=== PATIENT | female | born 1985 | race African-American/Black ===

== ENCOUNTER 2017-11-11 09:32 | Observation (INO) | payer BC ==
[~2017-11-11] VITALS: Ht 152.4 cm; Wt 151.5 kg
[~2017-11-11 09:32] MED LIST: ALBUTEROL SULF8.5 GM INH; BENADRYL25 M1 PO; CLOMID PO; DICYCLOMINE HCL20 MG PO; ESTRACE42.5 GM TOP; FOLIC ACID0.4 MG PO; MECLIZINE HCL12.5 MG PO; METFORMIN HCL500 MG PO; NO MEDS; ZOFRAN ODT4 MG PO
[2017-11-11] MEDS ORDERED: ONDANSETRON HCL INJ 2 MG/ML VIAL IV STA (09:45)
[2017-11-11] MEDS ORDERED: SODIUM CHLORIDE 0.9% 1000ML 1,000 ML IV STA (09:45)
[2017-11-11] MEDS ORDERED: FAMOTIDINE 20 MG/2 ML VIAL IV STA (09:45)
[2017-11-11] MEDS ORDERED: MORPHINE SULFATE 4 MG/ML SYR IV STA (09:45)
[2017-11-11] MEDS ORDERED: MORPHINE SULFATE 2 MG/ML SYR ONE (10:05)
[2017-11-11 10:09] LABS: BASOPHILS % 0.2 % (0.0-1.0); EOSINOPHILS # (AUTO) 0.1 (0.0-0.4); EOSINOPHILS % 2.4 % (0.0-6.0); HEMATOCRIT 35.6 % (34.2-44.1); HEMOGLOBIN 11.1 g/dL (12.0-16.0); LYMPHOCYTES # (AUTO) 1.5 (1.0-3.2); LYMPHOCYTES % 25.6 % (18.0-39.1); MEAN CORPUSCULAR HGB CONC 31.2 g/dL (31-35); MEAN CORPUSCULAR VOLUME 70.5 fL (81-99); MONOCYTES # (AUTO) 0.5 (0.2-0.8); MONOCYTES % 7.9 % (4.4-11.3); NEUTROPHILS # (AUTO) 3.7 (2.1-6.9); NEUTROPHILS % 63.4 % (38.7-80.0); PLATELET COUNT 248 x10e3/uL (140-360); RED BLOOD COUNT 5.05 x10e6/uL (3.6-5.1); RED CELL DISTRIBUTION WIDTH 18.5 % (11.7-14.4)
[2017-11-11 10:24] LABS: BILIRUBIN,URINE NEGATIVE (NEGATIVE); CLARITY,URINE HAZY (CLEAR); COLOR,URINE YELLOW (YELLOW); KETONES,URINE NEGATIVE (NEGATIVE); LEUKOCYTE ESTERASE ,URINE NEGATIVE (NEGATIVE); NITRITE,URINE NEGATIVE (NEGATIVE); PROTEIN,URINE DIPSTICK NEGATIVE (NEGATIVE); URINE UROBILINOGEN 0.2 mg/dL (0.2 - 1)
[2017-11-11 10:33] LABS: ALANINE AMINOTRANSFERASE 8 IU/L (0-55); ALBUMIN 3.2 g/dL (3.5-5.0); ALBUMIN/GLOBULIN RATIO 0.7 (0.8-2.0); ALKALINE PHOSPHATASE 78 IU/L (40-150); AMYLASE 64 U/L (25-125); ANION GAP 11.7 mmol/L (8-16); BLOOD UREA NITROGEN 10 mg/dL (7-26); BUN/CREATININE RATIO 13 (6-25); CALCIUM 9.2 mg/dL (8.4-10.2); CARBON DIOXIDE 27 mmol/L (22-29); CHLORIDE 102 mmol/L (98-107); CREATINE KINASE 49 IU/L (29-168); CREATININE, SERUM 0.76 mg/dL (0.57-1.11); EST GLOMERULAR FILTRATION RATE > 60 ML/MIN (60-); GLUCOSE 92 mg/dL (74-118); LIPASE 10 U/L (8-78); POTASSIUM 3.7 mmol/L (3.5-5.1); SODIUM 137 mmol/L (136-145)
[2017-11-11 10:36] LABS: BACTERIA,URINE FEW /HPF; EPITHELIAL CELLS,URINE MANY /LPF; RBC,URINE 0-5 /HPF (0-5); WBC,URINE (MAN) 0-5 /HPF (0-5)
[2017-11-11 10:37] LABS: PREGNANCY TEST, URINE NEGATIVE (NEGATIVE)
[2017-11-11] MEDS ORDERED: LIDOCAINE VISC 2% SOLN 15 ML UDC PO ONE (11:45)
[2017-11-11] MEDS ORDERED: MAGNESIUM/ALUMINUM/SIMETHICONE 30 ML UDC PO ONE (11:45)
[2017-11-11] MEDS ORDERED: BELLADONNA ALK/PHENOBARBITAL 5 ML UDC PO ONE (11:45)
[2017-11-11] MEDS ORDERED: PANTOPRAZOLE INJ 80 MG in SODIUM CHLORIDE 0.9% 100 ML IV SCH ×2 (12:45→13:30)
[2017-11-11] MEDS: PANTOPRAZOL 40MG/SOD CHL 0.9% 50 ML IV SCH ×2 (13:16→18:34)
[2017-11-11] MEDS: SODIUM CHLORIDE 0.9% 1000ML 1,000 ML IV SCH (13:16)
[2017-11-11 13:39] VITALS: BP_SYST 125; BP_SYST 162; BP_DIAS 55; BP_DIAS 62
[2017-11-11 13:51] VITALS: BP 125/62
[2017-11-11] MEDS: MORPHINE SULFATE 2 MG/ML SYR IV PRN (16:10)
[2017-11-11 16:27] VITALS: BP 123/60
[2017-11-11 20:00] VITALS: BP 97/54
[2017-11-12] VITALS (8 sets, daily range): BP systolic 99–132; BP diastolic 53–77
[2017-11-12] MEDS: PANTOPRAZOL 40MG/SOD CHL 0.9% 50 ML IV SCH ×5 (00:47→19:59)
[2017-11-12] MEDS: SODIUM CHLORIDE 0.9% 1000ML 1,000 ML IV SCH ×4 (00:47→20:34)
[2017-11-12] MEDS: MORPHINE SULFATE 2 MG/ML SYR IV PRN (03:46)
[2017-11-12] MEDS: ONDANSETRON HCL INJ 2 MG/ML VIAL IV PRN ×2 (03:46→12:38)
[2017-11-12 07:14] LABS: BASOPHILS % 0.3 % (0.0-1.0); EOSINOPHILS # (AUTO) 0.1 (0.0-0.4); EOSINOPHILS % 2.3 % (0.0-6.0); HEMATOCRIT 33.3 % (34.2-44.1); HEMOGLOBIN 10.5 g/dL (12.0-16.0); LYMPHOCYTES # (AUTO) 2.2 (1.0-3.2); LYMPHOCYTES % 35.1 % (18.0-39.1); MEAN CORPUSCULAR HEMOGLOBIN 22.1 pg (28-32); MEAN CORPUSCULAR HGB CONC 31.5 g/dL (31-35); MONOCYTES # (AUTO) 0.4 (0.2-0.8); MONOCYTES % 6.7 % (4.4-11.3); NEUTROPHILS # (AUTO) 3.4 (2.1-6.9); NEUTROPHILS % 55.1 % (38.7-80.0); PLATELET COUNT 218 x10e3/uL (140-360); RED BLOOD COUNT 4.76 x10e6/uL (3.6-5.1); RED CELL DISTRIBUTION WIDTH 18.2 % (11.7-14.4)
[2017-11-12 08:14] LABS: % IRON SATURATION 8 % (15-50); IRON 22 ug/dL (50-170); TOTAL IRON BINDING CAPACITY 287 ug/dL (261-478); TRANSFERRIN 205 mg/dL (180-382)
--- NOTE | 2017-11-12 12:29 | Diagnostic Imaging Report ---
PROCEDURE:US GALLBLADDER COMPARISON:CT of the abdomen and pelvis from 04/28/2016 INDICATIONS:Abdomen Pain TECHNIQUE: Brizuela-scale and color doppler transverse and longitudinal images of the right upper quadrant of the abdomen were obtained. FINDINGS: Limited examination due to excessive bowel gas. Liver: 17.0 cm in right mid-clavicular line, mildly enlarged. Normal echogenicity. No masses. Main portal vein: 0.8 cm Gallbladder: No stones or sludge. No pericholecystic fluid or wall thickening. Common Bile Duct: 0.2 cm Sonographic Avendano's sign: Negative Right kidney: 10.0 cm. Normal echogenicity. No solid masses or hydronephrosis. Pancreas: Pancreas is poorly visualized due to overlying bowel gas. Inferior vena cava: Visualized portions appear patent. Aorta: Most of the mid and distal aorta is obscured due to overlying bowel gas. Ascites: None in the right upper quadrant of the abdomen. CONCLUSION: 1. Limited examination. 2. Very mild hepatomegaly. Otherwise normal right upper quadrant ultrasound. Dictated by: Daniele Church M.D. on 11/12/2017 at 12:28 Electronically approved by: Daniele Church M.D. on 11/12/2017 at 12:28
[2017-11-12] MEDS ORDERED: MAGNESIUM HYDROXIDE 30 ML UDC PO ONE (14:00)
[2017-11-12] MEDS ORDERED: SINCALIDE 3 MCG/VIAL INJ ONE (14:13)
[2017-11-12] MEDS ORDERED: MIDAZOLAM HCL 2 MG/2 ML VIAL ONE (14:33)
[2017-11-12] MEDS ORDERED: FENTANYL CITRATE/PF 100MCG/2 ML INJ ONE (14:33)
[2017-11-12] MEDS ORDERED: MAGNESIUM HYDROXIDE 30 ML UDC PO NR (17:30)
[2017-11-12] MEDS ORDERED: PROPOFOL IV EMULSION 10 MG/ML 50 ML VIAL ONE (18:46)
--- NOTE | 2017-11-12 18:56 | Diagnostic Imaging Report ---
Hepatobiliary Scan with Gallbladder Ejection Fraction Clinical information: 32 F with intractable abdominal pain x 3 weeks. Technique: Following intravenous administration of 7.0 millicuries of Tc-99m mebrofenin, dynamic images of the abdomen in the anterior projection were obtained through 42 minutes. Sincalide (CCK analog) 3.0 micrograms was administered intravenously over 30 minutes with additional imaging for determination of gallbladder ejection fraction. Discussion: Perfusion of the liver is normal. Extraction of tracer by the liver parenchyma is normal. Tracer appears promptly within the biliary tract. The gallbladder begins to fill at 8 minutes post injection of tracer and fills adequately. Tracer is seen in the small bowel during the sincalide infusion. There is no contractile response by the gallbladder to the pharmacologic dose of sincalide. No emptying of the gallbladder occurs during the 30 minute infusion. Impression: 1. Filling of the gallbladder excludes acute cystic duct obstruction/acute cholecystitis. 2. The gallbladder ejection fraction is undefined as there is no emptying of the gallbladder during the infusion of sincalide. This absence of a contractile response to sincalide supports the clinical diagnosis of chronic cholecystitis/gallbladder dyskinesia. Signed by: Dr. Jes Kang M.D. on 11/12/2017 6:53 PM
[2017-11-13] VITALS (8 sets, daily range): BP systolic 105–136; BP diastolic 53–80
[2017-11-13] MEDS: PANTOPRAZOL 40MG/SOD CHL 0.9% 50 ML IV SCH ×5 (01:17→20:30)
[2017-11-13] MEDS: SODIUM CHLORIDE 0.9% 1000ML 1,000 ML IV SCH ×3 (04:34→14:14)
[2017-11-13] MEDS ORDERED: BUPIVACAINE 0.25% 30ML SDV INJ ONE (12:33)
[2017-11-13] MEDS ORDERED: HYDROCODONE/APAP 7.5MG-325MG 1 EA TAB PO PRN (14:15)
[2017-11-13] MEDS ORDERED: FENTANYL CITRATE/PF 100MCG/2 ML INJ ONE ×2 (14:30→19:14)
--- NOTE | 2017-11-13 15:50 | Operative Report ---
DATE OF PROCEDURE: November 13, 2017 PREOPERATIVE DIAGNOSIS: Biliary dyskinesia. POSTOPERATIVE DIAGNOSIS: Biliary dyskinesia. OPERATION PERFORMED: Laparoscopic cholecystectomy. CARDIAC MONITOR: Dr. Vinnie Mcdonald. ANESTHESIA: General endotracheal. COMPLICATIONS: None. ESTIMATED BLOOD LOSS: Minimal. DESCRIPTION OF PROCEDURE: With the patient lying in bed in the supine position under good general endotracheal anesthesia, the abdomen was prepped with Betadine solution and draped in the usual manner. A Veress needle was introduced into the umbilicus and pneumoperitoneum was established without any difficulty. An 11 mm trocar was placed in the umbilicus and a 10 mm video laparoscope was placed into the intraabdominal cavity. Under direct vision, three 5 mm trocars were placed in the right subcostal region and extra 5 mm trocar was placed in the left upper abdomen to allow for retraction of the redundant bowel. Laparoscopy at this point revealed the patient had some significant fatty infiltration of the liver. The gallbladder had some changes that were consistent with cholesterolosis. The rest of the abdominal exploration appeared to be within normal limits. The peritoneum overlying the neck of the gallbladder was then opened and the cystic duct was identified. The cystic duct was followed to its junction with the common duct. Cystic duct was then circumferentially dissected away from the common duct, doubly clipped and divided. The cystic artery was similarly doubly clipped and divided. Gallbladder was then slowly and carefully taken off of the liver bed using the cautery scissors and perfect hemostasis was ascertained. Gallbladder was grasped through the umbilical port and removed without any difficulty. Video laparoscopy was then again carried out. Perfect hemostasis was ascertained. All of the excess fluid was aspirated. A Surgicel was left in the surgical bed and pneumoperitoneum was evacuated and all the trocars were removed under direct vision. Midline fascia at the umbilicus was then closed with a [id number] of 0 Vicryl. All layers were infiltrated on the way out with solution of 1/4 percent Marcaine. Subcutaneous tissue was approximated with 3-0 Vicryl and the skin was closed with subcuticular 5-0 Vicryl. Benzoin, Steri-Strips and Band-Aids were applied. The sponge, lap and needle count was correct. The patient tolerated the procedure well and returned to the recovery room in stable condition. Job#: [id number]
[2017-11-13] MEDS: MORPHINE SULFATE 2 MG/ML SYR IV PRN (16:15)
[2017-11-13] MEDS ORDERED: MIDAZOLAM HCL 2 MG/2 ML VIAL ONE (19:14)
[2017-11-13] MEDS ORDERED: DEXAMETHASONE SOD PHOS INJ 4 MG/ML VIAL ONE (19:39)
[2017-11-13] MEDS ORDERED: ONDANSETRON HCL INJ 2 MG/ML VIAL ONE (19:39)
[2017-11-13] MEDS ORDERED: LIDOCAINE HCL 2% JELLY 5 ML TUBE ONE (19:39)
[2017-11-13] MEDS ORDERED: NEOSTIGMINE 5 MG/5ML SYR ONE (19:39)
[2017-11-13] MEDS ORDERED: GLYCOPYRROLATE INJ 1MG/ 5 ML SYR ONE (19:39)
[2017-11-13] MEDS ORDERED: ROCURONIUM BROMIDE 10 MG/ML 5ML VIAL ONE (19:39)
[2017-11-13] MEDS ORDERED: DESFLURANE 240 ML BTL INH ONE (19:39)
[2017-11-13] MEDS ORDERED: SUCCINYLCHOLINE 200 MG/10 ML SYR ONE (19:39)
[2017-11-13] MEDS ORDERED: PROPOFOL IV EMULSION 10 MG/ML 20 ML VIAL ONE (19:39)
[2017-11-13] MEDS ORDERED: LIDOCAINE HCL 2% LOCAL INJ 5 ML SDV VIAL INJ ONE (19:39)
[2017-11-14] VITALS: BP 109/57
[2017-11-14] MEDS: MORPHINE SULFATE 2 MG/ML SYR IV PRN ×4 (00:12→14:52)
[2017-11-14] MEDS: SODIUM CHLORIDE 0.9% 1000ML 1,000 ML IV SCH ×2 (03:39→10:14)
[2017-11-14 04:00] VITALS: BP 115/59
[2017-11-14] MEDS: PANTOPRAZOL 40MG/SOD CHL 0.9% 50 ML IV SCH ×3 (04:31→16:30)
[2017-11-14 07:04] LABS: BASOPHILS % 0.2 % (0.0-1.0); EOSINOPHILS % 0.4 % (0.0-6.0); HEMATOCRIT 30.4 % (34.2-44.1); HEMOGLOBIN 9.5 g/dL (12.0-16.0); LYMPHOCYTES # (AUTO) 1.8 (1.0-3.2); LYMPHOCYTES % 22.4 % (18.0-39.1); MEAN CORPUSCULAR HEMOGLOBIN 22.1 pg (28-32); MEAN CORPUSCULAR HGB CONC 31.3 g/dL (31-35); MEAN CORPUSCULAR VOLUME 70.9 fL (81-99); MONOCYTES # (AUTO) 0.5 (0.2-0.8); MONOCYTES % 6.7 % (4.4-11.3); NEUTROPHILS # (AUTO) 5.7 (2.1-6.9); NEUTROPHILS % 69.9 % (38.7-80.0); PLATELET COUNT 160 x10e3/uL (140-360); RED BLOOD COUNT 4.29 x10e6/uL (3.6-5.1); RED CELL DISTRIBUTION WIDTH 18.5 % (11.7-14.4)
[2017-11-14 07:18] LABS: ANION GAP 12.9 mmol/L (8-16); BLOOD UREA NITROGEN 8 mg/dL (7-26); BUN/CREATININE RATIO 12 (6-25); CALCIUM 8.4 mg/dL (8.4-10.2); CARBON DIOXIDE 25 mmol/L (22-29); CHLORIDE 104 mmol/L (98-107); CREATININE, SERUM 0.68 mg/dL (0.57-1.11); EST GLOMERULAR FILTRATION RATE > 60 ML/MIN (60-); GLUCOSE 93 mg/dL (74-118); POTASSIUM 3.9 mmol/L (3.5-5.1); SODIUM 138 mmol/L (136-145)
[2017-11-14 07:44] LABS: LARGE PLATELETS FEW; PLATELET CLUMPS FEW; RBC MORPHOLOGY COMMENT NORMAL
[2017-11-14 07:45] LABS: PLATELET ESTIMATE ADEQUATE
[2017-11-14 08:00] VITALS: BP 117/70
[2017-11-14 08:30] VITALS: BP 117/70
[2017-11-14 16:00] VITALS: BP 120/70
== END 2017-11-14 18:12 | disposition home or self-care (01) ==
LOC: ER 09:32 → ERHOLD 12:56 → MED/SURG 13:02
DX: K82.4 Cholesterolosis of gallbladder (principal); K82.8 Other specified diseases of gallbladder; R10.13 Epigastric pain; E66.01 Morbid (severe) obesity due to excess calories; Z68.44 Body mass index [BMI] 60.0-69.9, adult; K21.0 Gastro-esophageal reflux disease with esophagitis; D50.9 Iron deficiency anemia, unspecified; E11.9 Type 2 diabetes mellitus without complications; J45.909 Unspecified asthma, uncomplicated; K29.50 Unspecified chronic gastritis without bleeding; B96.81 Helicobacter pylori [H. pylori] as the cause of diseases classified elsewhere
CPT/HCPCS: 36415 ×4; 43239; 47562; 71046; 76705; 78227; 80048; 80053; 81001; 81025; 82150; 82550; 82553; 82948 ×4; 83540; 83690; 84466; 84484; 85025 ×3; 85045; 85610; 88304; 88305; 88312; 93005 ×2; 96360; 99284; A9537; C1766; G0378 ×4; J1100; J2001 ×2; J2250 ×2; J2270 ×4; J2405 ×3; J2805; J7030 ×4; J7050

== ENCOUNTER 2017-11-21 20:45 | Emergency (ER) | payer BC ==
[~2017-11-21] VITALS: Ht 180.3 cm; Wt 151.5 kg
--- OUTSIDE RECORDS SUMMARY | 2017-11-21 20:48 | XMS REPORT | Continuity of Care Document ---
Author Author [facility] Organization [facility] Address [address] [place] [address] Phone Unavailable Care Team Providers Care Industrial Hygiene Technician Name Role Phone ANETTE EARLY MD PCP Insurance Providers Guarantor Ira Figueroa Address [address] [place] [address] Email [email or web address] Payer [facility] Ppo Policy Number [id number] Subscriber's Name Lucina Figueroa Jr Relationship 01 Group Number [id number] Group Name [facility] [employer] Effective Date 17 Advance Directives Directive Response Recorded Date/Time Does the patient have an advance directive? No 11/11/17 1:42pm If yes, is advance directive on file with [facility]? No 11/11/17 1:42pm If not on file with [facility] will patient provide a copy? No 11/11/17 1:42pm Do you have a Directive to Physician? No 11/11/17 11:14am Do you have a Medical Power of Rn Private Duty? No 11/11/17 11:14am Do you have an out of hospital Do Not Resuscitate Order? No 11/11/17 11:14am Do you have any special needs we should be aware of? No 11/11/17 11:14am Do you have a support person here with you today? Yes 11/11/17 11:14am Did patient receive Notice of Privacy Practices? Yes 11/11/17 11:14am Did patient receive patient rights and responsibilities? Yes 11/11/17 11:14am Problems Medical Problem Onset Date Status Irregular menstrual bleeding Unknown Acute Medications Current Home Medications Medication Dose Units Route Directions Days Qty Instructions Start Date Albuterol Sulfate (Albuterol Sulfate Hfa) 8.5 Gm Hfa.aer.ad 2 Inh Inhalation As Needed Dicyclomine Hcl 20 Mg Tablet Mg Oral Four Times Daily Diphenhydramine Hcl (Benadryl) 25 Mg Capsule 50 Mg Oral Bedtime Meclizine Hcl 12.5 Mg Tablet Mg Oral As Needed Metformin Hcl 500 Mg Tablet 500 Mg Oral Twice A Day 60 Tab Ondansetron (Zofran Odt) 4 Mg Tab.rapdis Mg Oral As Needed Past Home Medications Medication Directions Ordered Status Clomid , 50 Mg Oral Daily Discontinued Estradiol (Estrace) 42.5 Gm Cr, 42.5 Each Topically Twice A Day Discontinued Folic Acid 0.4 Mg Tablet, 0.4 Mg Oral Daily Discontinued No Meds , Discontinued Social History Social History Problem Response Recorded Date/Time Onset Date Status Hx Psychiatric Problems No 11/11/2017 1:42pm Not Applicable Not Applicable Hx Eating Disorder No 11/11/2017 1:42pm Not Applicable Not Applicable Hx Substance Use Disorder No 11/11/2017 1:42pm Not Applicable Not Applicable Hx Depression No 11/11/2017 1:42pm Not Applicable Not Applicable Hx Alcohol Use Y - Wine occ one bottle weekly 11/11/2017 1:42pm Not Applicable Not Applicable Hx Substance Use Treatment No 11/11/2017 1:42pm Not Applicable Not Applicable Hx Physical Abuse No 11/11/2017 1:42pm Not Applicable Not Applicable Smoking Status Start Date Stop Date Never Smoker Hospital Discharge Instructions No hospital discharge instruction information available. Plan of Care Discharge Date 11/14/17 6:12pm Disposition HOME, SELF-CARE Instructions/Education Provided Laparoscopy Forms Provided Post Op Lap Claudine Instructions Prescriptions See Medication Section Additional Instructions/Education GI soft No driving unitl seen by the No heavy lifting greater than a gallon of milk May ride in a car May shower Functional Status Query Response Date Recorded Assistive Devices None November 11, 2017 1:51pm Ambulation Ability Independent November 11, 2017 1:51pm Toileting Ability Independent November 14, 2017 8:00am Allergies, Adverse Reactions, Alerts Allergen Type Severity Reaction Status Last Updated Penicillin Allergy Severe HIVES, SOB Active 11/08/14 Iodine Allergy Unknown HIVES/SOB Active 11/09/17 Immunizations No immunization information available. Vital Signs Acute Vital Signs Vital Response Date/Time Temperature (Fahrenheit) 98.4 degrees F (97.6 - 99.5) 11/14/2017 4:00pm Pulse Pulse Rate (adult) 81 bpm (60 - 90) 11/14/2017 4:00pm Respiratory Rate 22 bpm (12 - 24) 11/14/2017 4:00pm Blood Pressure 120/70 mm Hg 11/14/2017 4:00pm Height 5 ft 0 in 11/11/2017 9:36am Weight 334.06 lb 11/12/2017 7:48am Body Mass Index 65.2 kg/m^2 11/12/2017 7:48am Results Laboratory Results Test Name Result Units Flags Reference Collection Date/Time Result Date/ Time Comments Urine Amorphous Sediment FEW FEW 02/27/2017 2:07pm 02/27/2017 4:01pm White Blood Count 8.12 x10e3/uL 4.8-10.8 11/14/2017 6:40am 11/14/2017 7 :11am Red Blood Count 4.29 x10e6/uL 3.6-5.1 11/14/2017 6:40am 11/14/2017 7: 11am Hemoglobin 9.5 g/dL L 12.0-16.0 11/14/2017 6:40am 11/14/2017 7:11am Hematocrit 30.4 % L 34.2-44.1 11/14/2017 6:40am 11/14/2017 7:11am Mean Corpuscular Volume 70.9 fL L 81-99 11/14/2017 6:40am 11/14/2017 7: 11am Mean Corpuscular Hemoglobin 22.1 pg L 28-32 11/14/2017 6:402017 7:11am Mean Corpuscular Hemoglobin Concent 31.3 g/dL 31-35 11/14/2017 6:4011/14/2017 7:11am Red Cell Distribution Width 18.5 % H 11.7-14.4 11/14/2017 6:402017 7:11am Platelet Count 160 x10e3/uL 140-360 11/14/2017 6:4011/14/2017 7: 11am Neutrophils (%) (Auto) 69.9 % 38.7-80.0 11/14/2017 6:4011/14/2017 7: 11am Lymphocytes (%) (Auto) 22.4 % 18.0-39.1 11/14/2017 6:4011/14/2017 7: 11am Monocytes (%) (Auto) 6.7 % 4.4-11.3 11/14/2017 6:4011/14/2017 7: 11am Eosinophils (%) (Auto) 0.4 % 0.0-6.0 11/14/2017 6:4011/14/2017 7: 11am Basophils (%) (Auto) 0.2 % 0.0-1.0 11/14/2017 6:4011/14/2017 7:11am IM GRANULOCYTES % 0.4 % 0.0-1.0 11/14/2017 6:4011/14/2017 7:11am Neutrophils # (Auto) 5.7 2.1-6.9 11/14/2017 6:4011/14/2017 7:11am Lymphocytes # (Auto) 1.8 1.0-3.2 11/14/2017 6:4011/14/2017 7:11am Monocytes # (Auto) 0.5 0.2-0.8 11/14/2017 6:4011/14/2017 7:11am Eosinophils # (Auto) 0.0 0.0-0.4 11/14/2017 6:4011/14/2017 7:11am Basophils # (Auto) 0.0 0.0-0.1 11/14/2017 6:4011/14/2017 7:11am Absolute Immature Granulocyte (auto 0.03 x10e3/uL 0-0.1 11/14/2017 6: 40am 11/14/2017 7:11am Platelet Estimate ADEQUATE 11/14/2017 6:40am 11/14/2017 7:45am Clumped Platelets FEW NONE 11/14/2017 6:40am 11/14/2017 7:45am Large Platelets FEW 11/14/2017 6:40am 11/14/2017 7:45am Red Cell Morphology Comment NORMAL 11/14/2017 6:40am 11/14/2017 7: 45am Percent Reticulocyte Count 1.1 % 0.8-2.2 11/12/2017 6:57am 11/12/2017 7 :24am Urine Color YELLOW YELLOW 11/11/2017 9:40am 11/11/2017 10:24am Urine Clarity HAZY CLEAR 11/11/2017 9:40am 11/11/2017 10:24am Urine Specific Allen 1.015 1.010-1.025 11/11/2017 9:40am 2017 10:24am Urine pH 5 5 - 7 11/11/2017 9:40am 11/11/2017 10:24am Urine Leukocyte Esterase NEGATIVE NEGATIVE 11/11/2017 9:40am 2017 10:24am Urine Nitrite NEGATIVE NEGATIVE 11/11/2017 9:40am 11/11/2017 10:24am Urine Protein NEGATIVE NEGATIVE 11/11/2017 9:40am 11/11/2017 10:24am Urine Glucose (UA) NEGATIVE NEGATIVE 11/11/2017 9:40am 11/11/2017 10: 24am Urine Ketones NEGATIVE NEGATIVE 11/11/2017 9:40am 11/11/2017 10:24am Urine Urobilinogen 0.2 mg/dL 0.2 - 1 11/11/2017 9:40am 11/11/2017 10: 24am Urine Bilirubin NEGATIVE NEGATIVE 11/11/2017 9:40am 11/11/2017 10: 24am Urine Blood NEGATIVE NEGATIVE 11/11/2017 9:40am 11/11/2017 10:24am Urine WBC 0-5 /HPF 0-5 11/11/2017 9:40am 11/11/2017 10:36am Urine RBC 0-5 /HPF 0-5 11/11/2017 9:40am 11/11/2017 10:36am Urine Bacteria FEW /HPF NONE 11/11/2017 9:40am 11/11/2017 10:36am Urine Epithelial Cells MANY /LPF NONE 11/11/2017 9:40am 11/11/2017 10: 36am Urine Test NEGATIVE NEGATIVE 11/11/2017 9:40am 11/11/2017 10:37am Sodium Level 138 mmol/L 136-145 11/14/2017 6:40am 11/14/2017 7:23am Potassium Level 3.9 mmol/L 3.5-5.1 11/14/2017 6:40am 11/14/2017 7:23am Chloride Level 104 mmol/L 98-107 11/14/2017 6:40am 11/14/2017 7:23am Carbon Dioxide Level 25 mmol/L 22-11/14/2017 6:40am 11/14/2017 7: 23am Anion Gap 12.9 mmol/L 8-11/14/2017 6:40am 11/14/2017 7:23am Blood Urea Nitrogen 8 mg/dL 711/14/2017 6:40am 11/14/2017 7:23am Creatinine 0.68 mg/dL 0.57-1.11 11/14/2017 6:40am 11/14/2017 7:23am BUN/Creatinine Ratio 12 611/14/2017 6:40am 11/14/2017 7:23am Estimat Glomerular Filtration Rate > 60 ML/MIN 6011/14/2017 6:40am 7:23am Ranges were taken from the National Kidney Disease Education Program and the National Kid[employer] Foundation literature. Reference ranges: 60 or greater: Normal 16-59 (for 3 consecutive months): Chronic kidney disease 15 or less: Kidney failure Glucose Level 93 mg/dL 74-118 11/14/2017 6:40am 11/14/2017 7:23am Calcium Level 8.4 mg/dL 8.4-10.2 11/14/2017 6:40am 11/14/2017 7:23am Bedside Glucose 95 mg/dL 70-120 11/14/2017 4:30pm 11/14/2017 4:46pm Meter ID: [id number] Iron Level 22 ug/dL L 50-170 11/12/2017 7:00am 11/12/2017 8:17am Total Iron Binding Capacity 287 ug/dL 261-478 11/12/2017 7:00am 2017 8:17am Percent Iron Saturation 8 % L 15-50 11/12/2017 7:00am 11/12/2017 8:17am Transferrin 205 mg/dL 180-382 11/12/2017 7:00am 11/12/2017 8:17am Total Bilirubin 0.7 mg/dL 0.2-1.2 11/11/2017 9:55am 11/11/2017 10:33am Aspartate Amino Transf (AST/SGOT) 9 IU/L 5-34 11/11/2017 9:55am 2017 10:33am Alanine Aminotransferase (ALT/SGPT) 8 IU/L 0-55 11/11/2017 9:55am 11/11 10:33am Total Protein 7.9 g/dL 6.5-8.1 11/11/2017 9:55am 11/11/2017 10:33am Albumin 3.2 g/dL L 3.5-5.0 11/11/2017 9:55am 11/11/2017 10:33am Globulin 4.7 g/dL H 2.3-3.5 11/11/2017 9:55am 11/11/2017 10:33am Albumin/Globulin Ratio 0.7 L 0.8-2.0 11/11/2017 9:55am 11/11/2017 10: 33am Alkaline Phosphatase 78 IU/L 40-150 11/11/2017 9:55am 11/11/2017 10: 33am Creatine Kinase 49 IU/L 29-168 11/11/2017 9:55am 11/11/2017 10:33am Creatine Kinase MB 0.50 ng/mL 0-5.0 11/11/2017 9:55am 11/11/2017 10: 43am Troponin I 0.00 ng/mL 0.0-0.78 11/11/2017 9:55am 11/11/2017 10:43am Amylase Level 64 U/L 25-125 11/11/2017 9:55am 11/11/2017 10:33am Lipase 10 U/L 8-78 11/11/2017 9:55am 11/11/2017 10:33am Procedures Procedure Status Date Provider(s) EGD with biopsy Completed 11/12/17 NAETTE EARLY MD Laparoscopic cholecystectomy Completed 11/13/17 BRANDEN DELACRUZ MD US gallbladder Active 11/12/17 BIJU EARLY MD Encounters Encounter Location Arrival/Admit Date Discharge/Depart Date Attending Provider Discharged Inpatient (obs) [facility] 11/11/17 12:56pm 6:12pm BIJU EARLY MD Departed Emergency Room [facility] 02/27/17 1:45pm 2:57pm CARISSA RUBIO MD
--- OUTSIDE RECORDS SUMMARY | 2017-11-21 20:48 | XMS REPORT | Clinical Summary ---
Author Author ROHIT [facility] Organization [facility] Address Unknown Phone Unavailable Care Team Providers Care Senior Care Specialist Name Role Phone PCP Unavailable Allergies Active Allergy Reactions Severity Noted Date Comments Penicillins Hives High 06/28/2013 Dye Hives 12/12/2016 Current Medications Prescription Sig. Disp. Refills Start End Date Status Date albuterol (ACCUNEB) 1.25 Take 1 ampule by Active mg/3 mL nebulizer nebulization every 6 solution (six) hours as needed. oopbebmq-zmgw-qpn-folic Take by mouth. Active acid (SQGLEAZLBOLP-ZQIJ-HZQAZB LS-FOLIC ACID) 3,500-18-0.4 unit-mg-mg Chew norethindrone (AYGESTIN) Take 5 mg by mouth daily. Active 5 mg tablet folic acid (FOLVITE) 1 MG Take 1 mg by mouth daily. Active tablet metFORMIN (GLUCOPHAGE) Take 1,000 mg by mouth 2 Active 1000 MG tablet (two) times daily with breakfast and dinner. albuterol, refill, 90 Inhale by mouth via 12/15/19 Discontin mcg/actuation Aero inhaler every 4 (four) 17 ued hours. naproxen (NAPROSYN) 500 Take 1 tablet (500 mg 30 tablet 0 04/29/20 04/29/20 Discontin MG tablet total) by mouth every 12 17 17 ued (twelve) hours as needed (pain) for up to 15 days. naproxen (NAPROSYN) 500 Take 1 tablet (500 mg 30 tablet 0 04/29/20 05/14/20 MG tablet total) by mouth every 12 17 17 (twelve) hours as needed (pain) for up to 15 days. Active Problems Problem Noted Date Abnormal EKG 12/12/2016 Acute chest pain 12/12/2016 Encounters Date Type Specialty Care Team Description 04/29/2017 Emergency Emergency Medicine Russell Jama MD Left arm pain (Primary Dx) 12/14/2016 Orders Only General Internal Medicine 12/13/2016 Orders Only General Internal Medicine 12/12/2016 Emergency General Internal Medicine Mauricio Martin MD Acute chest pain;Abnormal - Neville Giraldo EKG 12/14/2016 MD Enrique 12/12/2016 Orders Only General Internal Medicine after 11/20/2016 Family History Medical History Relation Name Comments Unremarkable Brother Unremarkable Brother Unremarkable Brother Cancer Father Hypertension Maternal Grandmother Hypertension Mother Hypertension Sister Relation Name Status Comments Brother Alive Brother Alive Brother Alive Father Maternal Grandmother Mother Alive Sister Alive Social History Tobacco Use Types Packs/Day Years Used Date Never Smoker Smokeless Tobacco: Never Used Alcohol Use Drinks/Week oz/Week Comments Yes 1 Glasses of 0.6 social wine Sex Assigned at Date Recorded Not on file Last Filed Vital Signs Vital Sign Reading Time Taken Blood Pressure 100/55 04/29/2017 11:37 AM CDT Pulse 68 04/29/2017 11:37 AM CDT Temperature 36.8 C (98.2 F) 04/29/2017 11:37 AM CDT Respiratory Rate 18 04/29/2017 11:37 AM CDT Oxygen Saturation 99% 04/29/2017 11:37 AM CDT Inhaled Oxygen - - Concentration Weight 143.8 kg (317 lb) 04/29/2017 10:10 AM CDT Height 149.9 cm (4' 11") 04/29/2017 10:10 AM CDT Body Mass Index 64.03 04/29/2017 10:10 AM CDT Plan of Treatment Not on file Results * XR humerus 2 views left (04/29/2017 10:59 AM) Specimen Performing Laboratory GE RIS Narrative FINAL REPORT Left humerus, two images HISTORY: Arm pain COMPARISON: None IMPRESSION: The humerus is intact. Soft tissues are unremarkable. Signed: Josse Garsia MD Report Verified Date/Time:04/29/2017 11:17:48 Reading Location: [address] Transitional Reading Room Procedure Note Interface, External Ris In - 04/29/2017 11:19 AM CDT FINAL REPORT Left humerus, two images HISTORY: Arm pain COMPARISON: None IMPRESSION: The humerus is intact. Soft tissues are unremarkable. Signed: Josse Garsia MD Report Verified Date/Time: 04/29/2017 11:17:48 Reading Location: [address] Reading Room * EKG-SCANNED (12/18/2016 12:33 PM) * RHYTHM STRIP - SCAN (12/18/2016 12:33 PM) * ED ECG Interpretation (12/15/2016 11:09 AM) Narrative Mauricio Martin MD 12/15/2016 11:09 AM History Chief Complaint Patient presents with Cough Chest Pain Hematemesis yesterday reports chronic use of motroin for rib pain Patient is a 31 y.o. female presenting with chest pain. Chest Pain The symptoms began 2 weeks ago. Duration of episode(s) is 2 weeks. Chest pain occurs constantly. The chest pain is unchanged. The pain is associated with nothing. At its most intense, the chest pain is at 7/10. The severity of the pain is moderate. The quality of the pain is described as dull. The chest pain location is chest. The pain does not radiate. Chest pain is worsened by nothing. Pertinent negatives for primary symptoms include no fever, no fatigue, no syncope, no shortness of breath, no cough, no wheezing, no palpitations, no abdominal pain, no nausea, no vomiting, no dizziness and no altered mental status. Pertinent negatives for associated symptoms include no claudication, no diaphoresis, no lower extremity edema, no near-syncope, no numbness, no orthopnea, no paroxysmal nocturnal dyspnea and no weakness. She tried nothing for the symptoms. There are no known risk factors. Pertinent negatives for family medical history include: family history of aortic dissection, no CAD in family, no connective tissue disease in family, no diabetes in family, no heart disease in family, no hyperlipidemia in family, no hypertension in family, no Marfan's syndrome in family, no early MO in family, no PE in family, no PVD in family, no sickle cell disease in family, no stroke in family, no sudden in family and no TIA in family. Procedure history is negative for cardiac catheterization, echocardiogram, persantine thallium, stress echo, stress thallium and exercise treadmill test. Allergies Allergen Reactions Penicillins Hives Dye Hives Past Medical History Diagnosis Date Asthma Prediabetes GERD (gastroesophageal reflux disease) Cardiomegaly 5 yrs ago Abnormal EKG 5 yrs ago Iron deficiency Past Surgical History Procedure Laterality Date Dilation and curettage of uterus Laparoscopic endometriosis fulguration Family History Problem Relation Age of Onset Hypertension Mother Cancer Father Hypertension Maternal Grandmother Hypertension Sister Unremarkable Brother Unremarkable Brother Unremarkable Brother History Substance Use Topics Smoking status: Never Smoker Smokeless tobacco: Never Used Alcohol Use: 0.6 oz/week 1 Glasses of wine per week Comment: social Review of Systems Constitutional: Negative for fever, diaphoresis and fatigue. Eyes: Negative. Respiratory: Negative for cough, shortness of breath and wheezing. Cardiovascular: Positive for chest pain. Negative for palpitations, orthopnea, claudication, syncope and near-syncope. Gastrointestinal: Negative for nausea, vomiting and abdominal pain. Endocrine: Negative. Genitourinary: Negative. Musculoskeletal: Negative. Skin: Negative. Allergic/Immunologic: Negative. Neurological: Negative for dizziness, weakness and numbness. Hematological: Negative. Psychiatric/Behavioral: Negative. All other systems reviewed and are negative. Physical Exam BP 96/48 | Pulse 73 | Temp(Src) 98 F (36.7 C) (Oral) | Resp 18 | Ht 1.524 m (5') | Wt 140.615 kg (310 lb) | BMI 60.54 kg/m2 | SpO2 100% | LMP 12/13/2016 Physical Exam Nursing note and vitals reviewed. Constitutional: She is oriented to person, place, and time. She appears well-developed and well-nourished. No distress. HENT: Head: Normocephalic and atraumatic. Nose: Nose normal. Mouth/Throat: Oropharynx is clear and moist. No oropharyngeal exudate. Eyes: Conjunctivae are normal. Pupils are equal, round, and reactive to light. Right eye exhibits no discharge. Left eye exhibits no discharge. Neck: Normal range of motion. Neck supple. No JVD present. No tracheal deviation present. No thyromegaly present. Cardiovascular: Normal rate, regular rhythm, normal heart sounds and intact distal pulses.Exam reveals no gallop and no friction rub. No murmur heard. Pulmonary/Chest: No stridor. Abdominal: Soft. Bowel sounds are normal. She exhibits no distension and no mass. There is no tenderness. There is no rebound and no guarding. Musculoskeletal: Normal range of motion. She exhibits no edema and no tenderness. Lymphadenopathy: She has no cervical adenopathy. Neurological: She is alert and oriented to person, place, and time. She displays normal reflexes. No cranial nerve deficit. She exhibits normal muscle tone. Coordination normal. Skin: Skin is warm and dry. No rash noted. She is not diaphoretic. No erythema. No pallor. Psychiatric: She has a normal mood and affect. Neurologic Exam Mental Status Oriented to person, place, and time. Level of consciousness: alert Cranial Nerves CN III, IV, Pupils are equal, round, and reactive to light. Ortho Exam ED Course ECG/EKG Interpretation Date/Time: 12/12/2016 3:39 PM Performed by: MAURICIO MARTIN Authorized by: MAURICIO MARTIN The ECG is interpreted as sinus rhythm. Rate is normal rate. Conduction: conduction normal. ST segments normal. T-waves upright in lead(s) III. [place] is normal. Other findings: no other findings. Other findings include: PRWP. Clinical Impression: abnormal ECG MDM Number of Diagnoses or Management Options Abnormal EKG: Acute chest pain: Amount and/or Complexity of Data Reviewed Clinical lab tests: reviewed and ordered Tests in the radiology section of CPT: ordered and reviewed Tests in the medicine section of CPT: ordered and reviewed Risk of Complications, Morbidity, and/or Mortality Presenting problems: high Diagnostic procedures: high Management options: high Clinical Impression 1. Acute chest pain 2. Abnormal EKG Discharge Medications Medication List CONTINUE taking these medications albuterol 1.25 mg/3 mL nebulizer solutionCommonly known as: ACCUNEB folic acid 1 MG tabletCommonly known as:FOLVITE metFORMIN 1000 MG tabletCommonly known as:GLUCOPHAGE ptbmbtiroavg-egnf-tpdfnakw-folic acid 3,500-18-0.4 unit-mg-mg ChewGeneric drug:mermokof-wein-vml-folic acid norethindrone 5 mg tabletCommonly known as:AYGESTIN STOP taking these medications albuterol (refill) 90 mcg/actuation Aero Plan admit Procedure Note Mauricio Martin MD - 12/12/2016 8:53 PM CDT Formatting of this note may be different from the original. History Chief Complaint Patient presents with Cough Chest Pain Hematemesis yesterday reports chronic use of motroin for rib pain Patient is a 31 y.o. female presenting with chest pain. Chest Pain The symptoms began 2 weeks ago. Duration of episode(s) is 2 weeks. Chest pain occurs constantly. The chest pain is unchanged. The pain is associated with nothing. At its most intense, the chest pain is at 7/10. The severity of the pain is moderate. The quality of the pain is described as dull. The chest pain location is chest. The pain does not radiate. Chest pain is worsened by nothing. Pertinent negatives for primary symptoms include no fever, no fatigue, no syncope, no shortness of breath, no cough, no wheezing, no palpitations, no abdominal pain, no nausea, no vomiting, no dizziness and no altered mental status. Pertinent negatives for associated symptoms include no claudication, no diaphoresis, no lower extremity edema, no near-syncope, no numbness, no orthopnea, no paroxysmal nocturnal dyspnea and no weakness. She tried nothing for the symptoms. There are no known risk factors. Pertinent negatives for family medical history include: family history of aortic dissection, no CAD in family, no connective tissue disease in family, no diabetes in family, no heart disease in family, no hyperlipidemia in family, no hypertension in family, no Marfan's syndrome in family, no early MO in family, no PE in family, no PVD in family, no sickle cell disease in family, no stroke in family, no sudden in family and no TIA in family. Procedure history is negative for cardiac catheterization, echocardiogram, persantine thallium, stress echo, stress thallium and exercise treadmill test. Allergies Allergen Reactions Penicillins Hives Dye Hives Past Medical History Diagnosis Date Asthma Prediabetes GERD (gastroesophageal reflux disease) Cardiomegaly 5 yrs ago Abnormal EKG 5 yrs ago Iron deficiency Past Surgical History Procedure Laterality Date Dilation and curettage of uterus Laparoscopic endometriosis fulguration Family History Problem Relation Age of Onset Hypertension Mother Cancer Father Hypertension Maternal Grandmother Hypertension Sister Unremarkable Brother Unremarkable Brother Unremarkable Brother History Substance Use Topics Smoking status: Never Smoker Smokeless tobacco: Never Used Alcohol Use: 0.6 oz/week 1 Glasses of wine per week Comment: social Review of Systems Constitutional: Negative for fever, diaphoresis and fatigue. Eyes: Negative. Respiratory: Negative for cough, shortness of breath and wheezing. Cardiovascular: Positive for chest pain. Negative for palpitations, orthopnea, claudication, syncope and near-syncope. Gastrointestinal: Negative for nausea, vomiting and abdominal pain. Endocrine: Negative. Genitourinary: Negative. Musculoskeletal: Negative. Skin: Negative. Allergic/Immunologic: Negative. Neurological: Negative for dizziness, weakness and numbness. Hematological: Negative. Psychiatric/Behavioral: Negative. All other systems reviewed and are negative. Physical Exam BP 96/48 | Pulse 73 | Temp(Src) 98 F (36.7 C) (Oral) | Resp 18 | Ht 1.524 m (5') | Wt 140.615 kg (310 lb) | BMI 60.54 kg/m2 | SpO2 100% | LMP 12/13/2016 Physical Exam Nursing note and vitals reviewed. Constitutional: She is oriented to person, place, and time. She appears well- developed and well-nourished. No distress. HENT: Head: Normocephalic and atraumatic. Nose: Nose normal. Mouth/Throat: Oropharynx is clear and moist. No oropharyngeal exudate. Eyes: Conjunctivae are normal. Pupils are equal, round, and reactive to light. Right eye exhibits no discharge. Left eye exhibits no discharge. Neck: Normal range of motion. Neck supple. No JVD present. No tracheal deviation present. No thyromegaly present. Cardiovascular: Normal rate, regular rhythm, normal heart sounds and intact distal pulses. Exam reveals no gallop and no friction rub. No murmur heard. Pulmonary/Chest: No stridor. Abdominal: Soft. Bowel sounds are normal. She exhibits no distension and no mass. There is no tenderness. There is no rebound and no guarding. Musculoskeletal: Normal range of motion. She exhibits no edema and no tenderness. Lymphadenopathy: She has no cervical adenopathy. Neurological: She is alert and oriented to person, place, and time. She displays normal reflexes. No cranial nerve deficit. She exhibits normal muscle tone. Coordination normal. Skin: Skin is warm and dry. No rash noted. She is not diaphoretic. No erythema. No pallor. Psychiatric: She has a normal mood and affect. Neurologic Exam Mental Status Oriented to person, place, and time. Level of consciousness: alert Cranial Nerves CN III, IV, Pupils are equal, round, and reactive to light. Ortho Exam ED Course ECG/EKG Interpretation Date/Time: 12/12/2016 3:39 PM Performed by: MAURICIO MARTIN Authorized by: MAURICIO MARTIN The ECG is interpreted as sinus rhythm. Rate is normal rate. Conduction: conduction normal. ST segments normal. T-waves upright in lead(s) III. [place] is normal. Other findings: no other findings. Other findings include: PRWP. Clinical Impression: abnormal ECG MDM Number of Diagnoses or Management Options Abnormal EKG: Acute chest pain: Amount and/or Complexity of Data Reviewed Clinical lab tests: reviewed and ordered Tests in the radiology section of CPT: ordered and reviewed Tests in the medicine section of CPT: ordered and reviewed Risk of Complications, Morbidity, and/or Mortality Presenting problems: high Diagnostic procedures: high Management options: high Clinical Impression 1. Acute chest pain 2. Abnormal EKG Discharge Medications Medication List CONTINUE taking these medications albuterol 1.25 mg/3 mL nebulizer solution Commonly known as: ACCUNEB folic acid 1 MG tablet Commonly known as: FOLVITE metFORMIN 1000 MG tablet Commonly known as: GLUCOPHAGE tieqlohoceny-yama-ccgmlbkz-folic acid 3,500-18-0.4 unit-mg-mg Chew Generic drug: kacjzyib-tqou-glv-folic acid norethindrone 5 mg tablet Commonly known as: AYGESTIN STOP taking these medications albuterol (refill) 90 mcg/actuation Aero Plan admit Mauricio Martin MD 12/15/16 1109 * ECHOCARDIOGRAM REPORT - SCAN (12/13/2016 2:50 PM) * Hemoglobin A1c (12/13/2016 1:02 PM) Component Value Ref Range Hemoglobin A1C 5.4 4.3 - 6.1 % Specimen Performing Laboratory Blood [facility] [address] [place] [address] Narrative Add to blood in lab * 2D Echo W/Doppler(CW/PW/Color) (12/13/2016 10:20 AM) Component Value Ref Range Ejection Fraction Est EF is 55-60% Specimen Performing Laboratory [facility] Narrative Transthoracic Echocardiography Report (TTE) Demographics Patient Name Wilfredo VITALE of Study 12/13/2016 [facility] [id number] Female Visit Number [id number] Black [id number] Room Number [id number] Number Date of Birth1985Referring Physician 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 Clinical History ASTHMA OBESITY PRE DIABETES Height: 60 inches Weight: 140.61 kg (310 lbs) BSA: 2.25 m^2 BMI: 60.54 kg/m^2 Rhythm: Normal Sinus Rhythm HR: 61 bpm BP: 124/71 mmHg Summary Normal left ventricular chamber size. Normal wall thickness. Normal overall left ventricular systolic function. No apparent segmental wall motion abnormalities. Estimated LVEF is 55-60%. No evidence of pericardial effusion. The tricuspid valve has normal leaflets and excursion. There is trace tricuspid regurgitation. Signature Findings Left VentricleNormal left ventricular chamber size. Normal wall thickness. Normal overall left ventricular systolic function. No apparent segmental wall motion abnormalities. Estimated LVEF is 55-60%. Left Atrium Normal size left atrium. Right Ventricle Normal right ventricle structure and function. Right AtriumNormal right atrium. Aortic ValveNormal aortic valve structure and function. Mitral ValveNormal mitral valve structure and function. Tricuspid Valve The tricuspid valve has normal leaflets and excursion. There is trace tricuspid regurgitation. Pulmonic ValveNormal pulmonic valve structure and function. Pericardial No evidence of pericardial effusion. Effusion Aorta/PA/PV/IVC The aortic root is normal in size. Chambers/Structures Left Atrium LA Dimension: 3.64 cm Left Ventricle LVIDd: 4.66 cmLVEDV 2D: 100.22 ml LVIDs: 3.05 cmLVESV 2D: 36.54 ml LV Septum Diastolic: 0.96 cm LV Septum Systolic: 1.12 cm LV Length: 7.84 cm LV PW Diastolic: 0.7 cm LV FS: 34.6 % LV PW Systolic: 1.12 cm LV ESV (Cubed): 28.37 cc LVOT Diameter: 1.63 cm LV ESV (Teich):36.44 ml LV SV (Teich):63.89 ml LV SI (Teich):28.4 ml/m^2 LVEF 2D Teich: 63.5 % Right Atrium RA Systolic Pressure: 10 mmHg Right Ventricle RV Diast Dim.: 2.64 cm RV Systolic Pressure: 29.59 mmHg RVOT VTI: 21.28 cm Aorta Ao Root S of Opal.: 2.52 cm Shunts QS:43.88 ml Doppler/Quantitative Measurements Mitral Valve MV Peak E-Wave: 1 m/sMV Peak A-Wave: 0.56 m /s P1/2t: 58.3 msec E/A Ratio: 1.8 Peak Velocity: 1.06 m/sPeak Gradient: 4.01 mmHg Mean Velocity: 0.44 m/sDeceleration Time: 207 msec Mean Gradient: 1.17 mmHg Area (continuity): 1.84 cm ^2 MV Area (PHT): 3.77 cm^2 MV VTI: 23.88 cm Tissue Doppler E' Septal Velocity: 0.13 m/s E' Lateral Velocity: 0.16 m/s Aortic Valve Peak Velocity: 1.3 m/s Mean Velocity: 0.84 m/s Peak Gradient: 6.79 mmHg Mean Gradient: 3.42 mmHg AV Area (continuity): 1.5 cm^2 AV VTI: 29.23 cm Cusp Separation: 1.67 cm AV DVI: 0.72 LVOT Peak Velocity: 0.99 m/s Peak Gradient: 3.96 mmHg Mean Velocity: 0.61 m/s Mean Gradient: 1.89 mmHg LVOT Diameter: 1.63 cmLVOT VTI: 21.03 cm LVOT Area: 2.09 cm^2LVOT SV:43.86 ml LVOT CO: 2.68 l/min LVOT CI: 1.19 l/min/m^2 Tricuspid Valve Estimated RVSP: 30.24 mmHg Estimated RAP: 10 mmHg TR Velocity: 2.21 m/s TR Gradient: 19.59 mmHg Pulmonic Valve Peak Velocity: 1.04 m/s Peak Gradient: 4.34 mmHg Mean Velocity: 0.7 m/sMean Gradient: 1.97 mmHg Estimated PASP: 29.59 mmHg Procedure Note Interface, External Ris In - 12/13/2016 2:30 PM CDT Transthoracic Echocardiography Report (TTE) Demographics Patient Name IRA VITALE Date of Study 12/13/2016 [facility] Gender Female Visit Number [id number] Race Black Room Number A515 Number Date of 1985 Referring Physician 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 Clinical History ASTHMA OBESITY PRE DIABETES Height: 60 inches Weight: 140.61 kg (310 lbs) BSA: 2.25 m^2 BMI: 60.54 kg/m^2 Rhythm: Normal Sinus Rhythm HR: 61 bpm BP: 124/71 mmHg Summary Normal left ventricular chamber size. Normal wall thickness. Normal overall left ventricular systolic function. No apparent segmental wall motion abnormalities. Estimated LVEF is 55-60%. No evidence of pericardial effusion. The tricuspid valve has normal leaflets and excursion. There is trace tricuspid regurgitation. Signature Findings Left Ventricle Normal left ventricular chamber size. Normal wall thickness. Normal overall left ventricular systolic function. No apparent segmental wall motion abnormalities. Estimated LVEF is 55-60%. Left Atrium Normal size left atrium. Right Ventricle Normal right ventricle structure and function. Right Atrium Normal right atrium. Aortic Valve Normal aortic valve structure and function. Mitral Valve Normal mitral valve structure and function. Tricuspid Valve The tricuspid valve has normal leaflets and excursion. There is trace tricuspid regurgitation. Pulmonic Valve Normal pulmonic valve structure and function. Pericardial No evidence of pericardial effusion. Effusion Aorta/PA/PV/IVC The aortic root is normal in size. Chambers/Structures Left Atrium LA Dimension: 3.64 cm Left Ventricle LVIDd: 4.66 cm LVEDV 2D:100.22 ml LVIDs: 3.05 cm LVESV 2D:36.54 ml LV Septum Diastolic: 0.96 cm LV Septum Systolic: 1.12 cm LV Length: 7.84 cm LV PW Diastolic: 0.7 cm LV FS: 34.6 % LV PW Systolic: 1.12 cm LV ESV (Cubed):28.37 cc LVOT Diameter: 1.63 cm LV ESV (Teich):36.44 ml LV SV (Teich):63.89 ml LV SI (Teich):28.4 ml/m^2 LVEF 2D Teich: 63.5 % Right Atrium RA Systolic Pressure: 10 mmHg Right Ventricle RV Diast Dim.: 2.64 cm RV Systolic Pressure: 29.59 mmHg RVOT VTI: 21.28 cm Aorta Ao Root S of Opal.: 2.52 cm Shunts QS:43.88 ml Doppler/Quantitative Measurements Mitral Valve MV Peak E-Wave: 1 m/s MV Peak A-Wave: 0.56 m/s P1/2t: 58.3 msec E/A Ratio: 1.8 Peak Velocity: 1.06 m/s Peak Gradient: 4.01 mmHg Mean Velocity: 0.44 m/s Deceleration Time: 207 msec Mean Gradient: 1.17 mmHg Area (continuity): 1.84 cm^2 MV Area (PHT): 3.77 cm^2 MV VTI: 23.88 cm Tissue Doppler E' Septal Velocity: 0.13 m/s E' Lateral Velocity: 0.16 m/s Aortic Valve Peak Velocity: 1.3 m/s Mean Velocity: 0.84 m/s Peak Gradient: 6.79 mmHg Mean Gradient: 3.42 mmHg AV Area (continuity): 1.5 cm^2 AV VTI: 29.23 cm Cusp Separation: 1.67 cm AV DVI: 0.72 LVOT Peak Velocity: 0.99 m/s Peak Gradient: 3.96 mmHg Mean Velocity: 0.61 m/s Mean Gradient: 1.89 mmHg LVOT Diameter: 1.63 cm LVOT VTI: 21.03 cm LVOT Area: 2.09 cm^2 LVOT SV:43.86 ml LVOT CO: 2.68 l/min LVOT CI: 1.19 l/min/m^2 Tricuspid Valve Estimated RVSP: 30.24 mmHg Estimated RAP: 10 mmHg TR Velocity: 2.21 m/s TR Gradient: 19.59 mmHg Pulmonic Valve Peak Velocity: 1.04 m/s Peak Gradient: 4.34 mmHg Mean Velocity: 0.7 m/s Mean Gradient: 1.97 mmHg Estimated PASP: 29.59 mmHg * Troponin I (12/13/2016 10:20 AM) Only the most recent of 2 results within the time period is included. Component Value Ref Range Troponin I <0.03 0.00 - 0.15 ng/mL Specimen Performing Laboratory Blood - Arm, [facility] [address] [place] [address] Narrative Troponin I (TnI) levels must be interpreted in the context of the presenting symptoms and the clinical findings. Elevated TnI levels indicate myocardial damage, but are not specific for ischemic heart disease. Elevated TnI levels are seen in patients with other cardiac conditions (including myocarditis and congestive heart failure), and slight TnI elevations occur in patients with other conditions, including sepsis, renal failure, acidosis, acute neurological disease, and persistent tachyarrhythmia. * Creatine Kinase (CK), Total and MB (12/13/2016 10:20 AM) Only the most recent of 3 results within the time period is included. Component Value Ref Range Total CK 43 25 - 235 U/L CK-MB 0.5 0.0 - 4.9 ng/mL MB Relative Index 1.2 % Specimen Performing Laboratory Blood - Arm, [facility] [address] [place] [address] Narrative CK-MB Reference Range: <5 Normal 5-10 Borderline >10Abnormal * Manual Differential (12/13/2016 5:31 AM) Only the most recent of 2 results within the time period is included. Component Value Ref Range Total Counted WBC Morphology Normal Platelet Morphology Normal Anisocytosis 1+ few Hypochromia 2+ moderate Microcytes 1+ few Specimen Performing Laboratory Blood [facility] [address] [place] [id number] * CBC with platelet count + automated diff (12/13/2016 5:31 AM) Only the most recent of 2 results within the time period is included. Component Value Ref Range WBC 6.6 4.0 - 10.0 K/ L RBC 4.86 4.00 - 5.00 M/ L Hemoglobin 10.9 (L) 12.0 - 15.0 GM/DL Hematocrit 34.7 (L) 36.0 - 45.0 % MCV 71.3 (L) 82.0 - 99.0 fL MCH 22.4 (L) 27.0 - 33.0 pg MCHC 31.4 (L) 32.0 - 36.0 GM/DL RDW 19.2 (H) 10.3 - 14.2 % Platelets 240 150 - 430 K/CU MM MPV 10.1 6.5 - 10.5 fL nRBC 0 0 - 0 /100 WBC % Neutros 67 % % Lymphs 24 % % Monos 8 % % Eos 1 % % Baso 0 % # Neutros 4.40 1.80 - 8.00 K/ L # Lymphs 1.60 1.48 - 4.50 K/ L # Monos 0.50 0.00 - 1.30 K/ L # Eos 0.00 0.00 - 0.50 K/ L # Baso 0.00 0.00 - 0.20 K/ L Specimen Performing Laboratory Blood [facility] [address] [place] [id number] * CBC with platelet count + automated diff (12/13/2016 5:31 AM) Only the most recent of 2 results within the time period is included. Specimen Performing Laboratory Blood Narrative The following orders were created for panel order CBC with platelet count + automated diff. Procedure Abnormality Status --------- - ------ CBC with platelet count ...[[id number]]AbnormalFinal result Manual Differential[[id number]] Final result Please view results for these tests on the individual orders. * Basic metabolic panel (12/13/2016 5:31 AM) Only the most recent of 2 results within the time period is included. Component Value Ref Range Sodium 139 135 - 148 meq/L Potassium 4.1 3.6 - 5.5 meq/L Chloride 105 98 - 106 meq/L CO2 26 20 - 29 meq/L BUN 14 10 - 26 mg/dL Creatinine 0.80 0.50 - 1.20 mg/dL Glucose 101 70 - 110 mg/dL Calcium 8.8 8.5 - 10.5 mg/dL EGFR 102Comment: ESTIMATED GFR IS NOT ACCURATE mL/min/1.73 sq m CREATININE CLEARANCE IN PREDICTING GLOMERULAR FILTRATION RATE. ESTIMATED GFR IS NOT APPLICABLE FOR DIALYSIS PATIENTS. Specimen Performing Laboratory Blood [facility] [address] [place] [address] * NM lung scan perfusion particulate vent (12/12/2016 11:00 PM) Specimen Performing Laboratory GE RIS Narrative FINAL REPORT PROCEDURE: V/Q LUNG SCAN CPT CODE: 93656 INDICATION: Cough, chest pain, hematemesis PROTOCOL: 10.6 mCi ofXe-133 gas was administered by inhalation. Single breath and rebreathing/washout images were obtained in the anterior and the posterior projections.4.3 mCi of Tc-99m MAA was then injected intravenously, and static perfusion images were obtained in multiple projections. FINDINGS: Ventilation: Initial tracer distribution is mildly decreased in the left lung. Washout proceeds normally. Perfusion:Tracer distribution is mildly decreased in the left lung. IMPRESSION: 1. Low probability of acute pulmonary embolization. Signed: Zaid Vega MD Report Verified Date/Time:12/12/2016 23:12:07 Procedure Note Interface, External Ris In - 12/12/2016 11:14 PM CDT FINAL REPORT PROCEDURE: V/Q LUNG SCAN CPT CODE: [id number] INDICATION: Cough, chest pain, hematemesis PROTOCOL: 10.6 mCi of Xe-133 gas was administered by inhalation. Single breath and rebreathing/washout images were obtained in the anterior and the posterior projections. 4.3 mCi of Tc-99m MAA was then injected intravenously, and static perfusion images were obtained in multiple projections. FINDINGS: Ventilation: Initial tracer distribution is mildly decreased in the left lung. Washout proceeds normally. Perfusion: Tracer distribution is mildly decreased in the left lung. IMPRESSION: 1. Low probability of acute pulmonary embolization. Signed: Zaid Vega MD Report Verified Date/Time: 12/12/2016 23:12:07 * D-dimer, quantitative (12/12/2016 7:05 PM) Component Value Ref Range D-Dimer, Quant 0.33 <0.50 MG/L FEU Specimen Performing Laboratory Blood [facility] [address] [place] [address] Narrative REGARDING D-DIMER RESULTS: The 98% NPV (Negative Predictive Value) for DVT/PE exclusion is 0.50 mg/L FEU as suggested by the prosthodontist and as approved by the FDA. * PT/PTT (12/12/2016 6:47 PM) Component Value Ref Range Protime 10.8 9.3 - 12.0 seconds INR 1.0 <=5.9 PTT 31.3 23.0 - 35.0 seconds Specimen Performing Laboratory Blood - Arm, [facility] [address] [place] [address] Narrative RECOMMENDED COUMADIN/WARFARIN INR THERAPY RANGES STANDARD DOSE: 2.0 - 3.0 Includes: PROPHYLAXIS for venous thrombosis, systemic embolization; TREATMENT for venous thrombosis and/or pulmonary embolus. HIGH RISK: Target INR is 2.5-3.5 for patients with mechanical heart valves. * hCG, serum, qualitative (12/12/2016 6:47 PM) Component Value Ref Range Preg Test, Serum Negative Specimen Performing Laboratory Blood - [place] [id number] * B-type Natriuretic Factor (BNP) (12/12/2016 6:47 PM) Component Value Ref Range BNP 3 0 - 100 pg/mL Specimen Performing Laboratory Blood - [facility] [address] [place], [place] [address] * Magnesium (12/12/2016 6:47 PM) Component Value Ref Range Magnesium 1.8 1.5 - 3.0 mg/dL Specimen Performing Laboratory Blood - [facility] [address] [place], [place] [address] * XR chest 2 views (12/12/2016 4:05 PM) Specimen Performing Laboratory GE RIS Narrative FINAL REPORT History: Cough, chest pain. FINDINGS: Compared with June 28, 2013, the heart and mediastinum are stable. Lungs are clear, free of edema, focal consolidation or visible effusions. No pneumothorax. Bones are unremarkable. IMPRESSION: 1. Negative chest. Signed: Tito Garner MD Report Verified Date/Time:12/12/2016 16:11:48 Reading Location: [facility] Radiology Reading Room Procedure Note Interface, External Ris In - 12/12/2016 4:13 PM CDT FINAL REPORT History: Cough, chest pain. FINDINGS: Compared with June 28, 2013, the heart and mediastinum are stable. Lungs are clear, free of edema, focal consolidation or visible effusions. No pneumothorax. Bones are unremarkable. IMPRESSION: 1. Negative chest. Signed: Tito Garner MD Report Verified Date/Time: 12/12/2016 16:11:48 Reading Location: [facility] Radiology Reading Room after 11/20/2016
--- OUTSIDE RECORDS SUMMARY | 2017-11-21 20:48 | XMS REPORT ---
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 Allergies, Adverse Reactions, Alerts This patient has no known allergies or adverse reactions. Medications This patient has no known medications. Results Test Description Test Time Test Comments Text Results Atomic Results Result Comments HEMOGLOBIN A1C 2016-12-13 13:46:00 HEMOGLOBIN A1C (BEAKER) (test awfd=180) 5.4 % 4.3-6.1 Add to blood in labTROPONIN [id number] 11:15:00* Test Item Value Reference Range Comments TROPONIN I (BEAKER) (test pluf=716) < ng/mL 0.00-0.15 Troponin I (TnI) levels must be interpreted [...] failure, acidosis, acute neurological disease, and persistent tachyarrhythmia.CREATINE KINASE (CK), TOTAL AND [id number] 11:14:00* Test Item Value Reference Range Comments CREATINE KINASE TOTAL (BEAKER) (test drmu=993) 43 U/L 25-235 CREATINE KINASE-MB (BEAKER) (test hnxg=852) 0.5 ng/mL 0.0-4.9 CREATINE KINASE-MB INDEX (BEAKER) (test sbnj=999) 1.2 % CK-MB Reference Range:<5 Normal5-10 Borderline>10 AbnormalCBC W/PLT COUNT & AUTO [id number] 06:47:00* Test Item Value Reference Range Comments WHITE BLOOD CELL COUNT (BEAKER) (test riro=959) 6.6 K/ L 4.0-10.0 RED BLOOD CELL COUNT (BEAKER) (test vwnj=951) 4.86 M/ L 4.00-5.00 HEMOGLOBIN (BEAKER) (test xbfb=406) 10.9 GM/DL 12.0-15.0 HEMATOCRIT (BEAKER) (test fcbg=747) 34.7 % 36.0-45.0 MEAN CORPUSCULAR VOLUME (BEAKER) (test zidv=096) 71.3 fL 82.0-99.0 MEAN CORPUSCULAR HEMOGLOBIN (BEAKER) (test swkq=716) 22.4 pg 27.0-33.0 MEAN CORPUSCULAR HEMOGLOBIN CONC (BEAKER) (test rvlu=735) 31.4 GM/DL 32.0- 36.0 RED CELL DISTRIBUTION WIDTH (BEAKER) (test zlzs=569) 19.2 % 10.3-14.2 PLATELET COUNT (BEAKER) (test mdle=226) 240 K/CU MM 150-430 MEAN PLATELET VOLUME (BEAKER) (test kswh=769) 10.1 fL 6.5-10.5 NUCLEATED RED BLOOD CELLS (BEAKER) (test mfnp=231) 0 /100 WBC 0-0 NEUTROPHILS RELATIVE PERCENT (BEAKER) (test cvxp=326) 67 % LYMPHOCYTES RELATIVE PERCENT (BEAKER) (test dhyr=435) 24 % MONOCYTES RELATIVE PERCENT (BEAKER) (test iqyi=881) 8 % EOSINOPHILS RELATIVE PERCENT (BEAKER) (test hmxu=521) 1 % BASOPHILS RELATIVE PERCENT (BEAKER) (test oukw=425) 0 % NEUTROPHILS ABSOLUTE COUNT (BEAKER) (test nvab=430) 4.40 K/ L 1.80-8.00 LYMPHOCYTES ABSOLUTE COUNT (BEAKER) (test pugx=380) 1.60 K/ L 1.48-4.50 MONOCYTES ABSOLUTE COUNT (BEAKER) (test brne=945) 0.50 K/ L 0.00-1.30 EOSINOPHILS ABSOLUTE COUNT (BEAKER) (test ezrv=723) 0.00 K/ L 0.00-0.50 BASOPHILS ABSOLUTE COUNT (BEAKER) (test jvet=532) 0.00 K/ L 0.00-0.20 (MANUAL DIFFERENTIAL)2016-12-13 06:47:00* Test Item Value Reference Range Comments TOTAL COUNTED (BEAKER) (test otlc=3389) WBC MORPHOLOGY (BEAKER) (test eljl=352) Normal PLT MORPHOLOGY (BEAKER) (test pufc=253) Normal ANISOCYTOSIS (BEAKER) (test naib=247) 1+ few HYPOCHROMIA (BEAKER) (test bnuh=044) 2+ moderate MICROCYTES (BEAKER) (test ngyb=523) 1+ few CREATINE KINASE (CK), TOTAL AND [id number] 06:27:00* Test Item Value Reference Range Comments CREATINE KINASE TOTAL (BEAKER) (test ueva=637) 54 U/L 25-235 CREATINE KINASE-MB (BEAKER) (test sudl=081) 0.7 ng/mL 0.0-4.9 CREATINE KINASE-MB INDEX (BEAKER) (test ygho=960) 1.3 % CK-MB Reference Range:<5 Normal5-10 Borderline>10 AbnormalBASIC METABOLIC [id number] 06:16:00* Test Item Value Reference Range Comments SODIUM (BEAKER) (test otrx=036) 139 meq/L 135-148 POTASSIUM (BEAKER) (test dkld=798) 4.1 meq/L 3.6-5.5 CHLORIDE (BEAKER) (test tzmq=007) 105 meq/L 98-106 CO2 (BEAKER) (test xmlw=758) 26 meq/L 20-29 BLOOD UREA NITROGEN (BEAKER) (test pcam=314) 14 mg/dL 10-26 CREATININE (BEAKER) (test gqsq=839) 0.80 mg/dL 0.50-1.20 GLUCOSE RANDOM (BEAKER) (test mnug=927) 101 mg/dL 70-110 CALCIUM (BEAKER) (test pryp=516) 8.8 mg/dL 8.5-10.5 EGFR (BEAKER) (test yxxb=5870) 102 mL/min/1.73 sq m ESTIMATED GFR IS NOT ACCURATE CREATININE CLEARANCE IN PREDICTING GLOMERULAR FILTRATION RATE. ESTIMATED GFR IS NOT APPLICABLE FOR DIALYSIS PATIENTS. [id number] 21:10:00* Test Item Value Reference Range Comments D-DIMER QUANTITATIVE (BEAKER) (test onmi=426) 0.33 MG/L FEU <0.50 REGARDING D-DIMER RESULTS: The 98% NPV (Negative Predictive Value) for DVT/PE exclusion is 0.50 mg/L FEU as suggested by the designer/writer and as approved by the FDA.B-TYPE NATRIURETIC FACTOR (BNP)2016-12-12 19:58:00* Test Item Value Reference Range Comments B-TYPE NATRIURETIC PEPTIDE (BEAKER) (test uuzf=680) 3 pg/mL 0-100 TROPONIN [id number] 19:57:00* Test Item Value Reference Range Comments TROPONIN I (BEAKER) (test zeeb=803) < ng/mL 0.00-0.15 Troponin I (TnI) levels must be interpreted [...] failure, acidosis, acute neurological disease, and persistent tachyarrhythmia.CREATINE KINASE (CK), TOTAL AND [id number] 19:56:00* Test Item Value Reference Range Comments CREATINE KINASE TOTAL (BEAKER) (test ktjw=417) 56 U/L 25-235 CREATINE KINASE-MB (BEAKER) (test duip=268) 0.6 ng/mL 0.0-4.9 CREATINE KINASE-MB INDEX (BEAKER) (test pmor=830) 1.1 % CK-MB Reference Range:<5 Normal5-10 Borderline>10 AbnormalHCG, SERUM, [id number] 19:50:00* Test Item Value Reference Range Comments TEST SERUM (BEAKER) (test xzhs=659) Negative BASIC METABOLIC [id number] 19:49:00* Test Item Value Reference Range Comments SODIUM (BEAKER) (test lnqw=835) 139 meq/L 135-148 POTASSIUM (BEAKER) (test halo=767) 3.8 meq/L 3.6-5.5 CHLORIDE (BEAKER) (test qmpf=338) 105 meq/L 98-106 CO2 (BEAKER) (test xrsc=685) 28 meq/L 20-29 BLOOD UREA NITROGEN (BEAKER) (test cpwv=632) 13 mg/dL 10-26 CREATININE (BEAKER) (test ansn=903) 0.80 mg/dL 0.50-1.20 GLUCOSE RANDOM (BEAKER) (test lmhh=137) 85 mg/dL 70-110 CALCIUM (BEAKER) (test omxd=943) 8.3 mg/dL 8.5-10.5 EGFR (BEAKER) (test zceh=3844) 102 mL/min/1.73 sq m ESTIMATED GFR IS NOT ACCURATE CREATININE CLEARANCE IN PREDICTING GLOMERULAR FILTRATION RATE. ESTIMATED GFR IS NOT APPLICABLE FOR DIALYSIS PATIENTS. PT/[id number] 19:44:00* Test Item Value Reference Range Comments PROTIME (BEAKER) (test reus=012) 10.8 seconds 9.3-12.0 INR (BEAKER) (test kmri=240) 1.0 <=5.9 PARTIAL THROMBOPLASTIN TIME (BEAKER) (test wqbb=206) 31.3 seconds 23.0-35.0 RECOMMENDED COUMADIN/WARFARIN INR THERAPY RANGESSTANDARD DOSE: 2.0 - 3.0 Includes: PROPHYLAXIS for venous thrombosis, systemic embolization; TREATMENT for venous thrombosis and/or pulmonary embolus.HIGH RISK: Target INR is 2.5-3.5 for patients with mechanical heart valves.[id number] 19:43:00* Test Item Value Reference Range Comments MAGNESIUM (BEAKER) (test ivxi=598) 1.8 mg/dL 1.5-3.0 CBC W/PLT COUNT & AUTO [id number] 17:56:00* Test Item Value Reference Range Comments WHITE BLOOD CELL COUNT (BEAKER) (test jyfq=019) 9.4 K/ L 4.0-10.0 RED BLOOD CELL COUNT (BEAKER) (test fyig=558) 5.30 M/ L 4.00-5.00 HEMOGLOBIN (BEAKER) (test tltm=016) 11.8 GM/DL 12.0-15.0 HEMATOCRIT (BEAKER) (test zhem=685) 37.8 % 36.0-45.0 MEAN CORPUSCULAR VOLUME (BEAKER) (test dbzq=105) 71.2 fL 82.0-99.0 MEAN CORPUSCULAR HEMOGLOBIN (BEAKER) (test sjez=374) 22.3 pg 27.0-33.0 MEAN CORPUSCULAR HEMOGLOBIN CONC (BEAKER) (test gpiz=809) 31.3 GM/DL 32.0- 36.0 RED CELL DISTRIBUTION WIDTH (BEAKER) (test ftas=761) 19.3 % 10.3-14.2 PLATELET COUNT (BEAKER) (test less=197) 262 K/CU MM 150-430 MEAN PLATELET VOLUME (BEAKER) (test tzft=504) 10.1 fL 6.5-10.5 NUCLEATED RED BLOOD CELLS (BEAKER) (test ouml=675) 0 /100 WBC 0-0 NEUTROPHILS RELATIVE PERCENT (BEAKER) (test yqgd=299) 72 % LYMPHOCYTES RELATIVE PERCENT (BEAKER) (test ggcc=035) 20 % MONOCYTES RELATIVE PERCENT (BEAKER) (test lzdg=070) 7 % EOSINOPHILS RELATIVE PERCENT (BEAKER) (test kovb=364) 1 % BASOPHILS RELATIVE PERCENT (BEAKER) (test hhzp=750) 1 % NEUTROPHILS ABSOLUTE COUNT (BEAKER) (test htmo=601) 6.80 K/ L 1.80-8.00 LYMPHOCYTES ABSOLUTE COUNT (BEAKER) (test wyrm=013) 1.80 K/ L 1.48-4.50 MONOCYTES ABSOLUTE COUNT (BEAKER) (test fsta=814) 0.60 K/ L 0.00-1.30 EOSINOPHILS ABSOLUTE COUNT (BEAKER) (test ezdo=194) 0.10 K/ L 0.00-0.50 BASOPHILS ABSOLUTE COUNT (BEAKER) (test ozgx=598) 0.10 K/ L 0.00-0.20 (MANUAL DIFFERENTIAL)2016-12-12 17:56:00* Test Item Value Reference Range Comments TOTAL COUNTED (BEAKER) (test apbz=0504) WBC MORPHOLOGY (BEAKER) (test lmqb=637) Normal PLT MORPHOLOGY (BEAKER) (test mrct=386) Normal ANISOCYTOSIS (BEAKER) (test hxyk=616) 1+ few HYPOCHROMIA (BEAKER) (test ksab=445) 2+ moderate MICROCYTES (BEAKER) (test hkvh=231) 1+ few US GALLBLADDER [place] [address] Patient Name: DU FIGUEROA MR # : [id number] : 1985 Age/Sex: 32/F Req #: [id number] Adm Physician: BIJU EARLY MD Ordered by: BIJU EARLY MD Report #: [id number] Location: MED/SURG Room/Bed: [facility] _ Procedure: [id number] US/US GALLBLADDER Exam Date: Exam Time: REPORT STATUS: Signed PROCEDURE: US GALLBLADDER COMPARISON: CT of the abdomen and pelvis from 04/28/2016 INDICATIONS: Abdomen Pain TECHNIQUE: Brizuela-scale and color doppler transverse and longitudinal images of the right upper quadrant of the abdomen were obtained. FINDINGS: Limited examination due to excessive bowel gas. Liver: 17.0 cm in right mid-clavicular line, mildly enlarged. Normal echogenicity. No masses. Main portal vein: 0.8 cm Gallbladder: No stones or sludge. No pericholecystic fluid or wall thickening. Common Bile Duct: 0.2 cm Sonographic Avendano's sign: Negative Right kidney: 10.0 cm. Normal echogenicity. No solid masses or hydronephrosis. Pancreas: Pancreas is poorly visualized due to overlying bowel gas. Inferior vena cava: Visualized portions appear patent. Aorta: Most of the mid and distal aorta is obscured due to overlying bowel gas. Ascites: None in the right upper quadrant of the abdomen. CONCLUSION: 1. Limited examination. 2. Very mild hepatomegaly. Otherwise normal right upper quadrant ultrasound. Dictated by: Daniele Church M.D. on 11/12/2017 at 12:28 Electronically approved by: Daniele Church M.D. on 11/12/2017 at 12:28 Dictated By: DANIELE CHURCH MD 1228 Transcribed By: CYRUS on 11/12/17 1228 COPY TO: BIJU EARLY MD HEPTOBILIARY W PHARM [facility] [address] [place], [place] [id number] Patient Name: DU FIGUEROA MR #: [id number] : 1985 Age/Sex: 32/F Req #: [id number] [facility] Physician: BIJU EARLY MD Ordered by: ANETTE EARLY MD Report #: [id number] Location: MED/SURG Room/Bed: [facility] Procedure: [id number] NM/HEPTOBILIARY W PHARM Exam Date: 11/12/17 Exam Time: 1500 REPORT STATUS: Signed Hepatobiliary Scan with Gallbladder Ejection Fraction Clinical information: 32 F with intractable abdominal pain x 3 weeks. Technique: Following intravenous administration of 7.0 millicuries of Tc-99m mebrofenin, dynamic images of the abdomen in the anterior projection were obtained through 42 minutes. Sincalide (CCK analog) 3.0 micrograms was administered intravenously over 30 minutes with additional imaging for determination of gallbladder ejection fraction. Discussion: Perfusion of the liver is normal. Extraction of tracer by the liver parenchyma is normal. Tracer appears promptly within the biliary tract. The gallbladder begins to fill at 8 minutes post injection of tracer and fills adequately. Tracer is seen in the small bowel during the sincalide infusion. There is no contractile response by the gallbladder to the pharmacologic dose of sincalide. No emptying of the gallbladder occurs during the 30 minute infusion. Impression: 1. Filling of the gallbladder excludes acute cystic duct obstruction/acute cholecystitis. 2. The gallbladder ejection fraction is undefined as there is no emptying of the gallbladder during the infusion of sincalide. This absence of a contractile response to sincalide supports the clinical diagnosis of chronic cholecystitis/ gallbladder dyskinesia. Signed by: Dr. Ahsan Kang M.D. on 11/12/2017 6:53 PM Dictated By: AHSAN KANG MD 52 Transcribed By: WOO on 11/12/171852 COPY TO: ANETTE EARLY MD
--- OUTSIDE RECORDS SUMMARY | 2017-11-21 20:48 | XMS REPORT | Clinical Summary ---
Author Author [facility] Address Unknown Phone Unavailable Care Team Providers Care Traffic Analysis Technician Name Role Phone System, Not In MD PCP Unavailable Allergies Active Allergy Reactions Severity Noted Date Comments Iodine Shortness Of Breath, High 08/21/2017 Patient states she had Other (See Comments) difficulty breathing and passed out. Current Medications Prescription Sig. Disp. Refills Start End Date Status Date ondansetron (ZOFRAN) 4 MG Take 1 tablet (4 mg 28 tablet 0 08/21/20 08/28/20 tablet total) by mouth every 6 17 17 (six) hours for 7 days. Active Problems Not on file Encounters Date Type Specialty Care Team Description 08/21/2017 Emergency Emergency Medicine Jarod Webb, Generalized abdominal MD pain (Primary Dx) after 11/20/2016 Social History Tobacco Use Types Packs/Day Years Used Date Never Smoker Smokeless Tobacco: Never Used Tobacco Cessation: Counseling Given: No Alcohol Use Drinks/Week oz/Week Comments No Sex Assigned at Date Recorded Not on file Last Filed Vital Signs Vital Sign Reading Time Taken Blood Pressure 132/64 08/21/2017 10:33 AM WIRE DRAWING MACHINE TENDER Pulse 82 08/21/2017 10:33 AM WIRE DRAWING MACHINE TENDER Temperature 36.7 C (98.1 F) 08/21/2017 10:33 AM WIRE DRAWING MACHINE TENDER Respiratory Rate 18 08/21/2017 10:33 AM WIRE DRAWING MACHINE TENDER Oxygen Saturation 99% 08/21/2017 10:33 AM WIRE DRAWING MACHINE TENDER Inhaled Oxygen - - Concentration Weight 147 kg (325 lb) 08/21/2017 7:50 AM WIRE DRAWING MACHINE TENDER Height 149.9 cm (4' 11") 08/21/2017 7:50 AM WIRE DRAWING MACHINE TENDER Body Mass Index 65.64 08/21/2017 7:50 AM WIRE DRAWING MACHINE TENDER Plan of Treatment Health Maintenance Due Date Last Done Comments PAP SMEAR 2007 INFLUENZA VACCINE 04/24/2017 Results * CT Abdomen Pelvis Wo Contrast (08/21/2017 9:35 AM) Specimen Performing Laboratory [facility] [address] [place] [address] Narrative EXAMINATION:CT ABDOMEN PELVIS WO CONTRAST CLINICAL HISTORY:32 years Female r o appendicitis TECHNIQUE:Multiple axial images of the abdomen and pelvis were obtained without intravenous administration of iodinated contrast. Sagittal and coronal computerized reformatted images were also obtained. The lack of intravenous contrast reduces the sensitivity of detecting solid organ disease. CT imaging was performed with iterative reconstruction techniques and/or automated exposure control to reduce radiation dose. COMPARISON:10/27/2010 Findings: The liver is borderline in size it is homogeneous in texture no focal abnormality is identified. The spleen is enlarged mildly it is homogeneous in texture. The gallbladder appears unremarkable. The adrenal glands and pancreas appear unremarkable. The kidneys are not obstructed no calculi are identified on either side. The uterus appears unremarkable. There appear to be small follicles associated with the left ovary and a small follicles associated with the right ovary is well. The appendix is partially obscured although no specific changes of appendicitis are identified. There are no inflammatory changes identified involving bowel IMPRESSION: 1. The appendix is not well-visualized although no specific changes of appendicitis are identified. 2. No inflammatory changes are identified involving bowel. 3. Moderate gas and stool present throughout the colon. 4. Borderline hepatomegaly with a mildly enlarged spleen [id number] Procedure Note Interface, Radiology Results Incoming - 08/21/2017 10:13 AM WIRE DRAWING MACHINE TENDER EXAMINATION: CT ABDOMEN PELVIS WO CONTRAST CLINICAL HISTORY:32 years Female r o appendicitis TECHNIQUE: Multiple axial images of the abdomen and pelvis were obtained without intravenous administration of iodinated contrast. Sagittal and coronal computerized reformatted images were also obtained. The lack of intravenous contrast reduces the sensitivity of detecting solid organ disease. CT imaging was performed with iterative reconstruction techniques and/or automated exposure control to reduce radiation dose. COMPARISON: 10/27/2010 Findings: The liver is borderline in size it is homogeneous in texture no focal abnormality is identified. The spleen is enlarged mildly it is homogeneous in texture. The gallbladder appears unremarkable. The adrenal glands and pancreas appear unremarkable. The kidneys are not obstructed no calculi are identified on either side. The uterus appears unremarkable. There appear to be small follicles associated with the left ovary and a small follicles associated with the right ovary is well. The appendix is partially obscured although no specific changes of appendicitis are identified. There are no inflammatory changes identified involving bowel IMPRESSION: 1. The appendix is not well-visualized although no specific changes of appendicitis are identified. 2. No inflammatory changes are identified involving bowel. 3. Moderate gas and stool present throughout the colon. 4. Borderline hepatomegaly with a mildly enlarged spleen [id number] * Influenza antigen (08/21/2017 8:32 AM) Component Value Ref Range Influenza antigen Negative for Influenza A/B antigen. Comment: Specimen Information Specimen Source: Nasopharyngeal Specimen Site: Other Specimen Performing Laboratory Nasopharyngeal - Other [facility] DEPARTMENT OF PATHOLOGY AND GENOMIC MEDICINE [id number] [place] [address] [place] [address] * Urinalysis screen and microscopy, with reflex to culture (08/21/2017 8:17 AM) Component Value Ref Range Specimen site Clean catch Color, UA Yellow Appearance, UA Slightly-Cloudy Specific gravity, UA 1.017 1.001 - 1.035 pH, UA 5.0 5.0 - 8.5 Protein, UA Negative Negative Glucose, UA Negative Negative Ketones, UA Negative Negative Bilirubin, UA Negative Negative Blood, UA Negative Negative Nitrite, UA Negative Negative Urobilinogen, UA 2.0 (A) <2.0 Leukocyte esterase, UA Negative Negative Epithelial cells, UA Many /HPF Round epithelial cells, Few 0 - 1 /HPF UA WBC, UA 0-5 0 - 4 /HPF RBC, UA 0-5 0 - 2 /HPF Bacteria, UA Trace None seen Yeast, UA None seen Yeast with pseudohyphae, None seen UA Specimen Performing Laboratory Urine [facility] DEPARTMENT OF PATHOLOGY AND GENOMIC MEDICINE [id number] [place] [address] [place] [address] * Smear review (08/21/2017 8:17 AM) Component Value Ref Range Platelet slide review Kala adequate Specimen Performing Laboratory [facility] DEPARTMENT OF PATHOLOGY AND GENOMIC MEDICINE [id number] [place] [address] [place] [address] * Estimated GFR (08/21/2017 8:17 AM) Component Value Ref Range GFR Non Af Amer >90 mL/min/1.73 m2 GFR Af Amer >90 mL/min/1.73 m2 Comment: Chronic kidney disease: <60 mL/min/1.73m2 Kidney failure: <15 mL/min/1.73m2 The estimated GFR is calculated from the IDMS-traceable Modification of Diet in Renal Disease Equation. The accuracy of the calculation is poor when the creatinine is normal. Calculated values >90 mL/min/1.73m2 are not reported. This equation has not been validated in children (<18 years), women, the elderly (>70 years), or ethnic groups other than Caucasians and Americans. Specimen Performing Laboratory Plasma specimen [facility] PATH[facility] AND [employer] [facility] [address] [place] [address] * hCG qualitative, urine screen (08/21/2017 8:17 AM) Component Value Ref Range hCG qualitative, urine Negative Negative Comment: The manufacturers stated sensitivity of HcG test for serum is >/=10 mIU/ml and urine is >/=20mIU/ml. Specimen Performing Laboratory Urine [facility] [address] [place] [address] * CBC with platelet and differential (08/21/2017 8:17 AM) Component Value Ref Range WBC 7.76 4.50 - 11.00 k/uL RBC 4.75 4.20 - 5.50 m/uL HGB 10.5 (L) 12.0 - 16.0 g/dL HCT 32.9 (L) 37.0 - 47.0 % MCV 69.3 (L) 82.0 - 100.0 fL MCH 22.1 (L) 27.0 - 34.0 pg MCHC 31.9 31.0 - 37.0 g/dL RDW - SD 45.2 37.0 - 55.0 fL MPV 11.7 8.8 - 13.2 fL Platelet count 216 150 - 400 k/uL Nucleated RBC 0.00 /100 WBC Neutrophils 64.2 39.0 - 69.0 % Lymphocytes 24.7 (L) 25.0 - 45.0 % Monocytes 7.0 0.0 - 10.0 % Eosinophils 3.2 0.0 - 5.0 % Basophils 0.3 0.0 - 1.0 % Immature granulocytes 0.6Comment: "Immature granulocytes" 0.0 - 1.0 % (promyelocytes, myelocytes, metamyelocytes) Specimen Performing Laboratory Blood [facility] AND [employer] [facility] [address] [place] [address] * Lipase level (08/21/2017 8:17 AM) Component Value Ref Range Lipase 18 13 - 60 U/L Specimen Performing Laboratory Plasma specimen [facility] DEPARTMENT PATHOLOGY AND [facility] [id number] [place] [address] [place] [address] * Lactic acid level (08/21/2017 8:17 AM) Component Value Ref Range Lactic acid 1.1 0.5 - 2.2 mmol/L Specimen Performing Laboratory Plasma specimen [facility] DEPARTMENT OF PATHOLOGY AND [facility] [address] [place] [address] * Hepatic function panel (08/21/2017 8:17 AM) Component Value Ref Range Albumin 3.4 (L) 3.5 - 5.0 g/dL Total bilirubin 0.5 0.0 - 1.2 mg/dL Bilirubin direct <0.1 0.0 - 0.3 mg/dL Alkaline phosphatase 87 35 - 104 U/L Protein 7.9 6.3 - 8.3 g/dL Comment: [place] 4.6-7.0 g/dL 1 week 4.4-7.6 g/dL 7 months-1year 5.1-7.3 g/dL 1-2 years 5.6-7.5 g/dL >3 years 6.0-8.0 g/dL 18-150 6.3-8.3 g/dL ALT 9 5 - 50 U/L AST 13 10 - 35 U/L Specimen Performing Laboratory Plasma specimen [facility] DEPARTMENT PATHOLOGY AND [address] [place] [address] * Basic metabolic panel (08/21/2017 8:17 AM) Component Value Ref Range Sodium 136 135 - 148 mEq/L Potassium 4.2 3.5 - 5.0 mEq/L Chloride 99 98 - 112 mEq/L CO2 24 24 - 31 mEq/L Anion gap 13 7 - 15 mEq/L Comment: Starting from December , anion gap calculation no longer incorporates potassium. Please note the change. BUN 13 6 - 20 mg/dL Creatinine 0.7 0.5 - 0.9 mg/dL Glucose 103 (H) 65 - 99 mg/dL Calcium 8.9 8.3 - 10.2 mg/dL Specimen Performing Laboratory Plasma specimen [facility] DEPARTMENT OF PATHOLOGY AND [facility] [address] [place] [address] after 11/20/2016 Insurance Payer Benefit Subscriber ID Type Phone Address Plan / Group BCBS BCBS xxxxxxxxxxxx PPO CHOICE PPO/FEDERA L EMPL PPO
--- NOTE | 2017-11-21 21:27 | Diagnostic Imaging Report ---
EXAM: CHEST SINGLE (NOT PORTABLE), AP 1 view INDICATION: Ongoing chest pain COMPARISON: AP view of the chest November 27, 2016 FINDINGS: LINES/TUBES: None LUNGS: No consolidations or edema. PLEURA: No effusions or pneumothorax. HEART AND MEDIASTINUM: Normal size and contour. BONES AND SOFT TISSUES: No acute findings. IMPRESSION: No acute thoracic abnormality. Signed by: Dr. Sharee Busby M.D. on 11/21/2017 9:23 PM
[2017-11-21 22:09] LABS: BASOPHILS % 0.3 % (0.0-1.0); EOSINOPHILS # (AUTO) 0.2 (0.0-0.4); EOSINOPHILS % 1.6 % (0.0-6.0); HEMATOCRIT 33.1 % (34.2-44.1); HEMOGLOBIN 10.5 g/dL (12.0-16.0); LYMPHOCYTES # (AUTO) 2.7 (1.0-3.2); LYMPHOCYTES % 28.3 % (18.0-39.1); MEAN CORPUSCULAR HEMOGLOBIN 22.1 pg (28-32); MEAN CORPUSCULAR HGB CONC 31.7 g/dL (31-35); MEAN CORPUSCULAR VOLUME 69.5 fL (81-99); MONOCYTES # (AUTO) 0.7 (0.2-0.8); MONOCYTES % 6.9 % (4.4-11.3); NEUTROPHILS # (AUTO) 5.9 (2.1-6.9); NEUTROPHILS % 62.5 % (38.7-80.0); PLATELET COUNT 296 x10e3/uL (140-360); RED BLOOD COUNT 4.76 x10e6/uL (3.6-5.1); RED CELL DISTRIBUTION WIDTH 17.9 % (11.7-14.4)
[2017-11-21 22:14] LABS: AMPHETAMINES SCREEN,URINE NEGATIVE (NEGATIVE); BENZODIAZEPINES SCREEN,URINE NEGATIVE (NEGATIVE); PHENCYCLIDINE SCREEN,URINE NEGATIVE (NEGATIVE)
[2017-11-21 22:15] LABS: BILIRUBIN,URINE NEGATIVE (NEGATIVE); CLARITY,URINE CLOUDY (CLEAR); COLOR,URINE YELLOW (YELLOW); KETONES,URINE NEGATIVE (NEGATIVE); LEUKOCYTE ESTERASE ,URINE NEGATIVE (NEGATIVE); NITRITE,URINE NEGATIVE (NEGATIVE); PROTEIN,URINE DIPSTICK NEGATIVE (NEGATIVE); URINE UROBILINOGEN 4 mg/dL (0.2 - 1)
[2017-11-21 22:22] LABS: EPITHELIAL CELLS,URINE MANY /LPF; RBC,URINE 0-5 /HPF (0-5)
[2017-11-21 22:23] LABS: ALANINE AMINOTRANSFERASE 8 IU/L (0-55); ALBUMIN 3.3 g/dL (3.5-5.0); ALBUMIN/GLOBULIN RATIO 0.7 (0.8-2.0); ALKALINE PHOSPHATASE 85 IU/L (40-150); AMYLASE 76 U/L (25-125); ANION GAP 14.1 mmol/L (8-16); BLOOD UREA NITROGEN 14 mg/dL (7-26); BUN/CREATININE RATIO 18 (6-25); CALCIUM 9.2 mg/dL (8.4-10.2); CARBON DIOXIDE 28 mmol/L (22-29); CHLORIDE 102 mmol/L (98-107); CREATINE KINASE 43 IU/L (29-168); CREATININE, SERUM 0.79 mg/dL (0.57-1.11); EST GLOMERULAR FILTRATION RATE > 60 ML/MIN (60-); GLUCOSE 92 mg/dL (74-118); LIPASE 15 U/L (8-78); POTASSIUM 4.1 mmol/L (3.5-5.1); SODIUM 140 mmol/L (136-145); WBC,URINE (MAN) 0-5 /HPF (0-5)
--- NOTE | 2017-11-22 01:14 | Diagnostic Imaging Report ---
EXAM: VENTILATION PERFUSION LUNG SCAN INDICATION: Cholecystectomy one week ago with intermittent chest pain COMPARISON: AP view of the chest November 21, 2017 DISCUSSION: Xenon-133 gas 19 mCi was administered via inhalation. Dynamic images of the lungs in the posterior projection were obtained through single breath and washout phases. Distribution of tracer activity is within normal limits throughout the lungs. Normal washout without evidence of air trapping. Perfusion images of the lungs in multiple projections were obtained following intravenous administration of 6.4 mCi of Tc-99m MAA. Distribution of tracer is within normal limits throughout the lungs. There are no segmental perfusion defects of any size. The contours of the lungs are well demarcated. IMPRESSION: Scan findings represent a very low probability for acute pulmonary embolic disease based on the PIOPED II criteria. Signed by: Dr. Sharee Busby M.D. on 11/22/2017 1:10 AM
== END 2017-11-22 01:45 | disposition home or self-care (01) ==
LOC: ER 20:45
DX: R07.89 Other chest pain (principal); E11.9 Type 2 diabetes mellitus without complications; J45.909 Unspecified asthma, uncomplicated; D57.3 Sickle-cell trait
CPT/HCPCS: 36415; 71045; 78582; 80053; 80307; 81001; 82150; 82550; 82553; 83690; 84484; 84702; 85025; 85379; 93005; 99284; A9540; A9558

== ENCOUNTER 2019-04-11 11:48 | Emergency (ER) | payer OTHER ==
[~2019-04-11] VITALS: Ht 180.3 cm; Wt 151.5 kg
--- OUTSIDE RECORDS SUMMARY | 2019-04-11 11:51 | XMS REPORT | Clinical Summary ---
Author Author [facility] Organization [facility] Address Unknown Phone Unavailable Care Team Providers Care Prop Cutter Name Role Phone System, Provider Not In MD PCP Unavailable Allergies Comments Active Allergy Reactions Severity Noted Date Patient states she had difficulty breathing and passed out. Iodine Shortness Of High 08/21/2017 Breath, Other (See Comments) Medications Not on file Active Problems Not on file Social History Date Tobacco Use Types Packs/Day Years Used Never Smoker Smokeless Tobacco: Never Used Tobacco Cessation: Counseling Given: No Alcohol Use Drinks/Week oz/Week Comments No Sex Assigned at Date Recorded Not on file Industry Job Start Date Occupation Not on file Not on file Not on file Travel End Travel History Travel Start No recent travel history available. Last Filed Vital Signs Not on file Plan of Treatment Health Maintenance Due Date Last Done Comments INFLUENZA VACCINE 04/24/2019 Results Not on fileafter 04/10/2018 Insurance Type Payer Benefit Subscriber ID Effective Phone Address Plan / Dates Group PPO BCBS BCBS xxxxxxxxxxxx 2014- CHOICE Present PPO/MAGDA GEE PPO Advance Directives Patient has advance care planning documents on file. For more information, christiano vasquez contact: Wilver Leiva [address] [place] [address]
--- OUTSIDE RECORDS SUMMARY | 2019-04-11 11:52 | XMS REPORT | Clinical Summary ---
Author Author [facility] Address Unknown Phone Unavailable Care Team Providers Care Wood Treating Inspector Name Role Phone Unknownmeds, Provider PCP Unavailable Allergies Comments Active Allergy Reactions Severity Noted Date Contrast dye 2015 Short of breath, blacked out,extreme heat. Iodine And Iodide Shortness Of High 02/21/2017 Containing Products Breath Penicillins Hives High 06/28/2013 Medications End Date Status Medication Sig Dispensed Refills Start Date Active sbkuigkb-vdro-aoy-folic Take by 0 acid mouth. ([id number]-[id number]-HSFVNH LS-FOLIC ACID) 3,500-18-0.4 unit-mg-mg Chew Active metFORMIN (GLUCOPHAGE) Take 1,000 mg 0 1000 MG tablet by mouth 2 (two) times daily with breakfast and dinner. Active esomeprazole (NEXIUM) 40 Take 40 mg by 0 MG capsule mouth daily. 06/24/2019 Active albuterol HFA (VENTOLIN Inhale 1-2 1 Inhaler 0 HFA) 90 mcg/actuation puffs by 8 inhaler mouth via inhaler every 6 (six) hours as needed for Wheezing. Active dicyclomine (BENTYL) 10 Take 10 mg by 0 MG capsule mouth 4 (four) times daily before meals and nightly. 06/24/2018 Discontinued albuterol (ACCUNEB) 1.25 Take 1 ampule 0 mg/3 mL nebulizer by solution nebulization every 6 (six) hours as needed. 11/26/2018 Discontinued norethindrone (AYGESTIN) Take 5 mg by 0 5 mg tablet mouth daily. 11/26/2018 Discontinued folic acid (FOLVITE) 1 MG Take 1 mg by 0 tablet mouth daily. 11/26/2018 Discontinued metFORMIN (GLUCOPHAGE) 1,000 mg. 0 500 MG tablet 8 06/24/2018 Discontinued albuterol sulfate 90 As Needed 0 mcg/actuation AePB 07/01/2018 benzonatate (TESSALON) Take 1 21 capsule 0 100 MG capsule capsule (100 8 mg total) by mouth every 8 (eight) hours for 7 days. 11/26/2018 Discontinued guaiFENesin (MUCINEX) 600 Take 1 tablet 20 tablet 0 mg 12 hr tablet (600 mg 8 total) by mouth 2 (two) times daily. 12/06/[address] 5 drops 15 mL 0 (DEBROX) 6.5 % otic into both 9 solution ears 2 (two) times daily for 10 days. 12/06/2018 meclizine (ANTIVERT) 25 Take 1 tablet 30 tablet 0 mg tablet (25 mg total) 9 by mouth 3 (three) times daily as needed for Dizziness or Nausea for up to 10 days. 12/01/2018 azithromycin (ZITHROMAX) Take 1 tablet 6 tablet 0 250 MG tablet (250 mg 9 total) by mouth daily for 5 days Take first 2 tablets together, then 1 every day until finished.. Active Problems Problem Noted Date Abnormal EKG 12/12/2016 Acute chest pain 12/12/2016 Encounters Care Team Description Date Type Specialty Abilio Marquez MD Acute otalgia, left (Primary Dx); Impacted cerumen of left ear; Palpitations; Dizziness 11/26/2018 Emergency Emergency Medicine 11/26/2018 Orders Only General Internal Medicine 11/26/2018 Travel Christi Chan MD Moderate persistent asthma with acute exacerbation (Primary Dx); Cough in adult; Wheezing; Diarrhea, unspecified type; Acute pharyngitis, unspecified etiology 06/24/2018 Emergency Emergency Medicine after 04/10/2018 Family History Medical History Relation Name Comments Unremarkable Brother Unremarkable Brother Unremarkable Brother Cancer Father Hypertension Maternal Grandmother Hypertension Mother Hypertension Sister Relation Name Status Comments Brother Alive Brother Alive Brother Alive Father Maternal Grandmother Mother Alive Sister Alive Social History Date Tobacco Use Types Packs/Day Years Used Never Smoker Smokeless Tobacco: Never Used Alcohol Use Drinks/Week oz/Week Comments Yes 1 Glasses of 0.6 social wine Sex Assigned at Date Recorded Not on file Industry Job Start Date Occupation Not on file Not on file Not on file Travel End Travel History Travel Start No recent travel history available. Last Filed Vital Signs Time Taken Vital Sign Reading 11/26/2018 10:47 PM [employer] Blood Pressure 117/68 11/26/2018 10:47 PM [employer] Pulse 74 11/26/2018 10:53 PM [employer] Temperature 36.9 C (98.5 F) 11/26/2018 10:47 PM [employer] Respiratory Rate 22 11/26/2018 10:47 PM [employer] Oxygen Saturation 99% - Inhaled Oxygen - Concentration 11/26/2018 7:29 PM [employer] Weight 171 kg (377 lb) 11/26/2018 7:29 PM [employer] Height 152.4 cm (5') 11/26/2018 7:29 PM [employer] Body Mass Index 73.63 Plan of Treatment Not on file Procedures Comments Procedure Name Priority Date/Time Associated Diagnosis REPORT OF PROCEDURE - 11/28/2018 ENDOSCOPY SCAN 2:56 PM [employer] CBC W/PLT COUNT & AUTO STAT 11/26/2018 DIFFERENTIAL 8:31 PM [employer] D-DIMER STAT 11/26/2018 8:31 PM [employer] TROPONIN I STAT 11/26/2018 8:31 PM [employer] BASIC METABOLIC PANEL (7) STAT 11/26/2018 8:31 PM [employer] CBC W/PLT COUNT & AUTO STAT 11/26/2018 DIFFERENTIAL 8:31 PM [employer] URINALYSIS W/ REFLEX STAT 11/26/2018 URINE CULTURE 8:13 PM [employer] SCREEN, URINE STAT 11/26/2018 8:13 PM [employer] ED ECG INTERPRETATION Routine 11/26/2018 7:29 PM [employer] ECG 12-LEAD Routine 11/26/2018 7:22 PM [employer] ECG 12-LEAD Routine 11/26/2018 7:22 PM [employer] Procedure Note - Interface, External Ris In - 11/26/2018 8:57 PM [employer] Ventricula r Rate 70 BPM Atrial Rate 70 BPM P-R Interval 168 ms QRS Duration 88 ms Q-T Interval 388 ms QTC Calculatio n(Bazett) 419 ms P Lanse 34 degrees R Lanse 58 degrees T Lanse 12 degrees Normal sinus rhythm with sinus arrhythmia Normal ECG When compared with ECG of 3 11:29, No significan t change was found RAPID STREP A SCREEN STAT 06/24/2018 8:36 PM CDT XR CHEST 2 VIEWS STAT 06/24/2018 8:33 PM CDT after 04/10/2018 Results * EKG-SCANNED (11/28/2018 2:56 PM [employer]) Narrative Performed At * CBC with platelet count + automated diff (11/26/2018 8:31 PM [employer]) WBC 7.1 3.5 - 10.5 K/L [facility] RBC 4.78 3.93 - 5.22 M/L [facility] Hemoglobin 10.8 (L) 11.2 - 15.7 GM/DL [facility] Hematocrit 35.6 34.1 - 44.9 % [facility] MCV 74.5 (L) 79.4 - 94.8 fL [facility] MCH 22.6 (L) 25.6 - 32.2 pg [facility] MCHC 30.3 (L) 32.2 - 35.5 GM/DL [facility] RDW 17.3 (H) 11.7 - 14.4 % [facility] Platelets 240 150 - 450 K/CU MM [facility] MPV 11.2 9.4 - 12.3 fL [facility] nRBC 0 0 - 0 /100 WBC [facility] % Neutros 54 % [facility] % Lymphs 38 % [facility] % Monos 6 % [facility] % Eos 2 % [facility] % Baso 0 % [facility] # Neutros 3.81 1.56 - 6.13 K/L [facility] # Lymphs 2.69 1.18 - 3.74 K/L [facility] # Monos 0.42 (H) 0.24 - 0.36 K/L [facility] # Eos 0.16 0.04 - 0.36 K/L [facility] # Baso 0.02 0.01 - 0.08 K/L [facility] Immature 0 0 - 1 % [facility] Granulocytes-[facility] Specimen Blood Performing Organization Address City/[facility]/[place] [address] [phone] [place] [address] * Troponin I (11/26/2018 8:31 PM [employer]) Troponin I <0.01 0.00 - 0.03 ng/mL [facility] Specimen Blood Narrative Performed At Troponin I (TnI) levels must be interpreted in the context of the presenting [facility] symptoms and the clinical findings. Elevated TnI levels indicate myocardial [facility] damage, but are not specific for ischemic heart disease. Elevated TnI levels are seen in patients with other cardiac conditions (including myocarditis and congestive heart failure), and slight TnI elevations occur in patients with other conditions, including sepsis, renal failure, acidosis, acute neurological disease, and persistent tachyarrhythmia. Performing Organization Address City/State/Zipcode Phone Number [address] [address] [facility] * D-dimer (11/26/2018 8:31 PM [employer]) D-Dimer, Quant 0.48 <0.50 MG/L FEU [facility] Specimen Blood Narrative Performed At Intended Use: The D-Dimer Assay can be used to aid in the diagnosis of Deep Vein [facility] Thrombosis (DVT) and Pulmonary Embolism Disease (PED). [facility] In patients with low pre-test probability, various studies concerning STA Liatest D-dimer test have reported that with a cutoff value of 0.50 MG/L FEU, the Negative Predictive Value (NPV) regarding the exclusion of thrombosis is within 95-100% range. Performing Organization Address City/[facility]/Zipcode Phone Number [facility] [address] [place] [address] [facility] * Basic Metabolic Panel (11/26/2018 8:31 PM [employer]) Sodium 139 136 - 145 meq/L [facility] Potassium 3.8 3.5 - 5.1 meq/L [facility] Chloride 103 98 - 107 meq/L [facility] CO2 28 22 - 29 meq/L [facility] BUN 12 7 - 21 mg/dL [facility] Creatinine 0.76 0.57 - 1.25 mg/dL [facility] Glucose 103 70 - 105 mg/dL [facility] Calcium 9.1 8.4 - 10.2 mg/dL [facility] EGFR 107Comment: ESTIMATED GFR IS mL/min/1.73 sq m [facility] NOT ACCURATE CREATININE [facility] CLEARANCE IN PREDICTING GLOMERULAR FILTRATION RATE. ESTIMATED GFR IS NOT APPLICABLE FOR DIALYSIS PATIENTS. Specimen Blood Performing Organization Address City/[facility]/Rustcode Phone Number [facility] [address] [place] [address] [facility] * Urinalysis w/Microscopic + Reflex to Culture (11/26/2018 8:13 PM [employer]) Color, UA Yellow [facility] Clarity, UA Clear [facility] Specific [place], UA 1.018 1.001 - 1.035 [facility] pH, UA 5.5 5.0 - 8.0 [facility] Protein, UA Negative Negative [facility] Glucose, UA Negative Negative [facility] Ketones, UA Negative Negative [facility] Bilirubin, UA Negative Negative [facility] Blood, UA Negative Negative [facility] Nitrite, UA Negative Negative [facility] Leukocytes, UA Negative Negative [facility] Urobilinogen, UA 2.0 (H) 0.2 - 1.0 mg/dL [facility] RBC, UA 0 /HPF [facility] WBC, UA 2 /HPF [facility] Bacteria, UA Rare [facility] Mucus Rare [facility] Squam Epithel, UA 5 /HPF [facility] Specimen Source [facility] Specimen Urine Performing Organization Address City/[facility]/Rustcode Phone Number [address] * Screen, urine (11/26/2018 8:13 PM [employer]) Preg Test, Ur Negative [facility] Specimen Urine Performing Organization Address City/[facility]/Rustcode Phone Number [address] * ECG/EKG Interpretation (11/26/2018 7:29 PM [employer]) Narrative Performed At Abilio Marquez MD 11/26/2018 10:48 PM ECG/EKG Interpretation Date/Time: 11/26/2018 7:29 PM Performed by: Abilio Marquez MD Authorized by: Abilio Marquez MD The ECG was interpreted by ED physician. The ECG is interpreted as sinus rhythm. Rate is normal rate. Heart rate is [address] segments normal. T-wave inversion in lead(s) III. Lanse is normal. Clinical Impression: non-specific ECGECG reviewed and does not meet STEMI criteria. Patient tolerance: Patient tolerated the procedure well with no immediate complications * ECG 12 lead (11/26/2018 7:22 PM [employer]) Specimen Narrative Performed At Ventricular Rate 70 BPM GE MUSE Atrial Rate 70 BPM P-R Interval 168 ms QRS Duration 88 ms Q-T Interval 388 ms QTC Calculation(Bazett) 419 ms P Lanse 34 degrees R Lanse 58 degrees T Lanse 12 degrees Normal sinus rhythm with sinus arrhythmia Normal ECG When compared with ECG of 28-JUN-2013 11:29, No significant change was found Confirmed by Devendra SIMS, ELIZABETH ([id number]) on 11/27/2018 9:54:01 AM Procedure Note Interface, External Ris In - 11/27/2018 9:54 AM [employer] Ventricular Rate 70 BPM Atrial Rate 70 BPM P-R Interval 168 ms QRS Duration 88 ms Q-T Interval 388 ms QTC Calculation(Bazett) 419 ms P Lanse 34 degrees R Lanse 58 degrees T Lanse 12 degrees Normal sinus rhythm with sinus arrhythmia Normal ECG When compared with ECG of 28-JUN-2013 11:29, No significant change was found Confirmed by Devendra SIMS, ELIZABETH ([id number]) on 11/27/2018 9:54:01 AM Performing Organization Address City/State/Zipcode Phone Number [employer] * Rapid Strep A screen (06/24/2018 8:36 PM CDT) Strep A Ag Negative Negative [facility] Specimen Throat Performing Organization Address City/[facility]/Zipcode Phone Number [facility] [address] [place] [address] [facility] [place] * XR chest 2 views (06/24/2018 8:33 PM CDT) Specimen Narrative Performed At FINAL REPORT [place] Illumination Chest 2 views 06/24/2018 8:38 PM CLINICAL HISTORY: COUGH shortness of breath COMPARISON: 12/12/2016 FINDINGS: The lungs are clear. Cardiomediastinal contours are within normal limits. The central pulmonary vasculature is not engorged. The visualized skeleton is intact. IMPRESSION: No acute radiographic abnormalities. Signed: Carlin Beckwith MD Report Verified Date/Time:06/24/2018 20:38:58 Reading Location: [facility] Radiology Reading Room Procedure Note Interface, External Ris In - 06/24/2018 8:41 PM CDT FINAL REPORT Chest 2 views 06/24/2018 8:38 PM CLINICAL HISTORY: COUGH shortness of breath COMPARISON: 12/12/2016 FINDINGS: The lungs are clear. Cardiomediastinal contours are within normal limits. The central pulmonary vasculature is not engorged. The visualized skeleton is intact. IMPRESSION: No acute radiographic abnormalities. Signed: Carlin Beckwith MD Report Verified Date/Time: 06/24/2018 20:38:58 Reading Location: [facility] Radiology Reading Room Performing Organization Address City/State/Zipcode Phone Number [facility] after 04/10/2018 Insurance Payer Benefit Subscriber ID Type Phone Address Plan / Group MEDICAID MEDICAID xxxxxxxxx Medicaid [place] Advance Directives For more information, please contact: [address] [address] Date Inactivated Comments Code Status Date Activated 12/14/2016 6:51 PM Full Code 12/13/2016 1:53 AM This code status was determined by: Patient
--- OUTSIDE RECORDS SUMMARY | 2019-04-11 11:52 | XMS REPORT | Continuity of Care Document ---
Author Author cartmi Address Unknown Phone Unavailable Care Team Providers Care Crib Clerk Name Role Phone [facility] [employer] Unavailable Unavailable Problems Problem Status Onset Date Classification Date Reported Comments Source Irregular menstrual bleeding Active Problem 11/22/2017 [facility] Medications Medication Details Route Status Patient Instructions Ordering Provider Order Date Source Estradiol (Estrace) 42.5 Gm Cr, 42.5 Each Topically Twice A Day Active 11/26/2016 [facility] Clomid , 50 Mg Oral Daily Active 04/28/2016 [facility] Folic Acid 0.4 Mg Tablet, 0.4 Mg Oral Daily Active 04/28/2016 [facility] No Meds , Active 04/28/2016 [facility] Albuterol Sulfate (Albuterol Sulfate Hfa) 8.5 Gm Hfa.aer.ad As Needed Active [facility] Dicyclomine Hcl 20 Mg Tablet Four Times Daily Active [facility] Diphenhydramine Hcl (Benadryl) 25 Mg Capsule Bedtime Active [facility] Meclizine Hcl 12.5 Mg Tablet As Needed Active [facility] Metformin Hcl 500 Mg Tablet Twice A Day Active [facility] Ondansetron (Zofran Odt) 4 Mg Tab.rapdis As Needed Active [facility] Allergies, Adverse Reactions, Alerts Substance Category Reaction Severity Reaction type Status Date Reported Comments Source Penicillin HIVES, SOB Severe Allergy to Substance Active 11/08/2014 [facility] Iodine HIVES/SOB Unknown Allergy to Substance Active 11/09/2017 [facility] Immunizations No Data Provided for This Section Results Order Name Results Value Reference Range Date Interpretation Comments Source Automated blood basophil count (count/volume) Automated blood basophil count (count/volume) 0.0 0.0 - 0.1 11/21/2017 [facility] Automated blood basophil count as percentage of total leukocytes Automated blood basophil count as percentage of total leukocytes 0.3 0.0 - 1.0 11/21/2017 [facility] Automated blood eosinophil count Automated blood eosinophil count 0.2 0.0 - 0.4 11/21/2017 [facility] Automated blood eosinophil count as percentage of total leukocytes Automated blood eosinophil count as percentage of total leukocytes 1.6 0.0 - 6.0 11/21/2017 [facility] Automated blood hematocrit (volume fraction) Automated blood hematocrit (volume fraction) 33.1 34.2 - 44.1 11/21/2017 [facility] Automated blood lymphocyte count as percentage ot total leukocytes Automated blood lymphocyte count as percentage ot total leukocytes 28.3 18.0 - 39.1 11/21/2017 [facility] Automated blood monocyte count as percentage of total leukocytes Automated blood monocyte count as percentage of total leukocytes 6.9 4.4 - 11.3 11/21/2017 [facility] Automated blood neutrophil count Automated blood neutrophil count 5.9 2.1 - 6.9 11/21/2017 [facility] Automated blood platelet count (count/volume) Automated blood platelet count (count/volume) 296 140 - 360 11/21/2017 [facility] Automated blood segmented neutrophil count as percentage of total leukocytes Automated blood segmented neutrophil count as percentage of total leukocytes 62.5 38.7 - 80.0 11/21/2017 [facility] Automated erythrocyte mean corpuscular hemoglobin (mass per erythrocyte) Automated erythrocyte mean corpuscular hemoglobin (mass per erythrocyte) 22.1 28 - 32 11/21/2017 [facility] Automated erythrocyte mean corpuscular hemoglobin concentration measurement (mass/volume) Automated erythrocyte mean corpuscular hemoglobin concentration measurement (mass/volume) 31.7 31 - 35 11/21/2017 [facility] Automated erythrocyte mean corpuscular volume Automated erythrocyte mean corpuscular volume 69.5 81 - 99 11/21/2017 [facility] Automated urine sediment leukocyte count by microscopy (number/high power field) Automated urine sediment leukocyte count by microscopy (number/high power field) <5 0 - 5 11/21/2017 [facility] Bacteria detection in urine sediment by light microscopy Bacteria detection in urine sediment by light microscopy NONE NONE 11/21/2017 [facility] Barbiturates screen, urine Barbiturates screen, urine NEGATIVE NEGATIVE 11/21/2017 [facility] Blood erythrocytes automated count (number/volume) Blood erythrocytes automated count (number/volume) 4.76 3.6 - 5.1 11/21/2017 [facility] Blood hemoglobin measurement (moles/volume) Blood hemoglobin measurement (moles/volume) 10.5 12.0 - 16.0 11/21/2017 [facility] Blood leukocytes automated count (number/volume) Blood leukocytes automated count (number/volume) 9.50 4.8 - 10.8 11/21/2017 [facility] Blood lymphocytes count (number/volume) Blood lymphocytes count (number/volume) 2.7 1.0 - 3.2 11/21/2017 [facility] Blood monocytes automated count (number/volume) Blood monocytes automated count (number/volume) 0.7 0.2 - 0.8 11/21/2017 [facility] Epithelial cells detection in urine sediment by light microscopy Epithelial cells detection in urine sediment by light microscopy MANY NONE 11/21/2017 [facility] Erythrocytes detection in urine sediment by light microscopy Erythrocytes detection in urine sediment by light microscopy <5 0 - 5 11/21/2017 [facility] Estimated glomerular filtration rate (GFR) determination Estimated glomerular filtration rate (GFR) determination >60 60 11/21/2017 [facility] Fibrin D-dimer DDU measurement in platelet poor plasma (mass/volume) Fibrin D-dimer DDU measurement in platelet poor plasma (mass/volume) 1.51 0.00 - 0.45 11/21/2017 [facility] Glucose measurement Glucose measurement 92 74 - 118 11/21/2017 [facility] Plasma globulin measurement (mass/volume) Plasma globulin measurement (mass/volume) 4.7 2.3 - 3.5 11/21/2017 [facility] Serum or plasma alanine aminotransferase measurement (enzymatic activity/volume) Serum or plasma alanine aminotransferase measurement (enzymatic activity/volume) 8 0 - 55 11/21/2017 [facility] Serum or plasma albumin measurement (mass/volume) Serum or plasma albumin measurement (mass/volume) 3.3 3.5 - 5.0 11/21/2017 [facility] Serum or plasma albumin/globulin mass ratio Serum or plasma albumin/globulin mass ratio 0.7 0.8 - 2.0 11/21/2017 [facility] Serum or plasma alkaline phosphatase measurement (enzymatic activity/volume) Serum or plasma alkaline phosphatase measurement (enzymatic activity/volume) 85 40 - 150 11/21/2017 [facility] Serum or plasma amylase measurement (enzymatic activity/volume) Serum or plasma amylase measurement (enzymatic activity/volume) 76 25 - 125 11/21/2017 [facility] Serum or plasma anion gap Serum or plasma anion gap 14.1 8 - 16 11/21/2017 [facility] Serum or plasma calcium measurement (mass/volume) Serum or plasma calcium measurement (mass/volume) 9.2 8.4 - 10.2 11/21/2017 [facility] Serum or plasma carbon dioxide, total measurement (moles/volume) Serum or plasma carbon dioxide, total measurement (moles/volume) 28 22 - 29 11/21/2017 [facility] Serum or plasma chloride measurement (moles/volume) Serum or plasma chloride measurement (moles/volume) 102 98 - 107 11/21/2017 [facility] Serum or plasma choriogonadotropin ( test) detection Serum or plasma choriogonadotropin ( test) detection NEGATIVE NEGATIVE 11/21/2017 [facility] Serum or plasma creatine kinase MB measurement (mass/volume) Serum or plasma creatine kinase MB measurement (mass/volume) 0.40 0 - 5.0 11/21/2017 [facility] Serum or plasma creatine kinase measurement (enzymatic activity/volume) Serum or plasma creatine kinase measurement (enzymatic activity/volume) 43 29 - 168 11/21/2017 [facility] Serum or plasma creatinine measurement (mass/volume) Serum or plasma creatinine measurement (mass/volume) 0.79 0.57 - 1.11 11/21/2017 [facility] Serum or plasma lipase measurement (enzymatic activity/volume) Serum or plasma lipase measurement (enzymatic activity/volume) 15 8 - 78 11/21/2017 [facility] Serum or plasma potassium measurement (moles/volume) Serum or plasma potassium measurement (moles/volume) 4.1 3.5 - 5.1 11/21/2017 [facility] Serum or plasma protein measurement (mass/volume) Serum or plasma protein measurement (mass/volume) 8.0 6.5 - 8.1 11/21/2017 [facility] Serum or plasma sodium measurement (moles/volume) Serum or plasma sodium measurement (moles/volume) 140 136 - 145 11/21/2017 [facility] Serum or plasma total bilirubin measurement (mass/volume) Serum or plasma total bilirubin measurement (mass/volume) 0.4 0.2 - 1.2 11/21/2017 [facility] Serum or plasma urea nitrogen measurement (mass/volume) Serum or plasma urea nitrogen measurement (mass/volume) 14 7 - 26 11/21/2017 [facility] Serum or plasma urea nitrogen/creatinine mass ratio Serum or plasma urea nitrogen/creatinine mass ratio 18 6 - 25 11/21/2017 [facility] Specific gravity of Urine by Test strip Specific gravity of Urine by Test strip 1.020 1.010 - 1.025 11/21/2017 [facility] Troponin I measurement by highly sensitive enzyme immunoassay Troponin I measurement by highly sensitive enzyme immunoassay <0.001 0 - 0.300 11/21/2017 [facility] Urine amphetamines detection by screen method > 1000 ng/mL Urine amphetamines detection by screen method > 1000 ng/mL NEGATIVE NEGATIVE 11/21/2017 [facility] Urine benzodiazepines detection by screening method Urine benzodiazepines detection by screening method NEGATIVE NEGATIVE 11/21/2017 [facility] Urine cannabinoids detection by screening method Urine cannabinoids detection by screening method NEGATIVE NEGATIVE 11/21/2017 [facility] Urine clarity Urine clarity CLOUDY CLEAR 11/21/2017 [facility] Urine cocaine measurement (mass/volume) Urine cocaine measurement (mass/volume) NEGATIVE NEGATIVE 11/21/2017 [facility] Urine color determination Urine color determination YELLOW YELLOW 11/21/2017 [facility] Urine erythrocytes detection Urine erythrocytes detection NEGATIVE NEGATIVE 11/21/2017 [facility] Urine glucose detection Urine glucose detection NEGATIVE NEGATIVE 11/21/2017 [facility] Urine ketones detection by automated test strip Urine ketones detection by automated test strip NEGATIVE NEGATIVE 11/21/2017 [facility] Urine leukocyte esterase detection by dipstick Urine leukocyte esterase detection by dipstick NEGATIVE NEGATIVE 11/21/2017 [facility] Urine methadone screen Urine methadone screen NEGATIVE NEGATIVE 11/21/2017 [facility] Urine nitrite detection Urine nitrite detection NEGATIVE NEGATIVE 11/21/2017 [facility] Urine opiates screening test Urine opiates screening test NEGATIVE NEGATIVE 11/21/2017 [facility] Urine pH measurement by automated test strip Urine pH measurement by automated test strip 6 5 - 7 11/21/2017 [facility] Urine phencyclidine detection by screening method Urine phencyclidine detection by screening method NEGATIVE NEGATIVE 11/21/2017 [facility] Urine protein measurement by test strip (mass/volume) Urine protein measurement by test strip (mass/volume) NEGATIVE NEGATIVE 11/21/2017 [facility] Urine total bilirubin measurement (mass/volume) Urine total bilirubin measurement (mass/volume) NEGATIVE NEGATIVE 11/21/2017 [facility] Urine urobilinogen measurement by test strip (mass/volume) Urine urobilinogen measurement by test strip (mass/volume) 4 0.2 - 1 11/21/2017 [facility] Red Cell Distribution Width 17.9 11.7 - 14.4 11/21/2017 [facility] IM GRANULOCYTES % 0.4 0.0 - 1.0 11/21/2017 [facility] Absolute Immature Granulocyte (auto 0.04 0 - 0.1 11/21/2017 [facility] Urine Methamphetamines Screen NEGATIVE NEGATIVE 11/21/2017 [facility] Aspartate Amino Transf (AST/SGOT) 8 5 - 34 11/21/2017 [facility] Capillary blood glucose measurement by glucometer (mass/volume) Capillary blood glucose measurement by glucometer (mass/volume) 95 70 - 120 11/14/2017 [facility] Blood platelet clump detection by light microscopy Blood platelet clump detection by light microscopy FEW NONE 11/14/2017 [facility] Blood platelets count by estimate (number/volume) Blood platelets count by estimate (number/volume) ADEQUATE 11/14/2017 [facility] Giant platelet detection Giant platelet detection FEW 11/14/2017 [facility] RBC morphology RBC morphology NORMAL 11/14/2017 [facility] Serum or plasma iron binding capacity measurement (mass/volume) Serum or plasma iron binding capacity measurement (mass/volume) 287 261 - 478 11/12/2017 [facility] Serum or plasma iron measurement (mass/volume) Serum or plasma iron measurement (mass/volume) 22 50 - 170 11/12/2017 [facility] Serum or plasma iron saturation measurement (mass fraction) Serum or plasma iron saturation measurement (mass fraction) 8 15 - 50 11/12/2017 [facility] Serum or plasma transferrin measurement (mass/volume) Serum or plasma transferrin measurement (mass/volume) 205 180 - 382 11/12/2017 [facility] Automated reticulocyte count as percentage of total erythrocytes Automated reticulocyte count as percentage of total erythrocytes 1.1 0.8 - 2.2 11/12/2017 [facility] Urine human chorionic gonadotropin (hCG) detection Urine human chorionic gonadotropin (hCG) detection NEGATIVE NEGATIVE 11/11/2017 [facility] Amorphous sediment detection in urine sediment by light microscopy Amorphous sediment detection in urine sediment by light microscopy FEW FEW 02/27/2017 [facility] Pathology Reports No Data Provided for This Section Diagnostic Reports No Data Provided for This Section Consultation Notes No Data Provided for This Section Discharge Summaries No Data Provided for This Section History and Physicals No Data Provided for This Section Vital Signs No Data Provided for This Section Encounters Location Location Details Encounter Type Encounter Number Reason For Visit Attending Provider ADM Date DC Date Status Source Departed Emergency Room [id number] CARISSA RUBIO MD 02/27/2017 02/27/2017 [facility] Discharged Inpatient (obs) [id number] BIJU EARLY MD 11/11/2017 11/14/2017 [facility] Registered Emergency Room [id number] WOLF STERN MD 11/21/2017 [facility] Procedures Procedure Code Date Perfomer Comments Source X-ray of chest, single view [id number] 11/21/2017 JARRED [facility] Laparoscopic cholecystectomy [id number] 11/13/2017 JAYME [facility] EGD with biopsy [id number] 11/12/2017 [facility] US gallbladder [id number] 11/12/2017 [facility] Assessment and Plan No Data Provided for This Section Plan of Care Plan of Care Date Source Discharge Date 11/22/17 1:45am Disposition HOME, SELF-CARE Condition at Discharge Stable Instructions/Education Provided Chest Pain - Chest Wall Forms Provided Work/School Excuse Prescriptions See Medication Section Additional Instructions/Education TAKE MEDICATIONS PRESCRIBED FOLLOW-UP WITH PRIMARY CARE PROVIDER 11/22/2017 [facility] Social History Social History Date Source Social History Problem Response Recorded Date/Time Onset [...] No 11/11/2017 1:42pm Not Applicable Not Applicable 11/22/2017 [facility] Family History No Data Provided for This Section Advance Directives Order Name Results Value Date Source Advance Directives Advance Directives Directive Response Recorded Date/Time Does the patient have an advance directive? No 11/11/17 1:42pm If yes, is advance directive on file with [facility]? No 11/11/17 1:42pm If not on file with [facility] will patient provide a copy? No 11/11/17 1:42pm Do you have a Directive to Physician? No 11/21/17 11:01pm Do you have a Medical Power of Family Independence Case Manager? No 11/21/17 11:01pm Do you have an out of hospital Do Not Resuscitate Order? No 11/21/17 11:01pm Do you have any special needs we should be aware of? No 11/21/17 11:01pm Do you have a support person here with you today? Yes 11/21/17 11:01pm Did patient receive Notice of Privacy Practices? Yes 11/21/17 11:01pm Did patient receive patient rights and responsibilities? Yes 11/21/17 11:01pm 11/22/2017 [facility] Functional Status No Data Provided for This Section
--- OUTSIDE RECORDS SUMMARY | 2019-04-11 11:53 | XMS REPORT ---
[facility] Address Unknown Phone Unavailable Care Team Providers Care Efficiency Miner Name Role Phone SARAH JORGE Unavailable Unavailable MIGEL CARDONA Unavailable Unavailable Cliff STERN Unavailable Unavailable BIJU EARLY Unavailable Unavailable KAREEM MARTIN Unavailable Unavailable Payers Payer Name Policy Type Policy Number Effective Date Expiration Date Problems This patient has no known problems. Allergies, Adverse Reactions, Alerts Allergy Name Allergy Type Status Severity Reaction(s) Onset Date Inactive Date Treating Clinician Comments Iodinated Contrast- Oral and IV Dye DA Active U 2019-02-10 00:00:00 Penicillins DA Active U 2019-02-10 00:00:00 shellfish derived DA Active U 2019-02-10 00:00:00 Iodinated Contrast- Oral and IV Dye DA Active U 2018-12-10 00:00:00 Penicillins DA Active U 2018-12-10 00:00:00 shellfish derived DA Active U 2018-12-10 00:00:00 Iodinated Contrast- Oral and IV Dye DA Active U 2018-05-14 00:00:00 Penicillins DA Active U 2018-05-14 00:00:00 shellfish derived DA Active U 2018-05-14 00:00:00 Medications This patient has no known medications. Encounters Start Date/Time End Date/Time Encounter Type Admission Type Attending Clinicians Care Facility Care Department Encounter ID 2019-03-05 06:04:00 2019-03-05 06:04:00 Outpatient E [facility] [id number] 2019-01-02 09:42:00 2019-01-02 09:42:00 Emergency E [facility] SE [id number] Results Test Description Test Time Test Comments Text Results Atomic Results Result Comments BASIC METABOLIC PANEL 2019-02-10 09:51:00 SODIUM (test code=NA) 139 mmol/L 136-145 POTASSIUM (test code=K) 4.0 mmol/L 3.5-5.1 CHLORIDE (test code=CL) 104.0 mmol/L 98-107 CARBON DIOXIDE (test code=CO2) 28.0 mmol/L 21-32 ANION GAP (test code=GAP) 11.0 10-20 GLUCOSE (test code=GLU) 93 mg/dL 74-106 BLOOD UREA NITROGEN (test code=BUN) 13 mg/dL 7-18 GLOMERULAR FILTRATION RATE (test code=GFR) > 60 mL/min >=60 Estimated GFR by using Modified MDRD formula.Chronic kidney disease is defined as either kidney damageor GFR <60 mL/min/1.73 m2 for >3 months. CREATININE (test code=CREAT) 0.70 mg/dL 0.55-1.02 Note change in reference range due to change in reagent. BUN/CREATININE RATIO (test code=BUN/CREA) 18.6 10-20 CALCIUM (test code=CA) 8.7 mg/dL 8.5-10.1 HCG SERUM [id number] 09:51:00* Test Item Value Reference Range Comments HCG SERUM BETA (test code=HCG) < 1.0 mIU/mL 0-3 INTERPRETATION:B-HCG LEVELS <5 SHOULD BE CONSIDERED "NEGATIVE." *WHEN BODERLINE RESULTS ARE ENCOUNTERED,PATIENT SAMPLESSHOULD BE REDRAWN 48 HOURS. 0-1 WEEKS AFTER CONCEPTION 5-50 MIU/ML1-2 WEEKS AFTER CONCEPTION 50-500 MIU/ML2-3 WEEKS AFTER CONCEPTION 100 -5,000 MIU/ML3-4 WEEKS AFTER CONCEPTION 500-10,000 MIU/ML4-5 WEEKS AFTER CONCEPTION 1000 -50,000 MIU/ML5-6 WEEKS AFTER CONCEPTION 10,000-100,000 MIU/ML6-8 WEEKS AFTER CONCEPTION 15,000- 200,000 MIU/ML2-3 MONTHS AFTER CONCEPTION 10,000-100,000 MIU/ML - PREG UT [id number] 09:44:00 Name: DU SIDHU [facility] : 1985 Age/S: 33 / F [address] Unit #: [id number] Loc: [place] [address] Phys: Emili Deleon [employer] Acct: [id number] Dis Date: Status: REG ER PHONE #: [phone] Exam Date: 02/10/2019909 FAX #: [phone] Reason: PELVIC PAIN EXAMS: CPT CODE: [id number] US PREG UT TRANSVAGINAL 04279 TECHNIQUE - US PREG 1ST TRIMTR, - DUP AB/PEL/SC COMP, - US PREG UT TRANSVAGINAL . COMPARISON: None provided. HISTORY: 33 years Female VAGINAL BLEEDING/PELVIC PAIN FINDINGS: Ultrasound of the pelvis trans abdomen and transvaginal: Uterus: Uterine size: 8.3 x 3.9 x 5.2cm. Myometrium: No abnormalities. Endometrium: 1.5 cm in width. Normal uniform echogenicity. No fluid in endometrial cavity. Cervix: No abnormalities. Adnexa/Ovaries : Right ovary: 2.7 x 2.3 x 2.2 cm. No right adnexal/ovarian cystic or solid masses. Normal flow to the right ovary. Left ovary: 2.4 x 1.8 x 2.2 cm. No left adnexal/ovarian cystic or solid masses. Normal flow to t he left ovary. Free fluid: None. Other: None . IMPRESSION: No pelvic abnormalities noted. There is no IUP. at 0944 Reported and signed by: Joselo Osei M.D. PAGE 1 Signed Report (CONTINUED) Name: DU SIDHUVIPUL [facility] : 1985 Age/S: 33 / F [address] Unit #: [id number] Loc: JHON Lucas [address] Phys: Emili Deleon [employer] Acct: [id number] Dis Date: Status: REG ER PHONE #: [phone] Exam Date: 02/10/2019909 FAX #: [phone] Reason: PELVIC PAIN EXAMS: CPT CODE: [id number] US PREG UT TRANSVAGINAL 03892 < Continued> CC: Emili Deleon NP Technologist: LB KING RT(R),RDMS Trnscb Date/Time: 02/10/2019 (943) Stacy Nunez Print D/T: S: 02/10/2019 (0947) Probe: [id number] PAGE 2 Signed Report - DUP AB/PEL/SC [id number] 09:44:00 Name: DU SIDHU [facility] : 1985 Age/S: 33 / F [address] [facility] Unit #: [id number] Loc: ShayyJHON [address] Phys: Emili Deleon [employer] Acct: [id number] Dis Date: Status: REG ER PHONE #: [phone] Exam Date: 02/10/2019909 FAX #: [phone] Reason: PELVIC PAIN EXAMS: CPT CODE: [id number] DUP AB/PEL/SC COMP 97006 TECHNIQUE - US PREG 1ST TRIMTR, - DUP AB/PEL/SC COMP, - US PREG UT TRANSVAGINAL . COMPARISON: None provided. HISTORY: 33 years Female VAGINAL BLEEDING/PELVIC PAIN FINDINGS: Ultrasound of the pelvis trans abdomen and transvaginal: Uterus: Uterine size: 8.3 x 3.9 x 5.2cm. Myometrium: No abnormalities. Endometrium: 1.5 cm in width. Normal uniform echogenicity. No fluid in endometrial cavity. Cervix: No abnormalities. Adnexa/Ovaries: Right ovary: 2.7 x 2.3 x 2.2 cm. No right adnexal/ovarian cystic or solid masses. Normal flow to the right ovary. Left ovary: 2.4 x 1.8 x 2.2 cm. No left adnexal/ovarian cystic or solid masses. Normal flow to the left ovary. Free fluid: None. Other: None. IMPRESSION: No pelvic abnormalities noted. There is no IUP. at 0944 Reported and signed by: Joselo Osei M.D. PAGE 1 Signed Report (CONTINUED) Name: DU SIDHU [facility] : 1985 Age/S: 33 / F [address] [facility] Unit #: [id number] Loc: JHON [place] [address] Phys: Emili Deleon [employer] Acct: [id number] Dis Date: Status: REG ER PHONE #: [phone] Exam Date: 02/10/2019 0910 FAX #: [phone] Reason: PELVIC PAIN EXAMS: CPT CODE: [id number] DUP AB/PEL/SC COMP 41493 < Continued> CC: Emili Deleon NP Technologist: LB KING RT(R),RDMS Trnscb Date/Time: 02/10/2019 (0944) t.MASSIMORAMINAHO Orig Print D/T: S: 02/10/2019 (0947) Probe: PAGE 2 Signed Report - US PREG 1ST [id number] 09:44:00 Name: DU SIDHU [facility] : 1985 Age/S: 33 / F [address] Unit #: [id number] Loc: [place] [address] Phys: Emili Deleon [employer] Acct: [id number] Dis Date: Status: REG ER PHONE #: [phone] Exam Date: 02/10/2019 0910 FAX #: [phone] Reason: VAGINAL BLEEDING/PELVIC PAIN EXAMS: CPT CODE: [id number] US PREG 1ST TRIMTR 32457 TECHNIQUE - US PREG 1ST TRIMTR, - DUP AB/PEL/SC COMP, - US PREG UT TRANSVAGINAL . COMPARISON: None provided. HISTORY: 33 years Female VAGINAL BLEEDING/PELVIC PAIN FINDINGS: Ultrasound of the pelvis trans abdomen and transvaginal: Uterus: Uterine size: 8.3 x 3.9 x 5.2cm. Myometrium: No abnormalities. Endometrium: 1.5 cm in width. Normal uniform echogenicity. No fluid in endometrial cavity. Cervix: No abnormalities. Adnexa/Ovaries: Right ovary: 2.7 x 2.3 x 2.2 cm. No right adnexal/ovarian cystic or solid masses. Normal flow to the right ovary. Left ovary: 2.4 x 1.8 x 2.2 cm. No left adnexal/ovarian cystic or solid masses. Normal flow to the left ovary. Free fluid: None. Other: None. IMPRESSION: No pelvic abnormalities noted. There is no IUP. at 0944 Reported and signed by: Joselo Osei M.D. PAGE 1 Signed Report (CONTINUED) Name: DU SIDHU [facility] : 1985 Age/S: 33 / F [address] [facility] Unit #: [id number] Loc: JH[place] [address] Phys: Emili Deleon NP Acct: [id number] Dis Date: Status: REG ER PHONE #: [phone] Exam Date: 02/10/2019 09 FAX #: [phone] Reason: VAGINAL BLEEDING/PELVIC PAIN EXAMS: CPT CODE: [id number] US PREG 1ST TRIMTR 17370 < Continued> CC: Emili Deleon NP Technologist: LB KING RT(R),RDMS Trntnb Date/Time: 02/10/2019 (943) t.KADEEM Orig Print D/T: S: 02/10/2019 (0947) Probe: PAGE 2 Signed Report BASIC METABOLIC [id number] 09:42:00* Test Item Value Reference Range Comments SODIUM (test code=NA) 139 mmol/L 136-145 POTASSIUM (test code=K) 4.0 mmol/L 3.5-5.1 CHLORIDE (test code=CL) 104.0 mmol/L 98-107 CARBON DIOXIDE (test code=CO2) mmol/L 21-32 ANION GAP (test code=GAP) 10-20 GLUCOSE (test code=GLU) mg/dL 74-106 BLOOD UREA NITROGEN (test code=BUN) mg/dL 7-18 GLOMERULAR FILTRATION RATE (test code=GFR) mL/min >=60 CREATININE (test code=CREAT) mg/dL 0.55-1.02 BUN/CREATININE RATIO (test code=BUN/CREA) 10-20 CALCIUM (test code=CA) mg/dL 8.5-10.1 HCG SERUM [id number] 09:42:00* Test Item Value Reference Range Comments HCG SERUM BETA (test code=HCG) mIU/mL 0-3 URINALYSIS [id number] 09:34:00* Test Item Value Reference Range Comments UA COLOR (test code=COLU) Light-Yellow YELLOW UA APPEARANCE (test code=APPU) CLEAR CLEAR UA GLUCOSE DIPSTICK (test code=DGLUU) NEGATIVE mg/dL NEGATIVE UA BILIRUBIN DIPSTICK (test code=BILU) NEGATIVE mg/dL NEGATIVE UA KETONE DIPSTICK (test code=KETU) NEGATIVE mg/dL NEGATIVE UA SPECIFIC GRAVITY (test code=SGU) 1.017 1.001-1.035 UA BLOOD DIPSTICK (test code=MARCELA) 0.5 mg/dL (2+) mg/dL NEGATIVE UA PH DIPSTICK (test code=CARLOTTA) 5.0 5.0-8.0 UA PROTEIN DIPSTICK (test code=PROU) NEGATIVE mg/dL NEGATIVE UA UROBILINIOGEN DIPSTICK (test code=URO) Normal mg/dL NEGATIVE UA NITRITE DIPSTICK (test code=EMY) NEGATIVE NEGATIVE UA LEUKOCYTE ESTERASE W REFLEX (test code=LEUUR) NEGATIVE Nikhil/uL NEGATIVE UA WBC (test code=WBCU) 0-5 per HPF 0-5 UA RBC (test code=RBCU) 0-2 #/HPF 0-5 UA EPITHELIAL CELLS (test code=EPIU) MOD per HPF FEW UA BACTERIA (test code=BACU) FEW per HPF NONE UA MUCUS (test code=MUCU) FEW #/LPF FEW Urine Source? Clean CatchCBC W/O [id number] 09:31:00* Test Item Value Reference Range Comments WHITE BLOOD CELL (test code=WBC) 6.7 K/mm3 4.5-12.5 RED BLOOD CELL (test code=RBC) 5.14 mill/mm3 3.7-5.2 HEMOGLOBIN (test code=HGB) 11.8 gram/dL 11.5-15.5 HEMATOCRIT (test code=HCT) 38.2 % 36.0-46.0 MEAN CELL VOLUME (test code=MCV) 74.3 fL 80-98 MEAN CELL HGB (test code=MCH) 23.0 picogram 27.0-33.0 MEAN CELL HGB CONCETRATION (test code=MCHC) 30.9 gram/dL 33.0-36.0 RED CELL DISTRIBUTION WIDTH (test code=RDW) 17.7 % 11.6-16.2 PLATELET COUNT (test code=PLT) 239 K/mm3 150-450 MEAN PLATELET VOLUME (test code=MPV) 11.3 fL 6.7-11.0 URINALYSIS [id number] 09:21:00* Test Item Value Reference Range Comments UA COLOR (test code=COLU) Light-Yellow YELLOW UA APPEARANCE (test code=APPU) CLEAR CLEAR UA GLUCOSE DIPSTICK (test code=DGLUU) NEGATIVE mg/dL NEGATIVE UA BILIRUBIN DIPSTICK (test code=BILU) NEGATIVE mg/dL NEGATIVE UA KETONE DIPSTICK (test code=KETU) NEGATIVE mg/dL NEGATIVE UA SPECIFIC GRAVITY (test code=SGU) 1.017 1.001-1.035 UA BLOOD DIPSTICK (test code=MARCELA) 0.5 mg/dL (2+) mg/dL NEGATIVE UA PH DIPSTICK (test code=CARLOTTA) 5.0 5.0-8.0 UA PROTEIN DIPSTICK (test code=PROU) NEGATIVE mg/dL NEGATIVE UA UROBILINIOGEN DIPSTICK (test code=URO) Normal mg/dL NEGATIVE UA NITRITE DIPSTICK (test code=EMY) NEGATIVE NEGATIVE UA LEUKOCYTE ESTERASE W REFLEX (test code=LEUUR) NEGATIVE Nikhil/uL NEGATIVE UA WBC (test code=WBCU) 0-5 per HPF 0-5 UA RBC (test code=RBCU) 0-2 #/HPF 0-5 UA EPITHELIAL CELLS (test code=EPIU) MOD per HPF FEW UA BACTERIA (test code=BACU) per HPF NONE UA MUCUS (test code=MUCU) FEW #/LPF FEW Urine Source? Clean CatchURINALYSIS [id number] 09:20:00* Test Item Value Reference Range Comments UA COLOR (test code=COLU) Light-Yellow YELLOW UA APPEARANCE (test code=APPU) CLEAR CLEAR UA GLUCOSE DIPSTICK (test code=DGLUU) NEGATIVE mg/dL NEGATIVE UA BILIRUBIN DIPSTICK (test code=BILU) NEGATIVE mg/dL NEGATIVE UA KETONE DIPSTICK (test code=KETU) NEGATIVE mg/dL NEGATIVE UA SPECIFIC GRAVITY (test code=SGU) 1.017 1.001-1.035 UA BLOOD DIPSTICK (test code=MARCELA) 0.5 mg/dL (2+) mg/dL NEGATIVE UA PH DIPSTICK (test code=CARLOTTA) 5.0 5.0-8.0 UA PROTEIN DIPSTICK (test code=PROU) NEGATIVE mg/dL NEGATIVE UA UROBILINIOGEN DIPSTICK (test code=URO) Normal mg/dL NEGATIVE UA NITRITE DIPSTICK (test code=EMY) NEGATIVE NEGATIVE UA LEUKOCYTE ESTERASE W REFLEX (test code=LEUUR) NEGATIVE Nikhil/uL NEGATIVE UA WBC (test code=WBCU) per HPF 0-5 UA RBC (test code=RBCU) per HPF 0-5 UA EPITHELIAL CELLS (test code=EPIU) per HPF Few UA BACTERIA (test code=BACU) per HPF NONE Urine Source? Clean CatchBREAST ULTRASOUND CORE BIOPSY [id number] 16:56:41- BREAST ULTRASOUND CORE BIOPSY LEFTULTRASOUND GUIDED BIOPSY LEFT BREAST WITH MA RKING DEVICE INSERTED: 01/30/2019CLINICAL: Ultrasound biopsy, left breast. Compar angy is made to exams dated 01/16/2019 ultrasound and 05/04/2016 ultrasound - [facility]-. An ultrasound guided biopsy using real-time ultrasound was performed for the circumscribed oval mass located in the left breast central to the nipple in the retroareolar region. This was described on the previous ultrasound report. The skin was prepped in the usual manner. Local anesthetic was administered to the access site. The abnormality was approached from the la teral aspect. A biopsy needle was placed adjacent to the abnormality under ultr asound guidance. Once the needle was documented to be in the correct location, a specimen was obtained using a BARD biopsy device. A clip was inserted into th e biopsy cavity. The specimen was sent to the laboratory for pathological charan sis. IMPRESSION: ULTRASOUND GUIDED BIOPSYUltrasound guided biopsy of the mass i n the left breast central to the nipple in the retroareolar region was successfu l with no apparent post procedure complications. Waiting for pathology results. A final report will be issued when these become available. 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 ADDENDUM ON: 02/07/[address] Michelle Oliveros. PATHOLOGY DEMONSTRATES:" Benign breast tissue with stromal fibrosis and epithelial ductal hyperplasia wit hout atypia. No calcifications identified. No in situ or invasive malignancy i dentified." RECOMMENDATION:Results are concordant with imaging. A 6 month ultr asound post biopsy follow-up of the left breast is recommended. Also, a surgica l consultation for excision of the intraductal papilloma in the right breast is still recommended.Ken Oliveros D.O.ss,al/:02/07/2019 16:56:4 1 Drug Abuse Social Worker: Luanne Colvin , [facility]-letter sent: Benign BiopsyDIAG MAMM LEFT CAD [id number] 09:07:00 - DIAG MAMM LEFT CAD DIGITALUNILATERAL LEFT DIGITAL DIAGNOSTIC MAMMOGRAM WITH CAD POST-PROCEDURE IMAGING FOR MARKER PLACEMENT: 01/30/2019CLINICAL: Post clip placement. Current mammographic images were evaluated by either a LookbackP M-Vu or a Molecular Imprintscker CAD (computer aided detection system). Comparison is made to exams dated 01/16/2019 mammogram, 05/04/2016 mammogram, and 12/21/2014 mammogram - [facility]. There are scattered fibroglandular tissues in the left breast. Postbiopsy mammogram demonstrates biopsy marker clip within the biopsied left breast mass in the subareolar region.IMPRESSION: POST PROCEDURE I MAGING FOR MARKER PLACEMENTSuccessful biopsy marker placement within the biopsie d left breast mass.Ken Sow M.D. ss/:01/30/2019 09:07:00 Imagi ng Technologist: Jazmine Wells , [facility] BI-RADS: Po st-procedure mammogram for marker placementDIAG MAMM BILATERAL CAD DIGITAL 2019-01-16 17:03:24 - DIAG MAMM BILATERAL CAD DIGITALBILATERAL DIGITAL DIAGNOSTIC MAMMOGRAM WITH CAD: 01/16/2019CLINICAL: Bilateral nipple discharge. Current mammographic images were evaluated by either a [employer] M-Vu or a [employer] ImageJarvamcker CAD (computer aided detection system). Comparison is made to exams dated 05/04/2016 mammogram, 05/04/2016 mammogram, and [facility]/2015 [facility]. There are scattered fibroglandular tissues in both breasts. There is a biopsy clip in the right breast. No suspicious mass, architectural distortion, malignant type calcification, or lymph node abnormality detected. INCOMPLETE ASSESSMENT: ADDITIONAL IMAGING EVALUATION RECOMMENDEDUltrasound pending for additional evaluation. - BREAST ULTRASOUND BILATERALULTRASOUND OF BOTH BREASTS AND BOTH AXILLA: 01/16/2019Comparison is made to exams dated 05/04/2016 mammogram, 05/04/2016 mammogram, and 11/25/2015 mammogram - [facility]-. Real-time ultrasound of both breasts and both axilla was performed. There is a 7 mm intraductal mass in the right breast, central to the nipple, in the retroareolar region. Color flow imaging demonstrates that there is increased vascularity. There is a 1.9 cm intraductal mass in the left breast, central to the nipple, in the retroareolar region. Color flow imaging demonstrates that there is increased vascularity. No abnormalities were seen sonographically in either axilla. IMPRESSION: SUSPIC IOUS OF MALIGNANCY - FOLLOW-UP RECOMMENDEDThe 7 mm intraductal mass in the right breast, central to the nipple, in the retroareolar region, is at a low suspicion for malignancy. An ultrasound guided biopsy is recommended. The 1.9 cm intra ductal mass in the left breast, central to the nipple, in the retroareolar regio n, is at a low suspicion for malignancy. An ultrasound guided biopsy is recomme nded. Results were discussed with the patient.Stephy Rizvi M.D. dm/: 17:03:24 Entry: - 01/17/2019 15:46:02Imaging Technologist: Miriam Mcdonald , [facility]-FWletter sent: BIRADS 4/5 Biopsy Mireya mogram BI-RADS: 0 Indeterminate Ultrasound BI-RADS: 4a Suspicious abnormality - low suspicion for malignancyBREAST ULTRASOUND [id number] 17:03:24 - DIAG MAMM BILATERAL CAD DIGITALBILATERAL DIGITAL DIAGNOSTIC MAMMOGRAM WITH CAD: 01/16/2019CLINICAL: Bilateral nipple discharge. Current mammographic images were evaluated by either a [employer] M-Vu or a Molecular Imprintscker CAD (computer aided detection system). Comparison is made to exams dated 05/04/2016 mammogram, 05/04/2016 mammogram, and 11/25/2015 mammogram - [facility]-. There are scattered fibroglandular tissues in both breasts. There is a biopsy clip in the right breast. No suspicious mass, architectural distortion, malignant type calcification, or lymph node abnormality detected. INCOMPLETE ASSESSMENT: ADD ITIONAL IMAGING EVALUATION RECOMMENDEDUltrasound pending for additional evaluati on. - BREAST ULTRASOUND BILATERALULTRASOUND OF BOTH BREASTS AND BOTH AXILLA: Comparison is made to exams dated 05/04/2016 mammogram, 05/04/2016 mammogr am, and 11/25/2015 mammogram - [facility]-. Real-time ultrasound o f both breasts and both axilla was performed. There is a 7 mm intraductal mass in the right breast, central to the nipple, in the retroareolar region. Color f low imaging demonstrates that there is increased vascularity. There is a 1.9 cm intraductal mass in the left breast, central to the nipple, in the retroareolar region. Color flow imaging demonstrates that there is increased vascularity. No abnormalities were seen sonographically in either axilla. IMPRESSION: SUSPIC IOUS OF MALIGNANCY - FOLLOW-UP RECOMMENDEDThe 7 mm intraductal mass in the right breast, central to the nipple, in the retroareolar region, is at a low suspicion for malignancy. An ultrasound guided biopsy is recommended. The 1.9 cm intra ductal mass in the left breast, central to the nipple, in the retroareolar regio n, is at a low suspicion for malignancy. An ultrasound guided biopsy is recomme nded. Results were discussed with the patient.Stephy Rzivi M.D. dm/: 17:03:24 Entry: joni - 01/17/2019 15:46:02Imaging Technologist: Miriam Mcdonald , [facility]-letter sent: BIRADS 4/5 Biopsy Mireya mogram BI-RADS: 0 Indeterminate Ultrasound BI-RADS: 4a Suspicious abnormality - low suspicion for malignancyURINALYSIS [id number] 14:07:00* Test Item Value Reference Range Comments UA COLOR (test code=COLU) LIGHT YELLOW YELLOW UA APPEARANCE (test code=APPU) SLIGHTLY CLOUDY CLEAR UA GLUCOSE DIPSTICK (test code=DGLUU) NEGATIVE mg/dL NEGATIVE UA BILIRUBIN DIPSTICK (test code=BILU) NEGATIVE mg/dL NEGATIVE UA KETONE DIPSTICK (test code=KETU) Negative mg/dL NEGATIVE UA SPECIFIC GRAVITY (test code=SGU) 1.013 1.001-1.035 UA BLOOD DIPSTICK (test code=MARCELA) Negative NEGATIVE UA PH DIPSTICK (test code=CARLOTTA) 6.0 5.0-8.0 UA PROTEIN DIPSTICK (test code=PROU) Negative mg/dL NEGATIVE UA UROBILINIOGEN DIPSTICK (test code=URO) NEGATIVE mg/dL NEGATIVE UA NITRITE DIPSTICK (test code=EMY) NEGATIVE NEGATIVE UA LEUKOCYTE ESTERASE W REFLEX (test code=LEUUR) NEGATIVE NEGATIVE UA WBC (test code=WBCU) per HPF 0-5 Urine Source? Clean CatchURINALYSIS [id number] 14:07:00* Test Item Value Reference Range Comments UA COLOR (test code=COLU) LIGHT YELLOW YELLOW UA APPEARANCE (test code=APPU) SLIGHTLY CLOUDY CLEAR UA GLUCOSE DIPSTICK (test code=DGLUU) NEGATIVE mg/dL NEGATIVE UA BILIRUBIN DIPSTICK (test code=BILU) NEGATIVE mg/dL NEGATIVE UA KETONE DIPSTICK (test code=KETU) Negative mg/dL NEGATIVE UA SPECIFIC GRAVITY (test code=SGU) 1.013 1.001-1.035 UA BLOOD DIPSTICK (test code=MARCELA) Negative NEGATIVE UA PH DIPSTICK (test code=CARLOTTA) 6.0 5.0-8.0 UA PROTEIN DIPSTICK (test code=PROU) Negative mg/dL NEGATIVE UA UROBILINIOGEN DIPSTICK (test code=URO) NEGATIVE mg/dL NEGATIVE UA NITRITE DIPSTICK (test code=EMY) NEGATIVE NEGATIVE UA LEUKOCYTE ESTERASE W REFLEX (test code=LEUUR) NEGATIVE NEGATIVE UA WBC (test code=WBCU) 0-5 #/HPF 0-5 UA RBC (test code=RBCU) 0-2 #/HPF 0-5 UA EPITHELIAL CELLS (test code=EPIU) FEW per HPF FEW UA BACTERIA (test code=BACU) FEW #/HPF NONE UA MUCUS (test code=MUCU) FEW #/LPF FEW Urine Source? Clean CatchBASIC METABOLIC [id number] 13:50:00* Test Item Value Reference Range Comments SODIUM (test code=NA) 138 mmol/L 136-145 POTASSIUM (test code=K) 4.0 mmol/L 3.5-5.1 CHLORIDE (test code=CL) 105.0 mmol/L 98-107 CARBON DIOXIDE (test code=CO2) 29.0 mmol/L 21-32 ANION GAP (test code=GAP) 8.0 10-20 GLUCOSE (test code=GLU) 89 mg/dL 74-106 BLOOD UREA NITROGEN (test code=BUN) 12 mg/dL 7-18 GLOMERULAR FILTRATION RATE (test code=GFR) > 60 mL/min >=60 Estimated GFR by using Modified MDRD formula.Chronic kidney disease is defined as either kidney damageor GFR <60 mL/min/1.73 m2 for >3 months. CREATININE (test code=CREAT) 0.70 mg/dL 0.55-1.02 Note change in reference range due to change in reagent. BUN/CREATININE RATIO (test code=BUN/CREA) 16.5 10-20 CALCIUM (test code=CA) 9.4 mg/dL 8.5-10.1 HCG SERUM [id number] 13:50:00* Test Item Value Reference Range Comments HCG SERUM QUAL (test code=HCGQL) NEGATIVE NEGATIVE This HCGQL test is NOT applicable for MALE patients.Check with nurse about probable order error.If Tumor Marker Test needed, nurse should order test "HCGTU"(Test #[id number]) [id number] 13:50:00* Test Item Value Reference Range Comments TROPONIN-I (test code=TROPI) <0.015 ng/mL 0-0.045 BASIC METABOLIC [id number] 13:41:00* Test Item Value Reference Range Comments SODIUM (test code=NA) 138 mmol/L 136-145 POTASSIUM (test code=K) 4.0 mmol/L 3.5-5.1 CHLORIDE (test code=CL) 105.0 mmol/L 98-107 CARBON DIOXIDE (test code=CO2) mmol/L 21-32 ANION GAP (test code=GAP) 10-20 GLUCOSE (test code=GLU) mg/dL 74-106 BLOOD UREA NITROGEN (test code=BUN) mg/dL 7-18 GLOMERULAR FILTRATION RATE (test code=GFR) mL/min >=60 CREATININE (test code=CREAT) mg/dL 0.55-1.02 BUN/CREATININE RATIO (test code=BUN/CREA) 10-20 CALCIUM (test code=CA) 9.4 mg/dL 8.5-10.1 HCG SERUM [id number] 13:41:00* Test Item Value Reference Range Comments HCG SERUM QUAL (test code=HCGQL) NEGATIVE NEGATIVE This HCGQL test is NOT applicable for MALE patients.Check with nurse about probable order error.If Tumor Marker Test needed, nurse should order test "HCGTU"(Test #550.82906) [id number] 13:41:00* Test Item Value Reference Range Comments TROPONIN-I (test code=TROPI) ng/mL 0-0.045 BASIC METABOLIC [id number] 13:40:00* Test Item Value Reference Range Comments SODIUM (test code=NA) mmol/L 136-145 POTASSIUM (test code=K) mmol/L 3.5-5.1 CHLORIDE (test code=CL) mmol/L 98-107 CARBON DIOXIDE (test code=CO2) mmol/L 21-32 ANION GAP (test code=GAP) 10-20 GLUCOSE (test code=GLU) mg/dL 74-106 BLOOD UREA NITROGEN (test code=BUN) mg/dL 7-18 GLOMERULAR FILTRATION RATE (test code=GFR) mL/min >=60 CREATININE (test code=CREAT) mg/dL 0.55-1.02 BUN/CREATININE RATIO (test code=BUN/CREA) 10-20 CALCIUM (test code=CA) mg/dL 8.5-10.1 HCG SERUM [id number] 13:40:00* Test Item Value Reference Range Comments HCG SERUM QUAL (test code=HCGQL) NEGATIVE NEGATIVE This HCGQL test is NOT applicable for MALE patients.Check with nurse about probable order error.If Tumor Marker Test needed, nurse should order test "HCGTU"(Test #550.51061) [id number] 13:40:00* Test Item Value Reference Range Comments TROPONIN-I (test code=TROPI) ng/mL 0-0.045 CBC W/O [id number] 13:27:00* Test Item Value Reference Range Comments WHITE BLOOD CELL (test code=WBC) 6.9 K/mm3 4.5-12.5 RED BLOOD CELL (test code=RBC) 5.14 mill/mm3 3.7-5.2 HEMOGLOBIN (test code=HGB) 11.7 gram/dL 11.5-15.5 HEMATOCRIT (test code=HCT) 38.2 % 36.0-46.0 MEAN CELL VOLUME (test code=MCV) 74.3 fL 80-98 MEAN CELL HGB (test code=MCH) 22.8 picogram 27.0-33.0 MEAN CELL HGB CONCETRATION (test code=MCHC) 30.6 gram/dL 33.0-36.0 RED CELL DISTRIBUTION WIDTH (test code=RDW) 18.0 % 11.6-16.2 PLATELET COUNT (test code=PLT) 239 K/mm3 150-450 MEAN PLATELET VOLUME (test code=MPV) 11.4 fL 6.7-11.0 CBC W/O [id number] 13:25:00* Test Item Value Reference Range Comments WHITE BLOOD CELL (test code=WBC) K/mm3 4.5-12.5 RED BLOOD CELL (test code=RBC) mill/mm3 3.7-5.2 HEMOGLOBIN (test code=HGB) 11.7 gram/dL 11.5-15.5 HEMATOCRIT (test code=HCT) 38.2 % 36.0-46.0 MEAN CELL VOLUME (test code=MCV) fL 80-98 MEAN CELL HGB (test code=MCH) picogram 27.0-33.0 MEAN CELL HGB CONCETRATION (test code=MCHC) gram/dL 33.0-36.0 RED CELL DISTRIBUTION WIDTH (test code=RDW) % 11.6-16.2 PLATELET COUNT (test code=PLT) K/mm3 150-450 MEAN PLATELET VOLUME (test code=MPV) fL 6.7-11.0 - CT HEAD/BRAIN W/O [id number] 13:24:00 Name: DU SIDHU [facility] : 1985 Age/S: 33 / F [address] [facility] #: [id number] Loc: [place] [address] Phys: Vinod Selby DO Acct: [id number] Dis Date: Status: REG ER PHONE #: [phone] Exam Date: 12/10/2018 1304 FAX #: [phone] Reason: Headache EXAMS: CPT CODE: [id number] CT HEAD/BRAIN W/O CONT 50292 HISTORY: Headache. COMPARISON: CT brain from September 25, 2017. CT brain without contrast: Automated exposure control. No acute intracranial bleeds or extra-axial collections and there is no acute territorial vascular infarction. The fallon-white matter differentiation is preserved. The sulci, gyri, ventricles and subarachnoid spaces and the basilar cisterns are normal for patient's age. No herniation or hydrocephalus or midline shift is noted. Fourth ventricle remains midline. Portions of the visualized paranasal sinuses demonstrated right polysinusitis. No obvious bony calvarial defect is noted. IMPRESSION: No acute intracranial bleeds or extra-axial collections. No acute territorial vascular infarction. No herniation or hydrocephalus or midline shift. at 1324 Reported and signed by: Zeferino Saba M.D. CC: Vinod Selby DO Technologist:[place] RT(R),(MR),(CT); CTDI: DLP: Trnscb Date/Time: 12/10/2018 (1324) [id number] Orig Print D/T: S: 12/10/2018 (0936) CTDI: DLP: PAGE 1 Signed Report TROPONIN I 2018-11-26 21:18:00* Test Item Value Reference Range Comments TROPONIN I (BEAKER) (test hblf=296) < ng/mL 0.00-0.03 Troponin I (TnI) levels must be interpreted in the context of the presenting sym ptoms and the clinical findings. Elevated TnI levels indicate myocardial damage, but are not specific for ischemic heart disease. Elevated TnI levels are seen in patients with other cardiac conditions (including myocarditis and congestive h eart failure), and slight TnI elevations occur in patients with other conditions , including sepsis, renal failure, acidosis, acute neurological disease, and per sistent tachyarrhythmia.BASIC METABOLIC [id number] 21:10:00* Test Item Value Reference Range Comments SODIUM (BEAKER) (test butv=000) 139 meq/L 136-145 POTASSIUM (BEAKER) (test ikbt=718) 3.8 meq/L 3.5-5.1 CHLORIDE (BEAKER) (test ogdr=984) 103 meq/L 98-107 CO2 (BEAKER) (test lkab=587) 28 meq/L 22-29 BLOOD UREA NITROGEN (BEAKER) (test vfiw=606) 12 mg/dL 7-21 CREATININE (BEAKER) (test nxjk=200) 0.76 mg/dL 0.57-1.25 GLUCOSE RANDOM (BEAKER) (test vhox=771) 103 mg/dL 70-105 CALCIUM (BEAKER) (test drly=069) 9.1 mg/dL 8.4-10.2 EGFR (BEAKER) (test bdpn=6197) 107 mL/min/1.73 sq m ESTIMATED GFR IS NOT ACCURATE CREATININE CLEARANCE IN PREDICTING GLOMERULAR FILTRATION RATE. ESTIMATED GFR IS NOT APPLICABLE FOR DIALYSIS PATIENTS. URINALYSIS W/ REFLEX URINE [id number] 21:10:00* Test Item Value Reference Range Comments COLOR (BEAKER) (test nelw=692) Yellow CLARITY (BEAKER) (test lwty=075) Clear SPECIFIC GRAVITY UA (BEAKER) (test kilh=483) 1.018 1.001-1.035 PH UA (BEAKER) (test qpsv=404) 5.5 5.0-8.0 PROTEIN UA (BEAKER) (test wwcw=909) Negative Negative GLUCOSE UA (BEAKER) (test noxh=849) Negative Negative KETONES UA (BEAKER) (test pdyj=045) Negative Negative BILIRUBIN UA (BEAKER) (test lljl=848) Negative Negative BLOOD UA (BEAKER) (test caqb=579) Negative Negative NITRITE UA (BEAKER) (test ftru=105) Negative Negative LEUKOCYTE ESTERASE UA (BEAKER) (test ovry=538) Negative Negative UROBILINOGEN UA (BEAKER) (test rhpx=121) 2.0 mg/dL 0.2-1.0 RBC UA (BEAKER) (test cyjj=460) 0 /HPF WBC UA (BEAKER) (test sjxz=659) 2 /HPF BACTERIA (BEAKER) (test aclx=498) Rare MUCUS (BEAKER) (test ixaq=2401) Rare SQUAMOUS EPITHELIAL (BEAKER) (test lkbr=360) 5 /HPF SOURCE(BEAKER) (test nsoa=0943) CBC W/PLT COUNT & AUTO [id number] 20:57:00* Test Item Value Reference Range Comments WHITE BLOOD CELL COUNT (BEAKER) (test cwxg=681) 7.1 K/ L 3.5-10.5 RED BLOOD CELL COUNT (BEAKER) (test svhf=880) 4.78 M/ L 3.93-5.22 HEMOGLOBIN (BEAKER) (test tdws=212) 10.8 GM/DL 11.2-15.7 HEMATOCRIT (BEAKER) (test lnxg=380) 35.6 % 34.1-44.9 MEAN CORPUSCULAR VOLUME (BEAKER) (test hsrv=330) 74.5 fL 79.4-94.8 MEAN CORPUSCULAR HEMOGLOBIN (BEAKER) (test cshu=442) 22.6 pg 25.6-32.2 MEAN CORPUSCULAR HEMOGLOBIN CONC (BEAKER) (test mqpa=829) 30.3 GM/DL 32.2-35.5 RED CELL DISTRIBUTION WIDTH (BEAKER) (test slts=540) 17.3 % 11.7-14.4 PLATELET COUNT (BEAKER) (test eyng=911) 240 K/CU MM 150-450 MEAN PLATELET VOLUME (BEAKER) (test fjsj=231) 11.2 fL 9.4-12.3 NUCLEATED RED BLOOD CELLS (BEAKER) (test kniu=994) 0 /100 WBC 0-0 NEUTROPHILS RELATIVE PERCENT (BEAKER) (test rxvb=973) 54 % LYMPHOCYTES RELATIVE PERCENT (BEAKER) (test lisw=828) 38 % MONOCYTES RELATIVE PERCENT (BEAKER) (test ovav=792) 6 % EOSINOPHILS RELATIVE PERCENT (BEAKER) (test uhne=237) 2 % BASOPHILS RELATIVE PERCENT (BEAKER) (test rusq=406) 0 % NEUTROPHILS ABSOLUTE COUNT (BEAKER) (test pvus=049) 3.81 K/ L 1.56-6.13 LYMPHOCYTES ABSOLUTE COUNT (BEAKER) (test ggoq=275) 2.69 K/ L 1.18-3.74 MONOCYTES ABSOLUTE COUNT (BEAKER) (test esrb=461) 0.42 K/ L 0.24-0.36 EOSINOPHILS ABSOLUTE COUNT (BEAKER) (test dbnn=428) 0.16 K/ L 0.04-0.36 BASOPHILS ABSOLUTE COUNT (BEAKER) (test otgh=101) 0.02 K/ L 0.01-0.08 IMMATURE GRANULOCYTES-RELATIVE PERCENT (BEAKER) (test rjjg=8450) 0 % 0-1 [id number] 20:55:00* Test Item Value Reference Range Comments D-DIMER QUANTITATIVE (BEAKER) (test qjja=673) 0.48 MG/L FEU <0.50 Intended Use: The D-Dimer Assay can be used to aid in the diagnosis of Deep Vein Thrombosis (DVT) and Pulmonary Embolism Disease (PED).In patients with low pre- test probability, various studies concerning STA Liatest D-dimer test have repor louise that with a cutoff value of 0.50 MG/L FEU, the Negative Predictive Value (DRYWALL FOREMAN V) regarding the exclusion of thrombosis is within 95-100% range. SCREEN, [id number] 20:53:00* Test Item Value Reference Range Comments TEST URINE (BEAKER) (test bgkf=252) Negative RAPID STREP A [id number] 21:01:00* Test Item Value Reference Range Comments STREP A ANTIGEN (BEAKER) (test qupu=539) Negative Negative RAD, CHEST, 2 [id number] 20:38:00Reason for exam:->COUGHReason for exam:-> shortness of breathIs the patient ?->NoShould this be performed at the bedside?->NoFINAL REPORT Chest 2 views 06/24/2018 8:38 PM CLINICAL HISTORY: COUGHshortness of breath COMPARISON: 12/12/2016 FINDINGS: The lungs are clear. Cardiomediastinal contours are within normal limits. The central pulmonary vasculature is not engorged. The visualized skeleton is intact. IMPRESSION: No acute radiographic abnormalities. Signed: Carlin Eli Verified Date/Time: 06/24/2018 20:38:58 Reading Location: [facility] Radiology Reading Room GLOBIN [id number] 13:46:00* Test Item Value Reference Range Comments HEMOGLOBIN A1C (BEAKER) (test eqwf=504) 5.4 % 4.3-6.1 Add to blood in labTROPONIN [id number] 11:15:00* Test Item Value Reference Range Comments TROPONIN I (BEAKER) (test yxrl=808) < ng/mL 0.00-0.15 Troponin I (TnI) levels must be interpreted in the context of the presenting sym ptoms and the clinical findings. Elevated TnI levels indicate myocardial damage, but are not specific for ischemic heart disease. Elevated TnI levels are seen in patients with other cardiac conditions (including myocarditis and congestive h eart failure), and slight TnI elevations occur in patients with other conditions , including sepsis, renal failure, acidosis, acute neurological disease, and per sistent tachyarrhythmia.CREATINE KINASE (CK), TOTAL AND [id number] 11:14:00* Test Item Value Reference Range Comments CREATINE KINASE TOTAL (BEAKER) (test ebae=515) 43 U/L 25-235 CREATINE KINASE-MB (BEAKER) (test xmxk=513) 0.5 ng/mL 0.0-4.9 CREATINE KINASE-MB INDEX (BEAKER) (test acxh=972) 1.2 % CK-MB Reference Range:<5 Normal5-10 Borderline>10 AbnormalCBC W/PLT COUNT & AUTO [id number] 06:47:00* Test Item Value Reference Range Comments WHITE BLOOD CELL COUNT (BEAKER) (test uxed=379) 6.6 K/ L 4.0-10.0 RED BLOOD CELL COUNT (BEAKER) (test npfi=647) 4.86 M/ L 4.00-5.00 HEMOGLOBIN (BEAKER) (test albx=317) 10.9 GM/DL 12.0-15.0 HEMATOCRIT (BEAKER) (test hrxw=412) 34.7 % 36.0-45.0 MEAN CORPUSCULAR VOLUME (BEAKER) (test kzuv=726) 71.3 fL 82.0-99.0 MEAN CORPUSCULAR HEMOGLOBIN (BEAKER) (test feai=696) 22.4 pg 27.0-33.0 MEAN CORPUSCULAR HEMOGLOBIN CONC (BEAKER) (test sjrl=406) 31.4 GM/DL 32.0-36.0 RED CELL DISTRIBUTION WIDTH (BEAKER) (test effk=712) 19.2 % 10.3-14.2 PLATELET COUNT (BEAKER) (test vfav=118) 240 K/CU MM 150-430 MEAN PLATELET VOLUME (BEAKER) (test lebd=200) 10.1 fL 6.5-10.5 NUCLEATED RED BLOOD CELLS (BEAKER) (test rnoj=400) 0 /100 WBC 0-0 NEUTROPHILS RELATIVE PERCENT (BEAKER) (test vgij=832) 67 % LYMPHOCYTES RELATIVE PERCENT (BEAKER) (test mmrs=839) 24 % MONOCYTES RELATIVE PERCENT (BEAKER) (test mcza=015) 8 % EOSINOPHILS RELATIVE PERCENT (BEAKER) (test ijex=548) 1 % BASOPHILS RELATIVE PERCENT (BEAKER) (test wmso=919) 0 % NEUTROPHILS ABSOLUTE COUNT (BEAKER) (test qjvi=072) 4.40 K/ L 1.80-8.00 LYMPHOCYTES ABSOLUTE COUNT (BEAKER) (test ehqd=655) 1.60 K/ L 1.48-4.50 MONOCYTES ABSOLUTE COUNT (BEAKER) (test vbso=519) 0.50 K/ L 0.00-1.30 EOSINOPHILS ABSOLUTE COUNT (BEAKER) (test cbqs=625) 0.00 K/ L 0.00-0.50 BASOPHILS ABSOLUTE COUNT (BEAKER) (test aiug=703) 0.00 K/ L 0.00-0.20 (MANUAL DIFFERENTIAL)2016-12-13 06:47:00* Test Item Value Reference Range Comments TOTAL COUNTED (BEAKER) (test qvrc=5184) WBC MORPHOLOGY (BEAKER) (test czwi=759) Normal PLT MORPHOLOGY (BEAKER) (test mnoh=111) Normal ANISOCYTOSIS (BEAKER) (test xarx=780) 1+ few HYPOCHROMIA (BEAKER) (test xvyz=344) 2+ moderate MICROCYTES (BEAKER) (test oefq=973) 1+ few CREATINE KINASE (CK), TOTAL AND [id number] 06:27:00* Test Item Value Reference Range Comments CREATINE KINASE TOTAL (BEAKER) (test gbyl=485) 54 U/L 25-235 CREATINE KINASE-MB (BEAKER) (test ubxl=129) 0.7 ng/mL 0.0-4.9 CREATINE KINASE-MB INDEX (BEAKER) (test vaie=655) 1.3 % CK-MB Reference Range:<5 Normal5-10 Borderline>10 AbnormalBASIC METABOLIC [id number] 06:16:00* Test Item Value Reference Range Comments SODIUM (BEAKER) (test ralq=150) 139 meq/L 135-148 POTASSIUM (BEAKER) (test bzgz=647) 4.1 meq/L 3.6-5.5 CHLORIDE (BEAKER) (test nhwk=238) 105 meq/L 98-106 CO2 (BEAKER) (test azyr=567) 26 meq/L 20-29 BLOOD UREA NITROGEN (BEAKER) (test hkot=060) 14 mg/dL 10-26 CREATININE (BEAKER) (test oowh=324) 0.80 mg/dL 0.50-1.20 GLUCOSE RANDOM (BEAKER) (test dgqw=438) 101 mg/dL 70-110 CALCIUM (BEAKER) (test evuw=992) 8.8 mg/dL 8.5-10.5 EGFR (BEAKER) (test hezh=1510) 102 mL/min/1.73 sq m ESTIMATED GFR IS NOT ACCURATE CREATININE CLEARANCE IN PREDICTING GLOMERULAR FILTRATION RATE. ESTIMATED GFR IS NOT APPLICABLE FOR DIALYSIS PATIENTS. [id number] 21:10:00* Test Item Value Reference Range Comments D-DIMER QUANTITATIVE (BEAKER) (test penq=241) 0.33 MG/L FEU <0.50 REGARDING D-DIMER RESULTS: The 98% NPV (Negative Predictive Value) for DVT/PE ex clusion is 0.50 mg/L FEU as suggested by the community education coordinator and as approved by the FDA.B-TYPE NATRIURETIC FACTOR (BNP)2016-12-12 19:58:00* Test Item Value Reference Range Comments B-TYPE NATRIURETIC PEPTIDE (BEAKER) (test mztf=350) 3 pg/mL 0-100 TROPONIN [id number] 19:57:00* Test Item Value Reference Range Comments TROPONIN I (BEAKER) (test qkej=072) < ng/mL 0.00-0.15 Troponin I (TnI) levels must be interpreted in the context of the presenting sym ptoms and the clinical findings. Elevated TnI levels indicate myocardial damage, but are not specific for ischemic heart disease. Elevated TnI levels are seen in patients with other cardiac conditions (including myocarditis and congestive h eart failure), and slight TnI elevations occur in patients with other conditions , including sepsis, renal failure, acidosis, acute neurological disease, and per sistent tachyarrhythmia.CREATINE KINASE (CK), TOTAL AND [id number] 19:56:00* Test Item Value Reference Range Comments CREATINE KINASE TOTAL (BEAKER) (test dxri=221) 56 U/L 25-235 CREATINE KINASE-MB (BEAKER) (test phoy=596) 0.6 ng/mL 0.0-4.9 CREATINE KINASE-MB INDEX (BEAKER) (test muuf=524) 1.1 % CK-MB Reference Range:<5 Normal5-10 Borderline>10 AbnormalHCG, SERUM, [id number] 19:50:00* Test Item Value Reference Range Comments TEST SERUM (BEAKER) (test zbpx=671) Negative BASIC METABOLIC [id number] 19:49:00* Test Item Value Reference Range Comments SODIUM (BEAKER) (test jdkv=143) 139 meq/L 135-148 POTASSIUM (BEAKER) (test snzc=136) 3.8 meq/L 3.6-5.5 CHLORIDE (BEAKER) (test xjex=341) 105 meq/L 98-106 CO2 (BEAKER) (test cxvh=040) 28 meq/L 20-29 BLOOD UREA NITROGEN (BEAKER) (test vrky=912) 13 mg/dL 10-26 CREATININE (BEAKER) (test rgfl=494) 0.80 mg/dL 0.50-1.20 GLUCOSE RANDOM (BEAKER) (test yceu=925) 85 mg/dL 70-110 CALCIUM (BEAKER) (test ocfn=119) 8.3 mg/dL 8.5-10.5 EGFR (BEAKER) (test uoxq=1351) 102 mL/min/1.73 sq m ESTIMATED GFR IS NOT ACCURATE CREATININE CLEARANCE IN PREDICTING GLOMERULAR FILTRATION RATE. ESTIMATED GFR IS NOT APPLICABLE FOR DIALYSIS PATIENTS. PT/[id number] 19:44:00* Test Item Value Reference Range Comments PROTIME (BEAKER) (test bbjz=339) 10.8 seconds 9.3-12.0 INR (BEAKER) (test dhad=197) 1.0 <=5.9 PARTIAL THROMBOPLASTIN TIME (BEAKER) (test ltwl=786) 31.3 seconds 23.0-35.0 RECOMMENDED COUMADIN/WARFARIN INR THERAPY RANGESSTANDARD DOSE: 2.0 - 3.0 Inclu michel: PROPHYLAXIS for venous thrombosis, systemic embolization; TREATMENT for mayelin ous thrombosis and/or pulmonary embolus.HIGH RISK: Target INR is 2.5-3.5 for pat ients with mechanical heart valves.[id number] 19:43:00* Test Item Value Reference Range Comments MAGNESIUM (BEAKER) (test bwmf=666) 1.8 mg/dL 1.5-3.0 CBC W/PLT COUNT & AUTO [id number] 17:56:00* Test Item Value Reference Range Comments WHITE BLOOD CELL COUNT (BEAKER) (test dffi=849) 9.4 K/ L 4.0-10.0 RED BLOOD CELL COUNT (BEAKER) (test hnbv=551) 5.30 M/ L 4.00-5.00 HEMOGLOBIN (BEAKER) (test jmkj=581) 11.8 GM/DL 12.0-15.0 HEMATOCRIT (BEAKER) (test pavc=276) 37.8 % 36.0-45.0 MEAN CORPUSCULAR VOLUME (BEAKER) (test wqoi=820) 71.2 fL 82.0-99.0 MEAN CORPUSCULAR HEMOGLOBIN (BEAKER) (test wdpq=385) 22.3 pg 27.0-33.0 MEAN CORPUSCULAR HEMOGLOBIN CONC (BEAKER) (test nzmi=164) 31.3 GM/DL 32.0-36.0 RED CELL DISTRIBUTION WIDTH (BEAKER) (test radl=278) 19.3 % 10.3-14.2 PLATELET COUNT (BEAKER) (test ownv=966) 262 K/CU MM 150-430 MEAN PLATELET VOLUME (BEAKER) (test wulr=545) 10.1 fL 6.5-10.5 NUCLEATED RED BLOOD CELLS (BEAKER) (test tkqe=160) 0 /100 WBC 0-0 NEUTROPHILS RELATIVE PERCENT (BEAKER) (test kezz=252) 72 % LYMPHOCYTES RELATIVE PERCENT (BEAKER) (test imun=838) 20 % MONOCYTES RELATIVE PERCENT (BEAKER) (test gtpd=316) 7 % EOSINOPHILS RELATIVE PERCENT (BEAKER) (test joog=898) 1 % BASOPHILS RELATIVE PERCENT (BEAKER) (test vuye=315) 1 % NEUTROPHILS ABSOLUTE COUNT (BEAKER) (test yvly=765) 6.80 K/ L 1.80-8.00 LYMPHOCYTES ABSOLUTE COUNT (BEAKER) (test ecca=701) 1.80 K/ L 1.48-4.50 MONOCYTES ABSOLUTE COUNT (BEAKER) (test dexo=774) 0.60 K/ L 0.00-1.30 EOSINOPHILS ABSOLUTE COUNT (BEAKER) (test snwk=556) 0.10 K/ L 0.00-0.50 BASOPHILS ABSOLUTE COUNT (BEAKER) (test rwcd=261) 0.10 K/ L 0.00-0.20 (MANUAL DIFFERENTIAL)2016-12-12 17:56:00* Test Item Value Reference Range Comments TOTAL COUNTED (BEAKER) (test kabz=7387) WBC MORPHOLOGY (BEAKER) (test oydv=889) Normal PLT MORPHOLOGY (BEAKER) (test bejt=044) Normal ANISOCYTOSIS (BEAKER) (test wsnr=138) 1+ few HYPOCHROMIA (BEAKER) (test aidr=085) 2+ moderate MICROCYTES (BEAKER) (test tsjr=178) 1+ few CHEST SINGLE (NOT PORTABLE) [facility] [address] [place] [address] Patient Name: DU FIGUEROA MR #: [id number] : 1985 Age/Sex: Req #: [id number] Adm Physician: Ordered by: WOLF STERN MD Report #: [id number] Location: ER Room/Bed: Procedure: [id number] DX/CHEST SINGLE (NOT PORTABLE) Exam Date: 11/21/17 Exam Time: 2109 REPORT STATUS: Signed EXAM: CHEST SINGLE (NOT PORTABLE), AP 1 view INDICATI ON: Ongoing chest pain COMPARISON: AP view of the chest November 27, 2016 FIN DINGS: LINES/TUBES: None LUNGS: No consolidations or edema. PLEURA: No effusions or pneumothorax. HEART AND MEDIASTINUM: Normal size and conto ur. BONES AND SOFT TISSUES: No acute findings. IMPRESSION: No acute thoracic abnormality. Signed by: Dr. Isaias Busby M.D. on 11/21 9:23 PM Dictated By: ISAIAS BUSBY MD 22 Transcribed By: WOO on 11/21/172122 COPY TO: WOLF STERN MD VQ LUNG SCAN VENT PERFUSION [place] [address] Patient Name: DU FIGUEROA MR #: [id number] : 1985 Age/Sex: 32/F Req #: [id number] Adm Physician: Ordered by: WOLF STERN MD Report #: [id number] Location: ER Room/Bed: Procedure: [id number] NM/VQ LUNG SCAN VENT PERFUSION Exam Date: Exam Time: REPORT ST ATUS: Signed EXAM: VENTILATION PERFUSION LUNG SCAN INDICATION: Cholecystect roseann one week ago with intermittent chest pain COMPARISON: AP view of the c hest November 21, 2017 DISCUSSION: Xenon-133 gas 19 mCi was administered v ia inhalation. Dynamic images of the lungs in the posterior projection were ob tained through single breath and washout phases. Distribution of tracer activi ty is within normal limits throughout the lungs. Normal washout without eviden ce of air trapping. Perfusion images of the lungs in multiple projections were obtained following intravenous administration of 6.4 mCi of Tc-99m MAA. D istribution of tracer is within normal limits throughout the lungs. There are no segmental perfusion defects of any size. The contours of the lungs are well demarcated. IMPRESSION: Scan findings represent a very low probabili ty for acute pulmonary embolic disease based on the PIOPED II criteria. S igned by: Dr. Isaias Busby M.D. on 11/22/2017 1:10 AM Dictated By: NIKKI BUSBY MD 9 Tra nscribed By: WOO on 11/22/17109 COPY TO: WOLF STERN MD US GALLBLADDER [place] [address] Patient Name: DU FIGUEROA MR #: [id number] : 1985 Age/Sex: 32/F Req #: [id number] Adm Physician: BIJU EARLY MD Ordered by: BIJU EARLY MD Report #: [id number] Location: MED/SURG Room/Bed: [facility] Procedure: [id number] US/US GALLBLADDER Exam Date: Exam Time: REP ORT STATUS: Signed PROCEDURE: US GALLBLADDER COMPARISON: CT of the abdo men and pelvis from 04/28/2016 INDICATIONS: Abdomen Pain TECHNIQUE: Brizuela-sca le and color doppler transverse and longitudinal images of the right upper qu adrant of the abdomen were obtained. FINDINGS: Limited examination due t o excessive bowel gas. Liver: 17.0 cm in right mid-clavicular line, mil dly enlarged. Normal echogenicity. No masses. Main portal vein: 0.8 cm Gallbladder: No stones or sludge. No pericholecystic fluid or wall thickeni ng. Common Bile Duct: 0.2 cm Sonographic Avendano's sign: Negative Righ t kidney: 10.0 cm. Normal echogenicity. No solid masses or hydronephrosis. Pancreas: Pancreas is poorly visualized due to overlying bowel gas. In ferior vena cava: Visualized portions appear patent. Aorta: Most of the mid an d distal aorta is obscured due to overlying bowel gas. Ascites: None in the right upper quadrant of the abdomen. CONCLUSION: 1. Limited examinat ion. 2. Very mild hepatomegaly. Otherwise normal right upper quadrant u ltrasound. Dictated by: Cheryl Timmons M.D. on 11/12/2017 at 12:28 Electronically approved by: Cheryl Timmons M.D. on 11/12/2017 at 12:28 Dictated By: CHERYL TIMMONS MD 1228 Transcribed By: CYRUS on 11/12/17 1228 COPY TO: BIJU EARLY MD HEPTOBILIARY W PHARM [place] [address] Patient Name: DU FIGUEROA MR #: [id number] : 1985 Age/Sex: 32/F Req #: [id number] Adm Physician: BIJU EARLY MD Ordered by: ANETTE EARLY MD Report #: [id number] Location: MED/SURG Room/Bed: [facility] Procedure: [id number] NM/HEPTOBILIARY W PHARM Exam Date: 11/12/17 Exam Ti me: 1500 REPORT STATUS: Signed Hepatobiliary Scan with Gallbladder Ejec tion Fraction Clinical information: 32 F with intractable abdominal pain x 3 weeks. Technique: Following intravenous administration of 7.0 millicuries of Tc-99m mebrofenin, dynamic images of the abdomen in the anterior projection were obtained through 42 minutes. Sincalide (CCK analog) 3.0 micrograms was administered intravenously over 30 minutes with additional imaging for dete rmination of gallbladder ejection fraction. Discussion: Perfusion of the li tran is normal. Extraction of tracer by the liver parenchyma is normal. Trace r appears promptly within the biliary tract. The gallbladder begins to fill a t 8 minutes post injection of tracer and fills adequately. Tracer is seen in the small bowel during the sincalide infusion. There is no contractile respon se by the gallbladder to the pharmacologic dose of sincalide. No emptying of the gallbladder occurs during the 30 minute infusion. Impression: 1. Filling of the gallbladder excludes acute cystic duct obstruction/acute c holecystitis. 2. The gallbladder ejection fraction is undefined as there i s no emptying of the gallbladder during the infusion of sincalide. This absen ce of a contractile response to sincalide supports the clinical diagnosis of c hronic cholecystitis/gallbladder dyskinesia. Signed by: Dr. Ahsan Kang M.D. on 11/12/2017 6:53 PM Dictated By: AHSAN KANG MD Electronically Sig mulu By: AHSAN KANG MD on 11/12/17 1853 Transcribed By: WOO on 11/12/17 185 3 COPY TO: ANETTE EARLY MD
== END 2019-04-11 13:47 | disposition home or self-care (01) ==
LOC: ER 11:48
DX: J02.0 Streptococcal pharyngitis (principal); E11.9 Type 2 diabetes mellitus without complications; J45.909 Unspecified asthma, uncomplicated; E66.8 Other obesity; Z68.42 Body mass index [BMI] 45.0-49.9, adult; Z79.84 Long term (current) use of oral hypoglycemic drugs
CPT/HCPCS: 83518; 87070; 99282

== ENCOUNTER 2019-06-30 15:09 | Emergency (ER) | payer OTHER ==
[~2019-06-30] VITALS: Ht 152.4 cm; Wt 151.5 kg
[2019-06-30] MEDS ORDERED: SODIUM CHLORIDE 0.9% 1000ML 1,000 ML IV STA (15:19)
[2019-06-30] MEDS ORDERED: ONDANSETRON HCL INJ 2MG/ML 2ML 2 MG/ML VIAL IV STA ×2 (15:19→17:48)
[2019-06-30 15:41] LABS: BASOPHILS % 0.1 % (0.0-1.0); HEMATOCRIT 35.1 % (34.2-44.1); HEMOGLOBIN 11.3 g/dL (12.0-16.0); LYMPHOCYTES # (AUTO) 1.9 (1.0-3.2); LYMPHOCYTES % 11.7 % (18.0-39.1); MEAN CORPUSCULAR HEMOGLOBIN 23.4 pg (28-32); MEAN CORPUSCULAR HGB CONC 32.2 g/dL (31-35); MEAN CORPUSCULAR VOLUME 72.8 fL (81-99); MONOCYTES % 6.4 % (4.4-11.3); NEUTROPHILS # (AUTO) 12.9 (2.1-6.9); PLATELET COUNT 280 x10e3/uL (140-360); RED BLOOD COUNT 4.82 x10e6/uL (3.6-5.1); RED CELL DISTRIBUTION WIDTH 17.6 % (11.7-14.4)
[2019-06-30 15:58] LABS: ALANINE AMINOTRANSFERASE 15 IU/L (0-55); ALBUMIN 3.1 g/dL (3.5-5.0); ALBUMIN/GLOBULIN RATIO 0.7 (0.8-2.0); ALKALINE PHOSPHATASE 84 IU/L (40-150); AMYLASE 53 U/L (25-125); ANION GAP 10.6 mmol/L (8-16); BILIRUBIN,URINE NEGATIVE (NEGATIVE); BLOOD UREA NITROGEN 16 mg/dL (7-26); BUN/CREATININE RATIO 21 (6-25); CALCIUM 8.3 mg/dL (8.4-10.2); CARBON DIOXIDE 29 mmol/L (22-29); CHLORIDE 102 mmol/L (98-107); CLARITY,URINE CLOUDY (CLEAR); COLOR,URINE RED (YELLOW); CREATININE, SERUM 0.77 mg/dL (0.57-1.11); EST GLOMERULAR FILTRATION RATE > 60 ML/MIN (60-); GLUCOSE 100 mg/dL (74-118); KETONES,URINE NEGATIVE (NEGATIVE); LEUKOCYTE ESTERASE ,URINE NEGATIVE (NEGATIVE); LIPASE 4 U/L (8-78); NITRITE,URINE NEGATIVE (NEGATIVE); POTASSIUM 3.6 mmol/L (3.5-5.1); PROTEIN,URINE DIPSTICK 2+ (NEGATIVE); SODIUM 138 mmol/L (136-145); URINE UROBILINOGEN 0.2 mg/dL (0.2 - 1)
[2019-06-30 16:14] LABS: BACTERIA,URINE MODERATE /HPF; EPITHELIAL CELLS,URINE FEW /LPF
[2019-06-30] MEDS ORDERED: MORPHINE SULFATE 2 MG/ML SYR 1ML IV STA (17:48)
[2019-06-30] MEDS ORDERED: KETOROLAC TROMETHAMINE 30 MG/ML VIAL IV STA (17:51)
--- NOTE | 2019-06-30 17:51 | Diagnostic Imaging Report ---
EXAM: CT Abdomen and Pelvis WITHOUT intravenous contrast INDICATION: Abdominal pain COMPARISON: CT abdomen and pelvis of 04/28/2016 TECHNIQUE: Abdomen and pelvis were scanned utilizing a multidetector helical scanner from the lung base to the pubic symphysis without administration of IV contrast. Coronal and sagittal reformations were obtained. IV CONTRAST: None ORAL CONTRAST: Water COMPLICATIONS: None RADIATION DOSE: Total DLP: 1306.1 mGy*cm Dose modulation, iterative reconstruction, and/or weight based adjustment of the mA/kV was utilized to reduce the radiation dose to as low as reasonably achievable. FINDINGS: LOWER THORAX: Normal. HEPATOBILIARY: No focal hepatic lesions. Status post cholecystectomy. SPLEEN: No splenomegaly. PANCREAS: No focal masses or ductal dilatation. ADRENALS: No adrenal nodules. KIDNEYS/URETERS: No hydronephrosis, stones, or solid mass lesions. PELVIC ORGANS/BLADDER: Unremarkable. PERITONEUM / RETROPERITONEUM: No free air or fluid. LYMPH NODES: No lymphadenopathy. VESSELS: Unremarkable. GI TRACT: Mild colonic diverticulosis. No CT evidence of diverticulitis. No abnormal bowel wall thickening. No bowel obstruction. Normal appendix. BONES AND SOFT TISSUES: Small fat-containing umbilical hernia. No acute osseous injury. No suspicious lytic or blastic lesions. IMPRESSION: No acute findings in the abdomen or pelvis. Signed by: Twin Garza MD on 06/30/2019 5:48 PM
[2019-06-30 21:24] LABS: BAND NEUTROPHILS % (MANUAL) 2 %; HYPOCHROMASIA SLIGHT; LYMPHOCYTES % (MANUAL) 13 % (19-48); MONOCYTES % (MANUAL) 6 % (3.4-9.0); NEUTROPHILS % (MANUAL) 79 % (40-74)
[2019-06-30 21:25] LABS: ANISOCYTOSIS SLIGHT; PLATELET ESTIMATE ADEQUATE; PLATELET MORPHOLOGY COMMENT FEW LARGE; POIKILOCYTOSIS SLIGHT; RBC MORPHOLOGY COMMENT NORMAL
== END 2019-06-30 19:25 | disposition home or self-care (01) ==
LOC: ER 15:09
DX: R10.33 Periumbilical pain (principal); R11.2 Nausea with vomiting, unspecified; K57.31 Diverticulosis of large intestine without perforation or abscess with bleeding; E11.9 Type 2 diabetes mellitus without complications; J45.909 Unspecified asthma, uncomplicated
CPT/HCPCS: 36415; 74176; 80053; 81001; 82150; 83690; 84702; 85025; 99284; J1885; J2405; J7030

== ENCOUNTER 2020-02-05 09:01 | Emergency (ER) | payer OTHER ==
[~2020-02-05] VITALS: Ht 180.3 cm; Wt 151.5 kg
--- OUTSIDE RECORDS SUMMARY | 2020-02-05 09:04 | XMS REPORT | Clinical Summary ---
Author Author [facility] Address Unknown Phone Unavailable Care Team Providers Care Airframe Technician Name Role Phone Unknownmeds, Provider PCP Unavailable Allergies Comments Active Allergy Reactions Severity Noted Date Contrast dye 2015 Short of breath, blacked out,extreme heat. Iodine And Iodide Shortness Of High 02/21/2017 Containing Products Breath Penicillins Hives High 06/28/2013 Medications End Date Status Medication Sig Dispensed Refills Start Date Active mybxavmy-crrs-uan-folic Take by 0 acid mouth. (PHTDXMDREBEI-WKLS-XEZZQD LS-FOLIC ACID) 3,500-18-0.4 unit-mg-mg Chew Active metFORMIN (GLUCOPHAGE) Take 1,000 mg 0 1000 MG tablet by mouth 2 (two) times daily with breakfast and dinner. Active esomeprazole (NEXIUM) 40 Take 40 mg by 0 MG capsule mouth daily. Active dicyclomine (BENTYL) 10 Take 10 mg by 0 MG capsule mouth 4 (four) times daily before meals and nightly. Active diphenhydrAMINE Take 25 mg by 0 (BENADRYL) 25 mg capsule mouth continuous prn. Active doxylamine-pyridoxine, Take 2 0 04/24/ 01 vit B6, 10-10 mg TbEC tablets by 9 mouth. Active PNV 67-iron ps-folate Take 1 0 04/28/20 1 no.1-dha 29 mg iron- 1 capsule by 9 mg-200 mg Cap mouth. Active albuterol HFA (VENTOLIN Inhale 1-2 0 HFA) 90 mcg/actuation puffs by 9 inhaler mouth via inhaler. 06/24/2019 albuterol HFA (VENTOLIN Inhale 1-2 1 Inhaler 0 HFA) 90 mcg/actuation puffs by 8 inhaler mouth via inhaler every 6 (six) hours as needed for Wheezing. Active Problems Problem Noted Date Abnormal EKG 12/12/2016 Acute chest pain 12/12/2016 Encounters Care Team Description Date Type Specialty Liborio Noonan MD Pain of right lower leg (Primary Dx) 06/23/2019 Emergency Emergency Medicine 06/23/2019 Travel after 02/04/2019 Family History Medical History Relation Name Comments [...] Vital Signs Time Taken Vital Sign Reading 06/23/2019 11:08 AM CDT Blood Pressure 140/86 06/23/2019 11:08 AM CDT Pulse 80 06/23/2019 8:16 AM CDT Temperature 36.4 C (97.6 F) 06/23/2019 11:08 AM CDT Respiratory Rate 18 06/23/2019 11:08 AM CDT Oxygen Saturation 99% - Inhaled Oxygen - Concentration 06/23/2019 8:16 AM CDT Weight 141.5 kg (312 lb) 06/23/2019 8:16 AM CDT Height 152.4 cm (5') 06/23/2019 8:16 AM CDT Body Mass Index 60.93 Plan of Treatment Not on file Procedures Comments Procedure Name Priority Date/Time Associated Diag nosis PERIPHERAL VASCULAR 06/24/2019 REPORT - SCAN 9:20 PM CDT VENOUS DOPPLER LEGS STAT 06/23/2019 BILATERAL 10:32 AM CDT after 02/04/2019 Results * PERIPHERAL VASCULAR REPORT - SCAN (06/24/2019 9:20 PM CDT) Narrative Performed At This result has an attachment that is n ot available. * Venous doppler legs bilateral (06/23/2019 10:32 AM CDT) Ejection Fraction [facility] Specimen Impressions Performed At Right Impression [facility] 1. There is no deep venous obstruction in the common femoral, profunda [facility] femoral, femoral, popliteal, posterior tibial or peroneal veins. 2. There is no superficial venous obstr uction in the great saphenous vein. Left Impression 1. There is no deep venous obstruction in the common femoral, profunda femoral, femoral, popliteal, posterior tibial or peroneal veins. 2. There is no superficial venous obstr uction in the great saphenous vein. Conclusions Summary Venous duplex imaging and compression o f the bilateral lower extremities were performed. The veins were adequate ly visualized. The bilateral venous systems were patent and compressible wi th no evidence of thrombus. The venous Doppler waveforms were phasic wi th respiration. Signature Velocities are measured in cm/s ; Diame ters are measured in cm Narrative Performed At [facility] - Lower Extremities DVT Study [facility] Demographics [facility] Patient Name IRA VITALE Date of Study06/23/2019 KRYSTA SAMSON [id number] Age 34 Visit Number [id number] Female Accession Number [id number] Date of Birth1985 [facility] [id number] Physician SonographerHearaeann Milian Interpreting [place] Teran RVT PhysicianMD Procedure Type of Study: Veins: Lower Extremities DVT Study, RUSTY OUS DOPPLER LEG, BILATERAL. Indications for Study:Deep Venous Throm bosis. Patient Status:STAT. Study Location:Vascular Lab. Technical Quality:Adequate visualizatio n. Risk Factors History of Disease + --+----+ + !Diagnosis !Date!Comments ! + --+----+ + !History/Risk Factors: !!History of DVT! + --+----+ + Procedure Note Interface, External Ris In - 06/24/2019 10:46 AM CDT [facility] - Lower Extremities DVT Study Demographics Patient Name IRA VITALE Date of Study 06/23/2019 SCHUYLER Age 34 Visit Number [id number] Gender Female Accession Number [id number] Date of 1985 Referring [facility] Room Number ED6 Physician Instructional Designer Alexa Milian Interpreting Harriet Teran Saul Physician Procedure Type of Study: Veins: Lower Extremities DVT Study, VENOUS DOPPLER LEG, BILATERAL. Indications for Study:Deep Venous Thrombosis. Patient Status:STAT. Study Location:Vascular Lab. Technical Quality:Adequate visualization. Risk Factors History of Disease + -+----+ + !Diagnosis !Date!Comments ! + -+----+ + !History/Risk Factors: ! !History of DVT ! + -+----+ + Impressions Right Impression 1. There is no deep venous obstruction i n the common femoral, profunda femoral, femoral, popliteal, posterior tibial or peroneal veins. 2. There is no superficial venous obstru ction in the great saphenous vein. Left Impression 1. There is no deep venous obstruction i n the common femoral, profunda femoral, femoral, popliteal, posterior tibial or peroneal veins. 2. There is no superficial venous obstru ction in the great saphenous vein. Conclusions Summary Venous duplex imaging and compression of the bilateral lower extremities were performed. The veins were adequately visualized. The bilateral venous systems were patent and compressible with no evidence of thrombus. The venous Doppler waveforms were phasic with respiration. Signature Velocities are measured in cm/s ; Diameters are measured in cm Performing Organization Address City/State[facility] after 02/04/2019 Insurance Payer Benefit Subscriber ID Type Phone Address Plan / Group MEDICAID - MEDICAID [facility]GD [facility] xxxxxxxxx Medica id CARE COMM STAR Contracted PLAN MEDICAID MEDICAID xxxxxxxxx Medicaid [place] ([place]) [place] [phone] Advance Directives For more information, please contact: [address] [address] Date Inactivated Comments Code Status Date Activated 12/14/2016 6:51 PM Full Code 12/13/2016 1:53 AM This code status was determined by: Patient
--- OUTSIDE RECORDS SUMMARY | 2020-02-05 09:04 | XMS REPORT | Clinical Summary ---
Author Author [facility] Address Unknown Phone Unavailable Care Team Providers Care Shank Inspector Name Role Phone Lili Richardson CNM PCP Allergies Comments Active Allergy Reactions Severity Noted Date Patient states she had difficulty breathing and passed out. Iodine Shortness Of High 08/21/2017 Breath, Other (See Comments) Medications Not on file Active Problems Not on file Social History Date Tobacco Use Types Packs/Day Years Used Never Smoker Smokeless Tobacco: Never Used Tobacco Cessation: Counseling Given: No Drinks/Week oz/Week Comments Alcohol Use No Sex Assigned at Date Recorded Not on file Industry Job Start Date Occupation Not on file Not on file Not on file Travel End Travel History Travel Start No recent travel history available. Last Filed Vital Signs Not on file Plan of Treatment Health Maintenance Due Date Last Done Comments CERVICAL CANCER SCREENING 2007 INFLUENZA VACCINE 04/24/2020 Results Not on fileafter 02/04/2019 Advance Directives For more information, please contact: [phone] Patient Fish Protector Explanation Type Date Recorded Advance Directives, 08/21/2017 8:09 AM Living Will and Medical Power of Shower Room Attendant
--- OUTSIDE RECORDS SUMMARY | 2020-02-05 09:04 | XMS REPORT | Summary of Care ---
Author Author [facility] - Health Organization [facility] - Health Address Unknown Phone Unavailable Care Team Providers Care Breakfast Manager Name Role Phone CotoEse ge Yary CNM PCP Encounter Details Care Team Description Date Type Department Doctor Unassigned, [address] [place] [address] 03/18/2019 Patient Secure [facility] MyChart Messag es Msg [address] [place] [id number] Allergies Comments Active Allergy Reactions Severity Noted Date Seafood/Fish Shortness of Medium 08/02/2018 Breath, Swelling, Other - See comments Patient states she had difficulty breathing and passed out. Iodine Other - See High 08/21/2017 comments, Shortness of Breath Contrast dye 2016 Short of breath, blacked out,extreme heat. Contrast dye 2016 Short of breath, blacked out,extreme heat. Iodine And Iodide Shortness of High 02/21/2017 Containing Products Breath 2013 reaction short of breath and hives Penicillin Hives, 02/21/2017 Shortness of Breath Penicillins Hives High 06/28/2013 documented as of this encounter (statuses as of 04/19/2019) Medications End Date Status Medication Sig Dispensed Refills Start Date 06/24/2019 Active albuterol 90 Inhale 1-2 0 mcg/actuation inhaler Puffs. 8 Active foLIC acid 1 mg Take 1 tablet 60 tablet 5 02/22/20 1 tabletIndications: by mouth 9 Patient desires daily. documented as of this encounter (statuses as of 04/19/2019) Active Problems Problem Noted Date ERRONEOUS ENCOUNTER--DISREGARD 04/02/2019 Intraductal papilloma of breast, right 02/21/2019 Overview: From bx 01/2019 at [facility] [place]. Report sca nned. Refer to [facility] for removal Patient desires 02/21/2019 Overview: Stopped OCPs 01/2019 Screen for STD (sexually transmitted disease) 2018 History of prediabetes 08/04/2018 Well woman exam 04/10/2017 Overview: Done 07/2018. Last pap 03/2017 Irregular menstrual cycle 04/10/2017 Sickle cell trait 04/10/2017 documented as of this encounter (statuses as of 04/19/2019) Resolved Problems Problem Noted Date Resolved Date Breakthrough bleeding on control pills 12/27/2018 02/21/2019 Galactorrhea of left breast 12/27/2018 04/02/2019 Overview: Breast biopsy benign 01/30/19; see turn out worker al records Vaginitis and vulvovaginitis 10/29/2018 9 Uses oral contraception 10/29/2018 02/21/2019 Nutritional counseling 08/04/2018 12/27/2018 Exercise counseling 08/04/2018 12/27/2018 Type 2 diabetes mellitus 04/10/2017 08/04/2018 Overview: On meds Metformin since 2014. HgBA1C r efer to PCP Patient desires 04/10/2017 08/04/2018 Screening for STD (sexually transmitted disease) 7 08/04/2018 Obesity, unspecified 04/10/2017 08/04/2018 Candidiasis of vulva and vagina 04/10/20172017 documented as of this encounter (statuses as of 04/19/2019) Immunizations Name Administration Dates Next Due Hep B, Adol or Pedi 04/02/2003 Dosage documented as of this encounter Social History Date Tobacco Use Types Packs/Day Years Used Never Smoker Smokeless Tobacco: Never Used Drinks/Week oz/Week Comments Alcohol Use No Sex Assigned at Date Recorded Not on file Industry Job Start Date Occupation Not on file Not on file Not on file Travel End Travel History Travel Start No recent travel history available. documented as of this encounter Last Filed Vital Signs Not on filedocumented in this encounter Plan of Treatment Care Team Description Date Type Specialty 1, [facility] Room 04/24/2019 Office Visit [facility] Lili Richardson, CNM [address] [address] [phone] 04/24/2019 Initial [facility] Visit Debra Lili Cliff, CNM [address] [place] [address] [phone] 07/31/2019 Office Visit [facility] Health Maintenance Due Date Last Done Comments INFLUENZA VACCINE 05/25/2019 DTaP,Tdap,and Td Vaccines 04/02/2020 Postponed fr om 2005 (1 - Tdap) (Insurance / Financial) PNEUMOCOCCAL 0-64 YEARS 04/02/2020 Postponed from 1992 COMBINED SERIES (1 of 3 - (Insurance / Financial) PCV13) PAP SMEAR 04/10/2020 04/10/2017, 012 documented as of this encounter Results Not on filedocumented in this encounter Insurance Type Payer Benefit Subscriber ID Effective Phone Address Plan / Dates Group Medicaid [employer] [place] [employer] [id number] xxxxxxxxx 2018- [phone] [place] [address] documented as of this encounter
--- OUTSIDE RECORDS SUMMARY | 2020-02-05 09:05 | XMS REPORT | Summary of Care ---
Author Author [facility] - Health Organization [facility] - Health Address Unknown Phone Unavailable Care Team Providers Care Beater Room Helper Name Role Phone Ese Coto [facility] PCP Reason for Visit * Reason Comments Assessment Encounter Details Care Team Description Date Type Department Lili Richardson, CNM [address] [place] [address] Assessment 06/02/2019 Telephone [facility] [address] [place] [address] Allergies Comments Active Allergy Reactions Severity Noted Date Seafood/Fish Shortness of Medium 08/02/2018 Breath, Swelling, Other - See comments Patient states she had difficulty breathing and passed out. Iodine Other - See High 08/21/2017 comments, Shortness of Breath Contrast dye 2015 Short of breath, blacked out,extreme heat. Contrast dye 2015 Short of breath, blacked out,extreme heat. Iodine And Iodide Shortness of High 02/21/2017 Containing Products Breath 2013 reaction short of breath and hives Penicillin Hives, 02/21/2017 Shortness of Breath Penicillins Hives High 06/28/2013 documented as of this encounter (statuses as of 06/03/2019) Medications End Date Status Medication Sig Dispensed Refills Start Date Active diphenhydrAMINE Take 25 mg by 0 (BENADRYL) 25 mg capsule mouth every 6 (six) hours as needed for Allergies. Active famotidine (PEPCID AC Take by 0 ORAL) mouth. Active doxylamine-pyridoxine, Take 2 120 tablet 1 vit B6, (DICLEGIS) 10-10 tablets by 9 mg per tabletIndications: mouth at Nausea and vomiting bedtime. And during may take 1 tab bid Active albuterol 90 Inhale 1-2 8.5 g 1 mcg/actuation Puffs every 6 9 inhalerIndications: (six) hours Asthma affecting as needed for in first Wheezing or trimester Shortness of Breath. Active PNV 67-iron ps-folate Take 1 60 capsule 6 no.1-dha (VITAFOL ULTRA) capsule by 9 29 mg iron- 1 mg-200 mg mouth daily. CapIndications: High-risk in first trimester documented as of this encounter (statuses as of 06/03/2019) Active Problems Problem Noted Date Complete 05/22/2019 Habitual aborter 05/22/2019 Overview: Different partners Screening for depression 05/22/2019 Intraductal papilloma of breast, right 02/21/2019 Overview: From bx 01/2019 at [facility] [place]. Report sca nned. Refer to [facility] for removal Well woman exam 04/10/2017 Overview: Done 07/2018. Last pap 03/2017 Sickle cell trait 04/10/2017 documented as of this encounter (statuses as of 06/03/2019) Resolved Problems Problem Noted Date Resolved Date High-risk in first trimester 05/06/2019 05/22/2019 Asthma affecting in first trimester 04/24/2019 05/22/2019 Nausea and vomiting during 04/24/2019 0 05/22/2019 Urinary tract infection affecting 04/24/2019 05/22/2019 ERRONEOUS ENCOUNTER--DISREGARD 04/02/2019 019 Patient desires 02/21/2019 04/24/2019 Overview: Stopped OCPs 01/2019 Screen for STD (sexually transmitted disease) 12/27/2018 04/24/2019 Breakthrough bleeding on control pills 12/27/2018 02/21/2019 Galactorrhea of left breast 12/27/2018 04/02/2019 Overview: Breast biopsy benign 01/30/19; see yard stocker al records Vaginitis and vulvovaginitis 10/29/2018 9 Uses oral contraception 10/29/2018 02/21/2019 Nutritional counseling 08/04/2018 12/27/2018 Exercise counseling 08/04/2018 12/27/2018 History of prediabetes 08/04/2018 05/22/2019 Type 2 diabetes mellitus 04/10/2017 08/04/2018 Overview: On meds Metformin since 2014. HgBA1C r efer to PCP Patient desires 04/10/2017 08/04/2018 Screening for STD (sexually transmitted disease) 7 08/04/2018 Obesity, unspecified 04/10/2017 08/04/2018 Irregular menstrual cycle 04/10/2017 05/22/2019 Candidiasis of vulva and vagina 04/10/20172017 documented as of this encounter (statuses as of 06/03/2019) Immunizations Name Administration Dates Next Due Hep [...] Treatment Care Team Description Date Type Specialty Lili Richardson CNM [address] [place] [address] [phone] 06/19/2019 Routine [facility] Visit Lili Richardson CNM [address] [place] [address] [phone] 07/31/2019 Office Visit [facility] Health Maintenance Due Date Last Done Comments INFLUENZA VACCINE (#1) 2019 DTaP,Tdap,and Td Vaccines 04/02/2020 Postponed fr om 2005 (1 - Tdap) (Insurance / Financial) PAP SMEAR 04/10/2020 04/10/2017, 012 PNEUMOCOCCAL 0-64 YEARS Aged Out No longer elig ible based COMBINED SERIES on patient's age to complete this topic documented as of this encounter Results Not on filedocumented in this encounter Insurance Type Payer Benefit Subscriber ID Effective Phone Address Plan / Dates Group Medicaid [employer] [place] xxxxxxxxx 9-P PLAN - MANAGED MEDICAID STAR PLUS resent documented as of this encounter
--- OUTSIDE RECORDS SUMMARY | 2020-02-05 09:05 | XMS REPORT | Summary of Care ---
Author Author [facility] - Health Organization [facility] - Health Address Unknown Phone Unavailable Care Team Providers Care Change Control Specialist Name Role Phone CotoEse CNM PCP Encounter Details Care Team Description Date Type Department Doctor Unassigned, [place] [address] [place] [address] 04/03/2019 Patient Secure [facility] MyChart Messag es Msg [address] [place] [address] Allergies Comments Active Allergy Reactions Severity Noted [...] as of this encounter (statuses as of 05/10/2019) Medications No known medicationsdocumented as of this encounter (statuses as of 05/10/2019) Active Problems Problem Noted Date High-risk in first trimester 05/06/2019 Asthma affecting in first trimester 2018 Nausea and vomiting during 04/24/2019 Urinary tract infection affecting 04/24/20 19 Intraductal papilloma of breast, right 02/21/2019 Overview: From bx 01/2019 at [facility] [place]. Report sca nned. Refer to [facility] for removal History of prediabetes 08/04/2018 Well woman exam 04/10/2017 Overview: Done 07/2018. Last pap 03/2017 Irregular menstrual cycle 04/10/2017 Sickle cell trait 04/10/2017 documented as of this encounter (statuses as of 05/10/2019) Resolved Problems Problem Noted Date Resolved Date ERRONEOUS ENCOUNTER--DISREGARD 04/02/2019 019 Patient desires 02/21/2019 04/24/2019 Overview: Stopped OCPs 01/2019 Screen for STD (sexually transmitted disease) 12/27/2018 04/24/2019 Breakthrough bleeding on control pills 12/27/2018 02/21/2019 Galactorrhea of left breast 12/27/2018 04/02/2019 Overview: Breast biopsy benign 01/30/19; see benzol operator al records Vaginitis and vulvovaginitis 10/29/2018 9 [...] as of this encounter (statuses as of 05/10/2019) Immunizations Name Administration Dates Next Due Hep [...] Treatment Care Team Description Date Type Specialty 05/14/2019 [employer] Maternal Medi cine Visit Lili Richardson, CNM [address] [place] [address] [phone] 05/22/2019 Routine [facility] Visit Lili Richardson, CNM [address] [place] [address] [phone] 07/31/2019 Office Visit [facility] Health Maintenance [...]
--- OUTSIDE RECORDS SUMMARY | 2020-02-05 09:05 | XMS REPORT | Summary of Care ---
Author Author [facility] - Health Organization [facility] - Health Address Unknown Phone Unavailable Care Team Providers Care Wet Process Miller Name Role Phone Ese Coto CN PCP Reason for Visit * Reason Comments Care miscarriage Encounter Details Care Team Description Date Type Department Lili Richardson, [facility] [address] [place] [address] Complete (Primary Dx); Screening for depression; Intraductal papilloma of breast, right 05/22/2019 Routine [facility] Visit [facility] [address] [place] [address] Allergies Comments Active Allergy Reactions [...] as of this encounter (statuses as of 05/23/2019) Medications End Date Status Medication Sig Dispensed [...] as of this encounter (statuses as of 05/23/2019) Active Problems Problem Noted Date Complete 05/22/2019 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 Report sca nned. Refer to [facility] for removal Well woman exam 04/10/2017 Overview: Done 07/2018. 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 Vaginitis and vulvovaginitis 10/29/2018 9 [...] as of this encounter (statuses as of 05/23/2019) Immunizations Name Administration Dates Next Due Hep [...] of this encounter Last Filed Vital Signs Reading Time Taken Comments Vital Sign 134/86 05/22/2019 3:37 PM CDT Blood Pressure 81 05/22/2019 3:37 PM CDT Pulse 37.1 C (98.8 F) 05/22/2019 3:37 PM CDT Temperature 20 05/22/2019 3:37 PM CDT Respiratory Rate - - Oxygen Saturation - - Inhaled Oxygen Concentration 142.9 kg (315 lb) 05/22/2019 3:37 PM CDT Weight - - Height 61.52 04/24/2019 9:59 AM CDT Body Mass Index documented in this encounter Progress Notes * Lili Richardson CNM - 05/22/2019 3:30 PM CDT Chief complaint: Chief Complaint Patient presents with Care miscarriage HPI dx in ER On 05/11. No bleeding since Wants another . This was 2nd ab w/ current partner Denies depression/ just stress and diff sleeping Histories OB History Para Term AB Living 4 1 1 3 1 SAB TAB Ectopic Multiple Live Births 2 1 # Outcome Date GA Lbr Thang/2nd Weight Sex Delivery Anes PTL Lv 4 AB 05/12/19 8w2d 3 SAB 03/21/17 8w0d 2 2010 6w0d 1 Term 10/20/03 39w0d 6 lb 4 oz (2.835 kg) F Vag-Spont EPI N KAROL Past Medical History: Diagnosis Date Abnormal uterine bleeding 2007 Asthma 1986 Albuterol prn Breast disorder 2013 clogged milk ducts Candidiasis of vulva and vagina 04/10/2017 Diabetes mellitus 2015 Metformin 1000 mg 2 times a day. Endometriosis 2014 Enlarged heart 11/2016 1 week in [place], [place]. with heart Sickle cell anemia 1986 [facility]ait Trichomonal vaginitis Diagnosed and treated at age of 14 Family History Problem Relation Age of Onset Arthritis Mother Hypertension Mother Cancer Father Liver Hypertension Sister Arthritis Maternal Aunt Arthritis Maternal Uncle Arthritis Paternal Aunt Arthritis Paternal Uncle Other - see comments Maternal Grandmother Lupus Heart Maternal Grandmother Diabetes Maternal Grandmother Other - see comments Maternal Grandfather Other - see comments Paternal Grandmother Other - see comments Paternal Grandfather Family Status Relation Name Status Mo Alive Fa Sis Alive Bro Alive MAunt Alive MUnc Alive PAunt Alive PUnc Alive MGMo MGFa PGMo PGFa Past Surgical History: Procedure Laterality Date BREAST SURGERY 2014 Left breast, milk ducts blocked. Benign CHOLECYSTECTOMY 2017 [facility] DILATION AND CURETTAGE (SHX) 2007 HYSTEROSCOPY 2015 [facility] Social History Socioeconomic History Marital status: Spouse name: Not on file Number of children: Not on file Years of education: Not on file Highest education level: Not on file Occupational History Not on file Social Needs Financial resource strain: Not on file Food insecurity: Worry: Not on file Inability: Not on file Transportation needs: Medical: Not on file Non-medical: Not on file Tobacco Use Smoking status: Never Smoker Smokeless tobacco: Never Used Substance and Sexual Activity Alcohol use: No Drug use: No Sexual activity: Yes Partners: Male control/protection: None Comment: Last intercourse: 04/23/19 Lifestyle Physical activity: Days per week: Not on file Minutes per session: Not on file Stress: Not on file Relationships Social connections: Talks on phone: Not on file Gets together: Not on file Attends nondenominational service: Not on file Active member of club or organization: Not on file Attends meetings of clubs or organizations: Not on file Relationship status: Not on file Intimate partner violence: Fear of current or ex partner: Not on file Emotionally abused: Not on file Physically abused: Not on file Forced sexual activity: Not on file Other Topics Concern Not on file Social History Narrative Ira Vitale is a 33 year old female, denies any physical or emotional abuse, no trauma, feels safe at home. Social History Substance and Sexual Activity Sexual Activity Yes Partners: Male control/protection: None Comment: Last intercourse: 04/23/19 Labs Initial Visit on 04/24/2019 Component Date Value POCT PREG 04/24/2019 Positive On board controls accept* 04/24/2019 Yes POCT PH U 04/24/2019 5 POCT U LEUK EST 04/24/2019 n POCT U NIT 04/24/2019 pos POCT U PROT 04/24/2019 n POCT U GLU 04/24/2019 n POCT U KETONE 04/24/2019 n POCT U BLD 04/24/2019 n C. trachomatis Nucleic A* 04/24/2019 Negative N. gonorrhoeae Nucleic A* 04/24/2019 Negative HBsAg 04/24/2019 Negative HBsAg Semi-Quantitative 04/24/2019 0.07 HIV 1/2 Ag-Ab with Reflex 04/24/2019 Negative HIV Semi-quantitative 04/24/2019 0.15 ABO & RH 04/24/2019 O POSITIVE IAT 04/24/2019 Negative Rubella screen IgG 04/24/2019 Positive Syphilis IgG/IgM 04/24/2019 Non-reactive URINE CULTURE 04/24/2019 10,000 - 100,000 CFU/mL mixed aerobic organisms - s uggests endogenous microbial contamination URINE CULTURE 04/24/2019 Escherichia coli VZV IgG antibody 04/24/2019 Positive WBC 04/24/2019 6.30 RBC 04/24/2019 5.48* HGB 04/24/2019 12.7 HCT 04/24/2019 41.0 MCV 04/24/2019 74.8* MCH 04/24/2019 23.2* MCHC 04/24/2019 31.0* RDW-SD 04/24/2019 46.4 RDW-CV 04/24/2019 17.5* PLT 04/24/2019 248 MPV 04/24/2019 12.2 IPF % 04/24/2019 9.8* NRBC/100 WBC 04/24/2019 0.0 NRBC x10^3 04/24/2019 <0.01 GRAN MAT (NEUT) % 04/24/2019 62.4 IMM GRAN % 04/24/2019 0.30 LYMPH % 04/24/2019 29.0 MONO % 04/24/2019 5.6 EOS % 04/24/2019 2.2 BASO % 04/24/2019 0.5 GRAN MAT x10^3(ANC) 04/24/2019 3.93 IMM GRAN x10^3 04/24/2019 <0.03 LYMPH x10^3 04/24/2019 1.83 MONO x10^3 04/24/2019 0.35 EOS x10^3 04/24/2019 0.14 BASO x10^3 04/24/2019 0.03 HGB A1C 04/24/2019 5.4 Radiology No new radiology. Allergies Ira is allergic to iodine; iodine and iodide containing products; penicillin s; fish [seafood/fish]; and penicillin. Medications Ira has a current medication list which includes the following prescription( s): pnv 67-iron ps-folate no.1-dha, albuterol, diphenhydramine, doxylamine-pyrid oxine (vit b6), and famotidine. Review of Systems BP 134/86 | Pulse 81 | Temp 37.1 C (98.8 F) (Tympanic) | Resp 20 | Wt 31 5 lb (142.9 kg) | LMP 03/15/2019 | BMI 61.52 kg/m Pregravid BMI: 60.2 Physical Exam Assessment/Plan Complete (primary encounter diagnosis) Comment: Plan: neg UPT today Screening for depression Comment: No suicidal thoughts. Does not want meds yet Plan: depression and counseling info and hotline # given To RTC if wants meds Intraductal papilloma of breast, right Comment: Plan: to [facility] where was dx Return to clinic in 4 weeks. This visit did not involve counseling and coordination that comprised more than 50% of the visit time. documented in this encounter Plan of Treatment Care Team Description Date Type Specialty Lili Richardson CNM [address] [place] [address] [phone] 06/19/2019 Routine [facility] Visit Lili Richardson, CNM [address] [place], [place] [id number] 07/31/2019 Office Visit [facility] Health Maintenance [...] Results Not on filedocumented in this encounter Visit Diagnoses Diagnosis Complete - Primary Legally unspecified , complete, without mention of complication Screening for depression Intraductal papilloma of breast, right documented in this encounter Insurance Type Payer Benefit Subscriber ID Effective Phone Address Plan / Dates Group Medicaid [employer] [place] xxxxxxxxx 9-P PLAN - MANAGED MEDICAID STAR PLUS resent documented as of this encounter"
--- OUTSIDE RECORDS SUMMARY | 2020-02-05 09:05 | XMS REPORT | Summary of Care ---
Author Author [facility] - Health Organization [facility] - Health Address Unknown Phone Unavailable Care Team Providers Care Transition Lead Name Role Phone Lili Richardson CNM PCP Encounter Details Care Team Description Date Type Department Doctor Unassigned, [place] [address] [place] [address] 11/03/2019 Orders Only [facility] [address] [place] [address] Allergies Comments Active Allergy Reactions Severity Noted [...] as of this encounter (statuses as of 11/03/2019) Medications End Date Status Medication Sig Dispensed Refills Start Date Active diphenhydrAMINE Take 25 mg by 0 (BENADRYL) 25 mg capsule mouth every 6 (six) hours as needed for Allergies. Active famotidine (PEPCID AC Take by 0 ORAL) mouth. Active PNV 67-iron ps-folate Take 1 60 capsule 6 no.1-dha (VITAFOL ULTRA) capsule by 9 29 mg iron- 1 mg-200 mg mouth daily. CapIndications: High-risk in first trimester Active PROAIR HFA 90 INHALE 1-2 8.5 Inhaler 1 mcg/actuation PUFFS EVERY 6 9 inhalerIndications: (SIX) HOURS Asthma affecting NEEDED FOR in first WHEEZING OR trimester SHORTNESS OF BREATH. Active bismuth/metronid/tetracyc Take by 0 line (PYLERA ORAL) mouth. Active ondansetron (ZOFRAN) 4 mg Take 4 mg by 0 tablet mouth every 8 (eight) hours as needed. documented as of this encounter (statuses as of 11/03/2019) Active Problems Problem Noted Date H. 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 Last pap 03/2017 Sickle cell trait 04/10/2017 documented as of this encounter (statuses as of 11/03/2019) Resolved Problems Problem Noted Date Resolved Date Candidiasis of vulva and vagina 09/25/20192019 Complete 05/22/2019 07/31/2019 High-risk in first trimester 05/06/2019 05/22/2019 Asthma affecting in first trimester 04/24/2019 05/22/2019 Nausea and vomiting during 04/24/2019 0 05/22/2019 Urinary tract infection affecting 04/24/2019 05/22/2019 ERRONEOUS ENCOUNTER--DISREGARD 04/02/2019 019 Intraductal papilloma of breast, right 02/21/2019 11/03/2019 Overview: Removal 05/2019 at [place] [facility] Screen for STD (sexually transmitted disease) 12/27/2018 04/24/2019 Breakthrough bleeding on control pills 12/27/2018 02/21/2019 Galactorrhea of left breast 12/27/2018 04/02/2019 Overview: Breast biopsy benign 01/30/19; 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 Vaginitis and vulvovaginitis 10/29/2018 9 [...] as of this encounter (statuses as of 11/03/2019) Immunizations Name Administration Dates Next Due Hep [...] filedocumented in this encounter Plan of Treatment Health Maintenance Due Date Last Done Comments INFLUENZA VACCINE (#1) 2019 DTaP,Tdap,and Td Vaccines 04/02/2020 Postponed fr om 1997 (1 - Tdap) (Insurance / Financial) PAP SMEAR 04/10/2020 04/10/2017, 012 PNEUMOCOCCAL 0-64 YEARS Aged Out No longer elig ible based COMBINED SERIES on patient's age to complete this topic documented as of this encounter Procedures Comments Procedure Name Priority Date/Time Associated Diag nosis ASSIGNMENT OF BENEFITS Routine 11/03/2019 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
--- OUTSIDE RECORDS SUMMARY | 2020-02-05 09:05 | XMS REPORT | Summary of Care ---
Author Author [facility] - Health Organization [facility] - Health Address Unknown Phone Unavailable Care Team Providers Care Job Compositor Name Role Phone Ese Coto CN PCP Reason for Referral * (Routine) Referred By Contact Referred To Contact Status Reason Specialty Diagnoses / Procedures Lili Richardson CNM [address] [place] [address] New Request Maternal Diagnoses Medicine High-risk in first trimester P rocedures CONSULT MATERNAL MEDICINE ULTRASOUND Preferred Location: [place] Reason for Visit * Reason Comments Initial Visit Encounter Details Care Team Description [place] [address] [place] [id number] High-risk in first trimester ( Primary Dx); examination or test, positive result; Intraductal papilloma of breast, right; Sickle cell trait; History of prediabetes; Nausea and vomiting during ; Asthma affecting in first trimester; Urinary tract infection affecting 04/24/2019 Initial [facility] Visit [place] [address] [place] [address] Allergies Comments Active Allergy Reactions [...] as of this encounter (statuses as of 04/24/2019) Medications End Date Status Medication Sig Dispensed [...] Wheezing or trimester Shortness of Breath. Active [id number] Take 1 Each 60 Each 6 carb,ore-RI-jbu-dha by mouth 9 (CITRANATAL 90 DHA, ALGAL daily. OIL,) 90 mg iron-1 mg -50 mg-300 mg combo packIndications: High-risk in first trimester 05/04/2019 Active Nitrofurantoin&Nit. Take 1 20 capsule 0 Macrocryst (MACROBID) 100 capsule by 9 mg capsuleIndications: mouth 2 (two) Urinary tract infection times daily affecting for 10 days. 04/24/2019 Discontinued albuterol 90 Inhale 1-2 0 mcg/actuation inhaler Puffs. 8 04/24/2019 Discontinued foLIC acid 1 mg Take 1 tablet 60 tablet 5 02/22/20 1 tabletIndications: by mouth 9 Patient desires daily. 04/24/2019 Discontinued acetaminophen/diphenhydra Take by 0 mine (TYLENOL PM ORAL) mouth. 04/24/2019 Discontinued Take by 0 vit,calc76/iron/folic mouth. (PNV 29-1 ORAL) 04/24/2019 Discontinued dicyclomine HCl (BENTYL Take by 0 ORAL) mouth. 04/24/2019 Discontinued ondansetron (ZOFRAN) 4 mg Take 4 mg by 0 tablet mouth every 8 (eight) hours as needed. documented as of this encounter (statuses as of 04/24/2019) Active Problems Problem Noted Date Asthma affecting in first trimester 2018 Nausea and vomiting during 04/24/2019 Urinary tract infection affecting 04/24/20 19 Intraductal papilloma of breast, right 02/21/2019 Overview: From bx 01/2019 at [facility] [place]. Report sca nned. [facility]er [facility] for removal History of prediabetes 08/04/2018 Well woman exam 04/10/2017 Overview: Done 07/2018. Last pap 03/2017 Irregular menstrual cycle 04/10/2017 Sickle cell trait 04/10/2017 Estimated Date of Delivery Comments Yes 12/20/2019 Based on last menst rual period of 03/15/2019 documented as of this encounter (statuses as of 04/24/2019) Resolved Problems Problem Noted Date Resolved Date ERRONEOUS ENCOUNTER--DISREGARD 04/02/2019 019 Patient desires 02/21/2019 04/24/2019 Overview: Stopped OCPs 01/2019 Screen for STD (sexually transmitted disease) 12/27/2018 04/24/2019 Breakthrough bleeding on control pills 12/27/2018 02/21/2019 Galactorrhea of left breast 12/27/2018 04/02/2019 Overview: Breast biopsy benign 01/30/19; see ops manager al records Vaginitis and vulvovaginitis 10/29/2018 9 [...] as of this encounter (statuses as of 04/24/2019) Immunizations Name Administration Dates Next Due Hep B, Adol or Pedi 04/02/2003 Dosage documented as of this encounter Social History Date Tobacco Use Types Packs/Day Years Used Never Smoker Smokeless Tobacco: Never Used Drinks/Week oz/Week Comments Alcohol Use No Estimated Date of Delivery Comments Yes 12/20/2019 Based on last menst rual period of 03/15/2019 Sex Assigned at Date Recorded Not on file Industry Job Start Date Occupation Not on file Not on file Not on file Travel End Travel History Travel Start No recent travel history available. documented as of this encounter Last Filed Vital Signs Reading Time Taken Comments Vital Sign 134/89 04/24/2019 9:59 AM CDT Blood Pressure 79 04/24/2019 9:59 AM CDT Pulse 35.9 C (96.7 F) 04/24/2019 9:59 AM CDT Temperature 20 04/24/2019 9:59 AM CDT Respiratory Rate - - Oxygen Saturation - - Inhaled Oxygen Concentration 141.5 kg (312 lb) 04/24/2019 9:59 AM CDT Weight 152.4 cm (5') 04/24/2019 9:59 AM CDT Height 60.93 04/24/2019 9:59 AM CDT Body Mass Index documented in this encounter Progress Notes * Catalina Garcia LVN - 04/24/2019 10:00 AM CDT Ira Vitale is a 33 year old female here for new ob care. at 5 weeks 5 days LMP 03/15/19 Last intercourse 04/23/19 Last pap smear 04/10/17 Had SAB 2010 and 2016 Patient c/o not sleeping, has been feeling stressed lately. Histories taken, reviewed new ob packet. Handouts provided: [employer] , Information for Parents of Newborns, Parents Guide to Healthy Happy Children. Reviewed Safe medications during , Promotion of . * Lili Richardson CNM - 04/24/2019 10:00 AM CDT Chief complaint: Chief Complaint Patient presents with Initial Visit CC: Initial Visit Ira Vitale is a 33 year old, , Black or femal e. Patient's last menstrual period was 03/15/2019 (exact date). She is Unknown with an intrauterine . Her Estimated Date of Delivery: None noted.. S he is being seen today for her first obstetrical visit. She has no complaints today. Except nausea and vomiting OB History T1 L1 SAB2 TAB0 Ectopic0 Multiple0 Live Births1 Name of Baby 1: Not recorded Date: 10/20/03 GA: 39w0d Delivery: Vaginal, Spontaneous Apgar1: Not recorded Apgar5: Not recorded Living: Living Name of Baby 2: Not recorded Date: 2010 GA: 6w0d Delivery: Not recorded Apgar1: Not recorded Apgar5: Not recorded Living: Not recorded Name of Baby 3: Not recorded Date: 03/21/17 GA: 8w0d Delivery: Not recorded Apgar1: Not recorded Apgar5: Not recorded Living: Not recorded Name of Baby 4: Not recorded Date: Not recorded GA: Not recorded Delivery: Not recorded Apgar1: Not recorded Apgar5: Not recorded Living: Not recorded Histories OB History Para Term AB Living 4 1 1 2 1 SAB TAB Ectopic Multiple Live Births 2 1 # Outcome Date GA Lbr Thang/2nd Weight Sex Delivery Anes PTL Lv 4 Current 3 SAB 03/21/17 8w0d 2 SAB 2010 6w0d 1 Term 10/20/03 39w0d 6 lb 4 oz (2.835 kg) F Vag-Spont EPI N KAROL Past Medical History: Diagnosis Date Abnormal uterine bleeding 2007 Asthma 1986 Albuterol prn Breast disorder 2014 clogged milk ducts Candidiasis of vulva and vagina 04/10/2017 Diabetes mellitus 2015 Metformin 1000 mg 2 times a day. Endometriosis 2014 Enlarged heart 11/2016 1 week in [place], [place]. with heart Sickle cell anemia 1986 [...] Left breast, milk ducts blocked. Benign CHOLECYSTECTOMY 2018 [place] DILATION AND CURETTAGE (SHX) 2007 HYSTEROSCOPY 2016 [facility] Social History Socioeconomic History Marital status: Spouse [...] file Gets together: Not on file Attends buddhism service: Not on file Active member of [...] Male control/protection: None Comment: Last intercourse: 04/23/19 Genetic Screen Autism / Mental Retardation: No Beulah Disease: No Congenital Heart Defect: No Cystic Fibrosis: No Down Syndrome: No Familial Dysautonomia: No Hemophilia or other Blood Disorders: No [place] Chorea: No Maternal Metabolic Disorder--specify (eg. Type 1 Diabetes, PKU): No Muscular Dystrophy: No Neural Tube Defect: No Recurrent Loss or a Stillbirth: No Sickle Cell Disease or Trait: No Rigoberto Sachs: No Teratological Substances (specify type & strength/dose) since LMP: No Thalassemia: No Other Inherited Genetic or Chromosomal Disorder (specify): No No Significant History of Genetic Disorders: No Significant History of Genetic D isorders Labs Labs are pending. Radiology Radiology pending. Allergies Ira is allergic to iodine; iodine and iodide containing products; penicillin s; fish [seafood/fish]; and penicillin. Medications Ira has a current medication list which includes the following prescription( s): dicyclomine hcl, diphenhydramine, famotidine, ondansetron, vit,calc 76/iron/folic, folic acid, and albuterol. Review of Systems Breasts: Negative. Gastrointestinal: Negative. Genitourinary: Negative. Musculoskeletal: Negative. Psychiatric/Behavioral: Positive for sleep disturbance. All other systems reviewed and are negative. BP 134/89 | Pulse 79 | Temp 35.9 C (96.7 F) (Tympanic) | Resp 20 | Ht 5' (1.524 m) | Wt 312 lb (141.5 kg) | LMP 03/15/2019 (Exact Date) | Breastfeedi ng? Unknown | BMI 60.93 kg/m Pregravid BMI: 60.2 Physical Exam PHYSICAL: General Exam: PE done 07/2018 here. Last pap neg 2017 Assessment/Plan High-risk in first trimester (primary encounter diagnosis) Comment: Plan: CBC WITH DIFF, GC & CHLAMYDIA AMPLIFIED ASSAY, HEPATITIS B SURFACE ANTIGEN, HIV 1/2 AG-AB WITH REFLEX, WORKUP, BLOOD BANK, RUBELLA SCREEN (MICHAEL) IGG, GALV ONLY - SYPHILIS IGG/IGM, URINE CULTURE, VZV ANTIBODY SCREEN, Glucose 1 Hour Post Prandial, CBC WITH DIFFERENTIAL, CONSULT MATERNAL MEDICINE ULTRASOUND Preferred Location: [place] [address]-iron carb,fcx-YN-scu-dha (CITRANATAL 90 DHA, ALGAL OIL,) 90 mg iron-1 mg -50 mg-300 mg combo pack, WORKUP, BLOOD BANK examination or test, positive result Comment: Plan: POCT TEST, POCT URINALYSIS W/O SPECIFIC GRAVITY Intraductal papilloma of breast, right Comment: Plan: needs removal. Will refer to MFM after 20w Sickle cell trait Comment: Plan: URINE CULTURE History of prediabetes Comment: Plan: Glucose 1 Hour Post Prandial, GLYCOSYLATED HEMOGLOBIN (A1C) Nausea and vomiting during Comment: Plan: doxylamine-pyridoxine, vit B6, (DICLEGIS) 10-10 mg per tablet RX sent Asthma affecting in first trimester Comment: Plan: albuterol 90 mcg/actuation inhaler Urinary tract infection affecting Comment: Positive nitrites Plan: URINE CULTURE Macrobid RX sent Return to clinic in 4 weeks. at 5w5d This visit did not involve counseling and coordination that comprised more than 50% of the visit time. documented in this encounter Plan of Treatment Care Team Description Date Type Specialty Lili Richardson CNM [address] [address] [phone] 05/22/2019 Routine [facility] Visit Lili Richardson CNM [address] [address] [phone] 07/31/2019 Office Visit [facility] Date/Time Name Type Priority Associated Diag noses 04/24/2019 11:34 AM CDT CBC WITH DIFF LAB Routine High-risk pregn sunny in first trimester 04/24/2019 11:35 AM CDT GC & CHLAMYDIA AMPLIFIED LAB Routine High- risk in ASSAY first trimester 04/24/2019 11:35 AM CDT HEPATITIS B SURFACE LAB Routine High-risk in ANTIGEN first trimester 04/24/2019 11:35 AM CDT HIV 1/2 AG-AB WITH REFLEX LAB Routine High -risk in first trimester 04/24/2019 11:35 AM CDT RUBELLA SCREEN (MICHAEL) LAB Routine High-ri sk in IGG first trimester 04/24/2019 11:35 AM CDT GALV ONLY - SYPHILIS LAB Routine High-risk in IGG/IGM first trimester 04/24/2019 11:35 AM CDT URINE CULTURE LAB Routine High-risk pregn sunny in first trimester Sickle cell trait Urinary tract infection affecting 04/24/2019 11:35 AM CDT VZV ANTIBODY SCREEN LAB Routine High-risk in first trimester 04/24/2019 11:34 AM CDT CBC WITH DIFFERENTIAL LAB Routine High-ris k in first trimester 04/24/2019 11:34 AM CDT GLYCOSYLATED HEMOGLOBIN LAB Routine Histor y of prediabetes (A1C) Order Schedule Name Type Priority Associated Diag noses Ordered: 04/24/2019 WORKUP, BLOOD LAB Routine High-ri sk in BANK first trimester Ordered: 04/24/2019 Glucose 1 Hour Post LAB Routine High-risk in Prandial first trimester History of prediabetes Ordered: 04/24/2019 WORKUP, BLOOD LAB Routine High-ri sk in BANK first trimester Health Maintenance Due Date Last Done Comments INFLUENZA VACCINE 05/25/2019 DTaP,Tdap,and Td Vaccines 04/02/2020 Postponed fr om 2005 (1 - Tdap) (Insurance / Financial) PNEUMOCOCCAL 0-64 YEARS 04/02/2020 Postponed from 1992 COMBINED SERIES (1 of 3 - (Insurance / Financial) PCV13) PAP SMEAR 04/10/2020 04/10/2017, 012 documented as of this encounter Procedures Comments Procedure Name Priority Date/Time Associated Diag nosis POCT URINALYSIS W/O Routine 04/24/2019 examination or SPECIFIC GRAVITY test, positive result POCT TEST Routine 04/24/2019 examination or test, positive result documented in this encounter Results * POCT URINALYSIS W/O SPECIFIC GRAVITY (04/24/2019) POCT PH U 5 5 - 8 mg/dl POCT U LEUK EST n Negative - Negative POCT U NIT pos Negative - Negative POCT U PROT n Negative - Negative POCT U GLU n Negative - Negative POCT U KETONE n Negative - Negative POCT U BLD n Negative - Negative Specimen Urine - URINE, CLEAN CATCH * POCT TEST (04/24/2019) POCT PREG Positive On board Yes controls acceptable with C Line POCT PREG LOT # POCT PREG TEST DATE Specimen Urine - URINE, CLEAN CATCH documented in this encounter Visit Diagnoses Diagnosis High-risk in first trimester - Primary examination or test, positive result Intraductal papilloma of breast, right Sickle cell trait Sickle-cell trait History of prediabetes Nausea and vomiting during Asthma affecting in first tri mester Urinary tract infection affecting pregn sunny documented in this encounter Insurance Type Payer Benefit Subscriber ID Effective Phone Address Plan / Dates Group Medicaid [employer]HC [place] xxxxxxxxx 9-P PLAN - MANAGED MEDICAID STAR PLUS resent documented as of this encounter"
--- OUTSIDE RECORDS SUMMARY | 2020-02-05 09:05 | XMS REPORT | Summary of Care ---
Author Author [facility] - Health Organization [facility] - Health Address Unknown Phone Unavailable Care Team Providers Care Aircraft Technician Name Role Phone Ese Coto CN PCP Reason for Referral * (Routine) Referred By Contact Referred To Contact Status Reason Specialty Diagnoses / Procedures Lili Richardson CNM [address] [place] [address] New Request Maternal Diagnoses Medicine High-risk in first trimester P rocedures CONSULT MATERNAL MEDICINE ULTRASOUND Preferred Location: [place] Reason for Visit * Reason Comments Initial Visit Encounter Details Care Team Description Date [place] [address] [place] [address] High-risk in first trimester ( Primary Dx); examination or test, positive result; Intraductal papilloma of breast, right; Sickle cell trait; History of prediabetes; Nausea and vomiting during ; Asthma affecting in first trimester; Urinary tract infection affecting 04/24/2019 Initial [facility] Visit [place] [address] [place] [address] Allergies Comments Active Allergy Reactions [...] Wheezing or trimester Shortness of Breath. Active [id number] Take 1 Each 60 Each 6 carb,ymk-JL-jqs-dha by mouth 9 (CITRANATAL 90 DHA, ALGAL [...] 02/21/2019 Overview: From bx 01/2019 at [facility] [place]. Report sca nned. Refer to [facility] for removal History of prediabetes 08/04/2018 Well [...] 04/02/2019 Overview: Breast biopsy benign 01/30/19; see clerical dentist assistant al records Vaginitis and vulvovaginitis 10/29/2018 9 [...] 2014 Enlarged heart 11/2016 1 week in [place], [place]. with heart Sickle cell anemia 1986 [...] breast, milk ducts blocked. Benign CHOLECYSTECTOMY 2018 [place] DILATION AND CURETTAGE (SHX) 2007 HYSTEROSCOPY 2016 [facility] Social History Socioeconomic History Marital status: [...] file Gets together: Not on file Attends latter-day service: Not on file Active member of [...] No Hemophilia or other Blood Disorders: No [place] Chorea: No Maternal Metabolic Disorder--specify (eg. Type [...] DIFFERENTIAL, CONSULT MATERNAL MEDICINE ULTRASOUND Preferred Location: [place] [address]-iron carb,wcj-DB-gdi-dha (CITRANATAL 90 DHA, ALGAL OIL,) 90 mg [...] Specialty Lili Richardson CNM [address] [address] [phone] 05/22/2019 Routine [facility] Visit Lili Richardson CNM [address] [address] [phone] 07/31/2019 Office Visit [facility] Date/Time Name [...] PLAN - MANAGED MEDICAID STAR PLUS resent [phone] [facility] (Home) [place] [address] documented as of this encounter"
--- OUTSIDE RECORDS SUMMARY | 2020-02-05 09:05 | XMS REPORT | Summary of Care ---
Author Author [facility] - Health Organization [facility] - Health Address Unknown Phone Unavailable Care Team Providers Care Auto Clutch Specialist Name Role Phone CotoEse CN PCP Reason for Visit * Reason Comments New Medication needs pre-approval for Dicl egis Encounter Details Care Team Description Date Type Department Lili Richardson, CNM [address] [place] [address] New Medication (needs pre-approval for D iclegis) 05/06/2019 Telephone [facility] [address] [place] [address] Allergies Comments Active Allergy Reactions [...] as of this encounter (statuses as of 05/06/2019) Medications End Date Status Medication Sig Dispensed [...] as of this encounter (statuses as of 05/06/2019) Active Problems Problem Noted Date High-risk in first trimester 05/06/2019 Asthma affecting in first trimester 2018 Nausea and vomiting during 04/24/2019 Urinary tract infection affecting 04/24/20 19 Intraductal papilloma of breast, right 02/21/2019 Overview: From bx 01/2019 at [facility] [place]. Report sca nned. Refer to [facility] for removal History of prediabetes 08/04/2018 Well woman exam 04/10/2017 Overview: Done 07/2018. Last pap 03/2017 Irregular menstrual cycle 04/10/2017 Sickle cell trait 04/10/2017 Estimated Date of Delivery Comments Yes 12/20/2019 Based on last menst rual period of 03/15/2019 documented as of this encounter (statuses as of 05/06/2019) Resolved Problems Problem Noted Date Resolved Date ERRONEOUS ENCOUNTER--DISREGARD 04/02/2019 019 Patient desires 02/21/2019 04/24/2019 Overview: Stopped OCPs 01/2019 Screen for STD (sexually transmitted disease) 12/27/2018 04/24/2019 Breakthrough bleeding on control pills 12/27/2018 02/21/2019 Galactorrhea of left breast 12/27/2018 04/02/2019 Overview: Breast biopsy benign 01/30/19; see technology support analyst al records Vaginitis and vulvovaginitis 10/29/2018 9 [...] as of this encounter (statuses as of 05/06/2019) Immunizations Name Administration Dates Next Due Hep [...] Treatment Care Team Description Date Type Specialty 05/09/2019 Access Nurse Maternal Medi cine Visit Lili Richardson, CNM [address] [place], [place] [id number] 05/22/2019 Routine [facility] Visit Lili Richardson CNM [address] [place] [address] [phone] 07/31/2019 Office Visit [facility] Health Maintenance [...] filedocumented in this encounter Visit Diagnoses Diagnosis High-risk in first trimester - Primary documented in this encounter Insurance Type Payer Benefit Subscriber ID Effective Phone Address Plan / Dates Group Medicaid [employer] [place] xxxxxxxxx 9-P PLAN - MANAGED MEDICAID STAR PLUS resent documented as of this encounter
--- OUTSIDE RECORDS SUMMARY | 2020-02-05 09:05 | XMS REPORT ---
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 4.5-12.5 N RED BLOOD CELL (test code = RBC) 5.11 mill/mm3 3.7-5.2 N HEMOGLOBIN (test code = HGB) 11.9 gram/dL 11.5-15.5 N HEMATOCRIT (test code = HCT) 36.9 % 36.0-46.0 N MEAN CELL VOLUME (test code = MCV) 72.2 fL 80-98 L MEAN CELL HGB (test code = MCH) 23.3 picogram 27.0-33.0 L MEAN CELL HGB CONCETRATION (test code = MCHC) 32.2 gram/dL 33.0-36. 0 L RED CELL DISTRIBUTION WIDTH (test code = RDW) 17.4 % 11.6-16. 2 H RED CELL DISTRIBUTION WIDTH SD (test code = RDW-SD) 45.7 fL 37 .0-51.0 N PLATELET COUNT (test code = PLT) 202 K/mm3 150-450 N MEAN PLATELET VOLUME (test code = MPV) 11.5 fL 6.7-11.0 H NEUTROPHIL % (test code = NT%) 52.8 % 39.0-69.0 N LYMPHOCYTE % (test code = LY%) 31.0 % 25.0-55.0 N MONOCYTE % (test code = MO%) 9.5 % 0.0-10.0 N EOSINOPHIL % (test code = EO%) 5.7 % 0.0-5.0 H BASOPHIL % (test code = BA%) 0.7 % 0.0-1.0 N NEUTROPHIL # (test code = NT#) 3.23 K/mm3 1.8-7.7 N LYMPHOCYTE # (test code = LY#) 1.90 K/mm3 1.0-5.0 N MONOCYTE # (test code = MO#) 0.58 K/mm3 0-0.8 N EOSINOPHIL # (test code = EO#) 0.35 K/mm3 0.0-0.5 N BASOPHIL # (test code = BA#) 0.04 K/mm3 0.0-0.2 N MANUAL DIFF REQUIRED (test code = MDIFF) NO, ONLY SCAN NEEDED DIFFERENTIAL [id number] 11:56:00* Test Item Value Reference Range Interpretation Comments STAIN ACCEPTABILITY (test code = STN ACCEPTABLE) CABOT RINGS (test code = CAB) MORPHOLOGY COMMENT (test code = MOC) PLATELET ESTIMATE (test code = PLTEST) PLATELET MORPHOLOGY (test code = PLTMORPH) CBC W/AUTO [id number] 11:56:00* Test Item Value Reference Range Interpretation Comments WHITE BLOOD CELL (test code = WBC) 6.1 K/mm3 4.5-12.5 N RED BLOOD CELL (test code = RBC) 5.11 mill/mm3 3.7-5.2 N HEMOGLOBIN (test code = HGB) 11.9 gram/dL 11.5-15.5 N HEMATOCRIT (test code = HCT) 36.9 % 36.0-46.0 N MEAN CELL VOLUME (test code = MCV) 72.2 fL 80-98 L MEAN CELL HGB (test code = MCH) 23.3 picogram 27.0-33.0 L MEAN CELL HGB CONCETRATION (test code = MCHC) 32.2 gram/dL 33.0-36. 0 L RED CELL DISTRIBUTION WIDTH (test code = RDW) 17.4 % 11.6-16. 2 H RED CELL DISTRIBUTION WIDTH SD (test code = RDW-SD) 45.7 fL 37 .0-51.0 N PLATELET COUNT (test code = PLT) 202 K/mm3 150-450 N MEAN PLATELET VOLUME (test code = MPV) 11.5 fL 6.7-11.0 H NEUTROPHIL % (test code = NT%) 52.8 % 39.0-69.0 N LYMPHOCYTE % (test code = LY%) 31.0 % 25.0-55.0 N MONOCYTE % (test code = MO%) 9.5 % 0.0-10.0 N EOSINOPHIL % (test code = EO%) 5.7 % 0.0-5.0 H BASOPHIL % (test code = BA%) 0.7 % 0.0-1.0 N NEUTROPHIL # (test code = NT#) 3.23 K/mm3 1.8-7.7 N LYMPHOCYTE # (test code = LY#) 1.90 K/mm3 1.0-5.0 N MONOCYTE # (test code = MO#) 0.58 K/mm3 0-0.8 N EOSINOPHIL # (test code = EO#) 0.35 K/mm3 0.0-0.5 N BASOPHIL # (test code = BA#) 0.04 K/mm3 0.0-0.2 N MANUAL DIFF REQUIRED (test code = MDIFF) NO, ONLY SCAN NEEDED DIFFERENTIAL [id number] 11:56:00* Test Item Value Reference Range Interpretation Comments STAIN ACCEPTABILITY (test code = STN ACCEPTABLE) MORPHOLOGY COMMENT (test code = MOC) PLATELET ESTIMATE (test code = PLTEST) PLATELET MORPHOLOGY (test code = PLTMORPH) CBC W/AUTO [id number] 11:56:00* Test Item Value Reference Range Interpretation Comments WHITE BLOOD CELL (test code = WBC) 6.1 K/mm3 4.5-12.5 N RED BLOOD CELL (test code = RBC) 5.11 mill/mm3 3.7-5.2 N HEMOGLOBIN (test code = HGB) 11.9 gram/dL 11.5-15.5 N HEMATOCRIT (test code = HCT) 36.9 % 36.0-46.0 N MEAN CELL VOLUME (test code = MCV) 72.2 fL 80-98 L MEAN CELL HGB (test code = MCH) 23.3 picogram 27.0-33.0 L MEAN CELL HGB CONCETRATION (test code = MCHC) 32.2 gram/dL 33.0-36. 0 L RED CELL DISTRIBUTION WIDTH (test code = RDW) 17.4 % 11.6-16. 2 H RED CELL DISTRIBUTION WIDTH SD (test code = RDW-SD) 45.7 fL 37 .0-51.0 N PLATELET COUNT (test code = PLT) 202 K/mm3 150-450 N MEAN PLATELET VOLUME (test code = MPV) 11.5 fL 6.7-11.0 H NEUTROPHIL % (test code = NT%) 52.8 % 39.0-69.0 N LYMPHOCYTE % (test code = LY%) 31.0 % 25.0-55.0 N MONOCYTE % (test code = MO%) 9.5 % 0.0-10.0 N EOSINOPHIL % (test code = EO%) 5.7 % 0.0-5.0 H BASOPHIL % (test code = BA%) 0.7 % 0.0-1.0 N NEUTROPHIL # (test code = NT#) 3.23 K/mm3 1.8-7.7 N LYMPHOCYTE # (test code = LY#) 1.90 K/mm3 1.0-5.0 N MONOCYTE # (test code = MO#) 0.58 K/mm3 0-0.8 N EOSINOPHIL # (test code = EO#) 0.35 K/mm3 0.0-0.5 N BASOPHIL # (test code = BA#) 0.04 K/mm3 0.0-0.2 N MANUAL DIFF REQUIRED (test code = MDIFF) NO, ONLY SCAN NEEDED DIFFERENTIAL [id number] 11:56:00* Test Item Value Reference Range Interpretation Comments STAIN ACCEPTABILITY (test code = STN ACCEPTABLE) CABOT RINGS (test code = CAB) MORPHOLOGY COMMENT (test code = MOC) PLATELET ESTIMATE (test code = PLTEST) PLATELET MORPHOLOGY (test code = PLTMORPH) COMPREHENSIVE METABOLIC [id number] 11:48:00* Test Item Value Reference Range Interpretation Comments SODIUM (test code = NA) 140 mmol/L 135-148 N POTASSIUM (test code = K) 4.0 mmol/L 3.5-5.1 N CHLORIDE (test code = CL) 103 mmol/L 101-109 N CARBON DIOXIDE (test code = CO2) 29.4 mmol/L 21-32 N ANION GAP (test code = GAP) 12 mmol/L 10-20 N GLUCOSE (test code = GLU) 90 mg/dL 74-106 N BLOOD UREA NITROGEN (test code = BUN) 15 mg/dL 3-21 N CREATININE (test code = CREAT) 0.80 mg/dL 0.55-1.3 N BUN/CREATININE RATIO (test code = BUN/CREA) 18.8 10-20 N TOTAL PROTEIN (test code = PROT) 7.4 g/dL 6.5-8.4 N ALBUMIN (test code = ALB) 3.0 g/dL 3.4-4.8 L GLOBULIN (test code = GLOB) 4.4 G/DL 1-10 N ALBUMIN/GLOBULIN RATIO (test code = A/G) 0.7 RATIO 0.75-1.50 L CALCIUM (test code = CA) 8.8 mg/dL 8.4-10.2 N BILIRUBIN TOTAL (test code = BILT) 0.70 mg/dL 0.0-1.0 N SGOT/AST (test code = AST) 13 U/L 6-32 N SGPT/ALT (test code = ALT) 11 U/L 12-78 L N ote: Change in REFERENCE RANGE due to new reagent method. ALKALINE PHOSPHATASE TOTAL (test code = ALKP) 77 U/L 38-126 N URINALYSIS [id number] 11:36:00* Test Item Value Reference Range Interpretation Comments UA COLOR (test code = COLU) YELLOW YELLOW UA APPEARANCE (test code = APPU) HAZY CLEAR A UA GLUCOSE DIPSTICK (test code = DGLUU) norm mg/dL NEGATIVE UA BILIRUBIN DIPSTICK (test code = BILU) NEGATIVE mg/dL NEGATIVE UA KETONE DIPSTICK (test code = KETU) neg mg/dL NEGATIVE UA SPECIFIC GRAVITY (test code = SGU) 1.015 1.001-1.035 UA BLOOD DIPSTICK (test code = MARCELA) neg Robert/uL NEGATIVE UA PH DIPSTICK (test code = CARLOTTA) 6.0 5.0-8.0 UA PROTEIN DIPSTICK (test code = PROU) neg mg/dL Neg-15 UA UROBILINIOGEN DIPSTICK (test code = URO) norm mg/dL 0.0-0.2 UA NITRITE DIPSTICK (test code = EMY) NEGATIVE NEGATIVE UA LEUKOCYTE ESTERASE DIPSTICK (test code = LEUU) neg uL NEGA TIVE UA WBC (test code = WBCU) 0-5 per HPF 0-5 UA RBC (test code = RBCU) 0-2 per HPF 0-5 UA EPITHELIAL CELLS (test code = EPIU) FEW per HPF Few UA BACTERIA (test code = BACU) FEW per HPF NONE URINALYSIS W/O [id number] 11:36:00* Test Item Value Reference Range Interpretation Comments UA MICROSCOPIC NEEDED? (test code = UAMICRO) YES UR HCG [id number] 11:36:00* Test Item Value Reference Range Interpretation Comments UR HCG QUAL (test code = HCGQLU) NEGATIVE This HCGQL test is NOT applicable for MALE patients.Check with nurse about probable order error.If Tumor Marker Test needed, nurse should order test "HCGTU"(Test #550.92593) URINALYSIS W/O [id number] 11:29:00* Test Item Value Reference Range Interpretation Comments UA COLOR (test code = COLU) YELLOW UA APPEARANCE (test code = APPU) CLEAR UA BILIRUBIN DIPSTICK (test code = BILU) NEGATIVE UA SPECIFIC GRAVITY (test code = SGU) 1.001-1.035 UA PH DIPSTICK (test code = CARLOTTA) 5.0-8.0 UA UROBILINIOGEN DIPSTICK (test code = URO) mg/dL 0.0-0.2 UA NITRITE DIPSTICK (test code = EMY) NEGATIVE UA LEUKOCYTE ESTERASE DIPSTICK (test code = LEUU) uL NEGA TIVE UA MICROSCOPIC NEEDED? (test code = UAMICRO) UR HCG [id number] 11:29:00* Test Item Value Reference Range Interpretation Comments UR HCG QUAL (test code = HCGQLU) NEGATIVE This HCGQL test is NOT applicable for MALE patients.Check with nurse about probable order error.If Tumor Marker Test needed, nurse should order test "HCGTU"(Test #550.96862) URINALYSIS [id number] 11:29:00* Test Item Value Reference Range Interpretation Comments UA COLOR (test code = COLU) YELLOW YELLOW UA APPEARANCE (test code = APPU) HAZY CLEAR A UA BILIRUBIN DIPSTICK (test code = BILU) NEGATIVE UA SPECIFIC GRAVITY (test code = SGU) 1.001-1.035 UA PH DIPSTICK (test code = CARLOTTA) 5.0-8.0 UA UROBILINIOGEN DIPSTICK (test code = URO) mg/dL 0.0-0.2 UA NITRITE DIPSTICK (test code = EMY) NEGATIVE UA LEUKOCYTE ESTERASE DIPSTICK (test code = LEUU) uL NEGA TIVE UA WBC (test code = WBCU) per HPF 0-5 UA RBC (test code = RBCU) per HPF 0-5 UA EPITHELIAL CELLS (test code = EPIU) per HPF Few UA BACTERIA (test code = BACU) per HPF NONE URINALYSIS W/O [id number] 11:29:00* Test Item Value Reference Range Interpretation Comments UA MICROSCOPIC NEEDED? (test code = UAMICRO) UR HCG [id number] 11:29:00* Test Item Value Reference Range Interpretation Comments UR HCG QUAL (test code = HCGQLU) NEGATIVE This HCGQL test is NOT applicable for MALE patients.Check with nurse about probable order error.If Tumor Marker Test needed, nurse should order test "HCGTU"(Test #550.51718) URINALYSIS [id number] 11:29:00* Test Item Value Reference Range Interpretation Comments UA COLOR (test code = COLU) YELLOW YELLOW UA APPEARANCE (test code = APPU) HAZY CLEAR A UA GLUCOSE DIPSTICK (test code = DGLUU) norm mg/dL NEGATIVE UA BILIRUBIN DIPSTICK (test code = BILU) NEGATIVE mg/dL NEGATIVE UA KETONE DIPSTICK (test code = KETU) neg mg/dL NEGATIVE UA SPECIFIC GRAVITY (test code = SGU) 1.015 1.001-1.035 UA BLOOD DIPSTICK (test code = MARCELA) neg Robert/uL NEGATIVE UA PH DIPSTICK (test code = CARLOTTA) 6.0 5.0-8.0 UA PROTEIN DIPSTICK (test code = PROU) neg mg/dL Neg-15 UA UROBILINIOGEN DIPSTICK (test code = URO) norm mg/dL 0.0-0.2 UA NITRITE DIPSTICK (test code = EMY) NEGATIVE NEGATIVE UA LEUKOCYTE ESTERASE DIPSTICK (test code = LEUU) neg uL NEGA TIVE UA WBC (test code = WBCU) per HPF 0-5 UA RBC (test code = RBCU) per HPF 0-5 UA EPITHELIAL CELLS (test code = EPIU) per HPF Few UA BACTERIA (test code = BACU) per HPF NONE URINALYSIS W/O [id number] 11:29:00* Test Item Value Reference Range Interpretation Comments UA MICROSCOPIC NEEDED? (test code = UAMICRO) UR HCG [id number] 11:29:00* Test Item Value Reference Range Interpretation Comments UR HCG QUAL (test code = HCGQLU) NEGATIVE This HCGQL test is NOT applicable for MALE patients.Check with nurse about probable order error.If Tumor Marker Test needed, nurse should order test "HCGTU"(Test #550.08865) URINALYSIS [id number] 11:29:00* Test Item Value Reference Range Interpretation Comments UA COLOR (test code = COLU) YELLOW YELLOW UA APPEARANCE (test code = APPU) HAZY CLEAR A UA BILIRUBIN DIPSTICK (test code = BILU) NEGATIVE UA SPECIFIC GRAVITY (test code = SGU) 1.001-1.035 UA PH DIPSTICK (test code = CARLOTTA) 5.0-8.0 UA UROBILINIOGEN DIPSTICK (test code = URO) mg/dL 0.0-0.2 UA NITRITE DIPSTICK (test code = EMY) NEGATIVE UA LEUKOCYTE ESTERASE DIPSTICK (test code = LEUU) uL NEGA TIVE UA WBC (test code = WBCU) per HPF 0-5 UA RBC (test code = RBCU) per HPF 0-5 UA EPITHELIAL CELLS (test code = EPIU) per HPF Few UA BACTERIA (test code = BACU) per HPF NONE URINALYSIS W/O [id number] 11:29:00* Test Item Value Reference Range Interpretation Comments UA MICROSCOPIC NEEDED? (test code = UAMICRO) UR HCG [id number] 11:29:00* Test Item Value Reference Range Interpretation Comments UR HCG QUAL (test code = HCGQLU) NEGATIVE This HCGQL test is NOT applicable for MALE patients.Check with nurse about probable order error.If Tumor Marker Test needed, nurse should order test "HCGTU"(Test #550.82151) - XR CHEST 2 [id number] 17:50:00 Name: DU VITALE [facility] : 1985 Age/S:34 /F [address] [facility] Unit#:[id number] Loc: [place] [address] Phys: Kelly Dotson BACK CLOSER Dis Date: PHONE #: [phone] Status: REG ER FAX #: [phone] Exam Date: 07/24/2019 Reason: cough EXAMS: CPT CODE: [id number] XR CHEST 2 V 88645 HISTORY: Cough. COMPARISON: June 29, 2019. Location: TH. AP and lateral view of the chest: No acute infiltrates, effusion or congestion. Cardiac and the mediastinal silhouette are normal. IMPRESSION: No acute infiltrates, effusion or congestion. at 1750 Reported and signed by: Zeferino Saba M.D. CC: Kelly Dotson BACK CLOSER Technologist: Primo Castro RT(R),[facility] Data: 07/24/2019 (1750) [id number] Orig Print D/T: S: 07/24/2019 (5342) PAGE 1 Signed Report FECES OVA PARASITES 2019-07-09 16:08:00* Test Item Value Reference Range Interpretation Comments CONCENTRATE RESULT (test code = CONC) Final report () These results were obtained using wet preparation(s) andtrichrome stained smear. This test does not include testingfor Cryptosporidium parvum, Cyclospora, or Microsporidia. TRICHROME RESULT (test code = TRIC) SOURCE: STOOLSPECIMEN DESCRIPTION: RANDOMAG GIARDIA [id number] 16:08:00* Test Item Value Reference Range Interpretation Comments AG GIARDIA FECES (test code = GIARDAG) Negative Negative Performed At: [facility] [address] [id number] Phi Coronado MD Ph:[phone] SOURCE: STOOLSPECIMEN DESCRIPTION: RANDOMFECES OVA [id number] 16:08:00* Test Item Value Reference Range Interpretation Comments CONCENTRATE RESULT (test code = CONC) Final report () These results were obtained using wet preparation(s) andtrichrome stained smear. This test does not include testingfor Cryptosporidium parvum, Cyclospora, or Microsporidia. TRICHROME RESULT (test code = TRIC) () No ova, cysts, or parasites seen.One negative specimen does not rule out the possibility ofa parasitic infection.Performed At: [facility] [address] [id number] Coronado MD Ph:[phone] SOURCE: STOOLSPECIMEN DESCRIPTION: RANDOMAG GIARDIA [id number] 16:08:00* Test Item Value Reference Range Interpretation Comments AG GIARDIA FECES (test code = GIARDAG) Negative Negative Performed At: [facility] [address] [id number] Coronado MD Ph:[phone] SOURCE: STOOLSPECIMEN DESCRIPTION: RANDOMCBC W/AUTO [id number] 16:16:00* Test Item Value Reference Range Interpretation Comments WHITE BLOOD CELL (test code = WBC) 7.7 K/mm3 3.5-11.0 N RED BLOOD CELL (test code = RBC) 4.75 M/mm3 4.70-6.10 N HEMOGLOBIN (test code = HGB) 11.0 G/DL 10.4-14.9 N HEMATOCRIT (test code = HCT) 34.0 % 31.5-44.1 N MEAN CELL VOLUME (test code = MCV) 71.6 Fl 84.5-98.6 L MEAN CELL HGB (test code = MCH) 23.2 pg 27.0-34.2 L MEAN CELL HGB CONCETRATION (test code = MCHC) 32.4 G/DL 31.5-34. 0 N RED CELL DISTRIBUTION WIDTH (test code = RDW) 17.9 SD 11.5-14. 5 H PLATELET COUNT (test code = PLT) 238.0 K/mm3 150-450 N MEAN PLATELET VOLUME (test code = MPV) 11.80 fL 7.0-10.5 H NEUTROPHIL % (test code = NT%) 63.7 % 40-76 N LYMPHOCYTE % (test code = LY%) 27.6 % 20.5-51.1 N MONOCYTE % (test code = MO%) 5.6 % 1.7-9.3 N EOSINOPHIL % (test code = EO%) 3.1 % 0.0-6.0 N BASOPHIL % (test code = BA%) 0.0 % 0.0-2.0 N NEUTROPHIL # (test code = NT#) 4.87 K/mm3 1.8-7.6 N LYMPHOCYTE # (test code = LY#) 2.1 K/mm3 0.6-3.2 N MONOCYTE # (test code = MO#) 0.4 K/mm3 0.3-1.1 N EOSINOPHIL # (test code = EO#) 0.2 K/mm3 0.0-0.4 N BASOPHIL # (test code = BA#) 0.0 K/mm3 0.0-0.1 N MANUAL DIFF REQUIRED (test code = MDIFF) NO DIFF/SCN CRITERIA CBC W/AUTO [id number] 15:13:00* Test Item Value Reference Range Interpretation Comments WHITE BLOOD CELL (test code = WBC) 7.7 K/mm3 3.5-11.0 N RED BLOOD CELL (test code = RBC) 4.75 M/mm3 4.70-6.10 N HEMOGLOBIN (test code = HGB) 11.0 G/DL 10.4-14.9 N HEMATOCRIT (test code = HCT) 34.0 % 31.5-44.1 N MEAN CELL VOLUME (test code = MCV) 71.6 Fl 84.5-98.6 L MEAN CELL HGB (test code = MCH) 23.2 pg 27.0-34.2 L MEAN CELL HGB CONCETRATION (test code = MCHC) 32.4 G/DL 31.5-34. 0 N RED CELL DISTRIBUTION WIDTH (test code = RDW) 17.9 SD 11.5-14. 5 H PLATELET COUNT (test code = PLT) 238.0 K/mm3 150-450 N MEAN PLATELET VOLUME (test code = MPV) 11.80 fL 7.0-10.5 H NEUTROPHIL % (test code = NT%) % 40-76 N LYMPHOCYTE % (test code = LY%) % 20.5-51.1 N MONOCYTE % (test code = MO%) % 1.7-9.3 N EOSINOPHIL % (test code = EO%) % 0.0-6.0 N BASOPHIL % (test code = BA%) % 0.0-2.0 N NEUTROPHIL # (test code = NT#) K/mm3 1.8-7.6 N LYMPHOCYTE # (test code = LY#) K/mm3 0.6-3.2 N MONOCYTE # (test code = MO#) K/mm3 0.3-1.1 N EOSINOPHIL # (test code = EO#) K/mm3 0.0-0.4 N BASOPHIL # (test code = BA#) K/mm3 0.0-0.1 N MANUAL DIFF REQUIRED (test code = MDIFF) DIFF/SCN CRITERIA HCG [id number] 15:12:00* Test Item Value Reference Range Interpretation Comments HCG POC (test code = HCGPOC) <5 IU/L <5.0 N <5.0 IU/L NEGATIVE5.0 - 25.0 IU/L INDETERMINATE>25.0 POSITIVE Detection of low levels of hCG does not rule out .Because hCG values double approximately every 48 hours in anormal , patients with low levels of hCG should beresampled and retested after 48 hours - CT HEAD/BRAIN W/O [id number] 15:11:00 Name: DU VITALE [facility] : 1985 Age/S: 34 / F [id number] [facility] Unit #: [id number] Loc: [place] [address] Phys: Zuhair Garrett MD Acct: [id number] Dis Date: Status: REG ER PHONE #: [phone] Exam Date: 07/04/2019 1508 FAX #: Reason: headache EXAMS: CPT: [id number] CT HEAD/BRAIN W/O CONT [id number] LOCATION: T18 EXAM: CT HEAD WITHOUT CONTRAST INDICATION: headache COMPARISON: CT head December 10, 2018 TECHNIQUE: Multiple CT images of the head were obtained. No intravenous contrast was given. Up-to-date CT equipment and radiation dose reduction techniques were utilized. Automatic exposure control was utilized. FINDINGS: No intracranial hemorrhage or extra-axial collection is seen. No midline shift or mass effect is identified. Brain is normal in configuration with preservation of fallon- white matter interface. The ventricles, sulci and cisterns are normal. The calvarium is intact. Peripheral soft tissues are normal. Paranasal sinuses and mastoid air cells are clear. IMPRESSION: No acute intracranial abnormality. at 1511 Reported and signed by: Iker Nicole M.D. CC: Zuleyma PATINO; Zuhair Garrett MD Technologist:Amador Cowan, RT(R)(CT) CTDI: DLP: Trnscb Date/Time: 07/04/2019 (151) [email or web address] Orig Print D/T: S: 07/04/2019 (4005) PAGE 1 Signed Report BASIC METABOLIC [id number] 14:46:00* Test Item Value Reference Range Interpretation Comments SODIUM (test code = NA) 139 mmol/L 134-147 N POTASSIUM (test code = K) 3.5 mmol/L 3.4-5.0 N CHLORIDE (test code = CL) 104 mmol/L 100-108 N CARBON DIOXIDE (test code = CO2) 32 mmol/L 21-32 N ANION GAP (test code = GAP) 3.0 GAP calc 4.0-15.0 L GLUCOSE (test code = GLU) 95 MG/DL 70-110 N BLOOD UREA NITROGEN (test code = BUN) 10 MG/DL 7-18 N GLOMERULAR FILTRATION RATE (test code = GFR) >=60 max estimate estG FR >60 CREATININE (test code = CREAT) 0.7 MG/DL 0.6-1.0 N CALCIUM (test code = CA) 8.2 MG/DL 8.5-10.1 L CALPROTECTIN [id number] 15:09:00* Test Item Value Reference Range Interpretation Comments CALPROTECTIN FECAL (test code = CALFECAL) <16 ug/g 0-120 Concentration Interpretation Follow-Up<16 - 50 ug/g Normal None>50 -120 ug/g Borderline Re-evaluate in 4-6 weeks >120 ug/g Abnormal Repeat as clinically indicatedPerformed At: [facility] [address] [id number] Sanjai MD Ph:[phone] GASTRIC,[id number] 08:26:00 RUN DATE: 07/03/19 [facility] PAGE 1 RUN TIME: 825 Specimen Inqui ry RUN USER: INTERFACE PATIENT: DU VITALE ACCT #: [id number] LOC: [facility] U #: [id number] AGE/SX: 34/F ROOM: RE07/01/19[facility]: Rigoberto Early MD : [birth year] BED: DIS: STATUS: [facility] TLOC: SPEC #: [id number] RECD: 07/01/19 STATUS: VAHID REQ #: [id number] MARIA ALEJANDRA: 07/01/19 [facility] DR: Rigoberto Early MD ENTERED: 07/01/19 SP TYPE: GASTRIC BX OTHR DR: No Kristi dav or Family Physician Self ReferredORDERED: GROSS COPIES TO: No Primary or Family Physician Self Referred Rigoberto Early MD [address] [place] [address] PROCEDURES: GROSS (07/02/19-1536) TISSUES: 1. ANTRUM - BX COLD 2. CECUM, NOS - BX COLD 3. 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 NEGATIVE FOR INTESTINAL METAPLASIA, DYSPLASIA OR MALIGNANCY Colon, cecum, biopsy: UNREMARKABLE CO LONIC MUCOSA WITH NO SIGNIFICANT INFLAMMATION, HISTOLOGIC FEATURES OF M ICROSCOPIC COLITIS, DYSPLASIA OR MALIGNANCY Colon, random biopsy: UNREMARKABLE COLONIC MUCOSA WITH NO SIGNIFICANT INFLAMMATION, HISTOLOGIC FEATURES OF MICROSCOPIC COLITIS, DYSPLASIA OR MALIGNANCY Jordan Zhu 3 [phone], [phone] CONTINUED ON NEXT PAGE ------- -----RUN DATE: 07/03/19 [facility] PAGE 2 RUN TIME: 825 Specimen Inquiry RUN USER: INTERFACE SPEC #: [id number] PATIENT: DU VITALE BEHZAD Coronado #[id number] (Continued) MACROSCOPIC The first specimen is received in formalin, labeled with the patient's name, and i dentified as "antrum bx", and consists of multiple wu biopsy tissue measuring 1.0 x 0.3 x 0.1 cm in aggregate, submitted as (1) for H E and Giemsa stains. The second specimen is received in formalin, labeled with the patient's na me, and identified as "cecum bx ", and consists of multiple wu biopsy tissue measuring 0.7 x 0.3 x 0.1 cm in aggregate, submitted as (2). The thi rd specimen is received in formalin, labeled with the patient's name, and iden tified as "random colon bx", and consists of multiple portions of wu biopsy t issue measuring 0.7 x 0.5 x 0.1 cm in aggregate, submitted as (3). BHARAT SS PERFORMED AT [facility] PATH[facility] HYDRAULIC GOVERNOR ASSEMBLER [address] [place] [address] ([phone] MICROS COPIC There are multiple portions of gastric mucosa with expansion of lamina propria by predominately chronic inflammatory cells and small lymphoid aggrega lupe. There are intraepithelial neutrophilic infiltrates. Giemsa stain shows helicobacter. No intestinal metaplasia, dysplasia, or malignancy is identifi ed. PERFORMING SITE Diagnosis performed at: [facility] [address] [place] [address] Signed SIGNATURE ON FILE Karli Vergara MD 07/03/19 0826 END OF REPORT FECES OVA PARASITES 2019-07-02 13:10:00* Test Item Value Reference Range Interpretation Comments CONCENTRATE RESULT (test code = CONC) TRICHROME RESULT (test code = TRIC) SOURCE: STOOLSPECIMEN DESCRIPTION: RANDOMAG GIARDIA [id number] 13:10:00* Test Item Value Reference Range Interpretation Comments AG GIARDIA FECES (test code = GIARDAG) Negative Negative Performed At: [facility] [address] [id number] Phi Coronado MD Ph:[phone] SOURCE: STOOLSPECIMEN DESCRIPTION: [id number] 06:33:00* Test Item Value Reference Range Interpretation Comments GLUBED (test code = GLUBED) 81 mg/dL 74-106 N Performed by certified nailer operator at [facility] CT ABDOMEN/PELVIS [id number] 17:42:00 [place] [address] Patient Name: DU VITALE MR #: [id number] : 1985 Age/Sex: 34/F Req #: [id number] Adm Physician: Ordered by: NILS PARKER BACK CLOSER Report #: [id number] Location: ER Room/Bed: Procedure: 1007-[address]/CT ABDOMEN/PELVIS WO Exam Date: 06/30/19 Exam Time: 1635 REPORT STATUS: Signed EXAM: CT Abdomen and Pelvis WITHOUT intravenous contrast INDICATION: Abd ominal pain COMPARISON: CT abdomen and pelvis of 04/28/2016 TECHNIQUE: A bdomen and pelvis were scanned utilizing a multidetector helical scanner from the lung base to the pubic symphysis without administration of IV contrast. Co doe and sagittal reformations were obtained. IV CONTRAST: None OR AL CONTRAST: Water COMPLICATIONS: None RADIATION DOSE: T otal DLP: 1306.1 mGy*cm Dose modulation, iterative reconstruction, and/or weight based adjustment of the mA/kV was utilized to reduce the radiation dose to as low as reasonably achievable. FINDINGS: LOWER THORAX: Normal. HEPATOBILIARY: No focal hepatic lesions. Status post cholecystectomy. S PLEEN: No splenomegaly. PANCREAS: No focal masses or ductal dilatation. ADRENALS: No adrenal nodules. KIDNEYS/URETERS: No hydronephrosis, stones, or solid mass lesions. PELVIC ORGANS/BLADDER: Unremarkable. PERITONEUM / RE TROPERITONEUM: No free air or fluid. LYMPH NODES: No lymphadenopathy. VESSEL S: Unremarkable. GI TRACT: Mild colonic diverticulosis. No CT evidence of d iverticulitis. No abnormal bowel wall thickening. No bowel obstruction. Normal appendix. BONES AND SOFT TISSUES: Small fat-containing umbilical hernia. No acute osseous injury. No suspicious lytic or blastic lesions. IMPRESSION: No acute findings in the abdomen or pelvis. Signed by: Juan Alberto Ramos MD on 06/30/2019 5:48 PM Dictated By: JUAN ALBERTO RAMOS MD 47 Transcribed By: WOO on 06/30/191747 COPY TO: NILS PARKER NP [id number] 17:10:00 RUN DATE: 06/30/19 [facility] PAGE 1 RUN TIME: 1710 Specimen Inqui ry RUN USER: INTERFACE PATIENT: DU VITALE ACCT #: [id number] LOC: VJaimeDSU U #: [id number] AGE/SX: 34/F ROOM: RE06/25/19REG DR: Shiloh Philip MD : [birth year] BED: DIS: STATUS: [facility] TLOC: SPEC #: [id number] RECD: 06/25/19 STATUS: [facility] #: [id number] MARIA ALEJANDRA: 06/25/19- SUBM DR: Shiloh Philip MD ENTERED: 06/25/19 SP TYPE: BREAST OTHR DR: ORDERED: GROSS PROCEDURES: GROSS (06/27/19) TISSUES: 1. BREAST, NOS - 5 O'CLOCK LESION RIGHT 2. BREAST, NOS - 12 O' CLOCK MASS RIGHT 3. BREAST, NOS - RIGHT MASS RIGHT 4. BREAST, N OS - RIGHT LOWER CLINICAL HISTORY COLLECTION DATE: 06/25/19 RIG HT BREAST LUMP COMMENT All of the tissue from each specimen is sub mitted for histologic evaluation. The features are similar in each. Intraduct al papillomas are present in each specimen ranging from 0.4 cm to 1.4 cm in gre atest diameter. Proliferative changes are present in the adjacent breast paren chyma including fibrocystic change, usual and atypical ductal hyperplasia and c olumnar cell change. Rare calcifications are present in benign glandular spaces . The papillomas involve the surgical margins of the first and fourth specimen s. Features diagnostic of malignancy are not identified. Clinical correlation is necessary. 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) WITH SCLEROSIS AND AREAS OF USU AL AND ATYPICAL DUCTAL EPITHELIAL HYPERPLASIA PAPILLOMA EXCISED AREA OF FIBROSIS WITH HEMORRHAGE AND HEMOSIDERIN MACROPHAGES SUGGESTIVE CONTINUED ON NEXT PAGE RUN DILSHAD E: 06/30/19 [facility] RUN TIME: 1710 Specimen Inquiry RUN USER: INTERFACE SPEC #: [id number] PATIENT: DU VITALE # [id number] (Continued) FINAL DIAGNOSIS (Continu ed) OF BIOPSY SITE COLUMNAR CELL CHANGE, AREAS OF ATYPICAL AND USUAL DUCTAL HYPERPLASIA IN ADJACENT BREAST PARNCHYMA NEGATIVE F OR MALIGNANCY Right breast mass, additional tissue from right upper [facility], excisional biopsy: 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 PAPILLOMA NARROWLY EXCISED AREAS OF USUAL AND ATYPICAL DUCTAL HYPERPLASIA, FIBROCYSTIC CHANGE AND COLUMNAR CELL CHANGE IN ADJACENT BREAST PARENCHYMA PROMINENT VESSEL PRESE NT NEGATIVE FOR MALIGNANCY Right breast mass, tissue from right lo wer breast, excisional biopsy: INTRADUCTAL PAPILLOMA (0.5 CM) WITH ARTIFA CTUAL DISTORTION, SCLEROSIS AND EPITHELIAL HYPERPLASIA EXTENDING TO STEVEN RGICAL MARGIN OF RESECTION FIBROCYSTIC CHANGE, USUAL DUCTAL EPITHELIAL HY PERPLASIA, FOCAL ATYPICAL HYPERPLASIA AND COLUMNAR CELL CHANGE IN ADJAC ENT BREAST PARENCHYMA NEGATIVE FOR MALIGNANCY RRB/hector D 4x8 [phone] MACROSCOPIC Specimen (1) is received in fo rmalin, labeled with the patient's name, and identified as "right breast lesio n 5 o'clock". It consists of an excisional biopsy of pink-yellow fibrofatty t issue with a localizing wire in place. The specimen is not oriented. The spe cimen measures 3.7 x 3.0 x up to 1.0 cm. Sectioning through the tissue shows approximately 30-40% unremarkable lobulated fatty tissue. The remainder consi sts of pink-wu fibrous tissue with no discrete nodule or mass identified. Ho wever, the fibrous tissue is well delineated from the surrounding fatty tissue . Ink Code: Black- surgical margin. Section Code: 1A-1G- tissue se ctioned and entirely submitted. Specimen (2) is received in formalin, labe led with the patient's name and identified as "right breast mass lesion 12 o'c lock". It consists of an oriented excisional biopsy of yellow-pink fibrofatty tissue with a localizing wire in place. The specimen measures 7.5 x up to 4.0 x up to 1.1 cm. CONTINUED ON NEXT PAGE - RUN DATE: 06/30/19 [facility] PAGE 3 RUN TIME: 1710 Specimen Inquiry RUN USER: INTERFACE SPEC #: [id number] PATIENT: DU VITALE #[id number] (Continued) MACROSCOPIC (Continued) Sectioning through the tissue shows approximately 70% l obulated fatty tissue with no focal lesions. The remainder consists of nonspe cific pink-wu fibrous tissue with no discrete nodular mass identified. Ink Code: blue- surgical margin. Section Code: 2A-2G- fibrous tissue ent irely submitted. Specimen (3) is received in formalin, labeled with the p atient's name and identified as "right breast tissue upper breast". It consis ts of three unoriented portions of yellow-pink fibrofatty tissue measuring 3.7 x 3.5 x 1.4 cm, 4.5 x 4.0 x 1.2 cm and 4.5 x 4.0 x up to 1.3 cm. No localizi ng wires are present within any of the specimens. The surgical margins of the tissue are inked blue, orange and black respectively. Sectioning through each of the biopsy shows predominantly lobulated yellow fatty tissue with no focal lesions. A very small amount of wu-pink fibrous tissue is present. Repr esentative portions of each are submitted for histologic evaluation (3A-3G). Specimen (4) is received in formalin, labeled with the patient's name, and identified as "right breast tissue, lower breast". It consists of two unori ented portions of yellow-pink fibrofatty tissue measuring 3.5 x 3.0 x 1.0 cm a nd 4.0 x 4.0 x 1.0 cm. The biopsies are inked red and blue respectively. Sec tioning through the biopsy inked red shows approximately 60% unremarkable lobu lated fat and 40% pink-wu fibrous parenchyma. No focal lesions are appreciate d. The fibrous tissue is entirely submitted. Sectioning through the biopsy t issue inked blue shows a well delineated area of white fibrous tissue measurin g 0.9 cm in diameter and fibrous bands in the remainder of the tissue. The fi brous tissue is entirely submitted. Section Code: 4A-4D- fibrous tissue, r ed biopsy; 4E-4H- fibrous tissue blue biopsy. GROSS PERFORMED AT [facility] [address] [place] [address] (p)[phone] MICROSCOPIC All of the sta ins, including any controls performed, stain appropriately. MICROSCOPIC PE RFORMED AT [facility] [address] [place], [place] [address] [phone])[phone] CONTINUED ON NEXT PAGE RUN DATE: 06/30/19 [facility] PAGE 4 RUN TIME: 1710 Specimen Inquiry RUN USER: INTERFACE SPEC #: [id number] PATIENT: DU VITALE SCHUYLER #[id number] (Continued)--------- --- PERFORMING SITE Diagnosis performed at: [facility] [address] [place] [address] Signed SIGNATURE ON FILE Ward Girard MD 06/30/19 9180 END OF REPORT Urine [id number] 16:14:00* Test Item Value Reference Range Interpretation Comments Urine WBC (test code = 5821-4) NONE 0-5 [facility] [id number] 16:14:00* Test Item Value Reference Range Interpretation Comments Urine RBC (test code = 58431-6) 11-20 0-5 [facility]uda[facility] [id number] 16:14:00* Test Item Value Reference Range Interpretation Comments Urine Bacteria (test code = 69874-0) MODERATE NONE [facility]uda[facility] Epithelial Eboou7585-86-07 16:14:00 * Test Item Value Reference Range Interpretation Comments Urine Epithelial Cells (test code = 24803-0) FEW NONE [facility] [id number] 16:06:00* Test Item Value Reference Range Interpretation Comments Sodium Level (test code = 2951-2) 138 136-145 [facility]udaPotassium Fszhg9474-84-23 16:06:00* Test Item Value Reference Range Interpretation Comments Potassium Level (test code = 2823-3) 3.6 3.5-5.1 [facility] BudaChloride Oetvi8982-46-46 16:06:00* Test Item Value Reference Range Interpretation Comments Chloride Level (test code = 2075-0) 102 98-107 [facility] BudaCarbon Dioxide Mecpp3449-44-97 16:06:00* Test Item Value Reference Range Interpretation Comments Carbon Dioxide Level (test code = 2028-9) 29 22-29 [facility] BudaAnion Vzk9417-04-24 16:06:00* Test Item Value Reference Range Interpretation Comments Anion Gap (test code = 17129-9) 10.6 8-16 [facility] BudaBlood Urea Vjeuctbc9055-28-72 16:06:00* Test Item Value Reference Range Interpretation Comments Blood Urea Nitrogen (test code = 3094-0) 16 7-26 [facility] BudaCreatinine2019-10-07 16:06:00* Test Item Value Reference Range Interpretation Comments Creatinine (test code = 2160-0) 0.77 0.57-1.11 [facility] BudaBUN/Creatinine Tcbxz4276-60-07 16:06:00* Test Item Value Reference Range Interpretation Comments BUN/Creatinine Ratio (test code = 3097-3) 21 6-25 [facility] BudaEstimat Glomerular Filtration Rate 2019-06-30 16:06:00* Test Item Value Reference Range Interpretation Comments Estimat Glomerular Filtration Rate (test code = 625565186) > 60 >60 Ranges were taken from the National Kidney Disease Education Program and the [facility] Foundation literature.Reference ranges:60 or greater: Bhrmrk50-22 ( for 3 consecutive months): Chronic kidney disease 15 or less: Kidney failureBaylor Scott & [facility] – BudaGlucose Pzsml6641-25-87 16:06:00* Test Item Value Reference Range Interpretation Comments Glucose Level (test code = NBW3397) 100 74-118 [facility] BudaCalcium Jhkqk2774-21-72 16:06:00* Test Item Value Reference Range Interpretation Comments Calcium Level (test code = 22953-8) 8.3 8.4-10.2 [facility] BudaTotal Hlsomidnd3388-60-79 16:06:00* Test Item Value Reference Range Interpretation Comments Total Bilirubin (test code = 1975-2) 0.5 0.2-1.2 [facility] BudaAspartate Amino Transf (AST/SGOT) 2019-06-30 16:06:00* Test Item Value Reference Range Interpretation Comments Aspartate Amino Transf (AST/SGOT) (test code = Aspartate Amino Transf (AST/SGOT)) 9 5-34 [facility] BudaAlanine Aminotransferase (ALT/SGPT) 2019-06-30 16:06:00* Test Item Value Reference Range Interpretation Comments Alanine Aminotransferase (ALT/SGPT) (test code = 1742-6) 15 0-55 [facility] BudaTotal Suteala6164-17-09 16:06:00* Test Item Value Reference Range Interpretation Comments Total Protein (test code = 2885-2) 7.6 6.5-8.1 [facility] BudaAlbumin2019-10-07 16:06:00* Test Item Value Reference Range Interpretation Comments Albumin (test code = 1751-7) 3.1 3.5-5.0 [facility] BudaGlobulin2019-10-07 16:06:00* Test Item Value Reference Range Interpretation Comments Globulin (test code = 87274-5) 4.5 2.3-3.5 [facility] BudaAlbumin/Globulin Zdaal8961-50-45 16:06:00 * Test Item Value Reference Range Interpretation Comments Albumin/Globulin Ratio (test code = 1759-0) 0.7 0.8-2.0 [facility] BudaAlkaline Ojanccpfqsj5058-30-43 16:06:00* Test Item Value Reference Range Interpretation Comments Alkaline Phosphatase (test code = 6768-6) 84 40-150 [facility] BudaAmylase Jkejf2857-61-25 16:06:00* Test Item Value Reference Range Interpretation Comments Amylase Level (test code = 1798-8) 53 25-125 [facility] BudaLipase2019-10-07 16:06:00* Test Item Value Reference Range Interpretation Comments Lipase (test code = 3040-3) 4 8-78 [facility] BudaUrine Jbncp5903-87-17 16:00:00* Test Item Value Reference Range Interpretation Comments Urine Color (test code = 5778-6) RED YELLOW [facility] BudaUrine Eyqizms1285-81-27 16:00:00* Test Item Value Reference Range Interpretation Comments Urine Clarity (test code = 71066-1) CLOUDY CLEAR [facility] BudaUrine Specific Vpffkpj8901-04-22 16:00:00 * Test Item Value Reference Range Interpretation Comments Urine Specific [place] (test code = 5811-5) 1.025 1.010-1.02 5 [facility] BudaUrine cJ0904-27-23 16:00:00* Test Item Value Reference Range Interpretation Comments Urine pH (test code = 21016-2) 6 5-7 [facility] BudaUrine Leukocyte Dkgdrwet7196-74-37 16:00:00* Test Item Value Reference Range Interpretation Comments Urine Leukocyte Esterase (test code = 32052-7) NEGATIVE NEGATIV E [facility] BudaUrine Kiwjgws1088-37-22 16:00:00* Test Item Value Reference Range Interpretation Comments Urine Nitrite (test code = 52150-9) NEGATIVE NEGATIVE [facility] BudaUrine Eqhqyab9554-73-73 16:00:00* Test Item Value Reference Range Interpretation Comments Urine Protein (test code = 22553-4) 2+ NEGATIVE [facility] BudaUrine Glucose (UA)2019-06-30 16:00:00* Test Item Value Reference Range Interpretation Comments Urine Glucose (UA) (test code = 52046-9) NEGATIVE NEGATIVE [facility] BudaUrine Jczefhn1898-58-29 16:00:00* Test Item Value Reference Range Interpretation Comments Urine Ketones (test code = 34400-5) NEGATIVE NEGATIVE [facility] BudaUrine Vjufofklxqcf6138-58-94 16:00:00* Test Item Value Reference Range Interpretation Comments Urine Urobilinogen (test code = 40613-9) 0.2 0.2-1 [facility] BudaUrine Bsiuqgthz1427-38-48 16:00:00* Test Item Value Reference Range Interpretation Comments Urine Bilirubin (test code = 1977-8) NEGATIVE NEGATIVE [facility] BudaUrine Bztua9911-91-48 16:00:00* Test Item Value Reference Range Interpretation Comments Urine Blood (test code = 50555-4) 3+ NEGATIVE [facility] BudaHuman Chorionic Gonadotropin, Qual 2019-06-30 15:50:00* Test Item Value Reference Range Interpretation Comments Human Chorionic Gonadotropin, Qual (test code = 2118-8) NEGATIVE NEGATIVE [facility] BudaWhite Blood Igbnz0992-83-51 15:43:00* Test Item Value Reference Range Interpretation Comments White Blood Count (test code = 6690-2) 15.94 4.8-10.8 [facility] BudaRed Blood Jhpzf3552-01-06 15:43:00* Test Item Value Reference Range Interpretation Comments Red Blood Count (test code = 789-8) 4.82 3.6-5.1 [facility] BudaHemoglobin2019-10-07 15:43:00* Test Item Value Reference Range Interpretation Comments Hemoglobin (test code = 20591-3) 11.3 12.0-16.0 [facility] BudaHematocrit2019-10-07 15:43:00* Test Item Value Reference Range Interpretation Comments Hematocrit (test code = 4544-3) 35.1 34.2-44.1 [facility] BudaMean Corpuscular Ezttcp0422-54-19 15:43:00* Test Item Value Reference Range Interpretation Comments Mean Corpuscular Volume (test code = 787-2) 72.8 81-99 [facility] BudaMean Corpuscular Mlpfumprln2699-49-44 15:43:00* Test Item Value Reference Range Interpretation Comments Mean Corpuscular Hemoglobin (test code = 785-6) 23.4 28-32 [facility] BudaMean Corpuscular Hemoglobin Concent 2019-06-30 15:43:00* Test Item Value Reference Range Interpretation Comments Mean Corpuscular Hemoglobin Concent (test code = 786-4) 32.2 31-35 [facility] BudaRed Cell Distribution Arewo8797-62-90 15:43:00* Test Item Value Reference Range Interpretation Comments Red Cell Distribution Width (test code = 94588-3) 17.6 11.7 -14.4 [facility] BudaPlatelet Ksyei0246-43-28 15:43:00* Test Item Value Reference Range Interpretation Comments Platelet Count (test code = 777-3) 280 140-360 [facility] BudaNeutrophils (%) (Auto)2019-06-30 15:43:00 * Test Item Value Reference Range Interpretation Comments Neutrophils (%) (Auto) (test code = 10803-2) 81.0 38.7-80.0 [facility] BudaLymphocytes (%) (Auto)2019-06-30 15:43:00 * Test Item Value Reference Range Interpretation Comments Lymphocytes (%) (Auto) (test code = 736-9) 11.7 18.0-39.1 [facility] BudaMonocytes (%) (Auto)2019-06-30 15:43:00* Test Item Value Reference Range Interpretation Comments Monocytes (%) (Auto) (test code = 5905-5) 6.4 4.4-11.3 [facility] BudaEosinophils (%) (Auto)2019-06-30 15:43:00 * Test Item Value Reference Range Interpretation Comments Eosinophils (%) (Auto) (test code = 713-8) 0.0 0.0-6.0 [facility] BudaBasophils (%) (Auto)2019-06-30 15:43:00* Test Item Value Reference Range Interpretation Comments Basophils (%) (Auto) (test code = 706-2) 0.1 0.0-1.0 [facility] BudaIM GRANULOCYTES %2019-06-30 15:43:00* Test Item Value Reference Range Interpretation Comments IM GRANULOCYTES % (test code = IM GRANULOCYTES %) 0.8 0.0- 1.0 [facility] BudaNeutrophils # (Auto)2019-06-30 15:43:00* Test Item Value Reference Range Interpretation Comments Neutrophils # (Auto) (test code = 751-8) 12.9 2.1-6.9 [facility] BudaLymphocytes # (Auto)2019-06-30 15:43:00* Test Item Value Reference Range Interpretation Comments Lymphocytes # (Auto) (test code = 49866-3) 1.9 1.0-3.2 [facility] BudaMonocytes # (Auto)2019-06-30 15:43:00* Test Item Value Reference Range Interpretation Comments Monocytes # (Auto) (test code = 742-7) 1.0 0.2-0.8 [facility] BudaEosinophils # (Auto)2019-06-30 15:43:00* Test Item Value Reference Range Interpretation Comments Eosinophils # (Auto) (test code = 711-2) 0.0 0.0-0.4 [facility] BudaBasophils # (Auto)2019-06-30 15:43:00* Test Item Value Reference Range Interpretation Comments Basophils # (Auto) (test code = 704-7) 0.0 0.0-0.1 [facility] BudaAbsolute Immature Granulocyte (auto 2019-06-30 15:43:00* Test Item Value Reference Range Interpretation Comments Absolute Immature Granulocyte (auto (lupe t code = Absolute Immature Granulocyte (auto) 0.12 0-0.1 [facility] ABD PELVIS W/TTDR6715-12-45 15:11:00 Name: DU VITALE [facility] : 1985 Age/S: 34 / F [address] [facility] [id number] [place]: [place] [address] Phys: Solomon Servin MD Acct: [id number] Di s Date: Status: REG ER PHONE #: Exam Date: 06/29/2019 1454 FAX #: Reason: upper abd pain vomiting EXAMS: CPT CODE: [id number] CT ABD PELVIS W/CONT 43772 EXAM: CT of the abdomen a nd pelvis with contrast; INFORMATION: Upper abdominal pain, nausea and vomiting, chills; status post surgery; TECHNIQUE: CT dose reduction protocol; 5 mm cuts were obtained through the abdomen and pelvis during and after intravenous infusion of contrast mater ial. FINDINGS: Liver, spleen and pancreas are of normal size and shape; they show homogeneous enhancement without focal lesions. No abnormalities of the biliary system. Adrenal glands and kidneys are u nremarkable; no evidence of adenopathy; No evidence of appendicitis or other acute bowel abnormalities. No pelvic mass lesions. No abnor mal fluid collections. Scans through the lung bases are clear. IMPRESSION: No evidence of acute abdominal or pelvic abnorm alities. at 1511 Reported and signed by: Hi David M.D. CC: Chau Servin MD Technologist:Cher Koroma RT(R),CT CTDI: DLP: Trnscb Date/Time: 06/29/2019 (1510) t.SHEELA SandovalGRW Orig Print D/T: S: 06/29/2019 (3102) PAGE 1 Signed Report - CTA CHEST 2019-06-29 15:08:00 Name: DU VITALE [facility] : 1985 Age/S: 34 / F [address] [facility] Unit #: [id number] Loc: [place] [address] Phys: Chau Servin MD Acct: [id number] Dis Date: Status: REG ER PHONE #: [phone] Exam Date: 06/29/2019 1455 FAX #: [phone] Reason: R chest pain and cough post surgery EXAMS: CPT CODE: [id number] CTA CHEST 50362 EXAM: CT of the chest with contrast; INFORMATION: Chest pain and cough, postop; PE? TECHNIQUE: CT dose reduction protocol; 1.25 mm cuts were obtained through the chest during intravenous infusion of contrast material; multiplanar reconstructions were obtained; PE protocol; FINDINGS: The pulmonary arteries are densely enhancing and are without filling defects. The thoracic aorta is normal; no evidence of dissection or aneurysm. No evidence of hilar or mediastinal adenopathy; No effusions. Lung windows show no parenchymal abnormalities. IMPRESSION: No evidence of pulmonary embolism, aortic dissection or other acute abnormalities. at 1508 Reported and signed by: Hi David M.D. CC: Chau Servin MD Technologist:Cher Koroma RT(R),CT CTDI: DLP: Trnscb Date/Time: 06/29/2019 (1502) t.[email or web address].GRW Orig Print D/T: S: 06/29/2019 (8989) PAGE 1 Signed Report BASIC METABOLIC PANEL 2019-06-29 14:17:00* Test Item Value Reference Range Interpretation Comments SODIUM (test code = NA) 138 mmol/L 136-145 N POTASSIUM (test code = K) 4.2 mmol/L 3.5-5.1 N CHLORIDE (test code = CL) 101.0 mmol/L 98-107 N CARBON DIOXIDE (test code = CO2) 30.0 mmol/L 21-32 N ANION GAP (test code = GAP) 11.2 10-20 N GLUCOSE (test code = GLU) 90 mg/dL 74-106 N BLOOD UREA NITROGEN (test code = BUN) 13 mg/dL 7-18 N GLOMERULAR FILTRATION RATE (test code = GFR) > 60 mL/min >=60 Estimated GFR by using Modified MDRD formula.Chronic kidney disease is defined as either kidney damageor GFR <60 mL/min/1.73 m2 for >3 months. CREATININE (test code = CREAT) 0.70 mg/dL 0.55-1.02 N Note change in reference range due to change in reagent. BUN/CREATININE RATIO (test code = BUN/CREA) 18.2 10-20 N CALCIUM (test code = CA) 8.3 mg/dL 8.5-10.1 L HEPATIC FUNCTION [id number] 14:17:00* Test Item Value Reference Range Interpretation Comments TOTAL PROTEIN (test code = PROT) 8.4 gram/dL 6.4-8.2 H ALBUMIN (test code = ALB) 3.1 g/dL 3.4-5.0 L GLOBULIN (test code = GLOB) 5.3 gram/dL 2.7-4.2 H ALBUMIN/GLOBULIN RATIO (test code = A/G) 0.6 0.75-1.50 L BILIRUBIN TOTAL (test code = BILT) 0.70 mg/dL 0.0-1.0 N BILIRUBIN DIRECT (test code = BILD) 0.19 mg/dL 0.0-0.20 N SGOT/AST (test code = AST) 10 IUnit/L 15-37 L SGPT/ALT (test code = ALT) 22 IUnit/L 12-78 N ALKALINE PHOSPHATASE TOTAL (test code = ALKP) 100 IUnit/L 45-117 N Note change in reference range due to change in reagent. [id number] 14:17:00* Test Item Value Reference Range Interpretation Comments LIPASE (test code = LIP) 38 U/L 73.0-393.0 L HCG SERUM [id number] 14:17:00* Test Item Value Reference Range Interpretation Comments HCG SERUM QUAL (test code = HCGQL) NEGATIVE NEGATIVE This HCGQL test is NOT applicable for MALE patients.Check with nurse about probable order error.If Tumor Marker Test needed, nurse should order test "HCGTU"(Test #550.90774) [id number] 14:17:00* Test Item Value Reference Range Interpretation Comments TROPONIN-I (test code = TROPI) <0.015 ng/mL 0-0.045 N BASIC METABOLIC [id number] 14:05:00* Test Item Value Reference Range Interpretation Comments SODIUM (test code = NA) 138 mmol/L 136-145 N POTASSIUM (test code = K) 4.2 mmol/L 3.5-5.1 N CHLORIDE (test code = CL) 101.0 mmol/L 98-107 N CARBON DIOXIDE (test code = CO2) mmol/L 21-32 ANION GAP (test code = GAP) 10-20 GLUCOSE (test code = GLU) mg/dL 74-106 BLOOD UREA NITROGEN (test code = BUN) mg/dL 7-18 GLOMERULAR FILTRATION RATE (test code = GFR) mL/min >=60 CREATININE (test code = CREAT) mg/dL 0.55-1.02 BUN/CREATININE RATIO (test code = BUN/CREA) 10-20 CALCIUM (test code = CA) mg/dL 8.5-10.1 HEPATIC FUNCTION [id number] 14:05:00* Test Item Value Reference Range Interpretation Comments TOTAL PROTEIN (test code = PROT) gram/dL 6.4-8.2 ALBUMIN (test code = ALB) g/dL 3.4-5.0 GLOBULIN (test code = GLOB) gram/dL 2.7-4.2 ALBUMIN/GLOBULIN RATIO (test code = A/G) 0.75-1.50 BILIRUBIN TOTAL (test code = BILT) mg/dL 0.0-1.0 BILIRUBIN DIRECT (test code = BILD) mg/dL 0.0-0.20 SGOT/AST (test code = AST) IUnit/L 15-37 SGPT/ALT (test code = ALT) IUnit/L 12-78 ALKALINE PHOSPHATASE TOTAL (test code = ALKP) IUnit/L 45-117 [id number] 14:05:00* Test Item Value Reference Range Interpretation Comments LIPASE (test code = LIP) U/L 73.0-393.0 HCG SERUM [id number] 14:05:00* Test Item Value Reference Range Interpretation Comments HCG SERUM QUAL (test code = HCGQL) NEGATIVE NEGATIVE This HCGQL test is NOT applicable for MALE patients.Check with nurse about probable order error.If Tumor Marker Test needed, nurse should order test "HCGTU"(Test #550.43107) [id number] 14:05:00* Test Item Value Reference Range Interpretation Comments TROPONIN-I (test code = TROPI) ng/mL 0-0.045 BASIC METABOLIC [id number] 14:04:00* Test Item Value Reference Range Interpretation Comments SODIUM (test code = NA) 138 mmol/L 136-145 N POTASSIUM (test code = K) 4.2 mmol/L 3.5-5.1 N CHLORIDE (test code = CL) 101.0 mmol/L 98-107 N CARBON DIOXIDE (test code = CO2) mmol/L 21-32 ANION GAP (test code = GAP) 10-20 GLUCOSE (test code = GLU) mg/dL 74-106 BLOOD UREA NITROGEN (test code = BUN) mg/dL 7-18 GLOMERULAR FILTRATION RATE (test code = GFR) mL/min >=60 CREATININE (test code = CREAT) mg/dL 0.55-1.02 BUN/CREATININE RATIO (test code = BUN/CREA) 10-20 CALCIUM (test code = CA) mg/dL 8.5-10.1 HEPATIC FUNCTION [id number] 14:04:00* Test Item Value Reference Range Interpretation Comments TOTAL PROTEIN (test code = PROT) gram/dL 6.4-8.2 ALBUMIN (test code = ALB) g/dL 3.4-5.0 GLOBULIN (test code = GLOB) gram/dL 2.7-4.2 ALBUMIN/GLOBULIN RATIO (test code = A/G) 0.75-1.50 BILIRUBIN TOTAL (test code = BILT) mg/dL 0.0-1.0 BILIRUBIN DIRECT (test code = BILD) mg/dL 0.0-0.20 SGOT/AST (test code = AST) IUnit/L 15-37 SGPT/ALT (test code = ALT) IUnit/L 12-78 ALKALINE PHOSPHATASE TOTAL (test code = ALKP) IUnit/L 45-117 [id number] 14:04:00* Test Item Value Reference Range Interpretation Comments LIPASE (test code = LIP) U/L 73.0-393.0 HCG SERUM [id number] 14:04:00* Test Item Value Reference Range Interpretation Comments HCG SERUM QUAL (test code = HCGQL) NEGATIVE [id number] 14:04:00* Test Item Value Reference Range Interpretation Comments TROPONIN-I (test code = TROPI) ng/mL 0-0.045 - XR CHEST 1 [id number] 14:01:00 FAX: Chau Servin MD [phone] Kosse: B St: REG Name: DU ROSALES [facility] : [birth year] Age/S: 34/F [address] Unit #: [id number] Loc: [place] [address] Phys: Chau Servin MD Acct: [id number] Dis Date: Status: REG ER PHONE #: [phone] Exam Date: 06/29/2019 0407 FAX #: [phone] Reason: Abdominal Pain EXAMS: CPT CODE: [id number] XR CHEST 1 V 34179 EXAM: Chest X-ray, 1 view; CLINICAL HISTORY: Abdominal pain, nausea and vomiting, chills; FINDINGS: The lungs are clear, no infiltrates, no edema; no ef fusions; no pneumothorax; normal cardiomediastinal silhouette. IMPRESSION: Normal chest x-ray. Yumiko ctronically Signed by Devendra David on 2018 at 1401 Reported and signed by: Hi David M.D. CC: Chau Servin MD Technologist: Navneet CARTER(R) Trnscrd Date/Time/By: 06/29/2019 (6072) : By: FadumoGRW Orig Print D/T: S: 06/29/2019 (6451) PAGE 1 Signed Report URINALYSIS [id number] 13:47:00* Test Item Value Reference Range Interpretation Comments UA COLOR (test code = COLU) Light-Yellow YELLOW UA APPEARANCE (test code = APPU) CLEAR CLEAR UA GLUCOSE DIPSTICK (test code = DGLUU) NEGATIVE mg/dL NEGATIVE UA BILIRUBIN DIPSTICK (test code = BILU) NEGATIVE mg/dL NEGATIVE UA KETONE DIPSTICK (test code = KETU) NEGATIVE mg/dL NEGATIVE UA SPECIFIC GRAVITY (test code = SGU) 1.015 1.001-1.035 UA BLOOD DIPSTICK (test code = MARCELA) 0.2 mg/dL (2+) mg/dL NEGATIVE A UA PH DIPSTICK (test code = CARLOTTA) 6.5 5.0-8.0 UA PROTEIN DIPSTICK (test code = PROU) NEGATIVE mg/dL NEGATIVE UA UROBILINIOGEN DIPSTICK (test code = URO) Normal mg/dL NEGATIVE UA NITRITE DIPSTICK (test code = EMY) NEGATIVE NEGATIVE UA LEUKOCYTE ESTERASE W REFLEX (test code = LEUUR) NEGATIVE Nikhil/uL NEGATIVE UA WBC (test code = WBCU) 0-5 per HPF 0-5 UA RBC (test code = RBCU) 6-10 #/HPF 0-5 A UA EPITHELIAL CELLS (test code = EPIU) FEW per HPF FEW UA BACTERIA (test code = BACU) FEW #/HPF NONE A UA MUCUS (test code = MUCU) FEW #/LPF FEW Urine Source? Clean CatchURINALYSIS [id number] 13:44:00* Test Item Value Reference Range Interpretation Comments UA COLOR (test code = COLU) Light-Yellow YELLOW UA APPEARANCE (test code = APPU) CLEAR CLEAR UA GLUCOSE DIPSTICK (test code = DGLUU) NEGATIVE mg/dL NEGATIVE UA BILIRUBIN DIPSTICK (test code = BILU) NEGATIVE mg/dL NEGATIVE UA KETONE DIPSTICK (test code = KETU) NEGATIVE mg/dL NEGATIVE UA SPECIFIC GRAVITY (test code = SGU) 1.015 1.001-1.035 UA BLOOD DIPSTICK (test code = MARCELA) 0.2 mg/dL (2+) mg/dL NEGATIVE A UA PH DIPSTICK (test code = CARLOTTA) 6.5 5.0-8.0 UA PROTEIN DIPSTICK (test code = PROU) NEGATIVE mg/dL NEGATIVE UA UROBILINIOGEN DIPSTICK (test code = URO) Normal mg/dL NEGATIVE UA NITRITE DIPSTICK (test code = MEY) NEGATIVE NEGATIVE UA LEUKOCYTE ESTERASE W REFLEX (test code = LEUUR) NEGATIVE Nikhil/uL NEGATIVE UA WBC (test code = WBCU) per HPF 0-5 UA RBC (test code = RBCU) per HPF 0-5 UA EPITHELIAL CELLS (test code = EPIU) per HPF Few UA BACTERIA (test code = BACU) per HPF NONE Urine Source? Clean CatchCBC W/O [id number] 13:43:00* Test Item Value Reference Range Interpretation Comments WHITE BLOOD CELL (test code = WBC) K/mm3 4.5-12.5 RED BLOOD CELL (test code = RBC) mill/mm3 3.7-5.2 HEMOGLOBIN (test code = HGB) 12.3 gram/dL 11.5-15.5 N HEMATOCRIT (test code = HCT) 38.8 % 36.0-46.0 N MEAN CELL VOLUME (test code = MCV) fL 80-98 MEAN CELL HGB (test code = MCH) picogram 27.0-33.0 MEAN CELL HGB CONCETRATION (test code = MCHC) gram/dL 33.0-36. 0 RED CELL DISTRIBUTION WIDTH (test code = RDW) % 11.6-16. 2 PLATELET COUNT (test code = PLT) K/mm3 150-450 MEAN PLATELET VOLUME (test code = MPV) fL 6.7-11.0 CBC W/O [id number] 13:43:00* Test Item Value Reference Range Interpretation Comments WHITE BLOOD CELL (test code = WBC) 7.5 K/mm3 4.5-12.5 N RED BLOOD CELL (test code = RBC) 5.31 mill/mm3 3.7-5.2 H HEMOGLOBIN (test code = HGB) 12.3 gram/dL 11.5-15.5 N HEMATOCRIT (test code = HCT) 38.8 % 36.0-46.0 N MEAN CELL VOLUME (test code = MCV) 73.1 fL 80-98 L MEAN CELL HGB (test code = MCH) 23.2 picogram 27.0-33.0 L MEAN CELL HGB CONCETRATION (test code = MCHC) 31.7 gram/dL 33.0-36. 0 L RED CELL DISTRIBUTION WIDTH (test code = RDW) 17.2 % 11.6-16. 2 H PLATELET COUNT (test code = PLT) 247 K/mm3 150-450 N MEAN PLATELET VOLUME (test code = MPV) 11.3 fL 6.7-11.0 H HCG SERUM [id number] 13:02:00* Test Item Value Reference Range Interpretation Comments HCG SERUM QUAL (test code = HCGQL) NEGATIVE NEGATIVE This HCGQL test is NOT applicable for MALE patients.Check with nurse about probable order error.If Tumor Marker Test needed, nurse should order test "HCGTU"(Test #550.88040) [id number] 10:27:00* Test Item Value Reference Range Interpretation Comments GLUBED (test code = GLUBED) 84 mg/dL 74-106 N Performed by certified nailer operator at [facility] BASIC METABOLIC [id number] 16:45:00* Test Item Value Reference Range Interpretation Comments SODIUM (test code = NA) 139 mmol/L 136-145 N POTASSIUM (test code = K) 3.7 mmol/L 3.5-5.1 N CHLORIDE (test code = CL) 103.0 mmol/L 98-107 N CARBON DIOXIDE (test code = CO2) 30.0 mmol/L 21-32 N ANION GAP (test code = GAP) 9.7 10-20 L GLUCOSE (test code = GLU) 91 mg/dL 74-106 N BLOOD UREA NITROGEN (test code = BUN) 15 mg/dL 7-18 N GLOMERULAR FILTRATION RATE (test code = GFR) > 60 mL/min >=60 Estimated GFR by using Modified MDRD formula.Chronic kidney disease is defined as either kidney damageor GFR <60 mL/min/1.73 m2 for >3 months. CREATININE (test code = CREAT) 0.80 mg/dL 0.55-1.02 N Note change in reference range due to change in reagent. BUN/CREATININE RATIO (test code = BUN/CREA) 19.2 10-20 N CALCIUM (test code = CA) 9.1 mg/dL 8.5-10.1 N HCG SERUM [id number] 16:45:00* Test Item Value Reference Range Interpretation Comments HCG SERUM QUAL (test code = HCGQL) NEGATIVE NEGATIVE This HCGQL test is NOT applicable for MALE patients.Check with nurse about probable order error.If Tumor Marker Test needed, nurse should order test "HCGTU"(Test #550.25784) BASIC METABOLIC [id number] 16:39:00* Test Item Value Reference Range Interpretation Comments SODIUM (test code = NA) 139 mmol/L 136-145 N POTASSIUM (test code = K) 3.7 mmol/L 3.5-5.1 N CHLORIDE (test code = CL) 103.0 mmol/L 98-107 N CARBON DIOXIDE (test code = CO2) 30.0 mmol/L 21-32 N ANION GAP (test code = GAP) 9.7 10-20 L GLUCOSE (test code = GLU) 91 mg/dL 74-106 N BLOOD UREA NITROGEN (test code = BUN) 15 mg/dL 7-18 N GLOMERULAR FILTRATION RATE (test code = GFR) > 60 mL/min >=60 Estimated GFR by using Modified MDRD formula.Chronic kidney disease is defined as either kidney damageor GFR <60 mL/min/1.73 m2 for >3 months. CREATININE (test code = CREAT) 0.80 mg/dL 0.55-1.02 N Note change in reference range due to change in reagent. BUN/CREATININE RATIO (test code = BUN/CREA) 19.2 10-20 N CALCIUM (test code = CA) 9.1 mg/dL 8.5-10.1 N HCG SERUM [id number] 16:39:00* Test Item Value Reference Range Interpretation Comments [facility] QUAL (test code = HCGQL) NEGATIVE BASIC METABOLIC [id number] 16:24:00* Test Item Value Reference Range Interpretation Comments SODIUM (test code = NA) 139 mmol/L 136-145 N POTASSIUM (test code = K) 3.7 mmol/L 3.5-5.1 N CHLORIDE (test code = CL) 103.0 mmol/L 98-107 N CARBON DIOXIDE (test code = CO2) mmol/L 21-32 ANION GAP (test code = GAP) 10-20 GLUCOSE (test code = GLU) mg/dL 74-106 BLOOD UREA NITROGEN (test code = BUN) mg/dL 7-18 GLOMERULAR FILTRATION RATE (test code = GFR) mL/min >=60 CREATININE (test code = CREAT) mg/dL 0.55-1.02 BUN/CREATININE RATIO (test code = BUN/CREA) 10-20 CALCIUM (test code = CA) mg/dL 8.5-10.1 HCG SERUM [id number] 16:24:00* Test Item Value Reference Range Interpretation Comments HCG SERUM QUAL (test code = HCGQL) NEGATIVE CBC W/AUTO [id number] 16:04:00* Test Item Value Reference Range Interpretation Comments WHITE BLOOD CELL (test code = WBC) 7.3 K/mm3 4.5-12.5 N RED BLOOD CELL (test code = RBC) 5.05 mill/mm3 3.7-5.2 N HEMOGLOBIN (test code = HGB) 11.6 gram/dL 11.5-15.5 N HEMATOCRIT (test code = HCT) 37.2 % 36.0-46.0 N MEAN CELL VOLUME (test code = MCV) 73.7 fL 80-98 L MEAN CELL HGB (test code = MCH) 23.0 picogram 27.0-33.0 L MEAN CELL HGB CONCETRATION (test code = MCHC) 31.2 gram/dL 33.0-36. 0 L RED CELL DISTRIBUTION WIDTH (test code = RDW) 17.5 % 11.6-16. 2 H RED CELL DISTRIBUTION WIDTH SD (test code = RDW-SD) 45.7 fL 37 .0-51.0 N PLATELET COUNT (test code = PLT) 250 K/mm3 150-450 N MEAN PLATELET VOLUME (test code = MPV) 10.7 fL 6.7-11.0 N NEUTROPHIL % (test code = NT%) 59.6 % 39.0-69.0 N IMMATURE GRANULOCYTE % (test code = IG%) 1.0 % 0.0-5.0 N LYMPHOCYTE % (test code = LY%) 30.5 % 25.0-55.0 N MONOCYTE % (test code = MO%) 5.7 % 0.0-10.0 N EOSINOPHIL % (test code = EO%) 2.9 % 0.0-5.0 N BASOPHIL % (test code = BA%) 0.3 % 0.0-1.0 N NUCLEATED RBC % (test code = NRBC%) 0.0 % 0-0 N NEUTROPHIL # (test code = NT#) 4.37 K/mm3 1.8-7.7 N IMMATURE GRANULOCYTE # (test code = IG#) 0.07 x10 3/uL 0-0.03 H LYMPHOCYTE # (test code = LY#) 2.23 K/mm3 1.0-5.0 N MONOCYTE # (test code = MO#) 0.42 K/mm3 0-0.8 N EOSINOPHIL # (test code = EO#) 0.21 K/mm3 0.0-0.5 N BASOPHIL # (test code = BA#) 0.02 K/mm3 0.0-0.2 N NUCLEATED RBC # (test code = NRBC#) 0.00 K/mm3 0.0-0.1 N CBC W/AUTO [id number] 15:59:00* Test Item Value Reference Range Interpretation Comments WHITE BLOOD CELL (test code = WBC) K/mm3 4.5-12.5 RED BLOOD CELL (test code = RBC) mill/mm3 3.7-5.2 HEMOGLOBIN (test code = HGB) 11.6 gram/dL 11.5-15.5 N HEMATOCRIT (test code = HCT) 37.2 % 36.0-46.0 N MEAN CELL VOLUME (test code = MCV) fL 80-98 MEAN CELL HGB (test code = MCH) picogram 27.0-33.0 MEAN CELL HGB CONCETRATION (test code = MCHC) gram/dL 33.0-36. 0 RED CELL DISTRIBUTION WIDTH (test code = RDW) % 11.6-16. 2 RED CELL DISTRIBUTION WIDTH SD (test code = RDW-SD) fL 37 .0-51.0 PLATELET COUNT (test code = PLT) K/mm3 150-450 MEAN PLATELET VOLUME (test code = MPV) fL 6.7-11.0 NEUTROPHIL % (test code = NT%) % 39.0-69.0 IMMATURE GRANULOCYTE % (test code = IG%) % 0.0-5.0 LYMPHOCYTE % (test code = LY%) % 25.0-55.0 MONOCYTE % (test code = MO%) % 0.0-10.0 EOSINOPHIL % (test code = EO%) % 0.0-5.0 BASOPHIL % (test code = BA%) % 0.0-1.0 NEUTROPHIL # (test code = NT#) K/mm3 1.8-7.7 LYMPHOCYTE # (test code = LY#) K/mm3 1.0-5.0 MONOCYTE # (test code = MO#) K/mm3 0-0.8 EOSINOPHIL # (test code = EO#) K/mm3 0.0-0.5 BASOPHIL # (test code = BA#) K/mm3 0.0-0.2 CBC W/AUTO [id number] 20:06:00* Test Item Value Reference Range Interpretation Comments WHITE BLOOD CELL (test code = WBC) 8.98 x10 3/uL 4.5-11.0 N RED BLOOD CELL (test code = RBC) 5.14 x10 6/uL 3.54-5.02 H HEMOGLOBIN (test code = HGB) 11.8 g/dL 11.0-15.0 N HEMATOCRIT (test code = HCT) 38.1 % 33.0-45.0 N MEAN CELL VOLUME (test code = MCV) 74.1 fL 81.0-99.0 L MEAN CELL HGB (test code = MCH) 23.0 pg 27.0-33.0 L MEAN CELL HGB CONCETRATION (test code = MCHC) 31.0 g/dL 33.0-37. 0 L RED CELL DISTRIBUTION WIDTH CV (test code = RDW) 17.3 % 11.5- 14.5 H RED CELL DISTRIBUTION WIDTH SD (test code = RDW-SD) 46.5 fL 37 .0-54.0 N PLATELET COUNT (test code = PLT) 267 x10 3/uL 150-400 N IMMATURE PLATELET FRACTION (test code = IPF) 8.2 % 0.9-11.2 N MEAN PLATELET VOLUME (test code = MPV) 11.7 fL 7.0-9.0 H NEUTROPHIL % (test code = NT%) 63.7 % 56.0-77.0 N IMMATURE GRANULOCYTE % (test code = IG%) 0.3 % 0.0-2.0 N LYMPHOCYTE % (test code = LY%) 26.4 % 14.0-32.0 N MONOCYTE % (test code = MO%) 7.2 % 4.8-9.0 N EOSINOPHIL % (test code = EO%) 2.0 % 0.3-3.7 N BASOPHIL % (test code = BA%) 0.4 % 0.0-2.0 N NUCLEATED RBC % (test code = NRBC%) 0.0 % 0-0 N NEUTROPHIL # (test code = NT#) 5.71 x10 3/uL 2.0-7.6 N IMMATURE GRANULOCYTE # (test code = IG#) 0.03 x10 3/uL 0.00-0.03 N LYMPHOCYTE # (test code = LY#) 2.37 x10 3/uL 1.0-3.8 N MONOCYTE # (test code = MO#) 0.65 x10 3/uL 0.1-0.8 N EOSINOPHIL # (test code = EO#) 0.18 x10 3/uL 0.0-0.2 N BASOPHIL # (test code = BA#) 0.04 x10 3/uL 0.0-0.2 N NUCLEATED RBC # (test code = NRBC#) 0.00 x10 3/uL 0.0-0.1 N MANUAL DIFF REQUIRED (test code = MDIFF) NO BASIC METABOLIC [id number] 19:50:00* Test Item Value Reference Range Interpretation Comments SODIUM (test code = NA) 137 mEq/L 134-147 N POTASSIUM (test code = K) 3.9 mEq/L 3.4-5.0 N CHLORIDE (test code = CL) 103 mEq/L 100-108 N CARBON DIOXIDE (test code = CO2) 34 mEq/L 21-33 H ANION GAP (test code = GAP) 4 0-20 N GLUCOSE (test code = GLU) 87 mg/dL 70-110 N BLOOD UREA NITROGEN (test code = BUN) 15 mg/dL 7-18 N GLOMERULAR FILTRATION RATE (test code = GFR) 100.0 105-110 L Units of measure = ml/min/1.73 m2 CREATININE (test code = CREAT) 0.8 mg/dL 0.6-1.3 N CALCIUM (test code = CA) 9.3 mg/dL 8.0-10.5 N [id number] 19:50:00* Test Item Value Reference Range Interpretation Comments TROPONIN-I (test code = TROPI) < 0.015 ng/mL 0.000-0.045 N Negative: <= 0.045 Positive: >= 0.046 Correlation with serial results, other cardiac markers andclinical findings is necessary to determine the clinicalsignificance of this result. Results using different methodologies should not be comparedto one another as quantitative results may vary by method. - XR CHEST 1 [id number] 19:27:00 FAX: Preet Camejo DO [phone] Kosse: St: REG Name: DU ROSALES [facility] : [birth year] Age/S: 34/F [address] [place] [address] Blvd Unit #: [id number] Loc: [place] [address] Phys: Preet English DO Acct: [id number] Dis Date: Status: REG ER PHONE #: [phone] Exam Date: 05/14/2019 190 FAX #: [phone] Reason: Chest Pain EXAMS: CPT CODE: [id number] XR CHEST 1 V 17188 Clinical Indication: Chest Pain Comparison: 07/16/2018 FINDINGS: The frontal chest radiograph shows normal lung volumes. No interstitial or airspace opac ities are seen. No pleural effusions are present. No pneumothorax is see n. The heart is normal in size. The trachea is midline. There are no clinically significant osseous abnormalities noted. IMPRESSION: No chest radiographic evidence of acute cardiopulmonary disease. SL: DEBBIEH at 1927 Reported and sign ed by: Milind Dunaway M.D. CC: Preet English DO Technologist: RT Irma(Artie) Trnscrd Date/Time/By: 05/14/2019 (1926) : By: [email or web address] Orig Print D/T: S: 05/14/2019 (1929) PAGE 1 Signed Report URINALYSIS DIPSTICK 2019-05-14 19:03:00* Test Item Value Reference Range Interpretation Comments UA COLOR (test code = COLU) YELLOW YEL/STRAW UA APPEARANCE (test code = APPU) SL CLOUDY CLEAR A UA GLUCOSE DIPSTICK (test code = DGLUU) NEGATIVE NEGATIVE UA BILIRUBIN DIPSTICK (test code = BILU) NEGATIVE NEGATIVE UA KETONE DIPSTICK (test code = KETU) NEGATIVE NEGATIVE UA SPECIFIC GRAVITY (test code = SGU) 1.020 1.005-1.030 N UA BLOOD DIPSTICK (test code = MARCELA) NEGATIVE NEGATIVE UA PH DIPSTICK (test code = CARLOTTA) 6.0 5.0-7.0 N UA PROTEIN DIPSTICK (test code = PROU) NEGATIVE NEGATIVE UA UROBILINIOGEN DIPSTICK (test code = URO) 0.2 mg/dL 0.2-1.0 UA NITRITE DIPSTICK (test code = MEY) NEGATIVE NEGATIVE UA LEUKOCYTE ESTERASE DIPSTICK (test code = LEUU) NEGATIVE NEGA TIVE Group A Streptococcus [id number] 12:59:00* Test Item Value Reference Range Interpretation Comments Group A Streptococcus Screen (test code = 20157-9) NEGATIVE NEG [facility] METABOLIC [id number] 09:51:00 * Test Item Value Reference Range Interpretation Comments SODIUM (test code = NA) 139 mmol/L 136-145 N POTASSIUM (test code = K) 4.0 mmol/L 3.5-5.1 N CHLORIDE (test code = CL) 104.0 mmol/L 98-107 N CARBON DIOXIDE (test code = CO2) 28.0 mmol/L 21-32 N ANION GAP (test code = GAP) 11.0 10-20 N GLUCOSE (test code = GLU) 93 mg/dL 74-106 N BLOOD UREA NITROGEN (test code = BUN) 13 mg/dL 7-18 N GLOMERULAR FILTRATION RATE (test code = GFR) > 60 mL/min >=60 Estimated GFR by using Modified MDRD formula.Chronic kidney disease is defined as either kidney damageor GFR <60 mL/min/1.73 m2 for >3 months. CREATININE (test code = CREAT) 0.70 mg/dL 0.55-1.02 N Note change in reference range due to change in reagent. BUN/CREATININE RATIO (test code = BUN/CREA) 18.6 10-20 N CALCIUM (test code = CA) 8.7 mg/dL 8.5-10.1 N HCG SERUM [id number] 09:51:00* Test Item Value Reference Range Interpretation Comments HCG SERUM BETA (test code = HCG) < 1.0 mIU/mL 0-3 N INTERPRETATION:B-HCG LEVELS <5 SHOULD BE CONSIDERED "NEGATIVE." *WHEN BODERLINE RESULTS ARE ENCOUNTERED,PATIENT SAMPLESSHOULD BE REDRAWN 48 HOURS. 0-1 WEEKS AFTER CONCEPTION 5-50 MIU/ML1-2 WEEKS AFTER CONCEPTION 50-500 MIU/ML2-3 WEEKS AFTER CONCEPTION 100 -5,000 MIU/ML3-4 WEEKS AFTER CONCEPTION 500-10,000 MIU/ML4-5 WEEKS AFTER CONCEPTION 1000 -50,000 MIU/ML5-6 WEEKS AFTER CONCEPTION 10,000-100,000 MIU/ML6-8 WEEKS AFTER CONCEPTION 15,000- 200,000 MIU/ML2-3 MONTHS AFTER CONCEPTION 10,000-100,000 MIU/ML - US PREG UT [id number] 09:44:00 Name: DU VITALE [facility] : 1985 Age/S: 33 / F [address] [facility] Unit #: [id number] Loc: [facility] [place] [address] Phys: Emili Deleon NP Acct: [id number] Dis Date: Status: REG ER PHONE #: [phone] Exam Date: 02/10/2019 0910 FAX #: [phone] Reason: PELVIC PAIN EXAMS: CPT CODE: [id number] US PREG UT TRANSVAGINAL 75828 TECHNIQUE - US PREG 1ST TRIMTR, - [...] PAGE 1 Signed Report (CONTINUED) Name: DU VITALE [facility] : 1985 Age/S: 33 / F [address] [facility] Unit #: [id number] Loc: [place] [address] Phys: Emili Deleon BACK CLOSER Acct: [id number] Dis Date: Status: REG ER PHONE #: [phone] Exam Date: 02/10/2019909 FAX #: [phone] Reason: PELVIC PAIN EXAMS: CPT CODE: [id number] US PREG UT TRANSVAGINAL 52629 < Continued> CC: Emili Deleon NP Technologist: LB KING RT(R),TRACIMS Trnsdb Date/Time: 02/10/2019 (943) [email or web address] Orig Print D/T: S: 02/10/2019 (47) Probe: [id number] PAGE 2 Signed Report - DUP AB/PEL/SC [id number] 09:44:00 Name: DU VITALE [facility] : 1985 Age/S: 33 / F [address] [facility] Unit #: [id number] Loc: [place] [address] Phys: Emili Deleon BACK CLOSER Acct: [id number] Dis Date: Status: REG ER PHONE #: [phone] Exam Date: 02/10/2019909 FAX #: [phone] Reason: PELVIC PAIN EXAMS: CPT CODE: [id number] DUP AB/PEL/SC COMP 30423 TECHNIQUE - US PREG 1ST TRIMTR, - [...] PAGE 1 Signed Report (CONTINUED) Name: DU VITALE [facility] : 1985 Age/S: 33 / F [address] [facility] Unit #: [id number] Loc: [place] [address] Phys: Emili Deleon NP Acct: [id number] Dis Date: Status: REG ER PHONE #: [phone] Exam Date: 02/10/2019 0910 FAX #: [phone] Reason: PELVIC PAIN EXAMS: CPT CODE: [id number] DUP AB/PEL/SC COMP 38329 < Continued> CC: Emili Deleon NP Technologist: LB KING RT(R),RDMS Trnsdb Date/Time: 02/10/2019 (943) [email or web address] Orig Print D/T: S: 02/10/2019 (0947) Probe: PAGE 2 Signed Report - US PREG 1ST [id number] 09:44:00 Name: DU VITALE [facility] : 1985 Age/S: 33 / F [address] Unit #: [id number] Loc: [place] [address] Phys: Emili Deleon NP Acct: [id number] Dis Date: Status: REG ER PHONE #: [phone] Exam Date: 02/10/2019 0910 FAX #: [phone] Reason: VAGINAL BLEEDING/PELVIC PAIN EXAMS: CPT CODE: [id number] US PREG 1ST TRIMTR 78593 TECHNIQUE - US PREG 1ST TRIMTR, - [...] PAGE 1 Signed Report (CONTINUED) Name: DU VITALE [facility] : 1985 Age/S: 33 / F Akil Gatica [facility] Unit #: [id number] Loc: [place] [address] Phys: Emili Deleon NP Acct: [id number] Dis Date: Status: REG ER PHONE #: [phone] Exam Date: 02/10/2019 0910 FAX #: [phone] Reason: VAGINAL BLEEDING/PELVIC PAIN EXAMS: CPT CODE: [id number] US PREG 1ST TRIMTR 45784 < Continued> CC: Emili Deleon NP Technologist: LB KING RT(R),RDMS Trnsdb Date/Time: 02/10/2019 (0944) tLICO Orig Print D/T: S: 02/10/2019 (1163) Probe: PAGE 2 Signed Report BASIC METABOLIC [id number] 09:42:00* Test Item Value Reference Range Interpretation Comments SODIUM (test code = NA) 139 mmol/L 136-145 N POTASSIUM (test code = K) 4.0 mmol/L 3.5-5.1 N CHLORIDE (test code = CL) 104.0 mmol/L 98-107 N CARBON DIOXIDE (test code = CO2) mmol/L 21-32 ANION GAP (test code = GAP) 10-20 GLUCOSE (test code = GLU) mg/dL 74-106 BLOOD UREA NITROGEN (test code = BUN) mg/dL 7-18 GLOMERULAR FILTRATION RATE (test code = GFR) mL/min >=60 CREATININE (test code = CREAT) mg/dL 0.55-1.02 BUN/CREATININE RATIO (test code = BUN/CREA) 10-20 CALCIUM (test code = CA) mg/dL 8.5-10.1 HCG SERUM [id number] 09:42:00* Test Item Value Reference Range Interpretation Comments HCG SERUM BETA (test code = HCG) mIU/mL 0-3 URINALYSIS [id number] 09:34:00* Test Item Value Reference Range Interpretation Comments UA COLOR (test code = COLU) Light-Yellow YELLOW UA APPEARANCE (test code = APPU) CLEAR CLEAR UA GLUCOSE DIPSTICK (test code = DGLUU) NEGATIVE mg/dL NEGATIVE UA BILIRUBIN DIPSTICK (test code = BILU) NEGATIVE mg/dL NEGATIVE UA KETONE DIPSTICK (test code = KETU) NEGATIVE mg/dL NEGATIVE UA SPECIFIC GRAVITY (test code = SGU) 1.017 1.001-1.035 UA BLOOD DIPSTICK (test code = MARCELA) 0.5 mg/dL (2+) mg/dL NEGATIVE A UA PH DIPSTICK (test code = CARLOTTA) 5.0 5.0-8.0 UA PROTEIN DIPSTICK (test code = PROU) NEGATIVE mg/dL NEGATIVE UA UROBILINIOGEN DIPSTICK (test code = URO) Normal mg/dL NEGATIVE UA NITRITE DIPSTICK (test code = EMY) NEGATIVE NEGATIVE UA LEUKOCYTE ESTERASE W REFLEX (test code = LEUUR) NEGATIVE Nikhil/uL NEGATIVE UA WBC (test code = WBCU) 0-5 per HPF 0-5 UA RBC (test code = RBCU) 0-2 #/HPF 0-5 UA EPITHELIAL CELLS (test code = EPIU) MOD per HPF FEW UA BACTERIA (test code = BACU) FEW per HPF NONE UA MUCUS (test code = MUCU) FEW #/LPF FEW Urine Source? Clean CatchCBC W/O [id number] 09:31:00* Test Item Value Reference Range Interpretation Comments WHITE BLOOD CELL (test code = WBC) 6.7 K/mm3 4.5-12.5 N RED BLOOD CELL (test code = RBC) 5.14 mill/mm3 3.7-5.2 N HEMOGLOBIN (test code = HGB) 11.8 gram/dL 11.5-15.5 N HEMATOCRIT (test code = HCT) 38.2 % 36.0-46.0 N MEAN CELL VOLUME (test code = MCV) 74.3 fL 80-98 L MEAN CELL HGB (test code = MCH) 23.0 picogram 27.0-33.0 L MEAN CELL HGB CONCETRATION (test code = MCHC) 30.9 gram/dL 33.0-36. 0 L RED CELL DISTRIBUTION WIDTH (test code = RDW) 17.7 % 11.6-16. 2 H PLATELET COUNT (test code = PLT) 239 K/mm3 150-450 N MEAN PLATELET VOLUME (test code = MPV) 11.3 fL 6.7-11.0 H URINALYSIS [id number] 09:21:00* Test Item Value Reference Range Interpretation Comments UA COLOR (test code = COLU) Light-Yellow YELLOW UA APPEARANCE (test code = APPU) CLEAR CLEAR UA GLUCOSE DIPSTICK (test code = DGLUU) NEGATIVE mg/dL NEGATIVE UA BILIRUBIN DIPSTICK (test code = BILU) NEGATIVE mg/dL NEGATIVE UA KETONE DIPSTICK (test code = KETU) NEGATIVE mg/dL NEGATIVE UA SPECIFIC GRAVITY (test code = SGU) 1.017 1.001-1.035 UA BLOOD DIPSTICK (test code = MARCELA) 0.5 mg/dL (2+) mg/dL NEGATIVE A UA PH DIPSTICK (test code = CARLOTTA) 5.0 5.0-8.0 UA PROTEIN DIPSTICK (test code = PROU) NEGATIVE mg/dL NEGATIVE UA UROBILINIOGEN DIPSTICK (test code = URO) Normal mg/dL NEGATIVE UA NITRITE DIPSTICK (test code = EMY) NEGATIVE NEGATIVE UA LEUKOCYTE ESTERASE W REFLEX (test code = LEUUR) NEGATIVE Nikhil/uL NEGATIVE UA WBC (test code = WBCU) 0-5 per HPF 0-5 UA RBC (test code = RBCU) 0-2 #/HPF 0-5 UA EPITHELIAL CELLS (test code = EPIU) MOD per HPF FEW UA BACTERIA (test code = BACU) per HPF NONE UA MUCUS (test code = MUCU) FEW #/LPF FEW Urine Source? Clean CatchURINALYSIS [id number] 09:20:00* Test Item Value Reference Range Interpretation Comments UA COLOR (test code = COLU) Light-Yellow YELLOW UA APPEARANCE (test code = APPU) CLEAR CLEAR UA GLUCOSE DIPSTICK (test code = DGLUU) NEGATIVE mg/dL NEGATIVE UA BILIRUBIN DIPSTICK (test code = BILU) NEGATIVE mg/dL NEGATIVE UA KETONE DIPSTICK (test code = KETU) NEGATIVE mg/dL NEGATIVE UA SPECIFIC GRAVITY (test code = SGU) 1.017 1.001-1.035 UA BLOOD DIPSTICK (test code = MARCELA) 0.5 mg/dL (2+) mg/dL NEGATIVE A UA PH DIPSTICK (test code = CARLOTTA) 5.0 5.0-8.0 UA PROTEIN DIPSTICK (test code = PROU) NEGATIVE mg/dL NEGATIVE UA UROBILINIOGEN DIPSTICK (test code = URO) Normal mg/dL NEGATIVE UA NITRITE DIPSTICK (test code = EMY) NEGATIVE NEGATIVE UA LEUKOCYTE ESTERASE W REFLEX (test code = LEUUR) NEGATIVE Nikhil/uL NEGATIVE UA WBC (test code = WBCU) per HPF 0-5 UA RBC (test code = RBCU) per HPF 0-5 UA EPITHELIAL CELLS (test code = EPIU) per HPF Few UA BACTERIA (test code = BACU) per HPF NONE Urine Source? Clean CatchBREAST ULTRASOUND CORE BIOPSY [id number] 16:56:41- BREAST ULTRASOUND CORE BIOPSY LEFTULTRASOUND GUIDED BIOPSY LEFT BREAST WITH MA RKING DEVICE INSERTED: 01/30/2019CLINICAL: Ultrasound biopsy, left breast. Compar angy is made to exams dated 01/16/2019 ultrasound and 05/04/2016 ultrasound - [facility]-. An ultrasound guided biopsy using [...] is still recommended.Ken Oliveros D.O.ss,al/:02/07/2019 16:56:4 1 Cushion Mat Maker: Luanne REDMOND, [facility]-letter sent: Benign BiopsyDIAG MAMM LEFT CAD [id number] 09:07:00 - DIAG MAMM LEFT CAD DIGITALUNILATERAL LEFT DIGITAL DIAGNOSTIC MAMMOGRAM WITH CAD POST-PROCEDURE IMAGING FOR MARKER PLACEMENT: 01/30/2019CLINICAL: Post clip placement. Current mammographic images were evaluated by either a 3scale M-Vu or a Featurespace ImageChecker CAD (computer aided detection system). Comparison is made to exams dated 01/16/2019 mammogram, 05/04/2016 mammogram, and 12/21/2014 mammogram - [facility]-. There are scattered fibroglandular tissues in the left breast. Postbiopsy mammogram demonstrates biopsy marker clip within the biopsied left breast mass in the subareolar region.IMPRESSION: POST PROCEDURE I MAGING FOR MARKER PLACEMENTSuccessful biopsy marker placement within the biopsie d left breast mass.Ken Sow M.D. ss/:01/30/2019 09:07:00 Imagi rhianna Technologist: Jazmine Wells , [facility] Po st-procedure mammogram for marker placementDIAG MAMM BILATERAL CAD DIGITAL 2019-01-16 17:03:24 - DIAG MAMM BILATERAL CAD DIGITALBILATERAL DIGITAL DIAGNOSTIC MAMMOGRAM WITH CAD: 01/16/2019CLINICAL: Bilateral nipple discharge. Current mammographic images were evaluated by either a 3scale M-Vu or a Featurespace ImageSqurlcker CAD (computer aided detection system). Comparison is made to exams dated 05/04/2016 mammogram, 05/04/2016 mammogram, and 11/25/2015 mammogram - [facility]. There are scattered fibroglandular tissues in both [...] 05/04/2016 mammogram, [facility]25/[facility] Real-time ultrasound of both breasts and both [...] 01/17/2019 15:46:02Imaging Technologist: Miriam Mcdonald , [facility] sent: BIRADS 4/5 Biopsy Mireya mogram BI-RADS: 0 Indeterminate Ultrasound BI-RADS: 4a Suspicious abnormality - low suspicion for malignancyBREAST ULTRASOUND [id number] 17:03:24 - DIAG MAMM BILATERAL CAD DIGITALBILATERAL DIGITAL DIAGNOSTIC MAMMOGRAM WITH CAD: 01/16/2019CLINICAL: Bilateral nipple discharge. Current mammographic images were evaluated by either a 3scale M-Vu or a Featurespace ImageAccorder CAD (computer aided detection system). Comparison is made to exams dated 05/04/2016 mammogram, 05/04/2016 mammogram, and [facility]/25/2015 [facility] There are scattered fibroglandular tissues in both [...] mammogr am, and 11/25/2015 [facility] Real-time ultrasound o f both breasts and [...] Entry: - 01/17/2019 15:46:02Imaging Technologist: Miriam Mcdonald FW, [facility]-FWletter sent: BIRADS 4/5 Biopsy Mireya mogram BI-RADS: 0 Indeterminate Ultrasound BI-RADS: 4a Suspicious abnormality - low suspicion for malignancyURINALYSIS [id number] 14:07:00* Test Item Value Reference Range Interpretation Comments UA COLOR (test code = COLU) LIGHT YELLOW YELLOW UA APPEARANCE (test code = APPU) SLIGHTLY CLOUDY CLEAR A UA GLUCOSE DIPSTICK (test code = DGLUU) NEGATIVE mg/dL NEGATIVE UA BILIRUBIN DIPSTICK (test code = BILU) NEGATIVE mg/dL NEGATIVE UA KETONE DIPSTICK (test code = KETU) Negative mg/dL NEGATIVE UA SPECIFIC GRAVITY (test code = SGU) 1.013 1.001-1.035 UA BLOOD DIPSTICK (test code = MARCELA) Negative NEGATIVE UA PH DIPSTICK (test code = CARLOTTA) 6.0 5.0-8.0 UA PROTEIN DIPSTICK (test code = PROU) Negative mg/dL NEGATIVE UA UROBILINIOGEN DIPSTICK (test code = URO) NEGATIVE mg/dL NEGATIVE UA NITRITE DIPSTICK (test code = EMY) NEGATIVE NEGATIVE UA LEUKOCYTE ESTERASE W REFLEX (test code = LEUUR) NEGATIVE NEG ATIVE UA WBC (test code = WBCU) per HPF 0-5 Urine Source? Clean CatchURINALYSIS [id number] 14:07:00* Test Item Value Reference Range Interpretation Comments UA COLOR (test code = COLU) LIGHT YELLOW YELLOW UA APPEARANCE (test code = APPU) SLIGHTLY CLOUDY CLEAR A UA GLUCOSE DIPSTICK (test code = DGLUU) NEGATIVE mg/dL NEGATIVE UA BILIRUBIN DIPSTICK (test code = BILU) NEGATIVE mg/dL NEGATIVE UA KETONE DIPSTICK (test code = KETU) Negative mg/dL NEGATIVE UA SPECIFIC GRAVITY (test code = SGU) 1.013 1.001-1.035 UA BLOOD DIPSTICK (test code = MARCELA) Negative NEGATIVE UA PH DIPSTICK (test code = CARLOTTA) 6.0 5.0-8.0 UA PROTEIN DIPSTICK (test code = PROU) Negative mg/dL NEGATIVE UA UROBILINIOGEN DIPSTICK (test code = URO) NEGATIVE mg/dL NEGATIVE UA NITRITE DIPSTICK (test code = EMY) NEGATIVE NEGATIVE UA LEUKOCYTE ESTERASE W REFLEX (test code = LEUUR) NEGATIVE NEG ATIVE UA WBC (test code = WBCU) 0-5 #/HPF 0-5 UA RBC (test code = RBCU) 0-2 #/HPF 0-5 UA EPITHELIAL CELLS (test code = EPIU) FEW per HPF FEW UA BACTERIA (test code = BACU) FEW #/HPF NONE A UA MUCUS (test code = MUCU) FEW #/LPF FEW Urine Source? Clean CatchBASIC METABOLIC [id number] 13:50:00* Test Item Value Reference Range Interpretation Comments SODIUM (test code = NA) 138 mmol/L 136-145 N POTASSIUM (test code = K) 4.0 mmol/L 3.5-5.1 N CHLORIDE (test code = CL) 105.0 mmol/L 98-107 N CARBON DIOXIDE (test code = CO2) 29.0 mmol/L 21-32 N ANION GAP (test code = GAP) 8.0 10-20 L GLUCOSE (test code = GLU) 89 mg/dL 74-106 N BLOOD UREA NITROGEN (test code = BUN) 12 mg/dL 7-18 N GLOMERULAR FILTRATION RATE (test code = GFR) > 60 mL/min >=60 Estimated GFR by using Modified MDRD formula.Chronic kidney disease is defined as either kidney damageor GFR <60 mL/min/1.73 m2 for >3 months. CREATININE (test code = CREAT) 0.70 mg/dL 0.55-1.02 N Note change in reference range due to change in reagent. BUN/CREATININE RATIO (test code = BUN/CREA) 16.5 10-20 N CALCIUM (test code = CA) 9.4 mg/dL 8.5-10.1 N HCG SERUM [id number] 13:50:00* Test Item Value Reference Range Interpretation Comments HCG SERUM QUAL (test code = HCGQL) NEGATIVE NEGATIVE This HCGQL test is NOT applicable for MALE patients.Check with nurse about probable order error.If Tumor Marker Test needed, nurse should order test "HCGTU"(Test #550.92025) [id number] 13:50:00* Test Item Value Reference Range Interpretation Comments TROPONIN-I (test code = TROPI) <0.015 ng/mL 0-0.045 N BASIC METABOLIC [id number] 13:41:00* Test Item Value Reference Range Interpretation Comments SODIUM (test code = NA) 138 mmol/L 136-145 N POTASSIUM (test code = K) 4.0 mmol/L 3.5-5.1 N CHLORIDE (test code = CL) 105.0 mmol/L 98-107 N CARBON DIOXIDE (test code = CO2) mmol/L 21-32 ANION GAP (test code = GAP) 10-20 GLUCOSE (test code = GLU) mg/dL 74-106 BLOOD UREA NITROGEN (test code = BUN) mg/dL 7-18 GLOMERULAR FILTRATION RATE (test code = GFR) mL/min >=60 CREATININE (test code = CREAT) mg/dL 0.55-1.02 BUN/CREATININE RATIO (test code = BUN/CREA) 10-20 CALCIUM (test code = CA) 9.4 mg/dL 8.5-10.1 N HCG SERUM [id number] 13:41:00* Test Item Value Reference Range Interpretation Comments HCG SERUM QUAL (test code = HCGQL) NEGATIVE NEGATIVE This HCGQL test is NOT applicable for MALE patients.Check with nurse about probable order error.If Tumor Marker Test needed, nurse should order test "HCGTU"(Test #550.76533) [id number] 13:41:00* Test Item Value Reference Range Interpretation Comments TROPONIN-I (test code = TROPI) ng/mL 0-0.045 BASIC METABOLIC [id number] 13:40:00* Test Item Value Reference Range Interpretation Comments SODIUM (test code = NA) mmol/L 136-145 POTASSIUM (test code = K) mmol/L 3.5-5.1 CHLORIDE (test code = CL) mmol/L 98-107 CARBON DIOXIDE (test code = CO2) mmol/L 21-32 ANION GAP (test code = GAP) 10-20 GLUCOSE (test code = GLU) mg/dL 74-106 BLOOD UREA NITROGEN (test code = BUN) mg/dL 7-18 GLOMERULAR FILTRATION RATE (test code = GFR) mL/min >=60 CREATININE (test code = CREAT) mg/dL 0.55-1.02 BUN/CREATININE RATIO (test code = BUN/CREA) 10-20 CALCIUM (test code = CA) mg/dL 8.5-10.1 HCG SERUM [id number] 13:40:00* Test Item Value Reference Range Interpretation Comments HCG SERUM QUAL (test code = HCGQL) NEGATIVE NEGATIVE This HCGQL test is NOT applicable for MALE patients.Check with nurse about probable order error.If Tumor Marker Test needed, nurse should order test "HCGTU"(Test #550.30166) [id number] 13:40:00* Test Item Value Reference Range Interpretation Comments TROPONIN-I (test code = TROPI) ng/mL 0-0.045 CBC W/O [id number] 13:27:00* Test Item Value Reference Range Interpretation Comments WHITE BLOOD CELL (test code = WBC) 6.9 K/mm3 4.5-12.5 N RED BLOOD CELL (test code = RBC) 5.14 mill/mm3 3.7-5.2 N HEMOGLOBIN (test code = HGB) 11.7 gram/dL 11.5-15.5 N HEMATOCRIT (test code = HCT) 38.2 % 36.0-46.0 N MEAN CELL VOLUME (test code = MCV) 74.3 fL 80-98 L MEAN CELL HGB (test code = MCH) 22.8 picogram 27.0-33.0 L MEAN CELL HGB CONCETRATION (test code = MCHC) 30.6 gram/dL 33.0-36. 0 L RED CELL DISTRIBUTION WIDTH (test code = RDW) 18.0 % 11.6-16. 2 H PLATELET COUNT (test code = PLT) 239 K/mm3 150-450 N MEAN PLATELET VOLUME (test code = MPV) 11.4 fL 6.7-11.0 H CBC W/O [id number] 13:25:00* Test Item Value Reference Range Interpretation Comments WHITE BLOOD CELL (test code = WBC) K/mm3 4.5-12.5 RED BLOOD CELL (test code = RBC) mill/mm3 3.7-5.2 HEMOGLOBIN (test code = HGB) 11.7 gram/dL 11.5-15.5 N HEMATOCRIT (test code = HCT) 38.2 % 36.0-46.0 N MEAN CELL VOLUME (test code = MCV) fL 80-98 MEAN CELL HGB (test code = MCH) picogram 27.0-33.0 MEAN CELL HGB CONCETRATION (test code = MCHC) gram/dL 33.0-36. 0 RED CELL DISTRIBUTION WIDTH (test code = RDW) % 11.6-16. 2 PLATELET COUNT (test code = PLT) K/mm3 150-450 MEAN PLATELET VOLUME (test code = MPV) fL 6.7-11.0 - CT HEAD/BRAIN W/O [id number] 13:24:00 Name: DU VITALE POLO [facility] : 1985 Age/S: 33 / F [address] [facility] Unit #: [id number] Loc: [place] [address] Phys: Vinod Selby DO Acct: [id number] Dis Date: Status: REG ER PHONE #: [phone] Exam Date: 12/10/2018 1304 FAX #: [phone] Reason: Headache EXAMS: CPT CODE: [id number] CT HEAD/BRAIN W/O CONT 67658 HISTORY: Headache. COMPARISON: CT brain from September [...] Sharma RT(R),(MR),(CT); CTDI: DLP: Trnscb Date/Time: 12/10/2018 (8334) [email or web address] Orig Print D/T: S: 12/10/2018 (1094) CTDI: DLP: PAGE 1 Signed Report TROPONIN I 2018-11-26 21:18:00* Test Item Value Reference Range Interpretation Comments TROPONIN I (BEAKER) (test code = 397) < ng/mL 0.00-0.03 Troponin I (TnI) levels [...] neurological disease, and per sistent tachyarrhythmia.BASIC METABOLIC [id number] 21:10:00* Test Item Value Reference Range Interpretation Comments SODIUM (BEAKER) (test code = 381) 139 meq/L 136-145 POTASSIUM (BEAKER) (test code = 379) 3.8 meq/L 3.5-5.1 CHLORIDE (BEAKER) (test code = 382) 103 meq/L 98-107 CO2 (BEAKER) (test code = 355) 28 meq/L 22-29 BLOOD UREA NITROGEN (BEAKER) (test code = 354) 12 mg/dL 7-21 CREATININE (BEAKER) (test code = 358) 0.76 mg/dL 0.57-1.25 GLUCOSE RANDOM (BEAKER) (test code = 652) 103 mg/dL 70-105 CALCIUM (BEAKER) (test code = 697) 9.1 mg/dL 8.4-10.2 EGFR (BEAKER) (test code = 1092) 107 mL/min/1.73 sq m ESTIMATED GFR IS NOT ACCURATE CREATININE CLEARANCE IN PREDICTING GLOMERULAR FILTRATION RATE. ESTIMATED GFR IS NOT APPLICABLE FOR DIALYSIS PATIENTS. URINALYSIS W/ REFLEX URINE [id number] 21:10:00* Test Item Value Reference Range Interpretation Comments COLOR (BEAKER) (test code = 470) Yellow CLARITY (BEAKER) (test code = 469) Clear SPECIFIC GRAVITY UA (BEAKER) (test code = 468) 1.018 1.001-1 .035 PH UA (BEAKER) (test code = 467) 5.5 5.0-8.0 PROTEIN UA (BEAKER) (test code = 464) Negative Negative GLUCOSE UA (BEAKER) (test code = 365) Negative Negative KETONES UA (BEAKER) (test code = 371) Negative Negative BILIRUBIN UA (BEAKER) (test code = 462) Negative Negative BLOOD UA (BEAKER) (test code = 461) Negative Negative NITRITE UA (BEAKER) (test code = 465) Negative Negative LEUKOCYTE ESTERASE UA (BEAKER) (test code = 466) Negative Negat jonathan UROBILINOGEN UA (BEAKER) (test code = 463) 2.0 mg/dL 0.2-1.0 H RBC UA (BEAKER) (test code = 519) 0 /HPF WBC UA (BEAKER) (test code = 520) 2 /HPF BACTERIA (BEAKER) (test code = 517) Rare MUCUS (BEAKER) (test code = 1574) Rare SQUAMOUS EPITHELIAL (BEAKER) (test code = 516) 5 /HPF SOURCE(BEAKER) (test code = 2795) CBC W/PLT COUNT & AUTO [id number] 20:57:00* Test Item Value Reference Range Interpretation Comments WHITE BLOOD CELL COUNT (BEAKER) (test code = 775) 7.1 K/ L 3.5- 10.5 RED BLOOD CELL COUNT (BEAKER) (test code = 761) 4.78 M/ L 3.93-5 .22 HEMOGLOBIN (BEAKER) (test code = 410) 10.8 GM/DL 11.2-15.7 L HEMATOCRIT (BEAKER) (test code = 411) 35.6 % 34.1-44.9 MEAN CORPUSCULAR VOLUME (BEAKER) (test code = 753) 74.5 fL 79. 4-94.8 L MEAN CORPUSCULAR HEMOGLOBIN (BEAKER) (test code = 751) 22.6 pg 25.6-32.2 L MEAN CORPUSCULAR HEMOGLOBIN CONC (BEAKER) (test code = 752) 30.3 GM/DL 32.2-35.5 L RED CELL DISTRIBUTION WIDTH (BEAKER) (test code = 412) 17.3 % 11.7-14.4 H PLATELET COUNT (BEAKER) (test code = 756) 240 K/CU MM 150-450 MEAN PLATELET VOLUME (BEAKER) (test code = 754) 11.2 fL 9.4-12 .3 NUCLEATED RED BLOOD CELLS (BEAKER) (test code = 413) 0 /100 WBC 0 -0 NEUTROPHILS RELATIVE PERCENT (BEAKER) (test code = 429) 54 % LYMPHOCYTES RELATIVE PERCENT (BEAKER) (test code = 430) 38 % MONOCYTES RELATIVE PERCENT (BEAKER) (test code = 431) 6 % EOSINOPHILS RELATIVE PERCENT (BEAKER) (test code = 432) 2 % BASOPHILS RELATIVE PERCENT (BEAKER) (test code = 437) 0 % NEUTROPHILS ABSOLUTE COUNT (BEAKER) (test code = 670) 3.81 K/ L 1.56-6.13 LYMPHOCYTES ABSOLUTE COUNT (BEAKER) (test code = 414) 2.69 K/ L 1.18-3.74 MONOCYTES ABSOLUTE COUNT (BEAKER) (test code = 415) 0.42 K/ L 0. 24-0.36 H EOSINOPHILS ABSOLUTE COUNT (BEAKER) (test code = 416) 0.16 K/ L 0.04-0.36 BASOPHILS ABSOLUTE COUNT (BEAKER) (test code = 417) 0.02 K/ L 0. 01-0.08 IMMATURE GRANULOCYTES-RELATIVE PERCENT (BEAKER) (test code = 2801) 0 % 0-1 [id number] 20:55:00* Test Item Value Reference Range Interpretation Comments D-DIMER QUANTITATIVE (ZAIRA) (test code = 671) 0.48 MG/L FEU <0.50 Intended Use: The D-Dimer Assay can be used to aid in the diagnosis of Deep Vein Thrombosis (DVT) and Pulmonary Embolism Disease (PED).In patients with low pre- test probability, various studies concerning STA Liatest D-dimer test have repor louise that with a cutoff value of 0.50 MG/L FEU, the Negative Predictive Value (BACK CLOSER V) regarding the exclusion of thrombosis is within 95-100% range. SCREEN, [id number] 20:53:00* Test Item Value Reference Range Interpretation Comments TEST URINE (ZAIRA) (test code = 583) Negative RAPID STREP A [id number] 21:01:00* Test Item Value Reference Range Interpretation Comments STREP A ANTIGEN (ZAIRA) (test code = 556) Negative Negative RAD, CHEST, 2 [id number] 20:38:00Reason for exam:->COUGHReason for exam:-> shortness of breathIs the patient ?->NoShould this be performed at the bedside?->NoFINAL REPORT Chest 2 views 06/24/2018 8:38 PM CLINICAL HISTORY: COUGHshortness of breath COMPARISON: 12/12/2016 FINDINGS: The lungs are clear. Cardiomediastinal contours are within normal limits. The central pulmonary vasculature is not engorged. The visualized skeleton is intact. IMPRESSION: No acute radiographic abnormalities. Signed: Janiya Eli Verified Date/Time: 06/24/2018 20:38:58 Reading Location: [facility] Reading Room GLOBIN [id number] 13:46:00* Test Item Value Reference Range Interpretation Comments HEMOGLOBIN A1C (ZAIRA) (test code = 368) 5.4 % 4.3-6.1 Add to blood in labTROPONIN [id number] 11:15:00* Test Item Value Reference Range Interpretation Comments TROPONIN I (ZAIRA) (test code = 397) < ng/mL 0.00-0.15 Troponin I (TnI) levels [...] per sistent tachyarrhythmia.CREATINE KINASE (CK), TOTAL AND [id number] 11:14:00* Test Item Value Reference Range Interpretation Comments CREATINE KINASE TOTAL (BEAKER) (test code = 380) 43 U/L 25-23 5 CREATINE KINASE-MB (BEAKER) (test code = 750) 0.5 ng/mL 0.0-4.9 CREATINE KINASE-MB INDEX (BEAKER) (test code = 395) 1.2 % CK-MB Reference Range:<5 Normal5-10 Borderline>10 AbnormalCBC W/PLT COUNT & AUTO [id number] 06:47:00* Test Item Value Reference Range Interpretation Comments WHITE BLOOD CELL COUNT (BEAKER) (test code = 775) 6.6 K/ L 4.0- 10.0 RED BLOOD CELL COUNT (BEAKER) (test code = 761) 4.86 M/ L 4.00-5 .00 HEMOGLOBIN (BEAKER) (test code = 410) 10.9 GM/DL 12.0-15.0 L HEMATOCRIT (BEAKER) (test code = 411) 34.7 % 36.0-45.0 L MEAN CORPUSCULAR VOLUME (BEAKER) (test code = 753) 71.3 fL 82. 0-99.0 L MEAN CORPUSCULAR HEMOGLOBIN (BEAKER) (test code = 751) 22.4 pg 27.0-33.0 L MEAN CORPUSCULAR HEMOGLOBIN CONC (BEAKER) (test code = 752) 31.4 GM/DL 32.0-36.0 L RED CELL DISTRIBUTION WIDTH (BEAKER) (test code = 412) 19.2 % 10.3-14.2 H PLATELET COUNT (BEAKER) (test code = 756) 240 K/CU MM 150-430 MEAN PLATELET VOLUME (BEAKER) (test code = 754) 10.1 fL 6.5-10 .5 NUCLEATED RED BLOOD CELLS (BEAKER) (test code = 413) 0 /100 WBC 0 -0 NEUTROPHILS RELATIVE PERCENT (BEAKER) (test code = 429) 67 % LYMPHOCYTES RELATIVE PERCENT (BEAKER) (test code = 430) 24 % MONOCYTES RELATIVE PERCENT (BEAKER) (test code = 431) 8 % EOSINOPHILS RELATIVE PERCENT (BEAKER) (test code = 432) 1 % BASOPHILS RELATIVE PERCENT (BEAKER) (test code = 437) 0 % NEUTROPHILS ABSOLUTE COUNT (BEAKER) (test code = 670) 4.40 K/ L 1.80-8.00 LYMPHOCYTES ABSOLUTE COUNT (BEAKER) (test code = 414) 1.60 K/ L 1.48-4.50 MONOCYTES ABSOLUTE COUNT (BEAKER) (test code = 415) 0.50 K/ L 0. 00-1.30 EOSINOPHILS ABSOLUTE COUNT (BEAKER) (test code = 416) 0.00 K/ L 0.00-0.50 BASOPHILS ABSOLUTE COUNT (BEAKER) (test code = 417) 0.00 K/ L 0. 00-0.20 (MANUAL DIFFERENTIAL)2016-12-13 06:47:00* Test Item Value Reference Range Interpretation Comments TOTAL COUNTED (BEAKER) (test code = 1351) WBC MORPHOLOGY (BEAKER) (test code = 487) Normal PLT MORPHOLOGY (BEAKER) (test code = 486) Normal ANISOCYTOSIS (BEAKER) (test code = 961) 1+ few HYPOCHROMIA (BEAKER) (test code = 963) 2+ moderate MICROCYTES (BEAKER) (test code = 965) 1+ few CREATINE KINASE (CK), TOTAL AND [id number] 06:27:00* Test Item Value Reference Range Interpretation Comments CREATINE KINASE TOTAL (BEAKER) (test code = 380) 54 U/L 25-23 5 CREATINE KINASE-MB (BEAKER) (test code = 750) 0.7 ng/mL 0.0-4.9 CREATINE KINASE-MB INDEX (BEAKER) (test code = 395) 1.3 % CK-MB Reference Range:<5 Normal5-10 Borderline>10 AbnormalBASIC METABOLIC [id number] 06:16:00* Test Item Value Reference Range Interpretation Comments SODIUM (BEAKER) (test code = 381) 139 meq/L 135-148 POTASSIUM (BEAKER) (test code = 379) 4.1 meq/L 3.6-5.5 CHLORIDE (BEAKER) (test code = 382) 105 meq/L 98-106 CO2 (BEAKER) (test code = 355) 26 meq/L 20-29 BLOOD UREA NITROGEN (BEAKER) (test code = 354) 14 mg/dL 10-26 CREATININE (BEAKER) (test code = 358) 0.80 mg/dL 0.50-1.20 GLUCOSE RANDOM (BEAKER) (test code = 652) 101 mg/dL 70-110 CALCIUM (BEAKER) (test code = 697) 8.8 mg/dL 8.5-10.5 EGFR (BEAKER) (test code = 1092) 102 mL/min/1.73 sq m ESTIMATED GFR IS NOT ACCURATE CREATININE CLEARANCE IN PREDICTING GLOMERULAR FILTRATION RATE. ESTIMATED GFR IS NOT APPLICABLE FOR DIALYSIS PATIENTS. [id number] 21:10:00* Test Item Value Reference Range Interpretation Comments D-DIMER QUANTITATIVE (BEAKER) (test code = 671) 0.33 MG/L FEU <0.50 REGARDING D-DIMER RESULTS: The 98% NPV (Negative Predictive Value) for DVT/PE ex clusion is 0.50 mg/L FEU as suggested by the primary health care nurse and as approved by the FDA.B-TYPE NATRIURETIC FACTOR (BNP)2016-12-12 19:58:00* Test Item Value Reference Range Interpretation Comments B-TYPE NATRIURETIC PEPTIDE (BEAKER) (test code = 700) 3 pg/mL 0-100 TROPONIN [id number] 19:57:00* Test Item Value Reference Range Interpretation Comments TROPONIN I (BEAKER) (test code = 397) < ng/mL 0.00-0.15 Troponin I (TnI) levels [...] per sistent tachyarrhythmia.CREATINE KINASE (CK), TOTAL AND [id number] 19:56:00* Test Item Value Reference Range Interpretation Comments CREATINE KINASE TOTAL (BEAKER) (test code = 380) 56 U/L 25-23 5 CREATINE KINASE-MB (BEAKER) (test code = 750) 0.6 ng/mL 0.0-4.9 CREATINE KINASE-MB INDEX (BEAKER) (test code = 395) 1.1 % CK-MB Reference Range:<5 Normal5-10 Borderline>10 AbnormalHCG, SERUM, [id number] 19:50:00* Test Item Value Reference Range Interpretation Comments TEST SERUM (BEAKER) (test code = 584) Negative BASIC METABOLIC [id number] 19:49:00* Test Item Value Reference Range Interpretation Comments SODIUM (BEAKER) (test code = 381) 139 meq/L 135-148 POTASSIUM (BEAKER) (test code = 379) 3.8 meq/L 3.6-5.5 CHLORIDE (BEAKER) (test code = 382) 105 meq/L 98-106 CO2 (BEAKER) (test code = 355) 28 meq/L 20-29 BLOOD UREA NITROGEN (BEAKER) (test code = 354) 13 mg/dL 10-26 CREATININE (BEAKER) (test code = 358) 0.80 mg/dL 0.50-1.20 GLUCOSE RANDOM (BEAKER) (test code = 652) 85 mg/dL 70-110 CALCIUM (BEAKER) (test code = 697) 8.3 mg/dL 8.5-10.5 L EGFR (BEAKER) (test code = 1092) 102 mL/min/1.73 sq m ESTIMATED GFR IS NOT ACCURATE CREATININE CLEARANCE IN PREDICTING GLOMERULAR FILTRATION RATE. ESTIMATED GFR IS NOT APPLICABLE FOR DIALYSIS PATIENTS. [id number] 19:44:00* Test Item Value Reference Range Interpretation Comments PROTIME (BEAKER) (test code = 759) 10.8 seconds 9.3-12.0 INR (BEAKER) (test code = 370) 1.0 <=5.9 PARTIAL THROMBOPLASTIN TIME (BEAKER) (test code = 760) 31.3 seconds 23.0-35.0 RECOMMENDED COUMADIN/WARFARIN INR THERAPY RANGESSTANDARD DOSE: 2.0 - 3.0 Inclu michel: PROPHYLAXIS for venous thrombosis, systemic embolization; TREATMENT for mayelin ous thrombosis and/or pulmonary embolus.HIGH RISK: Target INR is 2.5-3.5 for pat ients with mechanical heart valves.[id number] 19:43:00* Test Item Value Reference Range Interpretation Comments MAGNESIUM (BEAKER) (test code = 627) 1.8 mg/dL 1.5-3.0 CBC W/PLT COUNT & AUTO [id number] 17:56:00* Test Item Value Reference Range Interpretation Comments WHITE BLOOD CELL COUNT (BEAKER) (test code = 775) 9.4 K/ L 4.0- 10.0 RED BLOOD CELL COUNT (BEAKER) (test code = 761) 5.30 M/ L 4.00-5 .00 H HEMOGLOBIN (BEAKER) (test code = 410) 11.8 GM/DL 12.0-15.0 L HEMATOCRIT (BEAKER) (test code = 411) 37.8 % 36.0-45.0 MEAN CORPUSCULAR VOLUME (BEAKER) (test code = 753) 71.2 fL 82. 0-99.0 L MEAN CORPUSCULAR HEMOGLOBIN (BEAKER) (test code = 751) 22.3 pg 27.0-33.0 L MEAN CORPUSCULAR HEMOGLOBIN CONC (BEAKER) (test code = 752) 31.3 GM/DL 32.0-36.0 L RED CELL DISTRIBUTION WIDTH (BEAKER) (test code = 412) 19.3 % 10.3-14.2 H PLATELET COUNT (BEAKER) (test code = 756) 262 K/CU MM 150-430 MEAN PLATELET VOLUME (BEAKER) (test code = 754) 10.1 fL 6.5-10 .5 NUCLEATED RED BLOOD CELLS (BEAKER) (test code = 413) 0 /100 WBC 0 -0 NEUTROPHILS RELATIVE PERCENT (BEAKER) (test code = 429) 72 % LYMPHOCYTES RELATIVE PERCENT (BEAKER) (test code = 430) 20 % MONOCYTES RELATIVE PERCENT (BEAKER) (test code = 431) 7 % EOSINOPHILS RELATIVE PERCENT (BEAKER) (test code = 432) 1 % BASOPHILS RELATIVE PERCENT (BEAKER) (test code = 437) 1 % NEUTROPHILS ABSOLUTE COUNT (BEAKER) (test code = 670) 6.80 K/ L 1.80-8.00 LYMPHOCYTES ABSOLUTE COUNT (BEAKER) (test code = 414) 1.80 K/ L 1.48-4.50 MONOCYTES ABSOLUTE COUNT (BEAKER) (test code = 415) 0.60 K/ L 0. 00-1.30 EOSINOPHILS ABSOLUTE COUNT (BEAKER) (test code = 416) 0.10 K/ L 0.00-0.50 BASOPHILS ABSOLUTE COUNT (BEAKER) (test code = 417) 0.10 K/ L 0. 00-0.20 (MANUAL DIFFERENTIAL)2016-12-12 17:56:00* Test Item Value Reference Range Interpretation Comments TOTAL COUNTED (BEAKER) (test code = 1351) WBC MORPHOLOGY (BEAKER) (test code = 487) Normal PLT MORPHOLOGY (BEAKER) (test code = 486) Normal ANISOCYTOSIS (BEAKER) (test code = 961) 1+ few HYPOCHROMIA (BEAKER) (test code = 963) 2+ moderate MICROCYTES (BEAKER) (test code = 965) 1+ few CHEST SINGLE (NOT PORTABLE) [place] [address] Patient Name: DU FIGUEROA MR #: [id number] : 1985 Age/Sex: 32/F Req #: [id number] Adm Physician: Ordered by: WOLF STERN MD Report #: [id number] Location: ER Room/Bed: Procedure: [id number] DX/CHEST SINGLE (NOT PORTABLE) Exam Date: 11/21/17 [...] STERN MD VQ LUNG SCAN VENT PERFUSION [place] [address] Patient Name: DU FIGUEROA MR #: [id number] : 1985 Age/Sex: 32/F Req #: [id number] Adm Physician: Ordered by: WOLF STERN MD Report #: [id number] Location: ER Room/Bed: Procedure: [id number] NM/VQ LUNG SCAN VENT PERFUSION Exam Date: [...] COPY TO: WOLF STERN MD US GALLBLADDER [place] [address] Patient Name: DU FIGUEROA MR #: [id number] : 1985 Age/Sex: 32/F Req #: [id number] Adm Physician: BIJU EARLY MD Ordered by: BIJU EARLY MD Report #: [id number] Location: MED/SURG Room/Bed: [facility] Procedure: [id number] US/US GALLBLADDER Exam Date: Exam Time: REP [...] TO: BIJU EARLY MD HEPTOBILIARY W PHARM [place] [address] Patient Name: DU FIGUEROA MR #: [id number] : 1985 Age/Sex: 32/F Req #: [id number] Adm Physician: BIJU EARLY MD Ordered by: RIGOBERTO EARLY MD Report #: [id number] Location: MED/SURG Room/Bed: [facility] Procedure: [id number] NM/HEPTOBILIARY W PHARM Exam Date: 11/12/17 Exam [...] c hronic cholecystitis/gallbladder dyskinesia. Signed by: Dr. Jes Kang M.D. on 11/12/2017 6:53 PM Dictated By: JES KANG MD Electronically Sig mulu By: JES KANG MD on 11/12/17 1853 Transcribed By: WOO on 11/12/17 185 3 COPY TO: RIGOBERTO EARLY MD
--- OUTSIDE RECORDS SUMMARY | 2020-02-05 09:05 | XMS REPORT | Summary of Care ---
Author Author [facility] - Health Organization [facility] - Health Address Unknown Phone Unavailable Care Team Providers Care Business Services Assistant Name Role Phone Ese oCto CN PCP Reason for Referral * (Routine) Referred By Contact Referred To Contact Status Reason Specialty Diagnoses / Procedures Lili Richardson CNM [address] [place] [address] Authorized Maternal Diagnoses Medicine High-risk in first trimester P rocedures CONSULT MATERNAL MEDICINE ULTRASOUND Preferred Location: [place] Reason for Visit * Reason Comments Initial Visit Encounter Details Care Team Description Date [place] [address] [place] [id number] High-risk in first trimester ( Primary Dx); examination or test, positive result; Intraductal papilloma of breast, right; Sickle cell trait; History of prediabetes; Nausea and vomiting during ; Asthma affecting in first trimester; Urinary tract infection affecting 04/24/2019 Initial [facility] Visit [place] [address] [place] [address] Allergies Comments Active Allergy Reactions [...] as of this encounter (statuses as of 04/28/2019) Medications End Date Status Medication Sig Dispensed [...] first Wheezing or trimester Shortness of Breath. 05/04/2019 Active Nitrofurantoin&Nit. Take 1 20 capsule 0 Macrocryst (MACROBID) 100 capsule by 9 mg capsuleIndications: mouth 2 (two) Urinary tract infection times daily affecting for 10 days. Active PNV 67-iron ps-folate Take 1 60 capsule 6 no.1-dha (VITAFOL ULTRA) capsule by 9 29 mg iron- 1 mg-200 mg mouth daily. CapIndications: High-risk in first trimester 04/24/2019 Discontinued albuterol 90 Inhale 1-2 0 [...] mouth every 8 (eight) hours as needed. 04/28/2019 Discontinued NYB30-tlew Take 1 Each 60 Each 6 carb,zxq-ID-hes-dha by mouth 9 (CITRANATAL 90 DHA, ALGAL daily. OIL,) 90 mg iron-1 mg -50 mg-300 mg combo packIndications: High-risk in first trimester documented as of this encounter (statuses as of 04/28/2019) Active Problems Problem Noted Date Asthma affecting in first trimester 2018 Nausea and vomiting during 04/24/2019 Urinary tract infection affecting 04/24/20 19 Intraductal papilloma of breast, right 02/21/2019 Overview: From bx 01/2019 at [facility] [place]. Report sca nned. Refer to [facility] for removal History of prediabetes 08/04/2018 Well woman exam 04/10/2017 Overview: Done 07/2018. Last pap 03/2017 Irregular menstrual cycle 04/10/2017 Sickle cell trait 04/10/2017 Estimated Date of Delivery Comments Yes 12/20/2019 Based on last menst rual period of 03/15/2019 documented as of this encounter (statuses as of 04/28/2019) Resolved Problems Problem Noted Date Resolved Date ERRONEOUS ENCOUNTER--DISREGARD 04/02/2019 019 Patient desires 02/21/2019 04/24/2019 Overview: Stopped OCPs 01/2019 Screen for STD (sexually transmitted disease) 12/27/2018 04/24/2019 Breakthrough bleeding on control pills 12/27/2018 02/21/2019 Galactorrhea of left breast 12/27/2018 04/02/2019 Overview: Breast biopsy benign 01/30/19; see wet primer powder blender al records Vaginitis and vulvovaginitis 10/29/2018 9 [...] as of this encounter (statuses as of 04/28/2019) Immunizations Name Administration Dates Next Due Hep [...] LVN - 04/24/2019 10:00 AM CDT Ira Vitlae is a 33 year old female here [...] Medical History: Diagnosis Date Abnormal uterine bleeding 2006 Asthma 1986 Albuterol prn Breast disorder 2014 clogged milk ducts Candidiasis of vulva and vagina 04/10/2017 Diabetes mellitus 2015 Metformin 1000 mg 2 times a day. Endometriosis 2014 Enlarged heart 11/2016 1 week in [place], [place]. with heart Sickle cell anemia 1986 [...] Surgical History: Procedure Laterality Date BREAST SURGERY 2015 Left breast, milk ducts blocked. Benign CHOLECYSTECTOMY 2018 [place] DILATION AND CURETTAGE (SHX) 2007 HYSTEROSCOPY 2015 [facility] Social History Socioeconomic History Marital status: Spouse [...] file Gets together: Not on file Attends confucianism service: Not on file Active member of [...] No Hemophilia or other Blood Disorders: No [place] Chorea: No Maternal Metabolic Disorder--specify (eg. Type [...] DIFFERENTIAL, CONSULT MATERNAL MEDICINE ULTRASOUND Preferred Location: [facility] Lucas72-iron carb,ozy-EZ-rrv-dha (CITRANATAL 90 DHA, ALGAL OIL,) 90 mg [...] Treatment Care Team Description Date Type Specialty 05/05/2019 Charter Representative Maternal Medi cine Visit Lili Richardson CNM [address] [place], [place] [address] 05/22/2019 Routine [facility] Satellites Visit Lili Richardson CNM [address] [facility] [place] [address] 07/31/2019 Office Visit [facility]ell[facility] Date/Time Name Type Priority Associated Diag noses 04/24/2019 11:35 AM CDT URINE CULTURE LAB Routine High-risk pregn sunny in first trimester Sickle cell trait Urinary tract infection affecting Order Schedule Name Type Priority Associated Diag noses Ordered: 04/24/2019 Glucose 1 Hour Post LAB Routine High-risk in Prandial first trimester History of prediabetes Health Maintenance Due Date Last Done Comments INFLUENZA VACCINE 05/25/2019 DTaP,Tdap,and Td Vaccines 04/02/2020 Postponed fr om 2005 (1 - Tdap) (Insurance / Financial) PNEUMOCOCCAL 0-64 YEARS 04/02/2020 Postponed from 1992 COMBINED SERIES (1 of 3 - (Insurance / Financial) PCV13) PAP SMEAR 04/10/2020 04/10/2017, 012 documented as of this encounter Procedures Comments Procedure Name Priority Date/Time Associated Diag nosis GALV ONLY - SYPHILIS Routine 04/24/2019 High-risk in IGG/IGM 11:35 AM CDT first trimester HIV 1/2 AG-AB WITH REFLEX Routine 04/24/2019 High -risk in 11:35 AM CDT first trimester GC & CHLAMYDIA AMPLIFIED Routine 04/24/2019 High- risk in ASSAY 11:35 AM CDT first trimester WORKUP, BLOOD Routine 04/24/2019 High-ri sk in BANK 11:35 AM CDT first trimester HEPATITIS B SURFACE Routine 04/24/2019 High-risk in ANTIGEN 11:35 AM CDT first trimester VZV ANTIBODY SCREEN Routine 04/24/2019 High-risk in 11:35 AM CDT first trimester RUBELLA SCREEN IGG Routine 04/24/2019 High-risk p regnancy in 11:35 AM CDT first trimester CBC WITH DIFFERENTIAL Routine 04/24/2019 High-ris k in 11:34 AM CDT first trimester GLYCOSYLATED HEMOGLOBIN Routine 04/24/2019 Histor y of prediabetes (A1C) 11:34 AM CDT CBC WITH DIFF Routine 04/24/2019 High-risk pregn sunny in 11:34 AM CDT first trimester POCT URINALYSIS W/O Routine 04/24/2019 examination or SPECIFIC GRAVITY test, positive result POCT TEST Routine 04/24/2019 examination or test, positive result documented in this encounter Results * VZV ANTIBODY SCREEN (04/24/2019 11:35 AM CDT) VZV IgG Positive Negative [facility] antibody SERVICES Specimen Blood - ARM, LEFT Narrative Performed At Positive - Indicates the patient was exposed to VZV t hrough infection or [facility] vaccination. SERVICES Negative - Indicates the patient could be susceptible to VZV infection. Equivocal - A second specimen should be sent for testing. Performing Organization Address City/State/Zipcode Ph one Number [facility] SERVICES CLIA: [id number], [address] [place] [address] [facility] * GALV ONLY - SYPHILIS IGG/IGM (04/24/2019 11:35 AM CDT) Syphilis Non-reactive Non-reactive [facility] IgG/IgM SERVICES Specimen Blood - ARM, LEFT Narrative Performed At Non-reactive - No serologic evidence of T. pallidum i nfection. Cannot exclude [facility] incubating or early syphilis. Submit a second specimen in 2-4 weeks if syphilis SERVICES is clinically suspected. Equivocal - Further testing to follow. Reactive - Further testing to follow. Performing Organization Address [facility] one Number [facility] CLIA: [id number], [address] [place] [address] [facility] * RUBELLA SCREEN (MICHAEL) IGG (04/24/2019 11:35 AM CDT) Pathologist [facility] Rubella screen Positive Negative [facility] IgG SERVICES Specimen Blood - ARM, LEFT Narrative Performed At Positive - Indicates the patient was exposed to Rubel la through infection or [facility] vaccination. SERVICES Negative - Indicates the patient could be susceptible to Rubella infection. Equivocal - A second specimen should be sent. Performing Organization Address [facility] one Number [facility] CLIA: [id number], [address] [place] [address] [facility] * WORKUP, BLOOD BANK (04/24/2019 11:35 AM CDT) Pathologist [facility] ABO & RH O POSITIVE LAB Comment: Performed at [facility] Laboratory Services - [facility] Blood [place] [address] Toll Free: [phone] CLIA No. [id number] IAT Negative LAB Comment: Performed at [facility] Laboratory Services - [facility] Blood [place] [address] Toll Free: [phone] CLIA No. [id number] Specimen Blood - [place] Performing Organization Address City/[facility] one Number [facility] * HIV 1/2 AG-AB WITH REFLEX (04/24/2019 11:35 AM CDT) Pathologist [facility] HIV 1/2 Ag-Ab Negative Negative [facility] with Reflex SERVICES HIV 0.15 [facility] Semi-quantitati SERVICES ve Specimen Blood - ARM, LEFT Narrative Performed At Non-reactive for HIV-1 antigen and HIV-1/HIV-2 antibo dies.No laboratory [facility] evidence of HIV infection.Repeat in 2-4 weeks if acute HIV infection is SERVICES suspected. Performing Organization Address [facility] Number [facility] CLIA: [id number], [address] [place] [address] [facility] * HEPATITIS B SURFACE ANTIGEN (04/24/2019 11:35 AM CDT) HBsAg HEPATITIS B SURFACE ANTIGEN Negative [facility] NEGATIVE SERVICES HBsAg 0.07 [facility] Semi-Quantitati SERVICES ve Specimen Blood - ARM, LEFT Performing Organization Address [facility] Number [facility] SERVICES CLIA: [id number], [address] [place] [address] [facility] * GC & CHLAMYDIA AMPLIFIED ASSAY (04/24/2019 11:35 AM CDT) C. trachomatis NEGATIVE Negative [facility] Nucleic Acid SERVICES N. gonorrhoeae NEGATIVE Negative [facility] Nucleic Acid SERVICES Specimen Urine - URINE, UNSPECIFIED SOURCE Performing Organization Address [facility] Number [facility] CLIA: [id number], [address] [place] [address] [facility] * GLYCOSYLATED HEMOGLOBIN (A1C) (04/24/2019 11:34 AM CDT) HGB A1C 5.4 4.0 - 6.0 % [facility] SERVICES Specimen Blood - ARM, LEFT Performing Organization Address [facility] Number [facility] CLIA: [id number], [address] [place] [address] [facility] * CBC WITH DIFFERENTIAL (04/24/2019 11:34 AM CDT) WBC 6.30 4.30 - 11.10 [facility] 10*3/L SERVICES RBC 5.48 (H) 3.93 - 5.25 10*6/L [facility] HGB 12.7 11.6 - 15.0 g/dL [facility] RY SERVICES HCT 41.0 35.7 - 45.2 % [facility] SERVICES MCV 74.8 (L) 80.6 - 95.5 fL [facility] MCH 23.2 (L) 25.9 - 32.8 pg [facility] MCHC 31.0 (L) 31.6 - 35.1 g/dL [facility] RDW-SD 46.4 39.0 - 49.9 fL [facility] RDW-CV 17.5 (H) 12.0 - 15.5 % [facility] PLT 248 166 - 358 10*3/L [facility] MPV 12.2 9.5 - 12.9 fL [facility] IPF % 9.8 (H)Comment: Platelet count 1.3 - 7.7 % [facility] measured by fluorescence SERVICES method. NRBC/100 WBC 0.0 0.0 - 10.0 /100 WBCs [facility] NRBC x10^3 <0.01 10*3/L [facility] GRAN MAT (NEUT) 62.4 % [facility] % SERVICES IMM GRAN % 0.30 % [facility] LYMPH % 29.0 % [facility] MONO % 5.6 % [facility] EOS % 2.2 % [facility] BASO % 0.5 % [facility] GRAN MAT 3.93 1.88 - 7.09 10*3/uL [facility] x10^3(ANC) SERVICES IMM GRAN x10^3 <0.03 0.00 - 0.06 10*3/uL [facility] LYMPH x10^3 1.83 1.32 - 3.29 10*3/uL [facility] MONO x10^3 0.35 0.33 - 0.92 10*3/uL [facility] EOS x10^3 0.14 0.03 - 0.39 10*3/uL [facility] BASO x10^3 0.03 0.01 - 0.07 10*3/uL [facility] Specimen Blood - ARM, LEFT Performing Organization Address City/State/Zipcode Ph one Number [facility] CLIA: [id number], [address] [place] [address] * POCT URINALYSIS W/O SPECIFIC GRAVITY (04/24/2019) [...]
--- OUTSIDE RECORDS SUMMARY | 2020-02-05 09:06 | XMS REPORT | Summary of Care ---
Author Author [facility] - Health Organization [facility] - Health Address Unknown Phone Unavailable Care Team Providers Care Drophammer Operator Name Role Phone [facility]man[facility] Reason for Visit * Reason Comments Appointment New OB appt Encounter Details Care Team Description Date Type Department Lili Richardson, [facility] [address] [place] [address] Appointment (New OB appt) 12/29/2019 Telephone [facility] [address] [place] [address] Allergies Comments Active Allergy Reactions [...] as of this encounter (statuses as of 12/29/2019) Medications End Date Status Medication Sig Dispensed [...] daily. CapIndications: High-risk in first trimester Active ondansetron (ZOFRAN) 4 mg Take 4 mg by 0 tablet mouth every 8 (eight) hours as needed. Active metroNIDAZOLE (FLAGYL) Take 1 tablet 21 tablet 0 0 500 mg tabletIndications: by mouth 0 BV (bacterial vaginosis) every 8 (eight) hours. Active PROAIR HFA 90 INHALE 1-2 8.5 Inhaler 1 mcg/actuation PUFFS EVERY 6 0 inhalerIndications: (SIX) HOURS Asthma affecting NEEDED FOR in first WHEEZING OR trimester SHORTNESS OF BREATH. documented as of this encounter (statuses as of 12/29/2019) Active Problems Problem Noted Date Bacterial vaginosis 12/03/2019 Overview: By DNA 11/03/19 H. 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 Last pap 03/2017 Sickle cell trait 04/10/2017 documented as of this encounter (statuses as of 12/29/2019) Resolved Problems Problem Noted Date Resolved Date Candidiasis of vulva and vagina 09/25/20192019 Complete 05/22/2019 07/31/2019 High-risk in first trimester 05/06/2019 05/22/2019 Asthma affecting in first trimester 04/24/2019 05/22/2019 Nausea and vomiting during 04/24/2019 0 05/22/2019 Urinary tract infection affecting 04/24/2019 05/22/2019 ERRONEOUS ENCOUNTER--DISREGARD 04/02/2019 019 Intraductal papilloma of breast, right 02/21/2019 11/03/2019 Overview: Removal 05/2019 at [place] Screen for STD (sexually transmitted disease) 12/27/2018 04/24/2019 Breakthrough bleeding on control pills 12/27/2018 02/21/2019 Galactorrhea of left breast 12/27/2018 04/02/2019 Overview: Breast biopsy benign 01/30/19; see seo manager al records Vaginitis and vulvovaginitis 10/29/2018 [...] as of this encounter (statuses as of 12/29/2019) Immunizations Name Administration Dates Next Due Hep [...] Treatment Care Team Description Date Type Specialty 3, [facility] Room 02/10/2020 Office Visit OB Satellites Lili Richardson, CN [address] [place], [place] [phone] 02/10/2020 Initial OB Satellites Visit Health Maintenance Due Date Last Done Comments [...] Phone Address Plan / Dates Group Medicaid [facility] xxxxxxxxx 0-P PLAN - MANAGED MEDICAID STAR PLUS resent Medicaid [facility] xxxxxxxxx 0-P PLAN - MANAGED MEDICAID STAR resent documented as of this encounter
--- OUTSIDE RECORDS SUMMARY | 2020-02-05 09:06 | XMS REPORT | Summary of Care ---
Author Author [facility] - Health Organization [facility] - Health Address Unknown Phone Unavailable Care Team Providers Care Spice Room Worker Name Role Phone [facility]Cher [facility] Reason for Visit * Reason Comments Refill Request Encounter Details Care Team Description Date Type Department Lili Richardson, [facility] [address] [place] [address] Refill Request 12/25/2019 Refill [facility] [address] [place] [phone] Allergies Comments Active Allergy Reactions Severity Noted [...] as of this encounter (statuses as of 12/26/2019) Medications End Date Status Medication Sig Dispensed [...] first WHEEZING OR trimester SHORTNESS OF BREATH. 12/26/2019 Discontinued PROAIR HFA 90 INHALE 1-2 8.5 Inhaler 1 mcg/actuation PUFFS EVERY 6 9 inhalerIndications: (SIX) HOURS Asthma affecting NEEDED FOR in first WHEEZING OR trimester SHORTNESS OF BREATH. documented as of this encounter (statuses as of 12/26/2019) Active Problems Problem Noted Date Bacterial vaginosis [...] as of this encounter (statuses as of 12/26/2019) Resolved Problems Problem Noted Date Resolved Date Candidiasis of vulva and vagina 09/25/20192019 Complete 05/22/2019 07/31/2019 High-risk in first trimester 05/06/2019 05/22/2019 Asthma affecting in first trimester 04/24/2019 05/22/2019 Nausea and vomiting during 04/24/2019 0 05/22/2019 Urinary tract infection affecting 04/24/2019 05/22/2019 ERRONEOUS ENCOUNTER--DISREGARD 04/02/2019 019 Intraductal papilloma of breast, right 02/21/2019 11/03/2019 Overview: Removal 05/2019 at [place] Screen for STD (sexually transmitted disease) 12/27/2018 04/24/2019 Breakthrough bleeding on control pills 12/27/2018 02/21/2019 Galactorrhea of left breast 12/27/2018 04/02/2019 Overview: Breast biopsy benign 01/30/19; see nursing clinical director al records Vaginitis and vulvovaginitis 10/29/2018 9 [...] as of this encounter (statuses as of 12/26/2019) Immunizations Name Administration Dates Next Due Hep [...] filedocumented in this encounter Visit Diagnoses Diagnosis Asthma affecting in first tri mester documented in this encounter Insurance Type Payer Benefit Subscriber ID Effective Phone Address Plan / Dates Group Medicaid [facility] xxxxxxxxx 0-P PLAN - MANAGED MEDICAID STAR PLUS resent Medicaid [facility] xxxxxxxxx 0-P PLAN - MANAGED MEDICAID STAR resent documented as of this encounter
--- OUTSIDE RECORDS SUMMARY | 2020-02-05 09:06 | XMS REPORT | Summary of Care ---
Author Author [facility] - Health Organization [facility] - Health Address Unknown Phone Unavailable Care Team Providers Care Staffing Analyst Name Role Phone Lili Richardson CNM PCP Encounter Details Care Team Description Date Type Department Lauren Acuna RN [address] [place] [id number] 11/18/2019 Patient Secure [facility] [address] [place] [address] Allergies Comments Active Allergy Reactions [...] as of this encounter (statuses as of 11/18/2019) Medications End Date Status Medication Sig Dispensed [...] as of this encounter (statuses as of 11/18/2019) Active Problems Problem Noted Date H. 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 Last pap 03/2017 Sickle cell trait 04/10/2017 documented as of this encounter (statuses as of 11/18/2019) Resolved Problems Problem Noted Date Resolved Date Candidiasis of vulva and vagina 09/25/20192019 Complete 05/22/2019 07/31/2019 High-risk in first trimester 05/06/2019 05/22/2019 Asthma affecting in first trimester 04/24/2019 05/22/2019 Nausea and vomiting during 04/24/2019 0 05/22/2019 Urinary tract infection affecting 04/24/2019 05/22/2019 ERRONEOUS ENCOUNTER--DISREGARD 04/02/2019 019 Intraductal papilloma of breast, right 02/21/2019 11/03/2019 Overview: Removal 05/2019 at [place] Screen for STD (sexually transmitted disease) 12/27/2018 04/24/2019 Breakthrough bleeding on control pills 12/27/2018 02/21/2019 Galactorrhea of left breast 12/27/2018 04/02/2019 Overview: Breast biopsy benign 01/30/19; see pleat taper al records Vaginitis and vulvovaginitis 10/29/2018 9 [...] as of this encounter (statuses as of 11/18/2019) Immunizations Name Administration Dates Next Due Hep [...] Treatment Care Team Description Date Type Specialty Provider, [facility]/19/2019 Office Visit OB Satellites Health Maintenance Due Date Last Done Comments INFLUENZA VACCINE (#1) 2019 DTaP,Tdap,and Td Vaccines 04/02/2020 Postponed fr om 1997 (1 - Tdap) (Insurance / Financial) PAP SMEAR 04/10/2020 04/10/2017, 012 PNEUMOCOCCAL 0-64 YEARS Aged Out No longer latoya agrawal based COMBINED SERIES on patient's age to complete this topic documented as of this encounter Results Not on filedocumented in this encounter Insurance Type Payer Benefit Subscriber ID Effective Phone Address Plan / Dates Group Medicaid [facility] xxxxxxxxx 0-P PLAN - MANAGED MEDICAID STAR PLUS resent Medicaid [facility] xxxxxxxxx 9-P PLAN - MANAGED MEDICAID STAR resent documented as of this encounter
--- OUTSIDE RECORDS SUMMARY | 2020-02-05 09:06 | XMS REPORT | Summary of Care ---
Author Author [facility] - Health Organization [facility] - Health Address Unknown Phone Unavailable Care Team Providers Care Supervisor Cell Operation Name Role Phone AnupamaCher [facility] Encounter Details Care Team Description Date Type Department Doctor Unassigned, [place] [address] [place] [address] 02/02/2020 Patient Secure [facility] [place] [address] [place] [address] Allergies Comments Active Allergy Reactions [...] as of this encounter (statuses as of 02/02/2020) Medications End Date Status Medication Sig Dispensed [...] as of this encounter (statuses as of 02/02/2020) Active Problems Problem Noted Date Bacterial vaginosis [...] as of this encounter (statuses as of 02/02/2020) Resolved Problems Problem Noted Date Resolved Date Candidiasis of vulva and vagina 09/25/20192019 Complete 05/22/2019 07/31/2019 High-risk in first trimester 05/06/2019 05/22/2019 Asthma affecting in first trimester 04/24/2019 05/22/2019 Nausea and vomiting during 04/24/2019 0 05/22/2019 Urinary tract infection affecting 04/24/2019 05/22/2019 ERRONEOUS ENCOUNTER--DISREGARD 04/02/2019 019 Intraductal papilloma of breast, right 02/21/2019 11/03/2019 Overview: Removal 05/2019 at [place] Screen for STD (sexually transmitted disease) 12/27/2018 04/24/2019 Breakthrough bleeding on control pills 12/27/2018 02/21/2019 Galactorrhea of left breast 12/27/2018 04/02/2019 Overview: Breast biopsy benign 01/30/19; see railway track plant operator al records Vaginitis and vulvovaginitis 10/29/2018 [...] as of this encounter (statuses as of 02/02/2020) Immunizations Name Administration Dates Next Due Hep [...] Care Team Description Date Type Specialty 3, [facility]2020 Office Visit OB Satellites Lili Richardson, CN [address] [place] [address] [phone] 02/10/2020 Initial OB Satellites Visit Health Maintenance Due Date Last Done Comments DTaP,Tdap,and Td Vaccines 04/02/2020 Postponed fr om 1997 (1 - Tdap) (Insurance / Financial) PAP SMEAR 04/10/2020 04/10/2017, 012 INFLUENZA VACCINE (Season 05/25/2020 Ended) PNEUMOCOCCAL 0-64 YEARS Aged Out No longer elig ible based COMBINED SERIES on patient's age to complete this topic documented as of this encounter Results Not on filedocumented in this encounter Insurance Type Payer Benefit Subscriber ID Effective Phone Address Plan / Dates Group Medicaid [facility] [place] xxxxxxxxx 0-P PLAN - MANAGED MEDICAID STAR PLUS resent Medicaid [facility] xxxxxxxxx 0-P PLAN - MANAGED MEDICAID STAR resent documented as of this encounter
--- OUTSIDE RECORDS SUMMARY | 2020-02-05 09:06 | XMS REPORT | Summary of Care ---
Author Author [facility] - Health Organization [facility] - Health Address Unknown Phone Unavailable Care Team Providers Care Benefits Coordinator Name Role Phone [facility] Reason for Visit * Reason Comments Refill Request Encounter Details Care Team Description Date Type Department Doctor Unassigned, [place] [address] [place] [address] Refill Request 11/30/2019 Refill [facility] [address] [place] [address] Allergies Comments Active Allergy Reactions [...] as of this encounter (statuses as of 12/10/2019) Medications End Date Status Medication Sig Dispensed Refills Start Date Active diphenhydrAMINE Take 25 mg by 0 (BENADRYL) 25 mg capsule mouth every 6 (six) hours as needed for Allergies. Active famotidine (PEPCID AC Take by 0 ORAL) mouth. Active PNV 67-iron ps-folate Take 1 60 capsule 6 08 no.1-dha (VITAFOL ULTRA) capsule by 9 29 mg iron- 1 mg-200 mg mouth daily. CapIndications: High-risk in first trimester Active PROAIR HFA 90 INHALE 1-2 8.5 Inhaler 1 mcg/actuation PUFFS EVERY 6 9 inhalerIndications: (SIX) HOURS Asthma affecting NEEDED FOR in first WHEEZING OR trimester SHORTNESS OF BREATH. Active ondansetron (ZOFRAN) 4 mg Take 4 mg by 0 tablet mouth every 8 (eight) hours as needed. Active metroNIDAZOLE (FLAGYL) Take 1 tablet 21 tablet 0 0 500 mg tabletIndications: by mouth 0 BV (bacterial vaginosis) every 8 (eight) hours. 12/10/2019 Active metroNIDAZOLE (FLAGYL) Take 1 tablet 21 tablet 1 0 500 mg tabletIndications: by mouth 0 Bacterial vaginosis every 8 (eight) hours for 7 days. documented as of this encounter (statuses as of 12/10/2019) Active Problems Problem Noted Date Bacterial vaginosis [...] as of this encounter (statuses as of 12/10/2019) Resolved Problems Problem Noted Date Resolved Date Candidiasis of vulva and vagina 09/25/20192019 Complete 05/22/2019 07/31/2019 High-risk in first trimester 05/06/2019 05/22/2019 Asthma affecting in first trimester 04/24/2019 05/22/2019 Nausea and vomiting during 04/24/2019 0 05/22/2019 Urinary tract infection affecting 04/24/2019 05/22/2019 ERRONEOUS ENCOUNTER--DISREGARD 04/02/2019 019 Intraductal papilloma of breast, right 02/21/2019 11/03/2019 Overview: Removal 05/2019 at [employer] Screen for STD (sexually transmitted disease) 12/27/2018 04/24/2019 Breakthrough bleeding on control pills 12/27/2018 02/21/2019 Galactorrhea of left breast 12/27/2018 04/02/2019 Overview: Breast biopsy benign 01/30/19; see communication studies professor al records Vaginitis and vulvovaginitis 10/29/2018 9 [...] as of this encounter (statuses as of 12/10/2019) Immunizations Name Administration Dates Next Due Hep [...] filedocumented in this encounter Visit Diagnoses Diagnosis BV (bacterial vaginosis) Vaginitis and vulvovaginitis, unspecifi ed documented in this encounter Insurance Type Payer Benefit Subscriber ID Effective Phone Address Plan / Dates Group Medicaid [facility] [place] xxxxxxxxx 0-P PLAN - MANAGED MEDICAID STAR PLUS resent Medicaid [facility] xxxxxxxxx 0-P PLAN - MANAGED MEDICAID STAR resent documented as of this encounter
--- OUTSIDE RECORDS SUMMARY | 2020-02-05 09:06 | XMS REPORT | Summary of Care ---
Author Author [facility] - Health Organization [facility] - Health Address Unknown Phone Unavailable Care Team Providers Care Credit Resolution Representative Name Role Phone Lili Richardson CNM PCP Reason for Visit * Reason Comments LAB Encounter Details Care Team Description Date Type Department Lili Richardson CNM [address] [place] [address] Lab, [facility] Pain pelvic (Primary Dx) 11/04/2019 Endo Tech [facility] Health Visit [facility] [address] [place] [address] Allergies Comments Active Allergy Reactions [...] as of this encounter (statuses as of 11/04/2019) Medications End Date Status Medication Sig Dispensed [...] as of this encounter (statuses as of 11/04/2019) Active Problems Problem Noted Date H. 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 Last pap 03/2017 Sickle cell trait 04/10/2017 documented as of this encounter (statuses as of 11/04/2019) Resolved Problems Problem Noted Date Resolved Date Candidiasis of vulva and vagina 09/25/20192019 Complete 05/22/2019 07/31/2019 High-risk in first trimester 05/06/2019 05/22/2019 Asthma affecting in first trimester 04/24/2019 05/22/2019 Nausea and vomiting during 04/24/2019 0 05/22/2019 Urinary tract infection affecting 04/24/2019 05/22/2019 ERRONEOUS ENCOUNTER--DISREGARD 04/02/2019 019 Intraductal papilloma of breast, right 02/21/2019 11/03/2019 Overview: Removal 05/2019 at [place] Screen for STD (sexually transmitted disease) 12/27/2018 04/24/2019 Breakthrough bleeding on control pills 12/27/2018 02/21/2019 Galactorrhea of left breast 12/27/2018 04/02/2019 Overview: Breast biopsy benign 01/30/19; see cognos administrator al records Vaginitis and vulvovaginitis 10/29/2018 9 [...] as of this encounter (statuses as of 11/04/2019) Immunizations Name Administration Dates Next Due Hep [...] filedocumented in this encounter Plan of Treatment Date/Time Name Type Priority Associated Diag noses 11/04/2019 3:51 PM AUTOMATIC SCREWMAKER HIV 1/2 AG-AB WITH REFLEX LAB Routine Pain pelvic Order Schedule Name Type Priority Associated Diag noses Expected: 11/04/2019, Expires: 1 HIV 1/2 AG-AB WITH REFLEX LAB Routine Pain pelvic Health Maintenance Due Date Last Done Comments [...] filedocumented in this encounter Visit Diagnoses Diagnosis Pain pelvic - Primary Unspecified symptom associated with fem issac genital organs documented in this encounter Insurance Type Payer Benefit Subscriber ID Effective Phone Address Plan / Dates Group Medicaid [facility] xxxxxxxxx 9-P PLAN - MANAGED MEDICAID STAR resent (Home) [place] [address] documented as of this encounter
--- OUTSIDE RECORDS SUMMARY | 2020-02-05 09:06 | XMS REPORT | Summary of Care ---
Author Author [facility] - Health Organization [facility] - Health Address Unknown Phone Unavailable Care Team Providers Care Military Pay Clerk Name Role Phone Lili Richardson CNM PCP Encounter Details Care Team Description Date Type Department Doctor Unassigned, [place] [address] [place] [address] 11/13/2019 Patient [facility] [address] [place] [address] Allergies Comments Active Allergy Reactions [...] right 02/21/2019 11/03/2019 Overview: Removal 05/2019 at [place] Screen for STD (sexually transmitted disease) 12/27/2018 04/24/2019 Breakthrough bleeding on control pills 12/27/2018 02/21/2019 Galactorrhea of left breast 12/27/2018 04/02/2019 Overview: Breast biopsy benign 01/30/19; see instrumentation supervisor al records Vaginitis and vulvovaginitis 10/29/2018 9 [...] Care Team Description Date Type Specialty Provider, [facility] 11/19/2019 Office Visit OB Satellites Health Maintenance Due Date Last Done Comments INFLUENZA VACCINE (#1) 2019 DTaP,Tdap,and Td Vaccines 04/02/2020 Postponed fr om 1997 (1 - Tdap) (Insurance / Financial) PAP SMEAR 04/10/2020 04/10/2017, 012 PNEUMOCOCCAL 0-64 YEARS Aged Out No longer elig tanja based COMBINED SERIES on patient's age to complete this topic documented as of this encounter Results Not on filedocumented in this encounter Insurance Type Payer Benefit Subscriber ID Effective Phone Address Plan / Dates Group Medicaid [facility] xxxxxxxxx 0-P PLAN - MANAGED MEDICAID STAR PLUS resent Medicaid [facility] COMM [facility] xxxxxxxxx 9-P PLAN - MANAGED MEDICAID STAR resent documented as of this encounter
--- OUTSIDE RECORDS SUMMARY | 2020-02-05 09:06 | XMS REPORT | Summary of Care ---
Author Author [facility] - Health Organization [facility] - Health Address Unknown Phone Unavailable Care Team Providers Care Dressage Instructor Name Role Phone Lili Richardson CNM PCP Cher Altman CNP PCP Reason for Visit * Reason Comments Pelvic Pain STD Testing Encounter Details Care Team Description Date Type Department Lili Richardson CN [address] [place] [address] Screening examination for STD (sexually transmitted disease) (Primary Dx); Patient desires ; Pain pelvic; H. pylori infection; Bacterial vaginosis 11/03/2019 Office Visit [facility] [address] [place] [address] Allergies Comments Active Allergy Reactions [...] as of this encounter (statuses as of 12/03/2019) Medications End Date Status Medication Sig Dispensed [...] mouth every 8 (eight) hours as needed. 12/10/2019 Active metroNIDAZOLE (FLAGYL) Take 1 tablet 21 tablet 1 0 500 mg tabletIndications: by mouth 0 Bacterial vaginosis every 8 (eight) hours for 7 days. 11/03/2019 Discontinued predniSONE 1 mg tablet Take 1 mg by 0 mouth daily. documented as of this encounter (statuses as of 12/03/2019) Active Problems Problem Noted Date Bacterial vaginosis [...] as of this encounter (statuses as of 12/03/2019) Resolved Problems Problem Noted Date Resolved Date Candidiasis of vulva and vagina 09/25/20192019 Complete 05/22/2019 07/31/2019 High-risk in first trimester 05/06/2019 05/22/2019 Asthma affecting in first trimester 04/24/2019 05/22/2019 Nausea and vomiting during 04/24/2019 0 05/22/2019 Urinary tract infection affecting 04/24/2019 05/22/2019 ERRONEOUS ENCOUNTER--DISREGARD 04/02/2019 019 Intraductal papilloma of breast, right 02/21/2019 11/03/2019 Overview: Removal 05/2019 at [place] Screen for STD (sexually transmitted disease) 12/27/2018 04/24/2019 Breakthrough bleeding on control pills 12/27/2018 02/21/2019 Galactorrhea of left breast 12/27/2018 04/02/2019 Overview: Breast biopsy benign 01/30/19; see store clerk al records Vaginitis and vulvovaginitis 10/29/2018 9 [...] as of this encounter (statuses as of 12/03/2019) Immunizations Name Administration Dates Next Due Hep [...] Signs Reading Time Taken Comments Vital Sign 122/86 11/03/2019 9:[address] ABSTRACTOR Blood Pressure 78 11/03/2019 9:[address] ABSTRACTOR Pulse 36.7 C (98 F) 11/03/2019 9:[address] ABSTRACTOR Temperature 20 11/03/2019 9:[address] ABSTRACTOR Respiratory Rate 100% 11/03/2019 9:[address] ABSTRACTOR Oxygen Saturation - - Inhaled Oxygen Concentration 136.6 kg (301 lb 3.2 oz) 11/03/2019 9:[address] ABSTRACTOR Weight 151.1 cm (4' 11.5") 11/03/2019 9:[address] ABSTRACTOR Height 59.82 11/03/2019 9:[address] ABSTRACTOR Body Mass Index documented in this encounter Progress Notes * Lili Richardson, ORTEGA - 11/03/2019 8:[address] ABSTRACTOR Chief complaint: Chief Complaint Patient presents with Pelvic Pain STD Testing HPI C/o pelvic pain x 2wks. W/ same pain post-coital. No pain during intercou rse. Pain relieved by heat No n/v, diarrhea or constipation. No vaginal d/c LMP 10/08 and took Clomid x 5 days after New partner x 6 mon w/out condom Still wanting Taking 4 meds for Hpylori Histories OB History Para Term AB Living 5 2 2 3 2 SAB TAB Ectopic Multiple Live Births 2 2 # Outcome Date GA Lbr Thang/2nd Weight Sex Delivery Anes PTL Lv 5 AB 05/12/19 8w2d 4 Term 02/16/18 40w0d 6 lb 13 oz (3.09 kg) F NORMAL SPONT EPI N KAROL 3 SAB 03/21/17 8w0d 2 SAB 2010 6w0d 1 Term 10/20/03 39w0d 6 lb 4 oz (2.835 kg) F Vag-Spont EPI N KAROL Past Medical History: Diagnosis Date Abnormal uterine bleeding 2006 Asthma 1986 Albuterol prn Breast disorder 2013 clogged milk ducts Candidiasis of vulva and vagina 04/10/2017 Candidiasis of vulva and vagina 09/25/2019 Diabetes mellitus 2015 Metformin 1000 mg 2 times a day. Endometriosis 2014 Enlarged heart 11/2016 1 week in [place], [place]. with heart Pyloritis still on treatment Sickle cell anemia 1986 TRait Trichomonal vaginitis [...] Surgical History: Procedure Laterality Date BREAST SURGERY 2019 Left breast, milk ducts blocked. Benign CHOLECYSTECTOMY 2018 [place] DILATION AND CURETTAGE (SHX) 2007 HYSTEROSCOPY 2016 [facility] Social History Socioeconomic History Marital status: [...] No Sexual activity: Yes Partners: Male control/protection: None, Coitus interruptus Lifestyle Physical activity: Days per week: Not on file Minutes per session: Not on file Stress: Not on file Relationships Social connections: Talks on phone: Not on file Gets together: Not on file Attends restorationist service: Not on file Active member of [...] Activity Sexual Activity Yes Partners: Male control/protection: None, Coitus interruptus Labs Labs are pending. Radiology No new radiology. Allergies Ira is allergic to iodine; iodine and iodide containing products; penicillin s; fish [seafood/fish]; and penicillin. Medications Ira has a current medication list which includes the following prescription( s): bismuth/metronid/tetracycline, ondansetron, proair hfa, pnv 67-iron ps-folat e no.1-dha, diphenhydramine, and famotidine. Review of Systems BP 122/86 | Pulse 78 | Temp 36.7 C (98 F) (Tympanic) | Resp 20 | Ht 4' 1 1.5" (1.511 m) | Wt 301 lb 3.2 oz (136.6 kg) | LMP 09/23/2019 | SpO2 100% | No | BMI 59.82 kg/m Pregravid BMI: Could not be calculated Physical Exam External genitalia: Normal external genitalia appropriate for age. Vagina:Normal vagina. No abnormal vaginal discharge found. Cervix: Normal cervix. No tenderness present. Uterus: Normal uterus Adnexa: Non-tender to cervical motionNormal left adnexa and normal right adnexa Assessment/Plan Screening examination for STD (sexually transmitted disease) (primary encounter diagnosis) Comment: Plan: [facility] ONLY - VAGINAL PATHOGENS BY DNA PROBE, GC & CHLAMYDIA AMPLIFIED ASSAY, HIV 1/2 AG-AB WITH REFLEX, [facility] ONLY - SYPHILIS IGG/IGM Has condoms Patient desires Comment: Plan: taking PNV Pain pelvic Comment: Clomid exposure. Nl exam Plan: GC & CHLAMYDIA AMPLIFIED ASSAY Relief Measures given. If pain still present after menses, may consider ulttrasound H. pylori infection Comment: Plan: assess pain after meds finished Return to clinic in after menses if pain still present and Nov for WWE. This visit did not involve counseling and coordination that comprised more than 50% of the visit time. T ABSTRACTOR * Madelin Ji RN - 11/03/2019 8:[address] ABSTRACTOR Pt here for WWE check-up today. LMP: 09/23/2019 (no return of menses since delivery). previous control: none Desired method maybe for future . Last intercourse 10/27/2018 without protection want another Last pap: 04/10/2017 negative C/O: Pylori inf, on meds now, pelvic pain scale pain 7 also after coitus Verbal consent obtained for HIV testing if needed. SBE, STD, and BC booklet reviewed and provided. She is to ask for reference material at check out. She voiced understanding. T ABSTRACTOR documented in this encounter Plan of Treatment Date/Time Name Type Priority Associated Diag noses 11/03/2019 10:[address] ABSTRACTOR HIV 1/2 AG-AB WITH REFLEX LAB Routine Scre ening examination for STD (sexually transmitted disease) Health Maintenance Due Date Last Done Comments [...] Diag nosis [facility] ONLY - SYPHILIS Routine 11/04/2019 Screening examination for IGG/IGM 3:[address] ABSTRACTOR STD (sexually trans mitted disease) [facility] ONLY - VAGINAL Routine 11/03/2019 Screening examination for PATHOGENS BY DNA PROBE 10:[address] ABSTRACTOR STD (sexually transmitted disease) GC & CHLAMYDIA AMPLIFIED Routine 11/03/2019 Scree abhishek examination for ASSAY 10:[address] ABSTRACTOR STD (sexually trans mitted disease) Pain pelvic documented in this encounter Results * [facility] ONLY - SYPHILIS IGG/IGM (11/04/2019 3:[address] ABSTRACTOR) Syphilis Non-reactive Non-reactive [facility] IgG/IgM SERVICES Specimen Blood - ARM, LEFT Narrative Performed At Non-reactive - No serologic evidence of T. pallidum i nfection. Cannot exclude [facility] incubating or early syphilis. Submit a second specimen in 2-4 weeks if syphilis SERVICES is clinically suspected. Equivocal - Further testing to follow. Reactive - Further testing to follow. Performing Organization Address [facility] one Number [facility] SERVICES CLIA: [id number], [address] [place] [address] [facility] * GC & CHLAMYDIA AMPLIFIED ASSAY (11/03/2019 10:[address] ABSTRACTOR) C. trachomatis Negative Negative [facility] Nucleic Acid SERVICES N. gonorrhoeae Negative Negative [facility] Nucleic Acid SERVICES Specimen Swab - VAGINA Performing Organization Address [facility] Ph one Number [facility] CLIA: [id number], [address] [place] [id number] [facility] * [facility] ONLY - VAGINAL PATHOGENS BY DNA PROBE (11/03/2019 10:[address] ABSTRACTOR) Trichomonas Negative Negative [facility] vaginalis SERVICES Gardnerella Positive (A)Comment: The Negative [facility] vaginalis presence of Gardnerella SERVICES vaginalis although suggestive, is not diagnostic of Bacterial Vaginosis. Ashlyn species Negative Negative [facility] Y SERVICES Specimen Fluid - VAGINA Performing Organization Address City/State/Zipcode Ph one Number [facility] CLIA: [id number], [address] [place] [address] [facility] documented in this encounter Visit Diagnoses Diagnosis Screening examination for STD (sexually transmitted disease) - Primary Screening examination for venereal dise ase Patient desires Unspecified procreative management Pain pelvic Unspecified symptom associated with fem issac genital organs H. pylori infection Helicobacter pylori (H. pylori) Bacterial vaginosis Vaginitis and vulvovaginitis, unspecifi ed documented in this encounter Insurance Type Payer Benefit Subscriber ID Effective Phone Address Plan / Dates Group Medicaid [employer] COMM [employer]HC [place] xxxxxxxxx 0-P PLAN - MANAGED MEDICAID STAR PLUS resent ([place]) [place] [address] documented as of this encounter
--- OUTSIDE RECORDS SUMMARY | 2020-02-05 09:06 | XMS REPORT | Summary of Care ---
Author Author [facility] - Health Organization [facility] - Health Address Unknown Phone Unavailable Care Team Providers Care Harness Preparer Name Role Phone Cher Altman AYAN PCP Reason for Referral * Radiology Services (Routine) Referred By Contact Referred To Contact Status Reason Specialty Diagnoses / Procedures Cher Altman WHCNP [address] [place] [address] Closed Diagnostic Diagnoses Radiology Pain pelvic P rocedures US PELVIC COMPLETE W/TRANSVAG Reason for Visit * Radiology Services (Routine) Referred By Contact Referred To Contact Status Reason Specialty Diagnoses / Procedures Cher Altman WHCNP [address] [place] [address] Closed Diagnostic Diagnoses Radiology Pain pelvic P rocedures US PELVIC COMPLETE W/TRANSVAG Encounter Details Care Team Description Date Type Department Cher Altman WHCNP [address] [place] [address] [phone] Arrived 11/25/2019 Hospital [facility] Diagnos tic Encounter Imaging, [address] [address] Allergies Comments Active Allergy Reactions Severity Noted [...] as of this encounter (statuses as of 11/26/2019) Medications End Date Status Medication Sig Dispensed [...] mouth every 8 (eight) hours as needed. 11/26/2019 Active metroNIDAZOLE (FLAGYL) Take 1 tablet 21 tablet 0 0 500 mg tabletIndications: by mouth 0 BV (bacterial vaginosis) every 8 (eight) hours for 7 days. documented as of this encounter (statuses as of 11/26/2019) Active Problems Problem Noted Date H. 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 Last pap 03/2017 Sickle cell trait 04/10/2017 documented as of this encounter (statuses as of 11/26/2019) Resolved Problems Problem Noted Date Resolved Date Candidiasis of vulva and vagina 09/25/20192019 Complete 05/22/2019 07/31/2019 High-risk in first trimester 05/06/2019 05/22/2019 Asthma affecting in first trimester 04/24/2019 05/22/2019 Nausea and vomiting during 04/24/2019 0 05/22/2019 Urinary tract infection affecting 04/24/2019 05/22/2019 ERRONEOUS ENCOUNTER--DISREGARD 04/02/2019 019 Intraductal papilloma of breast, right 02/21/2019 11/03/2019 Overview: Removal 05/2019 at [place] Screen for STD (sexually transmitted disease) 12/27/2018 04/24/2019 Breakthrough bleeding on control pills 12/27/2018 02/21/2019 Galactorrhea of left breast 12/27/2018 04/02/2019 Overview: Breast biopsy benign 01/30/19; see special forces officer al records Vaginitis and vulvovaginitis 10/29/2018 9 [...] as of this encounter (statuses as of 11/26/2019) Immunizations Name Administration Dates Next Due Hep [...] Procedure Name Priority Date/Time Associated Diag nosis US PELVIS COMPLETE WITH Routine 11/25/2019 Pain p elvic TRANSVAGINAL 5:00 PM SKIP PITMAN documented in this encounter Results * US PELVIC COMPLETE W/TRANSVAG (11/25/2019 5:00 PM SKIP PITMAN) Specimen Impressions Performed At Normal pelvic ultrasound exam. PACS/VR/DOSE Narrative Performed At EXAM: PELVIC ULTRASOUND, TRANSABDOMINAL AND TRANSVAGI NAL PACS/VR/DOSE HISTORY: Pelvic pain COMPARISON: None FINDINGS: UTERUS: The uterus measures 7.6 x 4 x 4 .6 cm. The endometrium is homogeneous and measures 1.1 mm in thic kness. OVARIES: The right ovary measures 2.7 x 1.6 x 2.1 cm. The left ovary measures 2.4 x 1.8 x 1.7 cm. Ovaries morfin ve small subcentimeter follicles and no adnexal masses. No free fluid. Procedure Note [facility], Radiant Results Inft User - 11/25/2019 5:03 PM SKIP PITMAN EXAM: PELVIC ULTRASOUND, TRANSABDOMINAL AND TRANSVAGINAL HISTORY: Pelvic pain COMPARISON: None FINDINGS: UTERUS: The uterus measures 7.6 x 4 x 4.6 cm. The endometrium is homogeneous and measures 1.1 mm in thickness. OVARIES: The right ovary measures 2.7 x 1.6 x 2.1 cm. The left ovary measures 2.4 x 1.8 x 1.7 cm. Ovaries have small subcentimeter follicles and no adnexal masses. No free fluid. IMPRESSION Normal pelvic ultrasound exam. Performing Organization Address City/State/Zipcode Ph one Number PACS/VR/DOSE documented in this encounter Visit Diagnoses Diagnosis Pain pelvic Unspecified symptom associated with fem issac genital organs documented in this encounter Insurance Type Payer Benefit Subscriber ID Effective Phone Address Plan / Dates Group Medicaid [employer] COMM [place]HC [place] xxxxxxxxx 0-P PLAN - MANAGED MEDICAID STAR resent ([place]) [place] [address] documented as of this encounter
--- OUTSIDE RECORDS SUMMARY | 2020-02-05 09:06 | XMS REPORT | Summary of Care ---
Author Author [facility] - Health Organization [facility] - Health Address Unknown Phone Unavailable Care Team Providers Care Field Software Engineer Name Role Phone [facility] Reason for Visit * Reason Comments Refill Request Encounter Details Care Team Description Date Type Department Doctor Unassigned, [place] [address] [place] [address] Refill Request 11/28/2019 Refill [facility] [address] [place] [address] Allergies Comments Active Allergy Reactions [...] every 8 (eight) hours for 7 days. 12/10/2019 Discontinued (Transfer) bismuth/metronid/tetracyc Take by 0 line (PYLERA ORAL) mouth. documented as of this encounter (statuses as [...] right 02/21/2019 11/03/2019 Overview: Removal 05/2019 at [place] Screen for STD (sexually transmitted disease) 12/27/2018 04/24/2019 Breakthrough bleeding on control pills 12/27/2018 02/21/2019 Galactorrhea of left breast 12/27/2018 04/02/2019 Overview: Breast biopsy benign 01/30/19; see oracle apex developer al records Vaginitis and vulvovaginitis 10/29/2018 9 [...] PNEUMOCOCCAL 0-64 YEARS Aged Out No longer elimary agrawal based COMBINED SERIES on patient's age to complete this topic documented as of this encounter Results Not on filedocumented in this encounter Visit Diagnoses Diagnosis BV (bacterial vaginosis) Vaginitis and vulvovaginitis, unspecifi ed documented in this encounter Insurance Type Payer Benefit Subscriber ID Effective Phone Address Plan / Dates Group Medicaid [facility] xxxxxxxxx 0-P PLAN - MANAGED MEDICAID STAR PLUS resent Medicaid [facility] xxxxxxxxx 0-P PLAN - MANAGED MEDICAID STAR resent documented as of this encounter
--- OUTSIDE RECORDS SUMMARY | 2020-02-05 09:06 | XMS REPORT | Summary of Care ---
Author Author [facility] - Health Organization [facility] - Health Address Unknown Phone Unavailable Care Team Providers Care Education Nurse Name Role Phone Cher Altman AYAN PCP Reason for Referral * Radiology Services (Routine) Referred By Contact Referred To Contact Status Reason Specialty Diagnoses / Procedures Cher Altman WHCNP [address] [place] [address] New Request Diagnostic Diagnoses Radiology Pain pelvic P rocedures US PELVIC COMPLETE W/TRANSVAG Reason for Visit * Reason Comments New Medication Pelvic Pain Encounter Details Care Team Description Date Type Department Cher Altman WHCNP [address] [place] [address] [phone] New Medication; Pelvic Pain 11/19/2019 Case Management [place] [address] [place] [address] Allergies Comments Active Allergy Reactions [...] as of this encounter (statuses as of 11/19/2019) Medications End Date Status Medication Sig Dispensed [...] as of this encounter (statuses as of 11/19/2019) Active Problems Problem Noted Date H. 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 Last pap 03/2017 Sickle cell trait 04/10/2017 documented as of this encounter (statuses as of 11/19/2019) Resolved Problems Problem Noted Date Resolved Date Candidiasis of vulva and vagina 09/25/20192019 Complete 05/22/2019 07/31/2019 High-risk in first trimester 05/06/2019 05/22/2019 Asthma affecting in first trimester 04/24/2019 05/22/2019 Nausea and vomiting during 04/24/2019 0 05/22/2019 Urinary tract infection affecting 04/24/2019 05/22/2019 ERRONEOUS ENCOUNTER--DISREGARD 04/02/2019 019 Intraductal papilloma of breast, right 02/21/2019 11/03/2019 Overview: Removal 05/2019 at [place] Screen for STD (sexually transmitted disease) 12/27/2018 04/24/2019 Breakthrough bleeding on control pills 12/27/2018 02/21/2019 Galactorrhea of left breast 12/27/2018 04/02/2019 Overview: Breast biopsy benign 01/30/19; see crusher tender al records Vaginitis and vulvovaginitis 10/29/2018 9 [...] as of this encounter (statuses as of 11/19/2019) Immunizations Name Administration Dates Next Due Hep [...] Treatment Care Team Description Date Type Specialty Cher Altman WHCNP [address] [facility] [address] [place] [address] [phone] Provider, Katherin Tran 11/19/2019 Office Visit [facility] Order Schedule Name Type Priority Associated Diag noses Expected: 11/19/2019, Expires: 1 US PELVIC COMPLETE IMAGING Routine Pain pelvic W/TRANSVAG Health Maintenance Due Date Last Done Comments [...] symptom associated with fem issac genital organs BV (bacterial vaginosis) Vaginitis and vulvovaginitis, unspecifi ed documented in this encounter Insurance Type Payer Benefit Subscriber ID Effective Phone Address Plan / Dates Group Medicaid [employer] [facility] [employer] [place] xxxxxxxxx 0-P PLAN - MANAGED MEDICAID STAR PLUS resent documented as of this encounter
--- OUTSIDE RECORDS SUMMARY | 2020-02-05 09:06 | XMS REPORT | Summary of Care ---
Author Author [facility] - Health Organization [facility] - Health Address Unknown Phone Unavailable Care Team Providers Care Selling Specialist Name Role Phone Lili Richardson CNM PCP Reason for Visit * Reason Comments LAB Encounter Details Care Team Description Date Type Department Lili Richardson CNM [address] [place] [address] Lab, [facility] Pain pelvic (Primary Dx) 11/04/2019 Tapper Bit [facility] Health Visit [facility] [address] [place] [address] Allergies Comments Active Allergy Reactions [...] right 02/21/2019 11/03/2019 Overview: Removal 05/2019 at [place] Screen for STD (sexually transmitted disease) 12/27/2018 04/24/2019 Breakthrough bleeding on control pills 12/27/2018 02/21/2019 Galactorrhea of left breast 12/27/2018 04/02/2019 Overview: Breast biopsy benign 01/30/19; see flat polisher al records Vaginitis and vulvovaginitis 10/29/2018 9 [...] filedocumented in this encounter Plan of Treatment Order Schedule Name Type Priority Associated Diag [...]
--- OUTSIDE RECORDS SUMMARY | 2020-02-05 09:06 | XMS REPORT | Summary of Care ---
Author Author [facility] - Health Organization [facility] - Health Address Unknown Phone Unavailable Care Team Providers Care Recruit Instructor Name Role Phone Lili Richardson CNM PCP Encounter Details Care Team Description Date Type Department Lauren Acuna RN [address] [place] [id number] 11/18/2019 Patient [facility] [address] [place] [address] Allergies Comments Active Allergy Reactions [...] right 02/21/2019 11/03/2019 Overview: Removal 05/2019 at [place] Screen for STD (sexually transmitted disease) 12/27/2018 04/24/2019 Breakthrough bleeding on control pills 12/27/2018 02/21/2019 Galactorrhea of left breast 12/27/2018 04/02/2019 Overview: Breast biopsy benign 01/30/19; see an/ssn 2 4 operator al records Vaginitis and vulvovaginitis 10/29/2018 [...] Care Team Description Date Type Specialty Provider[facility]/2019 [facility] OB [...] Phone Address Plan / Dates Group Medicaid [facility] xxxxxxxxx 0-P PLAN - MANAGED MEDICAID STAR PLUS resent Medicaid [facility] xxxxxxxxx 9-P PLAN - MANAGED MEDICAID STAR resent documented as of this encounter
--- OUTSIDE RECORDS SUMMARY | 2020-02-05 09:06 | XMS REPORT | Summary of Care ---
Author Author [facility] - Health Organization [facility] - Health Address Unknown Phone Unavailable Care Team Providers Care Transition Of Care Specialist Name Role Phone Lili Richardson [facility] PCP Reason for Visit * Reason Comments Pelvic Pain STD Testing Encounter Details Care Team Description Date Type Department Lili Richardson CNM [address] [place] [address] Screening examination for STD (sexually transmitted disease) (Primary Dx); Patient desires ; Pain pelvic; H. pylori infection 11/03/2019 Office Visit [facility] [address] [place] [address] Allergies Comments Active Allergy Reactions [...] mouth every 8 (eight) hours as needed. 11/03/2019 Discontinued predniSONE 1 mg tablet Take [...] right 02/21/2019 11/03/2019 Overview: Removal 05/2019 at [place] Screen for STD (sexually transmitted disease) 12/27/2018 04/24/2019 Breakthrough bleeding on control pills 12/27/2018 02/21/2019 Galactorrhea of left breast 12/27/2018 04/02/2019 Overview: Breast biopsy benign 01/30/19; see bridge carpenter al records Vaginitis and vulvovaginitis 10/29/2018 9 [...] Comments Vital Sign 122/86 11/03/2019 9:08 AM ONCOLOGIST Blood Pressure 78 11/03/2019 9:08 AM ONCOLOGIST Pulse 36.7 C (98 F) 11/03/2019 9:08 AM ONCOLOGIST Temperature 20 11/03/2019 9:08 AM ONCOLOGIST Respiratory Rate 100% 11/03/2019 9:08 AM ONCOLOGIST Oxygen Saturation - - Inhaled Oxygen Concentration 136.6 kg (301 lb 3.2 oz) 11/03/2019 9:08 AM ONCOLOGIST Weight 151.1 cm (4' 11.5") 11/03/2019 9:08 AM ONCOLOGIST Height 59.82 11/03/2019 9:08 AM ONCOLOGIST Body Mass Index documented in this encounter Progress Notes * Lili Richardson CNM - 11/03/2019 8:45 AM ONCOLOGIST Chief complaint: Chief Complaint Patient presents with [...] Diagnosis Date Abnormal uterine bleeding 2006 Asthma 1985 Albuterol prn Breast disorder 2014 clogged milk ducts Candidiasis of vulva and vagina 04/10/2017 Candidiasis of vulva and vagina 09/25/2019 Diabetes mellitus 2015 Metformin 1000 mg 2 times a day. Endometriosis 2013 Enlarged heart 11/2016 1 week in [place], [place]. with heart Pyloritis still on treatment [...] Surgical History: Procedure Laterality Date BREAST SURGERY 2018 Left breast, milk ducts blocked. Benign CHOLECYSTECTOMY 2018 [place] DILATION AND CURETTAGE (SHX) 2007 HYSTEROSCOPY 2016 [facility] Social History Socioeconomic History Marital status: [...] file Gets together: Not on file Attends zoroastrian service: Not on file Active member of [...] more than 50% of the visit time. LOGIST * Madelin Ji RN - 11/03/2019 8:45 AM ONCOLOGIST Pt here for WWE check-up today. LMP: [...] material at check out. She voiced understanding. LOGIST documented in this encounter Plan of Treatment Date/Time Name Type Priority Associated Diag noses 11/03/2019 10:33 AM ONCOLOGIST GALV ONLY - VAGINAL LAB Routine Screening examination for PATHOGENS BY DNA PROBE STD (sexually transmitted disease) 11/03/2019 10:33 AM ONCOLOGIST GC & CHLAMYDIA AMPLIFIED LAB Routine Scree abhishek examination for ASSAY STD (sexually transmitted disease) Pain pelvic 11/03/2019 10:33 AM ONCOLOGIST HIV 1/2 AG-AB WITH REFLEX LAB Routine Scre ening examination for STD (sexually transmitted disease) 11/03/2019 10:33 AM ONCOLOGIST GALV ONLY - SYPHILIS LAB Routine Screening examination for IGG/IGM STD (sexually transmitted disease) Health Maintenance Due [...] filedocumented in this encounter Visit Diagnoses Diagnosis Screening examination for STD (sexually transmitted disease) - Primary Screening examination for venereal dise ase Patient desires Unspecified procreative management Pain pelvic Unspecified symptom associated with fem issac genital organs H. pylori infection Helicobacter pylori (H. pylori) documented in this encounter Insurance Type Payer Benefit Subscriber ID Effective Phone Address Plan / Dates Group Medicaid [employer] [facility] [employer] [place] xxxxxxxxx 9-P PLAN - MANAGED MEDICAID STAR resent Guarantor Name Account Relation to Date of Phone Katrina hernandez Address Type Patient Ira Vitale Personal/F Self [id number] [facility] [address] [facility] (Home) [id number] documented as of this encounter
--- OUTSIDE RECORDS SUMMARY | 2020-02-05 09:06 | XMS REPORT | Summary of Care ---
Author Author [facility] - Health Organization [facility] - Health Address Unknown Phone Unavailable Care Team Providers Care Director Of Curriculum And Instruction Name Role Phone Lili Richardson CNM PCP Encounter Details Care Team Description Date Type Department Doctor Unassigned, [place] [address] [place] [address] 09/25/2019 Patient Secure [facility] [address] [place] [address] Allergies Comments Active Allergy Reactions [...] as of this encounter (statuses as of 11/01/2019) Medications End Date Status Medication Sig Dispensed [...] daily. CapIndications: High-risk in first trimester Active predniSONE 1 mg tablet Take 1 mg by 0 mouth daily. Active PROAIR HFA 90 INHALE 1-2 8.5 Inhaler 1 mcg/actuation PUFFS EVERY 6 9 inhalerIndications: (SIX) HOURS Asthma affecting NEEDED FOR in first WHEEZING OR trimester SHORTNESS OF BREATH. 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 Last pap 03/2017 Sickle cell trait 04/10/2017 documented as of this encounter (statuses as of 11/01/2019) Resolved Problems Problem Noted Date Resolved Date Complete 05/22/2019 07/31/2019 High-risk in first trimester 05/06/2019 05/22/2019 Asthma affecting in first trimester 04/24/2019 05/22/2019 Nausea and vomiting during 04/24/2019 0 05/22/2019 Urinary tract infection affecting 04/24/2019 05/22/2019 ERRONEOUS ENCOUNTER--DISREGARD 04/02/2019 019 Screen for STD (sexually transmitted disease) 12/27/2018 04/24/2019 Breakthrough bleeding on control pills 12/27/2018 02/21/2019 Galactorrhea of left breast 12/27/2018 04/02/2019 Overview: Breast biopsy benign 01/30/19; see candles pourer al records Vaginitis and vulvovaginitis 10/29/2018 9 [...] as of this encounter (statuses as of 11/01/2019) Immunizations Name Administration Dates Next Due Hep [...] Care Team Description Date Type Specialty Lili Richardson, CNM [address] [place], [place] [id number] 11/03/2019 Office Visit [facility] Maintenance Due [...]
--- OUTSIDE RECORDS SUMMARY | 2020-02-05 09:06 | XMS REPORT | Summary of Care ---
Author Author [facility] - Health Organization [facility] - Health Address Unknown Phone Unavailable Care Team Providers Care Day Care Teacher Name Role Phone Lili Richardson CNM PCP Encounter Details Care Team Description Date Type Department Lauren Acuna RN [address] [place] [id number] 11/18/2019 Patient Secure [facility] [address] [place] [address] Allergies Comments Active Allergy Reactions [...] right 02/21/2019 11/03/2019 Overview: Removal 05/2019 at [place] Screen for STD (sexually transmitted disease) 12/27/2018 04/24/2019 Breakthrough bleeding on control pills 12/27/2018 02/21/2019 Galactorrhea of left breast 12/27/2018 04/02/2019 Overview: Breast biopsy benign 01/30/19; see clammer al records Vaginitis and vulvovaginitis 10/29/2018 9 [...] Care Team Description Date Type Specialty Provider, [facility] 11/19/2019 Office Visit [facility] [...] Address Plan / Dates Group Medicaid [facility] xxxxxxxxx 0-P PLAN - MANAGED MEDICAID STAR PLUS resent Medicaid [facility] xxxxxxxxx 9-P PLAN - MANAGED MEDICAID STAR resent documented as of this encounter
--- OUTSIDE RECORDS SUMMARY | 2020-02-05 09:06 | XMS REPORT | Summary of Care ---
Author Author [facility] - Health Organization [facility] - Health Address Unknown Phone Unavailable Care Team Providers Care Assistant Drafter Name Role Phone Lili Richardson [facility] PCP Reason for Visit * Reason Comments Pelvic Pain STD Testing Encounter Details Care Team Description Date Type Department Lili Richardson CNM [address] [place] [address] Screening examination for STD (sexually transmitted disease) (Primary Dx); Patient desires ; Pain pelvic; H. pylori infection 11/03/2019 Office Visit [facility] [address] [place] [address] Allergies Comments Active Allergy Reactions [...] right 02/21/2019 11/03/2019 Overview: Removal 05/2019 at [place] Screen for STD (sexually transmitted disease) 12/27/2018 04/24/2019 Breakthrough bleeding on control pills 12/27/2018 02/21/2019 Galactorrhea of left breast 12/27/2018 04/02/2019 Overview: Breast biopsy benign 01/30/19; see image archivist al records Vaginitis and vulvovaginitis 10/29/2018 9 [...] Comments Vital Sign 122/86 11/03/2019 9:08 AM PROVIDER SCRIBE Blood Pressure 78 11/03/2019 9:08 AM PROVIDER SCRIBE Pulse 36.7 C (98 F) 11/03/2019 9:08 AM PROVIDER SCRIBE Temperature 20 11/03/2019 9:08 AM PROVIDER SCRIBE Respiratory Rate 100% 11/03/2019 9:08 AM PROVIDER SCRIBE Oxygen Saturation - - Inhaled Oxygen Concentration 136.6 kg (301 lb 3.2 oz) 11/03/2019 9:08 AM PROVIDER SCRIBE Weight 151.1 cm (4' 11.5") 11/03/2019 9:08 AM PROVIDER SCRIBE Height 59.82 11/03/2019 9:08 AM PROVIDER SCRIBE Body Mass Index documented in this encounter Progress Notes * Lili Richardson CNM - 11/03/2019 8:45 AM PROVIDER SCRIBE Chief complaint: Chief Complaint Patient presents with [...] 2013 Enlarged heart 11/2016 1 week in [place], [place]. with heart Pyloritis still on treatment [...] breast, milk ducts blocked. Benign CHOLECYSTECTOMY 2018 [place] DILATION AND CURETTAGE (SHX) 2007 HYSTEROSCOPY 2016 [facility] Social History Socioeconomic History Marital status: Spouse [...] file Gets together: Not on file Attends mosque service: Not on file Active member of [...] more than 50% of the visit time. IDER SCRIBE * Madelin Ji RN - 11/03/2019 8:45 AM PROVIDER SCRIBE Pt here for WWE check-up today. LMP: [...] material at check out. She voiced understanding. IDER SCRIBE documented in this encounter Plan of Treatment Date/Time Name Type Priority Associated Diag noses 11/03/2019 10:33 AM PROVIDER SCRIBE GALV ONLY - VAGINAL LAB Routine Screening examination for PATHOGENS BY DNA PROBE STD (sexually transmitted disease) 11/03/2019 10:33 AM PROVIDER SCRIBE GC & CHLAMYDIA AMPLIFIED LAB Routine Scree abhishek examination for ASSAY STD (sexually transmitted disease) Pain pelvic 11/03/2019 10:33 AM PROVIDER SCRIBE HIV 1/2 AG-AB WITH REFLEX LAB Routine Scre ening examination for STD (sexually transmitted disease) 11/03/2019 10:33 AM PROVIDER SCRIBE GALV ONLY - SYPHILIS LAB Routine Screening [...]
--- OUTSIDE RECORDS SUMMARY | 2020-02-05 09:06 | XMS REPORT | Summary of Care ---
Author Author [facility] - Health Organization [facility] - Health Address Unknown Phone Unavailable Care Team Providers Care Dye And Chemical Coordinator Name Role Phone Cher Altamn [facility] PCP Reason for Visit * Reason Comments Refill Request Encounter Details Care Team Description Date Type Department Cher Altman WHCNP [address] [facility] [address] [place] [address] [phone] Refill Request 11/28/2019 [facility] [address] [place] [address] Allergies Comments Active Allergy Reactions [...] right 02/21/2019 11/03/2019 Overview: Removal 05/2019 at [place] Screen for STD (sexually transmitted disease) 12/27/2018 04/24/2019 Breakthrough bleeding on control pills 12/27/2018 02/21/2019 Galactorrhea of left breast 12/27/2018 04/02/2019 Overview: Breast biopsy benign 01/30/19; see flakeboard line tender al records Vaginitis and vulvovaginitis 10/29/2018 [...] Phone Address Plan / Dates Group Medicaid [facility] COMM [facility] xxxxxxxxx 0-P PLAN - MANAGED MEDICAID STAR PLUS resent Medicaid [facility] COMM [facility] xxxxxxxxx 0-P PLAN - MANAGED MEDICAID STAR resent documented as of this encounter
--- OUTSIDE RECORDS SUMMARY | 2020-02-05 09:06 | XMS REPORT | Summary of Care ---
Author Author [facility] - Health Organization [facility] - Health Address Unknown Phone Unavailable Care Team Providers Care Gaming Cage Worker Name Role Phone Lili Richardson [facility] PCP Reason for Visit * Reason Comments Pelvic Pain STD Testing Encounter Details Care Team Description Date Type Department Lili Richardson CNM [address] [place] [address] Screening examination for STD (sexually transmitted disease) (Primary Dx); Patient desires ; Pain pelvic; H. pylori infection 11/03/2019 Office Visit [facility] [address] [place] [address] Allergies Comments Active Allergy Reactions [...] right 02/21/2019 11/03/2019 Overview: Removal 05/2019 at [place] Screen for STD (sexually transmitted disease) 12/27/2018 04/24/2019 Breakthrough bleeding on control pills 12/27/2018 02/21/2019 Galactorrhea of left breast 12/27/2018 04/02/2019 Overview: Breast biopsy benign 01/30/19; see ticketing agent al records Vaginitis and vulvovaginitis 10/29/2018 9 [...] Comments Vital Sign 122/86 11/03/2019 9:08 AM RADIO SPORTSCASTER Blood Pressure 78 11/03/2019 9:08 AM RADIO SPORTSCASTER Pulse 36.7 C (98 F) 11/03/2019 9:08 AM RADIO SPORTSCASTER Temperature 20 11/03/2019 9:08 AM RADIO SPORTSCASTER Respiratory Rate 100% 11/03/2019 9:08 AM RADIO SPORTSCASTER Oxygen Saturation - - Inhaled Oxygen Concentration 136.6 kg (301 lb 3.2 oz) 11/03/2019 9:08 AM RADIO SPORTSCASTER Weight 151.1 cm (4' 11.5") 11/03/2019 9:08 AM RADIO SPORTSCASTER Height 59.82 11/03/2019 9:08 AM RADIO SPORTSCASTER Body Mass Index documented in this encounter Progress Notes * Lili Richardson CNM - 11/03/2019 8:45 AM RADIO SPORTSCASTER Chief complaint: Chief Complaint Patient presents with [...] 2013 Enlarged heart 11/2016 1 week in [place], [place]. with heart Pyloritis still on treatment [...] breast, milk ducts blocked. Benign CHOLECYSTECTOMY 2018 [place] DILATION AND CURETTAGE (SHX) 2007 HYSTEROSCOPY 2016 [facility] Social History Socioeconomic History Marital [...] file Gets together: Not on file Attends rastafari service: Not on file Active member of [...] more than 50% of the visit time. O SPORTSCASTER * Madelin Ji RN - 11/03/2019 8:45 AM RADIO SPORTSCASTER Pt here for WWE check-up today. LMP: [...] material at check out. She voiced understanding. O SPORTSCASTER documented in this encounter Plan of Treatment Care Team Description Date Type Specialty Lab, [facility] 11/04/2019 Associate Professor Of Biblical Studies [facility] Visit Date/Time Name Type Priority Associated Diag noses 11/03/2019 10:33 AM RADIO SPORTSCASTER GALV ONLY - VAGINAL LAB Routine Screening examination for PATHOGENS BY DNA PROBE STD (sexually transmitted disease) 11/03/2019 10:33 AM RADIO SPORTSCASTER GC & CHLAMYDIA AMPLIFIED LAB Routine Scree abhishek examination for ASSAY STD (sexually transmitted disease) Pain pelvic 11/03/2019 10:33 AM RADIO SPORTSCASTER HIV 1/2 AG-AB WITH REFLEX LAB Routine Scre ening examination for STD (sexually transmitted disease) Order Schedule Name Type Priority Associated Diag noses Ordered: 11/03/2019 GALV ONLY - SYPHILIS LAB Routine Screening [...]
[2020-02-05] MEDS ORDERED: KETOROLAC TROMETHAMINE 30 MG/ML VIAL IV STA (09:16)
[2020-02-05 09:25] LABS: BASOPHILS % 0.5 % (0.0-1.0); EOSINOPHILS # (AUTO) 0.1 (0.0-0.4); EOSINOPHILS % 2.4 % (0.0-6.0); HEMATOCRIT 36.6 % (34.2-44.1); HEMOGLOBIN 11.6 g/dL (12.0-16.0); LYMPHOCYTES # (AUTO) 1.7 (1.0-3.2); LYMPHOCYTES % 30.2 % (18.0-39.1); MEAN CORPUSCULAR HEMOGLOBIN 23.8 pg (28-32); MEAN CORPUSCULAR HGB CONC 31.7 g/dL (31-35); MONOCYTES # (AUTO) 0.5 (0.2-0.8); MONOCYTES % 7.9 % (4.4-11.3); NEUTROPHILS # (AUTO) 3.4 (2.1-6.9); NEUTROPHILS % 58.7 % (38.7-80.0); PLATELET COUNT 239 x10e3/uL (140-360); RED BLOOD COUNT 4.88 x10e6/uL (3.6-5.1); RED CELL DISTRIBUTION WIDTH 17.5 % (11.7-14.4)
[2020-02-05] MEDS ORDERED: DIAZEPAM 2 MG TAB PO ONE (09:30)
[2020-02-05 09:49] LABS: BILIRUBIN,URINE NEGATIVE (NEGATIVE); CLARITY,URINE CLEAR (CLEAR); COLOR,URINE YELLOW (YELLOW); KETONES,URINE NEGATIVE (NEGATIVE); LEUKOCYTE ESTERASE ,URINE NEGATIVE (NEGATIVE); NITRITE,URINE NEGATIVE (NEGATIVE); PROTEIN,URINE DIPSTICK NEGATIVE (NEGATIVE); URINE UROBILINOGEN 0.2 mg/dL (0.2 - 1)
[2020-02-05 09:50] LABS: PREGNANCY TEST, URINE NEGATIVE (NEGATIVE)
--- NOTE | 2020-02-05 09:52 | NUR ---
PT MEDICATED PER EMAR.
[2020-02-05 10:02] LABS: ALANINE AMINOTRANSFERASE 10 IU/L (0-55); ALBUMIN 3.4 g/dL (3.5-5.0); ALBUMIN/GLOBULIN RATIO 0.8 (0.8-2.0); ALKALINE PHOSPHATASE 85 IU/L (40-150); ANION GAP 12.8 mmol/L (8-16); BLOOD UREA NITROGEN 12 mg/dL (7-26); BUN/CREATININE RATIO 17 (6-25); CALCIUM 9.4 mg/dL (8.4-10.2); CARBON DIOXIDE 27 mmol/L (22-29); CHLORIDE 102 mmol/L (98-107); CREATININE, SERUM 0.69 mg/dL (0.57-1.11); EST GLOMERULAR FILTRATION RATE > 60 ML/MIN (60-); GLUCOSE 84 mg/dL (74-118); POTASSIUM 3.8 mmol/L (3.5-5.1); SODIUM 138 mmol/L (136-145)
[2020-02-05 10:08] LABS: BACTERIA,URINE FEW /HPF; EPITHELIAL CELLS,URINE MODERATE /LPF; RBC,URINE 0-5 /HPF (0-5)
--- NOTE | 2020-02-05 10:57 | Diagnostic Imaging Report ---
EXAMINATION: SP LUMBAR, COMPLETE MIN 4VW, PELVIS AP 1-2 VIEWS INDICATION: Trauma COMPARISON: None FINDINGS: AP view of the pelvis and AP, oblique and lateral images of the lumbar spine were obtained. No acute fracture or dislocation. Vertebral body heights are well-maintained. Oblique views demonstrate no evidence of spondylolysis. Minimal multilevel degenerative changes with small osteophyte formation. Nonobstructive bowel gas pattern. Status post cholecystectomy. IMPRESSION: No acute osseous injury. Signed by: Twin Garza MD on 02/05/2020 10:53 AM
--- NOTE | 2020-02-05 11:17 | Emergency Department Note ---
History of Present Illnes History of Present Illness History of Present Illness This is a 34 year old female arrived to the ED with pain over her sacrum after two mechanical falls- Sunday and Sunday. Denies any head injury Radiation: back Severity: moderate Onset quality: gradual Duration (how long): day(s) Timing of current episode: constant Progression: unchanged Relieving factors: immobilization Exacerbating factors: movement Treatments prior to arrival: none Past Medical/Family History Physician Review I have reviewed the patient's past medical and family history. Any updates have been documented here. Past Medical History Past Medical History: Diabetes, Asthma Other Medical History: sickle cell anemia trait Past Surgical History: Lumpectomy Other Surgery: D&C and Hystocopy BREAST BIOPSY Other Last Tetanus: UNKNOWN Review of Systems Review of Systems Constitutional: no symptoms EENTM: no symptoms Cardiovascular: no symptoms Respiratory: no symptoms Gastrointestinal: no symptoms Genitourinary: no symptoms Musculoskeletal: back pain Integumentary: no symptoms Neurological: no symptoms Psychological: no symptoms Endocrine: no symptoms Hematological/Lymphatic: no symptoms Review of other systems All other systems reviewed and negative. Physical Exam Related Data Allergies: Coded Allergies: Penicillins (Verified Allergy, Severe, HIVES, SOB, 02/05/20) shellfish derived (Verified Allergy, Severe, 02/05/20) iodine (Verified Allergy, Unknown, HIVES/SOB, 02/05/20) Vital signs reviewed: Yes Physical Exam CONSTITUTIONAL Constitutional: well-developed, well-nourished HENT HENT: normocephalic, atraumatic, oropharynx clear/moist, nose normal HENT - Ear: left ext ear normal, right ext ear normal EYES Eyes: PERRL, conjunctivae normal NECK Neck: ROM normal PULMONARY Pulmonary: effort normal, breath sounds normal CARDIOVASCULAR Cardiovascular: regular rhythm, heart sounds normal, capillary refill normal, normal rate GASTROINTESTINAL Abdominal: soft, nontender, bowel sounds normal GENITOURINARY Genitourinary: exam deferred SKIN Skin: warm, dry MUSCULOSKELETAL Musculoskeletal: ROM normal, other (+tendernss over b/l SI joint and sacrum ) NEUROLOGICAL Neurological: alert, oriented x 3, no gross motor or sensory deficits PSYCHOLOGICAL Psychiatric/behavioral: mood/affect normal, judgement normal Exam - additional comments ambulatory with a steady gait Results Laboratory Laboratory Laboratory Tests Test 02/05/20 09:13 White Blood Count 5.73 x10e3/uL (4.8-10.8) Red Blood Count 4.88 x10e6/uL (3.6-5.1) Hemoglobin 11.6 g/dL (12.0-16.0) Hematocrit 36.6 % (34.2-44.1) Mean Corpuscular Volume 75.0 fL (81-99) Mean Corpuscular Hemoglobin 23.8 pg (28-32) Mean Corpuscular Hemoglobin Concent 31.7 g/dL (31-35) Red Cell Distribution Width 17.5 % (11.7-14.4) Platelet Count 239 x10e3/uL (140-360) Neutrophils (%) (Auto) 58.7 % (38.7-80.0) Lymphocytes (%) (Auto) 30.2 % (18.0-39.1) Monocytes (%) (Auto) 7.9 % (4.4-11.3) Eosinophils (%) (Auto) 2.4 % (0.0-6.0) Basophils (%) (Auto) 0.5 % (0.0-1.0) Neutrophils # (Auto) 3.4 (2.1-6.9) Lymphocytes # (Auto) 1.7 (1.0-3.2) Monocytes # (Auto) 0.5 (0.2-0.8) Eosinophils # (Auto) 0.1 (0.0-0.4) Basophils # (Auto) 0.0 (0.0-0.1) Absolute Immature Granulocyte (auto 0.02 x10e3/uL (0-0.1) Urine Color Yellow (YELLOW) Urine Clarity Clear (CLEAR) Urine pH 7 (5 - 7) Urine Specific [place] 1.020 (1.010-1.025) Urine Protein Negative (NEGATIVE) Urine Glucose (UA) Negative (NEGATIVE) Urine Ketones Negative (NEGATIVE) Urine Blood 3+ (NEGATIVE) Urine Nitrite Negative (NEGATIVE) Urine Bilirubin Negative (NEGATIVE) Urine Urobilinogen 0.2 mg/dL (0.2 - 1) Urine Leukocyte Esterase Negative (NEGATIVE) Urine RBC 0-5 /HPF (0-5) Urine WBC 6-10 /HPF (0-5) Urine Epithelial Cells Moderate /LPF (NONE) Urine Bacteria Few /HPF (NONE) Urine Test Negative (NEGATIVE) Sodium Level 138 mmol/L (136-145) Potassium Level 3.8 mmol/L (3.5-5.1) Chloride Level 102 mmol/L (98-107) Carbon Dioxide Level 27 mmol/L (22-29) Anion Gap 12.8 mmol/L (8-16) Blood Urea Nitrogen 12 mg/dL (7-26) Creatinine 0.69 mg/dL (0.57-1.11) Estimat Glomerular Filtration Rate > 60 ML/MIN (60-) BUN/Creatinine Ratio 17 (6-25) Glucose Level 84 mg/dL (74-118) Calcium Level 9.4 mg/dL (8.4-10.2) Total Bilirubin 0.8 mg/dL (0.2-1.2) Aspartate Amino Transf (AST/SGOT) 10 IU/L (5-34) Alanine Aminotransferase (ALT/SGPT) 10 IU/L (0-55) Alkaline Phosphatase 85 IU/L (40-150) Total Protein 7.8 g/dL (6.5-8.1) Albumin 3.4 g/dL (3.5-5.0) Globulin 4.4 g/dL (2.3-3.5) Albumin/Globulin Ratio 0.8 (0.8-2.0) Lab results reviewed: Yes Imaging Imaging results reviewed: Yes Impressions FINDINGS: AP view of the pelvis and AP, oblique and lateral images of the lumbar spine were obtained. No acute fracture or dislocation. Vertebral body heights are well-maintained. Oblique views demonstrate no evidence of spondylolysis. Minimal multilevel degenerative changes with small osteophyte formation. Nonobstructive bowel gas pattern. Status post cholecystectomy. IMPRESSION: No acute osseous injury.AP view of the pelvis and AP, oblique and lateral images of the lumbar spine were obtained. No acute fracture or dislocation. Vertebral body heights are well-maintained. Oblique views demonstrate no evidence of spondylolysis. Minimal multilevel degenerative changes with small osteophyte formation. Nonobstructive bowel gas pattern. Status post cholecystectomy. Critical Care Time Subsequent provider I assumed direction of critical care for this patient from another provider of my specialty. Assessment & Plan Assessment & Plan Problems: (1) Back pain (2) Sacral pain Assessment & Plan 34 F arrived with sacral pain and hematuria -lab work reviewed and normal -xr of sacrum and lumbar spine normal -pt stable for D/C Reassessment Reassessment time: 11:11 (Pt notes improvement of pelvic pain, ambulatory with a stready gait ) Depart Disposition: HOME, SELF-[facility] Meds Reported Medications Meclizine Hcl (MECLIZINE HCL) 12.5 Mg Tablet, MG PO PRN, TAB 11/09/17 Diphenhydramine Hcl (BENADRYL) 25 Mg Capsule, 50 MG PO HS 11/09/17 Ondansetron (ZOFRAN ODT) 4 Mg Tab.rapdis, MG PO PRN, TAB 11/09/17 Dicyclomine Hcl (DICYCLOMINE HCL) 20 Mg Tablet, MG PO QID, TAB 11/09/17 Albuterol Sulfate (ALBUTEROL SULFATE HFA) 8.5 Gm Hfa.aer.ad, 2 INH INH PRN 11/26/16 Metformin Hcl (METFORMIN HCL) 500 Mg Tablet, 500 MG PO BID, #60 TAB 04/28/16 Medications in the ED I assumed direction of critical care for this patient from another provider of my specialty. Diazepam 10 mg ONCE ONCE PO Last administered on 02/05/20at 09:52; Admin Dose 10 MG; Start 02/05/20 at 09:30; Stop 02/05/20 at 09:39; Status DC Ketorolac Tromethamine 30 mg ONCE STAT IV Last administered on 02/05/20at 09:51; Admin Dose 30 MG; Start 02/05/20 at 09:16; Stop 02/05/20 at 09:39; Status DC JOSE BAUMANN DO February 05, 2020 09:21
[2020-02-05] MEDS ORDERED: BACTRIM DS TAB1 EACH PO (11:19)
[2020-02-05] MEDS ORDERED: ROBAXIN-750750 MG PO (11:19)
[2020-02-05 13:20] VITALS: BP 118/72
== END 2020-02-05 13:24 | disposition home or self-care (01) ==
LOC: ER 09:01
DX: M53.3 Sacrococcygeal disorders, not elsewhere classified (principal); R10.2 Pelvic and perineal pain; R31.9 Hematuria, unspecified; W01.0XXA Fall on same level from slipping, tripping and stumbling without subsequent striking against object, initial encounter; E11.9 Type 2 diabetes mellitus without complications; D57.3 Sickle-cell trait
CPT/HCPCS: 36415; 72110; 72170; 80053; 81001; 81025; 85025; 99284; J1885

== ENCOUNTER 2020-07-05 10:29 | Emergency (ER) | payer OTHER ==
[~2020-07-05] VITALS: Ht 180.3 cm; Wt 151.5 kg
[~2020-07-05 10:29] MED LIST changes: +BACTRIM DS TAB1 EACH PO; +ROBAXIN-750750 MG PO
[2020-07-05 11:43] LABS: BASOPHILS % 0.2 % (0.0-1.0); EOSINOPHILS # (AUTO) 0.3 (0.0-0.4); HEMATOCRIT 38.7 % (34.2-44.1); HEMOGLOBIN 12.2 g/dL (12.0-16.0); LYMPHOCYTES # (AUTO) 2.1 (1.0-3.2); LYMPHOCYTES % 25.3 % (18.0-39.1); MEAN CORPUSCULAR HEMOGLOBIN 24.1 pg (28-32); MEAN CORPUSCULAR HGB CONC 31.5 g/dL (31-35); MEAN CORPUSCULAR VOLUME 76.3 fL (81-99); MONOCYTES # (AUTO) 0.5 (0.2-0.8); NEUTROPHILS # (AUTO) 5.4 (2.1-6.9); NEUTROPHILS % 63.9 % (38.7-80.0); PLATELET COUNT 233 x10e3/uL (140-360); RED BLOOD COUNT 5.07 x10e6/uL (3.6-5.1); RED CELL DISTRIBUTION WIDTH 19.2 % (11.7-14.4)
--- OUTSIDE RECORDS SUMMARY | 2020-07-05 11:44 | XMS REPORT | Clinical Summary ---
Author Author [facility] Address Unknown Phone Unavailable Care Team Providers Care Electrotype Servicer Name Role Phone Unknownmeds, Provider PCP Unavailable Pcp, No PCP Unavailable Allergies Comments Active Allergy Reactions Severity Noted Date Contrast dye 2015 Short of breath, blacked out,extreme heat. Iodine And Iodide Shortness Of High 02/21/2017 Containing Products Breath Penicillins Hives High 06/28/2013 Medications End Date Status Medication Sig Dispensed Refills Start Date Active ejojvlok-xdff-gdt-folic Take by 0 acid mouth. (YKMRCPDSNMDM-RTUQ-IIVPOU LS-FOLIC ACID) 3,500-18-0.4 unit-mg-mg Chew Active metFORMIN [...] puffs by 9 inhaler mouth via inhaler. Active Problems Problem Noted Date Abnormal EKG 12/12/2016 Acute chest pain 12/12/2016 Encounters Care Team Description Date Type Specialty Liborio Noonan MD Pharyngitis due to Streptococcus species (Primary Dx); Dehydration 05/15/2020 Emergency Emergency Medicine 05/15/2020 Travel Navya Fine MD Sore throat (Primary Dx); Fever, unspecified fever cause; Myalgia; Infectious mononucleosis without complication, infectious mononucleosis due to unspecified organism 05/12/2020 Emergency Emergency Medicine - 05/13/2020 05/12/2020 Travel after 07/05/2019 Family History Medical History Relation Name Comments Unremarkable Brother Unremarkable Brother Unremarkable Brother Cancer Father Hypertension Maternal Grandmother Hypertension Mother Hypertension Sister Relation Name Status Comments Brother Alive Brother Alive Brother Alive Father Maternal Grandmother Mother Alive Sister Alive Social History Date Tobacco Use Types Packs/Day Years Used Never Smoker Smokeless Tobacco: Never Used Drinks/Week oz/Week Comments Alcohol Use 1 Glasses of wine 1.0 social Yes Sex Assigned at Date Recorded Not on file Last Filed Vital Signs Reading Time Taken Comments Vital Sign 123/73 05/15/2020 1:25 PM CDT Blood Pressure 85 05/15/2020 1:25 PM CDT Pulse 37.4 C (99.4 F) 05/15/2020 1:25 PM CDT Temperature 16 05/15/2020 1:25 PM CDT Respiratory Rate 96% 05/15/2020 12:00 PM CDT Oxygen Saturation - - Inhaled Oxygen Concentration 136.1 kg (300 lb) 05/15/2020 9:01 AM CDT Weight 152.4 cm (5') 05/15/2020 9:01 AM CDT Height 58.59 05/15/2020 9:01 AM CDT Body Mass Index Plan of Treatment Care Team Description Date Type Specialty Yari Banks MD [address] [facility] [address] [place] [address] [phone] 07/29/2020 Hospital Encounter Yari Banks MD [address] [facility] [address] [place] [address] [phone] TONSILLECTOMY 07/29/2020 Surgery Procedures Comments Procedure Name Priority Date/Time Associated Diag nosis URINALYSIS W/ REFLEX STAT 05/15/2020 URINE CULTURE 10:50 AM CDT URINE CULTURE STAT 05/15/2020 10:50 AM CDT MONONUCLEOSIS SCREEN STAT 05/15/2020 9:57 AM CDT SARS-COV2/RT-PCR ([facility] & STAT 05/12/2020 REF LABS) 11:37 PM CDT RAPID STREP A SCREEN STAT 05/12/2020 9:45 PM CDT after 07/05/2019 Results * Urinalysis w/Microscopic + Reflex to Culture (05/15/2020 10:50 AM CDT) Color, UA Light Yellow [facility] Clarity, UA Clear [facility] Specific 1.010 1.001 - 1.035 [facility] [place], [facility] pH, UA 7.5 5.0 - 8.0 [facility] Protein, UA Negative Negative [facility] Glucose, UA Negative Negative [facility] Ketones, UA Negative Negative [facility] Bilirubin, UA Negative Negative [facility] Blood, UA Small (A) Negative [facility] Nitrite, UA Negative Negative [facility] Leukocytes, UA Small (A) Negative [facility] Urobilinogen, 0.2 0.2 - 1.0 mg/dL [facility] RBC, UA 1 /HPF [facility] WBC, UA 14 /HPF [facility] Mucus Rare [facility] Squam Epithel, 6 /HPF [facility] Specimen Source [facility] Specimen Urine Narrative Performed At Business Liaison Manager ID - [auto] [facility] Business Liaison Manager ID - tech [facility] Performing Organization Address City/[facility] Ph one Number [facility] [address] [place], [place] [address] [facility] * Urine culture (05/15/2020 10:50 AM CDT) Result >100,000 col/mL skin fernando [facility] Specimen Urine - Urine (substance) Performing Organization Address [facility] one Number [facility] [address] [place] [address] [address] [facility] * Mononucleosis screen (05/15/2020 9:57 AM CDT) Infectious Negative Negative [facility] Mononucleosis [facility] Specimen Blood Performing Organization Address [facility] one Number [address] [facility] * SARS-CoV2/RT-PCR (Symptomatic ONLY) (05/12/2020 11:37 PM CDT) SARS-COV2/RT-PC Negative Not Detected, [facility] R Negative, See [facility] external report for MEDICAL CENTER linked test SARS-COV-2 [facility] PERFORMING LAB [facility] [place] Specimen Other - Nasopharyngeal wall structure (body structure) Narrative Performed At Negative result for this test determine s that SARS-CoV-2 RNA was not present in [facility] the specimen above the Limit of Detecti on (LOD). However, Negative results do [facility] not preclude SARS-CoV-2 infection and s hould not be used as the sole basis for treatment or patient management decisio ns. Negative results must be combined with clinical observations, patient his tory, and epidemiological information. A false negative result may occur if a sp ecimen is improperly collected, transported or handled. A false negat jonathan result should be considered if patient's recent exposures or clinical presentation indicate that COVID-19 (SARS-CoV-2) is likely and diagnostic t ests for other causes of illness are negative. Re-testing should be consid ered in cases of suspected false negatives. The limit of detection for this assay i s 800 copies/mL. This SARS CoV-2 test is a real-time RT- PCR test intended for the qualitative detection of nucleic acid from SARS-CoV -2 in a nasopharyngeal swab specimen collected from individuals suspected of COVID-19 by their healthcare provider. This test has not been Food and Drug Ad ministration (FDA) cleared or approved. This is a modified version of an appr jass Emergency Use Authorization (EUA) and is in the process of review by the FDA. Once authorized by the FDA, the issued EUA will be effective until the declaration that circumstances exist justifying the authorization of the dimas rgency use of in vitro diagnostic tests for detection and/or diagnosis of COVID -19 is terminated under Section 564(b)(2) of the Act or the EUA is revoked under Section 564(g) of the Act. Fact Sheet for Healthcare Providers: https://www.Brainpark.[employer]/sites/default/files/product/documents/Fact_Sheet_HC_Provi qcht_Gwrj_JAAG-MfK-3.pdf Fact Sheet for Healthcare Patients: https://www.Lipperhey/sites/default/files/product/documents/Fact_Sheet_Patients _Kzun_YHWH-HzI-4.pdf Performing Laboratory: [address] [place] [address] Performing Organization Address City/[facility] Ph one Number [address] [facility] * Rapid Strep A screen (05/12/2020 9:45 PM CDT) Strep A Ag Negative Negative [facility] Specimen Throat - Pharyngeal structure (body structure) Performing Organization Address [facility] Ph one Number [address] [facility] after 07/05/2019 Insurance Type Payer Benefit Subscriber ID Effective Phone Address Plan / Dates Group Medicaid Contracted MEDICAID - MEDICAID [facility] [id number] 20 19-P CARE COMM STAR resent PLAN CDC REVIEW CDC REVIEW [id number] 2020- [place] [place] [address] Medicaid MEDICAID MEDICAID [id number] 2018- [facility] Present [id number] Advance Directives For more information, please contact: [phone] Date Inactivated Comments Code Status Date Activated 12/14/2016 6:51 PM Full Code 12/13/2016 1:53 AM This code status was determined by: Patient
--- OUTSIDE RECORDS SUMMARY | 2020-07-05 11:44 | XMS REPORT | Clinical Summary ---
Author Author [facility] Address Unknown Phone Unavailable Care Team Providers Care Director Operating Room Name Role Phone Lili Richardson CNM PCP Allergies Comments Active Allergy Reactions Severity Noted Date Patient states she had difficulty breathing and passed out. Iodine Shortness Of High 08/21/2017 Breath, Other (See Comments) Medications Not on file Active Problems Not on file Medical History Medical History Date Comments Diabetes mellitus (HCC) Social History Date Tobacco Use Types Packs/Day Years Used Never Smoker Smokeless Tobacco: Never Used Tobacco Cessation: Counseling Given: No Drinks/Week oz/Week Comments Alcohol Use No Sex Assigned at Date Recorded Not on file Last Filed Vital Signs Not on file Plan of Treatment Health Maintenance Due Date Last Done Comments CERVICAL CANCER SCREENING 2007 INFLUENZA VACCINE 04/24/2020 Results Not on fileafter 07/05/2019 Advance Directives For more information, please contact: [phone] 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
--- OUTSIDE RECORDS SUMMARY | 2020-07-05 11:46 | XMS REPORT | Continuity of Care Document ---
Author Author [facility] t Organization [facility] Address [address] [place] [address] Phone Unavailable Care Team Providers Care Glove Finisher Name Role Phone NNEKA PAYNE, MD CHEEMA PCP [facility], Elida Attphys [phone] Mat Banks MD, Yari Attphys Ponce Braxton PA-C Attphys [phone] PARDEEP NOONAN Attphys Unavailable Saran PAYNE, Pardeep Capone Attphys MORA, QUE-CAROL NAVYA Attphys Unavailable Rody PAYNE, Que-Carol Navya Attphys [phone] Ana Rosa Richardson CNM Attphys Melquiades GUERRERO Attphys Unavailable SANDHIMelquiades Alva Attphys Unavailable Gabriella, Yari Attphys Charles Crandall Attphys [phone] JORGE SMITH Attphys Unavailable MIGEL CARDONA Attphys Unavailable MauricePhuc retana Attphys HamRed wilcox Attphys Ana Rosa STERN Attphys Unavailable EARLY, SOUHEIL Attphys Unavailable KAREEM MARTIN Attphys Unavailable Religion, Araceli Nadim Attphys Isidoro Orlando Attphys DiazSkip Abdulkadir Attphys MontoyaVasu hermosillo Julio Attphys [phone] Gabriella, Yari Admphys HamRed wilcox Admphys EARLY, SOUHEIL Admphys Unavailable MOSCOSO, GATOUSHOTTAM BHAGWAT Admphys Unavailable Payers Payer Name Policy Type Policy Number Effective Date Ex[place] [facility] [place] [facility] [facility]LY [facility] [id number]/09/2018- PresentMedicaid Contracted [id number] 2019 00:00:00 [facility] CDC REVIEWCDC [id number] EVELYN MARCUM [id number] 2020 00:00:00 [facility] MEDICAIDMEDICAID [id number]09/2017-PresentMedicaid [id number] 2018 00:00:00 [facility] 2019 00:00 :00 [facility] [employer] [place] P[place] [id number] 2017 00:00:00 [facility] Problems Condition Name Condition Details Condition Category Status Onset Date Resolution Date Last Treatment Date Treating Clinician Comments Source CHEST PAIN CHES T PAIN Active 03/05/2019 [facility] Active 2019-03-05 00:00:00 2019-03-05 05:17:00 [facility] ACUTE CHEST PAIN ACUT E CHEST PAIN Active 03/05/2019 [facility] Active 2019-03-05 00:00:00 2019-03-05 08:28:00 [facility]di COUGHING UP BLOOD COUG TUSHAR UP BLOOD Active 01/02/2019 [facility] Active 2019-01-02 00:00:00 2019-06-26 12:49:00 [facility] WEAKNESS WEAK NESS Active 06/04/2018 [facility] Diagnosis Active 2018-06-04 00:00:00 2018-06-04 16:21:00 [facility] CP CP Active 02/18/2018 [facility] Active 2018-02-18 00:00:00 2018-02-18 14:20:00 M emorilainey Patton DIZZINESS, SOB DIZZ INESS, SOB Active 02/18/2018 [facility] Active 2018-02-18 00:00:00 2018-02-20 14:59:00 [facility] SORE THROAT SORE THROAT Active 12/23/2016 [facility] Diagnosis Active 2016-12-23 00:00:00 2017-12-23 20:08:00 [facility] Abnormal EKG Abnormal EKG Disease Active 2016-12-12 00:00:00 [facility] Acute chest pain Acute chest pain Disease Active 2016-12-12 00:00:00 [facility] FLU LIKE SYMPTOMS FLU LIKE SYMPTOMS Active 04/11/2016 [facility] Active 2016-04-11 00:00:00 2016-04-11 09:22:00 [facility] UNK UNK Active 03/13/2016 [facility] Active 2016-03-13 00:00:00 2016-03-21 10:53:00 [facility] VOMITING VOMI TING Active 01/18/2016 [facility] Active 2016-01-18 00:00:00 2016-01-18 20:11:00 Trudy Patton 621.0 621. 0 Active 06/16/2015 [facility] Active 2015-06-16 00:00:00 2015-06-23 12:24:00 Trudy Patton DIZZINESS DIZZ INESS Active 12/17/2014 [facility] Active 2014-12-17 00:00:00 2014-12-17 12:12:00 Trudy Patton VAGINAL BLEED VAGI NAL BLEED Active 12/10/2011 [facility] Active 2011-12-10 00:00:00 2011-12-11 00:48:00 Trudy Patton STOMACH PAIN STOM ACH PAIN Active 10/18/2011 [facility] Active 2011-10-18 06:00:00 2011-10-18 15:21:00 Trudy Patton SOB, SYNCOPE, DIZZY SPELL, HEADACHES SOB, SYNCOPE, DIZZY SPELL, HEADACHES Active 07/31/2011 [facility] Active 2011-07-31 00:00:00 2011-07-31 16:10:00 Trudy Patton HEADACHES, DIZZINESS, X1 WEEK HEADACHES, DIZZINESS, X1 WEEK Active 06/16/2011 [facility] Active 2011-06-16 00:00:00 2011-06-19 15:34:00 Trudy Patton Irregular menstrual cycle Irregular menstrual bleeding Problem Active [facility] Back pain Problem Active [facility] Sacral back pain Problem Active [facility] Type 2 diabetes mellitus without complications Type 2 diabetes mellitus without complications 12/22/2018 [facility] Problem 2018-12-22 15:19:55 [facility] Obesity, unspecified Obes ity, unspecified 12/22/2018 [facility] Problem 2018-12-22 15:19:55 [facility] Unspecified asthma, uncomplicated Unspecified asthma, uncomplicated 12/22/2018 [facility] Problem 2018-12-22 15:19:55 Trudy Patton [facility] (current) use of oral hypoglycemic drugs [facility] (current) use of oral hypoglycemic drugs 12/22/2018 [facility] Problem 2018-12-22 15:19:55 Trudy Patton Allergy status to penicillin A llergy status to penicillin 12/22/2018 [facility] Problem 2018-12-22 15 :19:55 [facility] Final: Other Specified Symptoms Associated with Female Genital Organs Final: Other Specified Symptoms Associated with Female Genital Organs 06/26/2015 [facility] Problem 2015-06-26 10:5 8:19 [facility] Final: Nonspecific (Abnormal) Findings o n Radiological and Other Examination of Genitourinary Organs Final: Nonspecif ic (Abnormal) Findings on Radiological and Other Examination of Genitourinary Organs 06/26/2015 [facility] Problem 2015-06-26 10:58:19 [facility] Asthma (disorder) Asth ma (disorder) Active Problem 03/07/2019 [facility] Active 2019-03-07 22:44:37 [facility] Dizziness (finding) Dizz iness (finding) Active Problem 03/07/2019 [facility] Active 2019-03-07 22:44:37 [facility] Polyp of corpus uteri (disorder) Polyp of corpus uteri (disorder) Active Problem 03/07/2019 [facility] Active 2019-03-07 22:44:37 [facility] Headache (finding) Head ache (finding) Active Problem 03/07/2019 [facility] Active 2019-03-07 22:44:37 [facility] Heartburn (finding) Hear tburn (finding) Active Problem 03/07/2019 [facility] Active 2019-03-07 22:44:37 [facility] Obesity (disorder) Obes ity (disorder) Active Problem 03/07/2019 [facility] Active 2019-03-07 22:44:37 [facility] Sickle cell trait (disorder) S ickle cell trait (disorder) Active Problem 03/07/2019 [facility] Active 2019-03-07 22:44:37 [facility] [place] Dyspnea on exertion (finding) Dyspnea on exertion (finding) Active Problem 03/07/2019 [facility] Active 2019-03-07 22:44:37 [facility] Asthma Asth ma Active Problem 12/13/2011 [facility] Active 2011-12-13 08:49:50 [facility] Dizziness Dizz iness Active Problem 12/13/2011 [facility] Active 2011-12-13 08:49:50 [facility]x [facility]ial [facility] Headache Head ache Active Problem 12/13/2011 [facility] Active 2011-12-13 08:49:50 [facility] Obesity Obes ity Active Problem 12/13/2011 [facility] Active 2011-12-13 08:49:50 [facility] CHEST PAIN, UNSPECIFIED CHES T PAIN, UNSPECIFIED Active [facility] Active 2019-03-05 08:28:00 [facility] Chronic sinusitis, unspecified Chronic sinusitis, unspecified 01/02/2019 01/05/2019 [facility] 20 10-01-11 05:00:00 2019-01-05 00:48:06 2019-01-05 00:48:06 [facility] Acute upper respiratory infection, unspecified Acute upper respiratory infection, unspecified 06/04/2018 12/22/2018 [facility] 2018-06-04 05:00:00 2018-12-22 15:19:55 2018-12-22 15:19:55 [facility] Acute tonsillitis, unspecified Acute tonsillitis, unspecified 12/23/2017 03/31/2018 [facility] Problem 20 09-01-01 05:00:00 2018-03-31 12:00:39 2018-03-31 12:00:39 [facility] Discharge Diagnosis: Vomiting, unspecified Discharge Diagnosis: Vomiting, unspecified 04/11/2016 04/14/2016 [facility] Problem 2016-04-11 05:00:00 2016-04-14 04:51:15 2016-04-14 04:51:15 [facility] Discharge Diagnosis: Diarrhea, unspecified Discharge Diagnosis: Diarrhea, unspecified 04/11/2016 04/14/2016 [facility] 2016-04-11 05:00:00 2016-04-14 04:51:15 2016-04-14 04:51:15 [facility] Discharge Diagnosis: Acute bronchitis, unspecified Discharge Diagnosis: Acute bronchitis, unspecified 01/18/2016 01/22/2016 [facility] 2016-01-18 05:00:00 2016-01-22 03:12:43 2015-12 03:12:43 [facility] Discharge Diagnosis: Vertigo D ischarge Diagnosis: Vertigo 12/17/2014 12/20/2014 [facility] 12-17 05:00:00 2014-12-20 00:00:10 2014-12-20 00:00:10 [facility] Discharge Diagnosis: Syncopal vertigo Discharge Diagnosis: Syncopal vertigo 12/17/2014 12/20/2014 [facility] 2014-12-17 05:00:00 2014-12-20 00:00:10 2014-12-20 00:00:10 [facility] [place] Discharge Diagnosis: Lumbar contusion Discharge Diagnosis: Lumbar contusion 12/17/2014 12/20/2014 [facility] Problem 2014-12-17 05:00:00 2014-12-20 00:00:10 2014-12-20 00:00:10 [facility] Allergies, Adverse Reactions, Alerts Allergy Name Allergy Type Status Severity Reaction(s) Onset Date Inacti ve Date Treating Clinician Comments Source Penicillin Allergy to substance Active Severe HIVES, SOB 2020-02-05 00 :00:00 [facility] Iodine Allergy to substance Active HIVES/SOB 2020-02-05 00:00:00 [facility] shellfish derived Allergy to substance Active Severe 2020-01-23 4 00:00:00 [facility] Iodinated Contrast- Oral and IV Dye DA Active U 6 00:00:00 [facility] Penicillins DA Active U 2019-06-29 00:00:00 [facility] shellfish derived FA Active U 2019-06-29 00:00:00 [facility] Iodinated Contrast- Oral and IV Dye DA Active U 2019-01-23 0 00:00:00 [facility] Penicillins DA Active U 2019-02-10 00:00:00 [facility] shellfish derived DA Active U 2019-02-10 00:00:00 [facility] shellfish derived FA Active U 2019-02-10 00:00:00 [facility] Iodinated Contrast- Oral and IV Dye DA Active U 2018-11-22 9 00:00:00 [facility] Penicillins DA Active U 2018-12-10 00:00:00 [facility] shellfish derived DA Active U 2018-12-10 00:00:00 [facility] Iodinated Contrast- Oral and IV Dye DA Active U 2018-04-25 1 00:00:00 [facility] Penicillins DA Active U 2018-05-14 00:00:00 [facility] shellfish derived DA Active U 2018-05-14 00:00:00 [facility] Iodine Propensity to adverse reactions to drug Active Shortness Of Breath, Other (See Comments) 2017-08-21 00:00:00 Patient states she had difficulty breathing and passed out. [facility] Iodine And Iodide Containing Products Propensity to adverse reactio ns Active Shortness Of Breath 2017-02-21 00:00:00 Contrast dye 2016 Short of breath, blacked out,extreme heat. [facility] Penicillins Drug Allergy Active Hives 2013-06-28 00:00:00 [facility] penicillins penicillins Active [facility] contrast media (iodine-based) contrast media (iodine-based) Active [facility] Family History Family Member Diagnosis Comments Start Date Stop Date Source Natural brother Unremarkable [facility] Natural father Cancer [facility] Maternal grandmother Hy[facility]ension [facility] Natural mother Hypertension [facility] Natural sister Hypertension [facility] Social History Social Habit Start Date Stop Date Quantity Comments Source Sex Assigned At [facility] Tobacco use and exposure 2020-05-15 00:00:00 2020-05-15 00:00:00 Pao alva used [facility] Alcohol intake 2020-05-15 00:00:00 2020-05-15 00:00:00 Current drinker of alcohol (finding) [facility] Wane r Social History 2016-03-20 22:27:46 2016-03-20 22:27:46 [facility] Alcohol Comment 2013-06-28 00:00:00 2013-06-28 00:00:00 social [facility] Smoking Status Start Date Stop Date Source Never smoker [facility] Medications Ordered Medication Name Filled Medication Name Start Date Stop Da te Current Medication? Ordering Clinician Indication Dosage Frequency Signature (SIG) Comments Components Source Methocarbamol (Robaxin-750) 750 Mg TABLET Methocarbamo l (Robaxin-750) 750 Mg TABLET 2020-02-05 11:19:00 Yes 750 Ever y 8 Hours as needed for Muscle Spasms [facility] Sulfamethoxazole/Trimethoprim (Bactrim Ds Tablet) 1 Ea ch TABLET Sulfamethoxazole/Trimethoprim (Bactrim Ds Tablet) 1 Each TABLET 2020-02-05 11:19:00 Yes 1 Twice A Day [facility] diphenhydrAMINE (BENADRYL) 25 mg capsule 2019-06-23 08:23:32 Yes 25mg Take 25 mg by mouth continuous prn. [facility] dicyclomine (BENTYL) 10 MG capsule 2019-06-23 08:22:11 Yes 10mg Take 10 mg by mouth 4 (four) times daily before meals and nightly. [facility] PNV 67-iron ps-folate no.1-dha 29 mg iron- 1 mg-200 mg Cap 2019-04-28 00:00:00 Yes 1{capsule} Take 1 capsule by mouth. [facility] doxylamine-pyridoxine, vit B6, 10-10 mg TbEC 2019-04-24 00:00:00 Yes 2{tbl} Take 2 tablets by mouth. [facility] albuterol HFA (VENTOLIN HFA) 90 mcg/actuation inhaler 2019-04-24 00:00:00 Yes 1{puff} Inhale 1-2 puffs by mouth via inhaler. [facility] multivitamin 2019-03-06 14:00:00 No Notes: (Same as:One Tab Daily, Tab-A-Marge + Beta Carotene) Give with food. [facility] Folic Acid 2019-03-06 14:00:00 No Notes: (S blake as: Folvite) [facility] Famotidine 20 MG Oral Tablet 2019-03-05 22:00:00 No Notes: (Same as: Pepcid) Trudy Patton ibuprofen 200 mg oral capsule 2019-03-05 18:18:00 Yes 200 mg = 1 cap, PO, Q6H, PRN Pain, X 7 day, # 28 cap, 0 Refill(s), Pharmacy: [facility]/pharmacy #[id number] Trudy Patton Saline Flush 0.9% 2019-03-05 14:00:00 No Notes: (Same as: BD Posiflush) Trudy Patton Diclofenac Sodium 0.01 MG/MG Topical Gel 2019-03-05 14:00:00 No Notes: Same as: Voltaren Gel [facility] Gamaliel mahajan Folic Acid 1 MG Oral Tablet 2019-03-05 13:15:00 Yes 1 mg = 1 tab, PO, Daily, # 30 tab, 0 Refill(s) Karlos Patton ketOROLAC 30 mg/mL injectable solution 2019-03-05 13:14:00 No 4 days MEDICATION WASTE Product Size: 30 mg Product Wasted: ___ mg Trudy Patton Lovenox 2019-03-05 12:00:00 No Notes: (Same as: Lovenox) Trudy Patton Insulin Lispro 2019-03-05 11:57:00 No Notes: (Same as: Humalog) Roll in palms of hands gently; Do not shake vigorously. WASTE: F/P - Black; E - Municipal Trash Bin Stable for 28 days at room temperature. Expires in days from Date Trudy mahajan Glucagon 2019-03-05 11:57:00 No 1 mg, Route: IM, Drug form: PDR/INJ, PRN, Dosing Weight 141.818, kg, PRN Blood Glucose Results, Start date: 03/05/19 6:57:00 CDT, Duration: 30 day, Stop date: 04/04/19 6:56:00 CDT Trudy Patton Dextrose 50% Syringe 2019-03-05 11:57:00 No 12.5 gm, 25 mL, Route: IVP, Drug Form: INJ, Dosing Weight 141.818, kg, PRN, PRN Blood Glucose Results, Start date: 03/05/19 6:57:00 CDT, Duration: 30 day, Stop date: 04/04/19 6:56:00 CDT Trudy Patton Albuterol 0.833 MG/ML / Ipratropium Brom jeremy 0.167 MG/ML Inhalant Solution [DuoNeb] 2019-03-05 11:56:00 No Notes: (S blake as: Duoneb) Trudy Patton Saline Flush 0.9% 2019-03-05 11:47:00 No Notes: (Same as: BD Posiflush) Trudy Patton Albuterol 0.833 MG/ML / Ipratropium Brom jeremy 0.167 MG/ML Inhalant Solution [DuoNeb] 2019-03-05 11:47:00 No Notes: (S blake as: Duoneb) Trudy Patton Acetaminophen 2019-03-05 11:47:00 No Notes: Do not exceed 4 gm/day. (Same as: Tylenol) Trudy Garridoann Ondansetron 2019-03-05 11:47:00 No Notes: ( Same as: Zofran) Trudy Garridoann Nitroglycerin 2019-03-05 11:47:00 No Notes: (Same as:Nitroquick, Nitrostat) "Do Not Crush" Sublingual tablet Trudy Patton Pepcid 2019-03-05 10:27:00 No Notes: (Same as: Pepcid) Can be dilute in 5-10cc NS IVP: Slow IV push over at least 2 minutes. Trudy Patton GI cocktail (aluminum hydroxide/magnesium hydroxide/lidocain e/simethicone) 2019-03-05 10:27:00 No 30 mL, Route: PO, Dosing Weight 141.818, kg, ONCE, STAT, Start date: 03/05/19 5:27:00 CDT, Stop date: 03/05/19 5:27:00 CDT Trudy Patton Zofran 2019-03-05 09:30:00 No Notes: (Same as: Zofran ODT) Trudy Patton morphine preservative-free 2019-03-05 09:30:00 No Notes: (Same as:MORPhine Sulfate) Trudy Patton Ondansetron 4 MG Disintegrating Tablet [Zofran] 2019-01-02 19:50 :00 Yes 4 mg = 1 tab, PO, BID, PRN N ausea and Vomiting, Dissolve tab under tongue, # 6 tab, 0 Refill(s) Trudy Patton doxycycline hyclate 100 MG Oral Tablet 2019-01-02 19:22:00 Yes 100 mg = 1 tab, PO, Q12H, X 7 day, # 14 tab, 0 Refill(s) Trudy Patton benzonatate 200 MG Oral Capsule [Tessalon] 2019-01-02 19:21:00 Yes 200 mg = 1 cap, PO, TID, X 10 day, # 30 cap, 0 Refill(s) Trudy Patton metFORMIN (GLUCOPHAGE) 1000 MG tablet 2018-11-26 19:33:54 Y es 1000mg Take 1,000 mg by mouth 2 (two) times daily with breakfast and dinner. [facility] esomeprazole (NEXIUM) 40 MG capsule 2018-11-26 19:33:54 Yes 40mg QD Take 40 mg by mouth daily. [facility] Sudafed PE Severe Cold oral tablet 2018-06-05 00:25:00 No 1 tab, PO, Q4H, PRN for cold symptoms, X 2 day, # 12 tab, 0 Refill(s) Trudy Patton ibuprofen 600 mg oral tablet 2018-06-05 00:25:00 No 600 mg = 1 tab, PO, Q6H, PRN Pain or Fever, Take with food, X 10 day, # 40 tab, 0 Refill(s) Trudy Patton 12 HR Guaifenesin 600 MG Extended Release Tablet [Mucinex] 2018-02-19 18:19:00 Yes 600 mg = 1 tab, PO, Q12H, PRN Cough, X 7 day, # 10 tab, 0 Refill(s), Pharmacy: [facility]/pharmacy #6000 [facility] predniSONE 20 mg oral tablet 2018-02-19 18:16:00 Yes 40 mg = 2 tab, PO, Daily, X 5 day, # 10 tab, 0 Refill(s), Pharmacy: [facility]/pharmacy #6000 [facility] mecl[facility] 25 mg oral tablet 2018-02-19 18:16:00 Yes 12.5 mg = 0.5 tab, PO, TID, PRN Dizziness, X 7 day, # 20 tab, 0 Refill(s), Pharmacy: [facility]/pharmacy #[id number] [facility] [place] Imodium A-D 2018-02-19 17:07:00 No Notes: (Same as: Imodium) MAX adult dose is 8 caps/day Trudy Espinosa n Imodium A-D 2018-02-19 17:06:00 No 2 mg, Route: PO, Drug form: TAB, ONCE, Dosing Weight 126.364, kg, Start date: 02/19/18 12:06:00 CDT, Stop date: 02/19/18 12:06:00 CDT Trudy Patton multivitamin 2018-02-19 14:00:00 No Notes: (Same as:One Tab Daily, Tab-A-Marge + Beta Carotene) Give with food. Trudy Patton Metformin 2018-02-19 14:00:00 No Notes: (Same as: Glucophage) Take with meal Trudy Patton Famotidine 20 MG Oral Tablet 2018-02-19 14:00:00 No Notes: (Same as: Pepcid) Trudy Patton Prednisone 2018-02-19 14:00:00 No Notes: Ta ke with food. Trudy Garridoann Antivert 2018-02-19 11:14:00 No Notes: (Higinio e as: Antivert) Trudy Garridoann Bentyl 2018-02-19 02:00:00 No Notes: (Same as: Bentyl) Trudy Abdi Tylenol 2018-02-19 01:43:00 No Notes: Max acetaminophen = 4000mg/day (4 gm/day). (Same as: Tylenol) Karlos Patton Albuterol 0.833 MG/ML / Ipratropium Brom jeremy 0.167 MG/ML Inhalant Solution [DuoNeb] 2018-02-19 00:00:00 No Notes: (S blake as: Duoneb) Trudy Patton 200 ACTUAT Albuterol 0.09 MG/ACTUAT Metered Dose Inhaler [Pr oAir HFA] 2018-02-18 22:43:00 No Notes: Albuterol 90 microgram/inh 8gm HFA WASTE: Aerosol - Return to Pharmacy Same as: David Whitmore normal saline 0.9% IV 1,000 mL 2018-02-18 22:42:00 No 1,000 mL, Rate: 125 ml/hr, Infuse over: 8 hr, Route: IV, Dosing Weight 126.364 kg, Total Volume: 1,000, Start date: 02/18/18 17:42:00 CDT, Duration: 30 day, Stop date: 03/20/18 17:41:00 CDT, 2.37, m2 [facility] NS (Bolus) IV 2018-02-18 22:42:00 No 1,000 mL, 1,000 ml/hr, Infuse Over: 1 hr, Route: IV, 1,000, Drug form: INJ, ONCE, Priority: STAT, Dosing Weight 126.364 kg, Start date: 02/18/18 17:42:00 CDT, Stop date: 02/18/18 17:42:00 CDT Trudy Patton Lovenox 2018-02-18 22:00:00 No Notes: (Same as: Lovenox) Trudy Patton multivitamin 2018-02-18 21:42:00 Yes 1 tab, PO, Daily, 0 Refill(s) [facility] Metformin 2018-02-18 21:42:00 Yes 1, 000 mg, PO, BID, 0 Refill(s) Trudy Patton Ciprofloxacin 2018-02-18 18:08:00 No Notes: Do not refrigerate Trudy Patton Meclizine 2018-02-18 17:08:00 No 50 mg, Route: PO, Drug form: TAB, ONCE, Dosing Weight 126.364, kg, Priority: STAT, Start date: 02/18/18 12:08:00 CDT, Stop date: 02/18/18 12:08:00 CDT Tx ernesto Patton NS (Bolus) IV 2018-02-18 17:08:00 No 1,000 mL, 1,000 ml/hr, Infuse Over: 1 hr, Route: IV, ONCE, Priority: STAT, Dosing Weight 126.364 kg, Start date: 02/18/18 12:08:00 CDT, Stop date: 02/18/18 12:08:00 CDT [facility] tramadol hydrochloride 50 MG Oral Tablet [Ultram] 2018-02-18 14:04:00 No Notes: Not to exceed 400mg/day. (Same As: Ultra m) [facility] Solu-Medrol 2018-02-18 13:07:00 No Notes: (Same as:Solu-MEDROL, A-Methapred) [facility] Albuterol 0.833 MG/ML / Ipratropium Brom jeremy 0.167 MG/ML Inhalant Solution [DuoNeb] 2018-02-18 13:07:00 No Notes: (S blake as: Duoneb) [facility] azithromycin 500 mg oral tablet 2017-12-24 03:51:00 No 500 mg = 1 tab, PO, Daily, X 5 day, # 5 tab, 0 Refill(s) [facility] Dexamethasone 2017-12-24 03:25:00 No 8 mg, Route: IM, ONCE, Dosing Weight 163.636, kg, Priority: STAT, Start date: 12/23/17 22:25:00 CDT, Stop date: 12/23/17 22:25:00 CDT Trudy chapin glluowxd-svjq-sdm-folic acid (MULTIVITAM IX-KNCV-EFDRNZOQ-FOLIC ACID) 3,500-18-0.4 unit-mg-mg Chew 2016-12-14 16:51:26 Yes Take by mouth. [facility] Loulou alva promethazine 25 mg oral tablet 2016-04-11 14:00:00 Yes 25 mg = 1 tab, PO, Q6H, PRN Nausea/Vomiting, X 3 day, # 12 tab, 0 Refill(s) Trudy Patton Famotidine 20 MG Oral Tablet 2016-04-11 14:00:00 Yes 20 mg = 1 tab, PO, BID, # 10 tab, 0 Refill(s) Trudy Patton Dicyclomine Hydrochloride 20 MG Oral Tablet [Bentyl] 2 14:00:00 Yes 20 mg = 1 tab, PO, QID-Before Meals, # 2 0 tab, 0 Refill(s) Trudy Patton Ondansetron 4 MG Disintegrating Tablet 2016-04-11 13:51:00 No 4 mg = 1 tab, PO, TID, PRN Nausea / Vomiting, Dissolve tab under tongue, X 3 day, # 10 tab, 0 Refill(s) [facility] Ondansetron 2016-04-11 13:04:00 No 4 mg, Route: PO, Drug form: TABDIS, ONCE, Dosing Weight 144.455, kg, Priority: STAT, Start date: 04/11/16 8:04:00 CDT, Stop date: 04/11/16 8:04:00 CDT [facility] neostigmine ([facility]) 2016-03-21 20:42:00 No Route: IV, Drug form: INJ, ONCE, Stop date: 03/21/16 15:42:00 CDT [facility] glycopyrrolate ([facility]) 2016-03-21 20:42:00 No Route: IV, Drug form: INJ, ONCE, Stop date: 03/21/16 15:42:00 CDT [facility] Ketorolac 2016-03-21 20:36:00 No 30 mg, Route: IV, ONCE, Dosing Weight 144.455, kg, Start date: 03/21/16 15:36:00 CDT, Stop date: 03/21/16 15:36:00 CDT [facility] Flumazenil 2016-03-21 20:30:00 No 0.2 mg, Route: IVP, PRN, Dosing Weight 165.455, kg, PRN Benzodiazepine Reversal, Initial dose, Start date: 03/21/16 15:30:00 CDT, Duration: 30 day, Stop date: 04/20/16 15:29:00 CDT [facility] Diphenhydramine 2016-03-21 20:30:00 No 12.5 mg, Route: IVP, Drug form: INJ, Q6H, Dosing Weight 144.455, kg, PRN Itching, Start date: 03/21/16 15:30:00 CDT, Duration: 30 day, Stop date: 04/20/16 15:29:00 CDT [facility] Fentanyl 2016-03-21 20:30:00 No 25 microgram, Route: IVP, Q5Min, Dosing Weight 165.455, kg, PRN Pain Score 4-6, Start date: 03/21/16 15:30:00 CDT, Duration: 4 doses or times, Stop date: Limited # of times [facility] Oxycodone 2016-03-21 20:30:00 No 5 mg, Route: PO, Drug form: TAB, Q4H, Dosing Weight 165.455, kg, PRN Pain Score 4-6, Start date: 03/21/16 15:30:00 CDT, Duration: 30 day, Stop date: 04/20/16 15:29:00 CDT [facility] Hydromorphone 2016-03-21 20:30:00 No 0.5 mg, Route: IVP, Q5Min, Dosing Weight 165.455, kg, PRN Pain Score 7-10, Start date: 03/21/16 15:30:00 CDT, Duration: 4 doses or times, Stop date: Limited # of times [facility] Hydralazine 2016-03-21 20:30:00 No 10 mg, Route: IVP, Q20Min, Dosing Weight 144.455, kg, PRN Elevated BP, Start date: 03/21/16 15:30:00 CDT, Duration: 2 doses or times, Stop date: Limited # of times [facility] esmolol 2016-03-21 20:30:00 No 10 mg, Route: IVP, Q5Min, Dosing Weight 144.455, kg, PRN Other -See Comment, Start date: 03/21/16 15:30:00 CDT, Duration: 5 doses or times, Stop date: Limited # of times [facility]di Acetaminophen 2016-03-21 20:30:00 No 1,000 mg, Route: IVPB, Drug form: INJ, ONCE, Dosing Weight 144.455, kg, PRN Pain Score 1-3, Start date: 03/21/16 15:30:00 CDT, Duration: 1 doses or times, Stop date: Limited # [facility] times [facility] Labetalol 2016-03-21 20:30:00 No 10 mg, Route: IVP, Q5Min, Dosing Weight 144.455, kg, PRN Elevated BP, Start date: 03/21/16 15:30:00 CDT, Duration: 5 doses or times, Stop date: Limited # of times [facility] Meperidine 2016-03-21 20:30:00 No 12.5 mg, Route: IVP, Q30Min, Dosing Weight 144.455, kg, PRN Other -See Comment, For shivering, Start date: 03/21/16 15:30:00 CDT, Duration: 2 doses or times, Stop date: Limited # of times [facility] Ondansetron 2016-03-21 20:30:00 No 4 mg, Route: IVP, ONCE, Dosing Weight 165.455, kg, PRN Nausea & Vomiting, Start date: 03/21/16 15:30:00 CDT [facility] Promethazine 2016-03-21 20:30:00 No 6.25 mg, Route: IVPB, ONCE, Dosing Weight 144.455, kg, PRN Nausea & Vomiting, Start date: 03/21/16 15:30:00 CDT [facility] Naloxone 2016-03-21 20:30:00 No 0.4 mg, Route: IVP, Q2MIN, Dosing Weight 165.455, kg, PRN Narcotic Reversal, Start date: 03/21/16 15:30:00 CDT, Duration: 8 doses or times, Stop date: Limited # of times [facility] Calcium Chloride 0.0014 MEQ/ML / Potassi um Chloride 0.004 MEQ/ML / Sodium Chloride 0.103 MEQ/ML / Sodium Lactate 0.028 MEQ/ML Injectable Solution 2016-03-21 20:30:00 No 1,000 mL, Rate: 125 ml/hr, Infuse over: 8 hr, Route: IV, Dosing Weight 144.455 kg, Total Volume: 1,000, Start date: 03/21/16 15:30:00 CDT, Duration: 30 day, Stop date: 04/20/16 15:29:00 CDT [facility]di Glucose 50 MG/ML / Sodium Chloride 0.154 MEQ/ML Injectable S olution 2016-03-21 20:30:00 No 1,000 mL, Rate: 125 ml/hr, Infuse over: 8 hr, Route: IV, Dosing Weight 144.455 kg, Total Volume: 1,000, Start date: 03/21/16 15:30:00 CDT, Duration: 30 day, Stop date: 04/20/16 15:29:00 CDT [facility] Sodium Chloride 0.154 MEQ/ML Injectable Solution 2016-03-21 20:3 0:00 No 1,000 mL, Rate: 125 ml/hr, I nfuse over: 8 hr, Route: IV, Dosing Weight 144.455 kg, Total Volume: 1,000, Start date: 03/21/16 15:30:00 CDT, Duration: 30 day, Stop date: 04/20/16 15:29:00 CDT ethel Patton Acetaminophen 325 MG / Hydrocodone Bitartrate 5 MG Oral Tabl et 2016-03-21 20:22:00 No 1 tab, Rou te: PO, Drug Form: TAB, Dosing Weight 144.455, kg, Q4H, PRN Pain Score 1-3, Start date: 03/21/16 15:22:00 CDT, Duration: 30 day, Stop date: 04/20/16 15:21:[address] [facility]hen[facility] (ANES) 2016-03-21 20:17:00 No Route: IV, Drug form: INJ, ONCE, Stop date: 03/21/16 15:17:00 CDT [facility]di acetaminophen (ANES) 2016-03-21 20:17:00 No Route: IV, Drug form: INJ, ONCE, Stop date: 03/21/16 15:17:00 CDT [facility] ondansetron (ANES) 2016-03-21 20:12:00 No Route: IV, Drug form: INJ, ONCE, Stop date: 03/21/16 15:12:00 CDT [facility] propofol (BANNER) 2016-03-21 20:07:00 No Route: IV, Drug form: INJ, ONCE, Stop date: 03/21/16 15:07:00 CDT [facility] lidocaine (BANNER) 2016-03-21 20:07:00 No Route: IV, Drug form: INJ, ONCE, Stop date: 03/21/16 15:07:00 CDT [facility] fentaNYL (BANNER) 2016-03-21 20:07:00 No Route: IV, Drug form: INJ, ONCE, Stop date: 03/21/16 15:07:00 CDT [facility] rocuronium (BANNER) 2016-03-21 20:07:00 No Route: IV, Drug form: INJ, ONCE, Stop date: 03/21/16 15:07:00 CDT [facility] levofloxacin (BANNER) 2016-03-21 20:02:00 No Route: IV, Drug form: INJ, ONCE, Stop date: 03/21/16 15:02:00 CDT [facility] Cleocin Phosphate (BANNER) 2016-03-21 20:02:00 No Route: IV, Drug form: INJ, ONCE, Stop date: 03/21/16 15:02:00 CDT [facility] midazolam (BANNER) 2016-03-21 19:52:00 No Route: IV, Drug form: SOLN, ONCE, Stop date: 03/21/16 14:52:00 CDT [facility] LR 1000 mL INJ (BANNER) 2016-03-21 19:11:00 No Route: IV, Total Volume: 1,000, Start date: 03/21/16 14:11:00 CDT, Stop date: 03/21/16 15:11:00 CDT [facility] Clindamycin 2016-03-21 18:00:00 No 900 mg, Route: IVPB, ONCALL, Dosing Weight 144.455, kg, Start date: 03/21/16 13:00:00 CDT, Duration: 30 day, Stop date: 04/20/16 12:59:00 CDT [facility] Levofloxacin 2016-03-21 18:00:00 No 500 mg, Route: IVPB, ONCALL, Dosing Weight 144.455, kg, Start date: 03/21/16 13:00:00 CDT, Duration: 30 day, Stop date: 04/20/16 12:59:00 CDT Karlos Patton Albuterol 0.833 MG/ML / Ipratropium [place] 0.167 MG/ML Inha lant Solution 2016-03-21 17:46:00 No 3 mL, Route: NEB, Dosing Weight 144.455, kg, ONCE, STAT, Start date: 03/21/16 12:46:00 CDT, Stop date: 03/21/16 12:46:00 CDT Trudy Patton Calcium Chloride 0.0014 MEQ/ML / Potassi um Chloride 0.004 MEQ/ML / Sodium Chloride 0.103 MEQ/ML / Sodium Lactate 0.028 MEQ/ML Injectable Solution 2016-03-21 17:46:00 No 1,000 mL, Rate: 25 ml/hr, Infuse over: 40 hr, Route: IV, Dosing Weight 144.455 kg, Total Volume: 1,000, Start date: 03/21/16 12:46:00 CDT, Duration: 30 day, Stop date: 04/20/16 12:45:00 CDT [facility] Sodium Chloride 0.154 MEQ/ML Injectable Solution 2016-03-21 17:4 6:00 No 1,000 mL, Rate: 25 ml/hr, In fuse over: 40 hr, Route: IV, Dosing Weight 144.455 kg, Total Volume: 1,000, Start date: 03/21/16 12:46:00 CDT, Duration: 30 day, Stop date: 04/20/16 12:45:00 [facility] Glucose 50 MG/ML / Sodium Chloride 0.154 MEQ/ML Injectable S olution 2016-03-21 17:46:00 No 1,000 mL, Rate: 25 ml/hr, Infuse over: 40 hr, Route: IV, Dosing Weight 144.455 kg, Total Volume: 1,000, Start date: 03/21/16 12:46:00 CDT, Duration: 30 day, Stop date: 04/20/16 12:45:00 CDT Trudy Patton Advil PM 2016-03-21 16:14:00 Yes 1 t ab, PO, Bedtime, 0 Refill(s) Trudy Patton predniSONE 20 mg oral tablet 2016-01-19 04:33:00 Yes 60 mg = 3 tab, PO, Daily, Take 3 tablets for 60 mg dose, X 5 day, # 15 tab, 0 Refill(s) Trudy Patton 200 ACTUAT Albuterol 0.09 MG/ACTUAT Metered Dose Inhaler [Pr oAir HFA] 2016-01-19 04:32:00 Yes 2 puff, INHALER, Q4H, PRN for wheezing, # 1 ea, 0 Refill(s) Trudy Patton Promethazine DM oral syrup 2016-01-19 04:32:00 Yes 5 mL, PO, Q6H, PRN for cough, X 6 day, # 120 mL, 0 Refill(s) Trudy Patton {6 (Azithromycin 250 MG Oral Tablet [Zithromax]) } Pack [Z-P AKS] 2016-01-19 04:32:00 Yes See Instru ctions, Take 2 tablets by mouth the first day then 1 tablet by mouth days 2-5., X 5 day, # 6 tab, 0 Refill(s) Trudy Patton Albuterol 0.833 MG/ML / Ipratropium Brom jeremy 0.167 MG/ML Inhalant Solution [DuoNeb] 2016-01-19 02:48:00 No Notes: (S blake as: Duoneb) Trudy Abdi Prednisone 2016-01-19 02:48:00 No 60 mg, Route: PO, Drug form: TAB, ONCE, Dosing Weight 165.455, kg, Priority: STAT, Start date: 01/18/16 21:48:00 CDT, Stop date: 01/18/16 21:48:00 CDT [facility] Saline Flush 0.9% 2016-01-19 00:31:00 No Notes: (Same as: BD Posiflush) Trudy Patton Ketorolac 2015-06-23 23:00:00 No 15 mg, Route: IVP, Q6H, Dosing Weight 138.636, kg, Start date: 06/23/15 18:00:00, Duration: 4 day, Stop date: 06/27/15 12:00:00 Trudy Patton Dexamethasone 2015-06-23 22:10:00 No 4 mg, Route: IVP, ONCE, Dosing Weight 138.636, kg, PRN Nausea & Vomiting, Start date: 06/23/15 17:10:00 [facility] Promethazine 2015-06-23 22:10:00 No 6.25 mg, Route: IVPB, ONCE, Dosing Weight 138.636, kg, PRN Nausea & Vomiting, Start date: 06/23/15 17:10:00 [facility] Ondansetron 2015-06-23 22:10:00 No 4 mg, Route: IVP, ONCE, Dosing Weight 138.636, kg, PRN Nausea & Vomiting, Start date: 06/23/15 17:10:00 [facility] Glycopyrrolate 2015-06-23 22:10:00 No 0.2 mg, Route: IVP, Q5Min, Dosing Weight 138.636, kg, PRN Bradycardia, Start date: 06/23/15 17:10:00, Duration: 3 doses or times, Stop date: Limited # of times [facility] Hydralazine 2015-06-23 22:10:00 No 10 mg, Route: IVP, Q20Min, Dosing Weight 138.636, kg, PRN Elevated BP, Start date: 06/23/15 17:10:00, Duration: 2 doses or times, Stop date: Limited # of times [facility] Metoprolol 2015-06-23 22:10:00 No 1 mg, Route: IVP, Q5Min, Dosing Weight 138.636, kg, PRN Other -See Comment, Start date: 06/23/15 17:10:00, Duration: 5 doses or times, Stop date: Limited # of times [facility] Meperidine 2015-06-23 22:10:00 No 12.5 mg, Route: IVP, Q30Min, Dosing Weight 138.636, kg, PRN Other -See Comment, For shivering, Start date: 06/23/15 17:10:00, Duration: 2 doses or times, Stop date: Limited # of times [facility] Flumazenil 2015-06-23 22:10:00 No 0.2 mg, Route: IVP, PRN, Dosing Weight 138.636, kg, PRN Benzodiazepine Reversal, Initial dose, Start date: 06/23/15 17:10:00, Duration: 30 day, Stop date: 07/23/15 17:09:00 [facility] Naloxone 2015-06-23 22:10:00 No 0.04 mg, Route: IVP, Q2MIN, Dosing Weight 138.636, kg, PRN Narcotic Reversal, Start date: 06/23/15 17:10:00, Duration: 8 doses or times, Stop date: Limited # of times [facility] Diphenhydramine 2015-06-23 22:10:00 No 12.5 mg, Route: IVP, Drug form: INJ, Q6H, Dosing Weight 138.636, kg, PRN Itching, Start date: 06/23/15 17:10:00, Duration: 30 day, Stop date: 07/23/15 17:09:00 [facility] Fentanyl 2015-06-23 22:10:00 No 50 microgram, Route: IVP, Q5Min, Dosing Weight 138.636, kg, PRN Pain Score 7-10, Start date: 06/23/15 17:10:00, Duration: 2 doses or times, Stop date: Limited # of times [facility] Morphine 2015-06-23 22:10:00 No 4 mg, Route: IVP, Q5Min, Dosing Weight 138.636, kg, PRN Pain Score 7-10, Start date: 06/23/15 17:10:00, Duration: 3 doses or times, Stop date: Limited # of times [facility] Ketorolac 2015-06-23 22:10:00 No 30 mg, Route: IVP, ONCE, Dosing Weight 138.636, kg, Start date: 06/23/15 17:10:00, Duration: 1 doses or times, Stop date: 06/23/15 17:10:00 [facility] Hydromorphone 2015-06-23 22:10:00 No 0.5 mg, Route: IVP, Q5Min, Dosing Weight 138.636, kg, PRN Pain Score 7-10, Start date: 06/23/15 17:10:00, Duration: 4 doses or times, Stop date: Limited # of times [facility] Oxycodone 2015-06-23 22:10:00 No 5 mg, Route: PO, Drug form: TAB, Q4H, Dosing Weight 138.636, kg, PRN Pain Score 4-6, Start date: 06/23/15 17:10:00, Duration: 30 day, Stop date: 07/23/15 17:09:00 Trudy Patton Acetaminophen 325 MG / Hydrocodone Bitartrate 5 MG Oral Tabl et 2015-06-23 21:58:00 No 1 tab, Rou te: PO, Drug Form: TAB, Dosing Weight 138.636, kg, Q4H, PRN Pain Score 1-3, Start date: 06/23/15 16:58:00, Duration: 30 day, Stop date: 07/23/15 16:57:00 Trudy mahajan Calcium Chloride 0.0014 MEQ/ML / Potassi um Chloride 0.004 MEQ/ML / Sodium Chloride 0.103 MEQ/ML / Sodium Lactate 0.028 MEQ/ML Injectable Solution 2015-06-23 20:29:00 No 1,000 mL, Rate: 25 ml/hr, Infuse over: 40 hr, Route: IV, Dosing Weight 138.636 kg, Total Volume: 1,000, Start date: 06/23/15 15:29:00, Duration: 30 day, Stop date: 07/23/15 15:28:00 [facility] Clindamycin 2015-06-23 20:00:00 No 900 mg, Route: IVPB, ONCALL, Dosing Weight 138.636, kg, Start date: 06/23/15 15:00:00, Duration: 30 day, Stop date: 07/23/15 14:59:00 Trudy Espinosa n Levofloxacin 2015-06-23 20:00:00 No 500 mg, Route: IVPB, ONCALL, Dosing Weight 138.636, kg, Start date: 06/23/15 15:00:00, Duration: 30 day, Stop date: 07/23/15 14:59:00 Trudy kaye 200 ACTUAT Albuterol 0.09 MG/ACTUAT Metered Dose Inhaler 2015-06-23 18:45:00 Yes 1 puff, INHALATION, Q4H, PRN for wheezing, # 9 gm, 0 Refill(s) [facility] Ibuprofen 600 MG Oral Tablet [Motrin] 2014-12-17 18:40:00 Y es Special Instructions: take with food [facility] orial Abdi Diazepam 10 MG Oral Tablet [Valium] 2014-12-17 18:39:00 Yes 10 mg = 1 tab, PO, BID, Muscle Spasms, # 24 tab, 0 Refill(s) [facility] Saline Flush 0.9% 2014-12-17 16:59:00 No 10 mL, Route: IVP, Drug Form: INJ, Dosing Weight 135, kg, PRN, PRN Line Flush, Start date: 12/17/14 11:59:00, Duration: 30 day, Stop date: 01/16/15 11:58:00 [facility] Sodium Chloride 0.154 MEQ/ML Injectable Solution 2014-12-17 16:5 9:00 No 1,000 mL, 1,000 ml/hr, Infus e Over: 1 hr, Route: IV, ONCE, Priority: STAT, Dosing Weight 135 kg, Start date: 12/17/14 11:59:00, Duration: 1 doses or times, Stop date: 12/17/14 11:59:00 [facility] annie Meclizine 2014-12-17 16:58:00 No 50 mg, Route: PO, Drug form: TAB, ONCE, Dosing Weight 135, kg, Priority: STAT, Start date: 12/17/14 11:58:00, Stop date: 12/17/14 11:58:00 Trudy kaye naproxen 500 mg oral tablet 2011-12-11 07:33:42 Yes Palma en Phi Mack 500 mg, 1 tab, PO, BID, PRN, 30 tab, Pain, Substitution Allowed, with foodwith food [facility] Provera 10 mg oral tablet 2011-12-11 07:32:42 Yes Joel Phi Mack 10 mg, 1 tab, PO, Daily, 7 tab, Substitution Allowed, TAB [facility] Depo-Provera 2011-12-11 07:29:00 No Joel Phi Mack 150 mg, 1 mL, Route: IM, Drug form: INJ, ONCE, Start date: 12/11/11 2:29:00, Stop date: 12/11/11 2:29:00 [facility] acetaminophen-hydrocodone 325 mg-10 mg oral tablet 2011-11 06:31:00 No Joel Phi Mack 1 tab, Route: PO, ONCE, STAT, Start date: 12/11/11 1:31:00, Stop date: 12/11/11 1:31:00 [facility] myrna Patton Sodium Chloride 0.9% (Bolus) IV 1,000 mL 2011-12-11 04:24: 00 No Joel Murilloer 1,000 mL, Rate: 1,000 ml/hr, Infuse over: 1 hr, Route: IV, Dosing Weight 143 kg, Total Volume: 1,000, Bolus Dose, Priority: STAT, Start date: 12/10/11 23:24:00, Duration: 1 doses or times, Stop date: 12/11/11 0:23:00 [facility] Albuterol Sulfate (Albuterol Sulfate Hfa) 8.5 Gm HFA.A ER.AD Albuterol Sulfate (Albuterol Sulfate Hfa) 8.5 Gm HFA.AER.AD Yes 2 As Needed [facility] Dicyclomine Hcl Dicyclomine Hcl Yes Four Baldomero es Daily [facility] Diphenhydramine Hcl (Benadryl) 25 Mg CAPSULE Diphenhyd ramine Hcl (Benadryl) 25 Mg CAPSULE Yes 50 Bedtime [facility] Meclizine Hcl Meclizine Hcl Yes As Needed [facility] Metformin Hcl Metformin Hcl Yes 500 Twice A Day [facility] Ondansetron (Zofran Odt) 4 Mg TAB.RAPDIS Ondansetron ( Zofran Odt) 4 Mg TAB.RAPDIS Yes As Needed [facility] Estradiol (Estrace) 42.5 Gm CR Estradiol (Estrace) 42.5 Gm CR 2016-11-26 00:00:00 No 42.5 Twice A Day [facility] Clomid Clomid 2016-04-28 00:00:00 No 50 Daily [facility] Folic Acid Folic Acid 2016-04-28 00:00:00 No .4 Consuelo ly [facility] Vital Signs Vital Name Observation Time Observation Value Comments Source Systolic blood pressure 2020-05-15 13:25:00 123 mm[Hg] [facility] Diastolic blood pressure 2020-05-15 13:25:00 73 mm[Hg] [facility] Heart rate 2020-05-15 13:25:00 85 /min [facility] Body temperature 2020-05-15 13:25:00 37.44 Darlin [facility] Respiratory rate 2020-05-15 13:25:00 16 /min [facility] Oxygen saturation in Arterial blood by Pulse oximetry 05-15 12:00:00 96 [facility] 2020-05-15 09:01:00 152.4 cm [facility] Body weight 2020-05-15 09:01:00 136.079 kg [facility] BMI 2020-05-15 09:01:00 58.59 kg/m2 [facility] Weight 2020-02-05 09:06:00 334 [lb_av] [facility] BMI (Body Mass Index) 2020-02-05 09:06:00 46.6 kg/m2 [facility] Respitory Rate 2019-03-06 00:22:00 [facility] Systolic (mm Hg) 2019-03-05 23:56:00 [facility] Diastolic (mm Hg) 2019-03-05 23:56:00 [facility] [place] Heart Rate 2019-03-05 23:56:00 [facility] [place] Temperature Oral (F) 2019-03-05 23:56:00 99.0 F [facility] Respitory Rate 2019-03-05 23:56:00 [facility] Temperature Oral (F) 2019-03-05 20:44:00 97.9 F [facility] [place] Systolic (mm Hg) 2019-03-05 20:44:00 Chris [facility] Diastolic (mm Hg) 2019-03-05 20:44:00 [facility] [place] Respitory Rate 2019-03-05 20:44:00 [facility] Heart Rate 2019-03-05 20:44:00 [facility] [place] Systolic (mm Hg) 2019-03-05 17:03:00 Chris rial [facility] Diastolic (mm Hg) 2019-03-05 17:03:00 [facility] Heart Rate 2019-03-05 17:03:00 [facility] [place] Temperature Oral (F) 2019-03-05 17:03:00 97.6 F [facility] Weight 2019-03-05 13:08:00 [facility] BMI Calculated 2019-03-05 12:16:00 [facility] Weight 2019-03-05 12:16:00 [facility] Height 2019-03-05 12:16:00 152.4 cm [facility] Height 2019-03-05 08:35:00 152.4 cm [facility] [place] BMI Calculated 2019-03-05 08:35:00 [facility] Weight 2019-03-05 08:35:00 [facility] [place] Systolic (mm Hg) 2019-01-02 19:40:00 Chris rial [facility] Diastolic (mm Hg) 2019-01-02 19:40:00 [facility] [place] Heart Rate 2019-01-02 19:40:00 [facility] [place] Respitory Rate 2019-01-02 19:40:00 [facility] Temperature Oral (F) 2019-01-02 19:40:00 98.7 F [facility] [place] BMI Calculated 2019-01-02 14:54:00 [facility] Respitory Rate 2019-01-02 14:54:00 [facility] [place] Temperature Oral (F) 2019-01-02 14:54:00 98.5 F [facility] [place] Systolic (mm Hg) 2019-01-02 14:54:00 [facility] [place] Diastolic (mm Hg) 2019-01-02 14:54:00 [facility] [place] Heart Rate 2019-01-02 14:54:00 [facility] Weight 2019-01-02 14:54:00 [facility] [place] Height 2019-01-02 14:54:00 162.56 cm [facility] Heart Rate 2018-06-05 00:41:00 [facility] Systolic (mm Hg) 2018-06-05 00:41:00 [facility] [place] Diastolic (mm Hg) 2018-06-05 00:41:00 [facility] [place] Respitory Rate 2018-06-05 00:41:00 [facility] Temperature Oral (F) 2018-06-05 00:41:00 98.6 F [facility] Heart Rate 2018-06-04 20:47:00 [facility] Respitory Rate 2018-06-04 20:47:00 [facility] Temperature Oral (F) 2018-06-04 20:47:00 99.7 F [facility] Systolic (mm Hg) 2018-06-04 20:47:00 [facility] [place] Diastolic (mm Hg) 2018-06-04 20:47:00 [facility] Systolic (mm Hg) 2018-02-19 16:52:00 Chris [facility] Diastolic (mm Hg) 2018-02-19 16:52:00 [facility] [place] Respitory Rate 2018-02-19 16:52:00 [facility] [place] Temperature Oral (F) 2018-02-19 16:52:00 98.5 F [facility] [place] Heart Rate 2018-02-19 16:52:00 [facility] [place] Temperature Oral (F) 2018-02-19 12:53:00 98.2 F [facility] Heart Rate 2018-02-19 12:53:00 [facility] Respitory Rate 2018-02-19 12:53:00 [facility] Systolic (mm Hg) 2018-02-19 12:53:00 [facility] [place] Diastolic (mm Hg) 2018-02-19 12:53:00 [facility] [place] Respitory Rate 2018-02-19 11:41:00 [facility] [place] Systolic (mm Hg) 2018-02-19 08:28:00 [facility] [place] Diastolic (mm Hg) 2018-02-19 08:28:00 [facility] Temperature Oral (F) 2018-02-19 08:28:00 97.8 F [facility] Heart Rate 2018-02-19 08:28:00 [facility] BMI Calculated 2018-02-18 20:45:00 [facility] [place] Weight 2018-02-18 20:45:00 [facility] [place] Height 2018-02-18 20:45:00 152.4 cm [facility] [place] Height 2018-02-18 12:43:00 152.4 cm [facility] Weight 2018-02-18 12:43:00 [facility] [place] BMI Calculated 2018-02-18 12:43:00 [facility] Temperature Oral (F) 2017-12-24 04:02:00 98.1 F [facility] Systolic (mm Hg) 2017-12-24 04:02:00 Chris [facility] Diastolic (mm Hg) 2017-12-24 04:02:00 [facility] Respitory Rate 2017-12-24 04:02:00 [facility] [place] Heart Rate 2017-12-24 04:02:00 [facility] [place] Weight 2017-12-24 00:35:00 [facility] [place] BMI Calculated 2017-12-24 00:35:00 [facility] Heart Rate 2017-12-24 00:35:00 [facility] Height 2017-12-24 00:35:00 152.4 cm [facility] [place] Temperature Oral (F) 2017-12-24 00:35:00 99.0 F [facility] Systolic (mm Hg) 2017-12-24 00:35:00 [facility] [place] Diastolic (mm Hg) 2017-12-24 00:35:00 [facility] Respitory Rate 2017-12-24 00:35:00 [facility] Temperature Oral (F) 2016-04-11 14:15:00 98.6 F [facility] [place] Heart Rate 2016-04-11 14:15:00 [facility] [place] Respitory Rate 2016-04-11 14:15:00 [facility] Systolic (mm Hg) 2016-04-11 14:15:00 Chris [facility] Diastolic (mm Hg) 2016-04-11 14:15:00 [facility] Weight 2016-04-11 13:03:00 [facility] [place] Temperature Oral (F) 2016-04-11 13:03:00 98.6 F [facility] [place] Height 2016-04-11 13:03:00 157.48 cm [facility] [place] Heart Rate 2016-04-11 13:03:00 [facility] Respitory Rate 2016-04-11 13:03:00 [facility] [place] BMI Calculated 2016-04-11 13:03:00 [facility] [place] Systolic (mm Hg) 2016-04-11 13:03:00 Chris [facility] Diastolic (mm Hg) 2016-04-11 13:03:00 [facility] Systolic (mm Hg) 2016-03-21 23:00:00 [facility] [place] Diastolic (mm Hg) 2016-03-21 23:00:00 [facility] Systolic (mm Hg) 2016-03-21 22:00:00 [facility] [place] Diastolic (mm Hg) 2016-03-21 22:00:00 [facility] [place] Systolic (mm Hg) 2016-03-21 21:30:00 Chris [facility] Diastolic (mm Hg) 2016-03-21 21:30:00 [facility] Respitory Rate 2016-03-21 21:15:00 [facility] [place] Respitory Rate 2016-03-21 21:00:00 [facility] [place] Respitory Rate 2016-03-21 20:45:00 [facility] [place] Height 2016-03-21 16:40:00 149.86 cm [facility] [place] Weight 2016-03-21 16:40:00 [facility] BMI Calculated 2016-03-21 16:40:00 [facility] Heart Rate 2016-03-21 16:40:00 [facility] [place] Temperature Oral (F) 2016-03-21 16:40:00 98.9 F [facility] Temperature Oral (F) 2016-01-19 05:07:00 98.4 F [facility] Heart Rate 2016-01-19 05:07:00 [facility] Respitory Rate 2016-01-19 05:07:00 [facility] Systolic (mm Hg) 2016-01-19 05:07:00 [facility] Diastolic (mm Hg) 2016-01-19 05:07:00 [facility] [place] Respitory Rate 2016-01-19 03:00:00 [facility] BMI Calculated 2016-01-19 00:26:00 [facility] [place] Weight 2016-01-19 00:26:00 [facility] Respitory Rate 2016-01-19 00:26:00 [facility] Temperature Oral (F) 2016-01-19 00:26:00 99.5 F [facility] [place] Heart Rate 2016-01-19 00:26:00 [facility] Systolic (mm Hg) 2016-01-19 00:26:00 [facility] [place] Diastolic (mm Hg) 2016-01-19 00:26:00 [facility] Height 2016-01-19 00:26:00 149.86 cm [facility] Systolic (mm Hg) 2015-06-24 00:45:00 [facility] [place] Diastolic (mm Hg) 2015-06-24 00:45:00 [facility] Systolic (mm Hg) 2015-06-23 23:45:00 [facility] [place] Diastolic (mm Hg) 2015-06-23 23:45:00 [facility] [place] Systolic (mm Hg) 2015-06-23 23:30:00 [facility] [place] Diastolic (mm Hg) 2015-06-23 23:30:00 [facility] Respitory Rate 2015-06-23 23:00:00 [facility] Respitory Rate 2015-06-23 22:45:00 [facility] Respitory Rate 2015-06-23 22:30:00 [facility] [place] Temperature Oral (F) 2015-06-23 18:38:00 98.4 F [facility] [place] Heart Rate 2015-06-23 18:38:00 [facility] BMI Calculated 2015-06-23 18:07:00 [facility] [place] Height 2015-06-23 18:07:00 152.4 cm [facility] Weight 2015-06-23 18:07:00 [facility] Respitory Rate 2014-12-17 19:14:00 [facility] [place] Temperature Oral (F) 2014-12-17 19:14:00 98.8 F [facility] Heart Rate 2014-12-17 19:14:00 [facility] Systolic (mm Hg) 2014-12-17 19:14:00 [facility] Diastolic (mm Hg) 2014-12-17 19:14:00 [facility] [place] Temperature Oral (F) 2014-12-17 16:19:00 98.7 F [facility] BMI Calculated 2014-12-17 16:19:00 [facility] Weight 2014-12-17 16:19:00 [facility] [place] Height 2014-12-17 16:19:00 149.86 cm [facility] Respitory Rate 2014-12-17 16:19:00 [facility] [place] Heart Rate 2014-12-17 16:19:00 [facility] [place] Systolic (mm Hg) 2014-12-17 16:19:00 [facility] Diastolic (mm Hg) 2014-12-17 16:19:00 [facility] [place] Height 2011-12-11 02:15:00 152.40 cm [facility] Weight 2011-12-11 02:15:00 [facility] [place] Heart Rate 2011-10-18 21:46:00 [facility] Diastolic (mm Hg) 2011-10-18 21:46:00 [facility] Respitory Rate 2011-10-18 21:46:00 [facility] Systolic (mm Hg) 2011-10-18 21:46:00 [facility] Temperature Oral (F) 2011-10-18 21:46:00 98.3 F [facility] Temperature Oral (F) 2011-10-18 20:56:00 98.7 F [facility] Diastolic (mm Hg) 2011-10-18 20:56:00 [facility] Respitory Rate 2011-10-18 20:56:00 [facility] Heart Rate 2011-10-18 20:56:00 [facility] [place] Systolic (mm Hg) 2011-10-18 20:56:00 [facility] Respitory Rate 2011-10-18 19:41:00 [facility] [place] Heart Rate 2011-10-18 19:41:00 [facility] [place] Temperature Oral (F) 2011-10-18 19:41:00 98.7 F [facility] Weight 2011-10-18 19:41:00 [facility] Height 2011-10-18 19:41:00 152.40 cm [facility] Diastolic (mm Hg) 2011-10-18 19:41:00 [facility] [place] Systolic (mm Hg) 2011-10-18 19:41:00 [facility] [place] Height 2011-07-31 19:20:00 149.86 cm [facility] Weight 2011-07-31 19:20:00 [facility] Temperature Oral (F) 2011-07-31 19:20:00 99.0 F [facility] Heart Rate 2011-07-31 19:20:00 [facility] Diastolic (mm Hg) 2011-07-31 19:20:00 [facility] [place] Systolic (mm Hg) 2011-07-31 19:20:00 [facility] [place] Respitory Rate 2011-07-31 19:20:00 [facility] Procedures Procedure Date / Time Performed Performing Clinician Sour e URINE CULTURE 2020-05-15 10:50:00 [facility] URINE CULTURE 2020-05-15 10:50:00 Carey Noonan [facility] MONONUCLEOSIS SCREEN 2020-05-15 09:57:00 Liborio Noonan [facility] SARS-COV2/RT-PCR ([facility] 2020-05-12 23:37:00 Mary-Ca rvajaana rosa [facility] RAPID STREP A SCREEN 2020-05-12 21:45:00 Mary-Sargent [facility] CT of abdomen and pelvis without contrast 2019-06-30 00:00:00 [facility] Laparoscopic cholecystectomy 2018-03-05 05:00:00 [facility] Biopsy [facility] Dilation and curettage [facility] Plan of Care Planned Activity Planned Date Details Comments Source Future Scheduled Test 2020-04-24 00:00:00 INFLUENZA VACCINE [code = INFLUENZA VACCINE] Wilver Leiva Future Scheduled Test 2007 00:00:00 Screening for ottoniel gnant neoplasm of cervix (procedure) [code = 028108860] Wilver snowden Future Appointment 2020-07-29 07:30:00 Yari Banks MD, [address]; [place] [address], [place] [id number] [facility] r Future Appointment 2020-07-29 07:30:00 Yari Banks MD, [address]; [place] [address], [place] [id number] [facility] r Instructions Back Pain [facility] Instructions Fall Prevention [facility] Encounters Start Date/Time End Date/Time Encounter Type Admission Type Attendi [facility] Care Department Encounter ID Source 2020-05-28 00:00:00 2020-05-28 00:00:00 Telephone Washing Elida momin ATTRACTION ATTENDANT [facility] [id number] 2020-05-28 00:00:00 2020-05-28 00:00:00 Telephone Washing Elida momin ATTRACTION ATTENDANT [facility] [id number] 2020-05-25 14:38:23 2020-05-25 15:20:21 Office Visit Randa sheaYari [facility] [id number] 2020-05-21 08:09:03 2020-05-21 09:09:51 Office Visit Chelsea Bear [facility] [id number] 2020-05-05 00:00:00 2020-05-05 00:00:00 Refill Lili Richardson [facility] ATTRACTION ATTENDANT [facility] MATERNAL & CHILD [facility] [id number] 2020-03-25 00:00:00 2020-03-25 00:00:00 Outpatient DAVE GUERRERO [facility] [id number] [facility] 2020-02-05 09:01:00 2020-02-05 13:24:00 Departed Emergency Room 1 [facility] [id number] [facility] 2019-12-08 12:24:00 2019-12-08 12:24:00 Emergency E [facility] [id number] [facility] 2019-10-19 03:34:00 2019-10-19 03:34:00 Emergency E [facility]SE [facility] [id number] [facility] 2019-09-19 18:52:00 2019-09-19 18:52:00 Outpatient MHSE MHSE [id number] [facility] 2019-06-30 15:09:00 2019-06-30 19:25:00 [facility] [id number] [facility] 2019-04-11 11:48:00 2019-04-11 13:47:00 Departed Emergency Room [facility] [id number] [facility] 2019-03-05 03:13:00 2019-03-05 21:55:00 Outpatient Yari Quiroz MHSE MHSE [id number] 2019-03-05 06:04:00 2019-03-05 06:04:00 Outpatient E MHSE MED [id number] [facility] 2019-01-02 09:42:00 2019-01-02 14:57:00 Outpatient F Talita arriolavargasheena MHSE MHSE [id number] 2019-01-02 09:42:00 2019-01-02 09:42:00 Emergency E MHSE MHSE [id number] [facility] 2018-06-04 15:39:00 2018-06-04 19:43:00 Outpatient Miranda Richards ep MHSE MHSE [id number] 2018-06-04 15:39:00 2018-06-04 19:43:00 Outpatient Miranda Richards ep MHSE MHSE [id number] 2018-02-18 07:37:00 2018-02-19 15:14:00 Outpatient Red Booth MHSE MHSE [id number] 2017-12-23 19:31:00 2017-12-23 23:07:00 Outpatient Miranda Richards ep MHSE MHSE [id number] 2017-11-21 20:45:00 2017-11-21 20:45:00 Registered Emergency Room WOLF PERRY [facility] [id number] [facility] 2017-11-11 12:56:00 2017-11-14 18:12:00 Discharged Inpatient (obs) ER BIJU EARLY [facility] [id number] [facility] 2017-02-27 13:45:00 2017-02-27 14:57:00 Departed Emergency Room [facility] [id number] [facility] 2016-04-11 07:48:00 2016-04-11 09:35:00 Outpatient Aaron Whelan [place] [id number] 2016-04-11 07:37:00 2016-04-11 07:49:00 Outpatient Hima Orlando SE SE [id number] 2016-03-21 10:46:00 2016-03-21 18:28:00 Outpatient Abdulkadir Diaz SE [place] [id number] 2016-01-18 19:21:00 2016-01-19 00:18:00 Outpatient Julio Marrufo SE SE [id number] 2015-06-23 12:20:00 2015-06-23 20:19:00 Outpatient Abdulkadir Diaz SE SE [id number] 2014-12-17 11:11:00 2014-12-17 14:21:00 Outpatient Aaron Whelan IE MHIE [id number] Results Test Description Test Time Test Comments Results Result Comments Source Urine culture 2020-05-16 14:53:00 Test Item Result (test code = 6463-4) >100,000 col/mL skin fern[facility] [id number] 11:39:00* Test Item Value Reference Range Interpretation Comments Infectious Mononucleosis Screen (test code = 66001-9) Negative Negative Lab Interpretation (test code = 66298-1) Normal [facility]UC[facility] [id number] 11:39:00* Test Item Value Reference Range Interpretation Comments HETEROPHILE ANTIBODIES (BEAKER) (test code = 621) Negative Nega tive Urinalysis w/Microscopic + Reflex to [id number] 11:11:00* Test Item Value Reference Range Interpretation Comments Color, UA (test code = 5778-6) Light Yellow Clarity, UA (test code = 5767-9) Clear Specific [place], UA (test code = 5811-5) 1.010 1.001-1.035 pH, UA (test code = 5803-2) 7.5 5.0-8.0 Protein, UA (test code = 72762-0) Negative Negative Glucose, UA (test code = 365) Negative Negative Ketones, UA (test code = 2514-8) Negative Negative Bilirubin, UA (test code = 51787-2) Negative Negative Blood, UA (test code = 64549-8) Small Negative A Nitrite, UA (test code = 5802-4) Negative Negative Leukocytes, UA (test code = 5799-2) Small Negative A Urobilinogen, UA (test code = 76328-8) 0.2 mg/dL 0.2-1 RBC, UA (test code = 02164-2) 1 /HPF WBC, UA (test code = 5821-4) 14 /HPF Mucus (test code = 8247-9) Rare Squam Epithel, UA (test code = 15619-3) 6 /HPF Specimen Source (test code = 2795) DARREN (test code = DARREN) Bag Bundler ID - [auto]Bag Bundler ID - tech Lab Interpretation (test code = 23591-7) [facility] UR[facility] [id number] 11:11:00* Test Item Value Reference Range Interpretation Comments COLOR (BEAKER) (test code = 470) Light Yellow CLARITY (BEAKER) (test code = 469) Clear SPECIFIC GRAVITY UA (BEAKER) (test code = 468) 1.010 1.001-1 .035 PH UA (BEAKER) (test code = 467) 7.5 5.0-8.0 PROTEIN UA (BEAKER) (test code = 464) Negative Negative GLUCOSE UA (BEAKER) (test code = 365) Negative Negative KETONES UA (BEAKER) (test code = 371) Negative Negative BILIRUBIN UA (BEAKER) (test code = 462) Negative Negative BLOOD UA (BEAKER) (test code = 461) Small Negative A NITRITE UA (BEAKER) (test code = 465) Negative Negative LEUKOCYTE ESTERASE UA (BEAKER) (test code = 466) Small Negat queta A UROBILINOGEN UA (BEAKER) (test code = 463) 0.2 mg/dL 0.2-1.0 RBC UA (BEAKER) (test code = 519) 1 /HPF WBC UA (BEAKER) (test code = 520) 14 /HPF MUCUS (BEAKER) (test code = 1574) Rare SQUAMOUS EPITHELIAL (BEAKER) (test code = 516) 6 /HPF SOURCE(BEAKER) (test code = 2795) Bag Bundler ID - [auto]Bag Bundler ID - techSARS-CoV2/RT-PCR (Symptomatic ONLY) 2020-05-14 00:41:00* Test Item Value Reference Range Interpretation Comments SARS-COV2/RT-PCR (test code = 67388-8) Negative N ot Detected, Negative, See external report for linked test SARS-COV-2 PERFORMING LAB (test code = 87232-1) [facility] DARREN (test code = DARREN) Negative result for this lupe t determines that SARS-CoV-2 RNA was not present in the specimen above the Limit of Detection (LOD). However, Negative results do not preclude SARS-CoV-2 infection and should not be used as the sole basis for treatment or patient management decisions. Negative results must be combined with clinical observations, patient history, and epidemiological information. A false negative result may occur if a specimen is improperly collected, transported or handled. A false negative result should be considered if patient's recent exposures or clinical presentation indicate that COVID-19 (SARS-CoV-2) is likely and diagnostic tests for other causes of illness are negative. Re-testing should be considered in cases of suspected false negatives. The limit of detection for this assay is 800 copies/mL. This SARS CoV-2 test is a real-time RT-PCR test intended for the qualitative detection of nucleic acid from SARS-CoV-2 in a nasopharyngeal swab specimen collected from individuals suspected of COVID-19 by their healthcare provider. This test has not been Food and Drug Administration (FDA) cleared or approved. This is a modified version of an approved Emergency Use Authorization (EUA) and is in the process of review by the FDA. Once authorized by the FDA, the issued EUA will be effective until the declaration that circumstances exist justifying the authorization of the emergency use of in vitro diagnostic tests for detection and/or diagnosis of COVID-19 is terminated under Section 564(b)(2) of the Act or the EUA is revoked under Section 564(g) of the Act. Fact Sheet for Healthcare Providers:https://www.[employer]/sites/default/files/product/documents/Fact_Shee o_TS_Vmggagtho_Udlg_ZCBZ-TuD-3.pdf Fact Sheet for Healthcare Patients:https://www.[employer].travayl/sites/default/files/pro duct/documents/Nrby_Cmata_Azibhdys_Cqdm_OWPD-KzT-6.pdf Performing Laboratory:[facility] [place] [address] [facility] [place] ([facility]2020-05-14 00:41:00* Test Item Value Reference Range Interpretation Comments SARS-COV2/RT-PCR (test code = 8498940) Negative N ot Detected, Negative, See external report for linked test SARS-COV-2 PERFORMING LAB (test code = 5806119) [facility] Negative result for this test determines that SARS-CoV-2 RNA was not present in the specimen above the Limit of Detection (LOD). However, Negative results do n ot preclude SARS-CoV-2 infection and should not be used as the sole basis for tr eatment or patient management decisions. Negative results must be combined with clinical observations, patient history, and epidemiological information. A false negative result may occur if a specimen is improperly collected, transported or handled. A false negative result should be considered if patient's recent expo sures or clinical presentation indicate that COVID-19 (SARS-CoV-2) is likely and diagnostic tests for other causes of illness are negative. Re-testing should b e considered in cases of suspected false negatives.The limit of detection for th is assay is 800 copies/mL.This SARS CoV-2 test is a real-time RT-PCR test intend ed for the qualitative detection of nucleic acid from SARS-CoV-2 in a nasopharyn geal swab specimen collected from individuals suspected of COVID-19 by their [facility] provider.This test has not been Food and Drug Administration (FDA) clear ed or approved. This is a modified version of an approved Emergency Use Authori zation (EUA) and is in the process of review by the FDA. Once authorized by [facility] FDA, the issued EUA will be effective until the declaration that circumstances exist justifying the authorization of the emergency use of in vitro diagnostic tests for detection and/or diagnosis of COVID-19 is terminated under Section 564 (b)(2) of the Act or the EUA is revoked under Section 564(g) of the Act.Fact She et for Healthcare Providers:https://www.[employer].com/sites/default/files/product/d ocuments/Uzqb_Ytozb_CG_Eqrwtveoi_Zxbf_RVGK-CcE-4.pdfFact Sheet for Healthcare Carey toro:https://www.[employer]/sites/default/files/product/documents/Fact_Sheet_P dsntcfa_Xzfp_RQXT-EmG-0.pdfPerforming Laboratory:[facility] [address] [facility] Hospital[address].[place], [place] [address]Zzvhq Strep A srdzvg0665-65-31 22:47:00* Test Item Value Reference Range Interpretation Comments Strep A Ag (test code = 95553-7) Negative Negative Lab Interpretation (test code = 36908-1) Normal [facility] Angeles[facility]APID STREP A [id number] 22:47:00* Test Item Value Reference Range Interpretation Comments STREP A ANTIGEN (BEAKER) (test code = 556) Negative Negative PELVIS AP 1-2 [id number] 10:52:00 [facility] [address] [place] [address] Patient Name: DU VITALE MR #: [id number] : 1985 Age/Sex: 34/F Req #: [id number] Adm Physician: Ordered by: JOSE BAUMANN DO Report #: [id number] Location: ER Room/Bed: Procedure: [id number] DX/PE LVIS AP 1-2 VIEWS Exam Date: 02/05/20 Exam Time: 095 5 REPORT STATUS: Signed EXAMINAT ION: SP LUMBAR, COMPLETE MIN 4VW, PELVIS AP 1-2 VIEWS INDICATION: Trau ma COMPARISON: None FINDINGS: AP view of the pelvis and AP, oblique and lateral images of the lumbar spine were obtained. No acute fr acture or dislocation. Vertebral body heights are well-maintained. Oblique vie ws demonstrate no evidence of spondylolysis. Minimal multilevel degenerative c hanges with small osteophyte formation. Nonobstructive bowel gas pattern. Stat us post cholecystectomy. IMPRESSION: No acute osseous injury. Remedios d by: Juan Alberto Ramos MD on 02/05/2020 10:53 AM Dictated By: JUAN ALBERTO RAMOS MD El ectronically Signed By: JUAN ALBERTO RAMOS MD on 02/05/20 105 Transcribed By: WOO on 02/05/201052 COPY TO: JOSE BAUMANN DO SP LUMBAR, COMPLETE MIN [id number] 10:52:00 [place] [address] Patient Name: DU VITALE MR #: [id number] : 1985 Age/Sex: 34/F Req #: [id number] Adm Physician: Ordered by: JOSE BAUMANN DO Report #: [id number] Location: ER Room/Bed: Procedure: [id number] DX/SP LUMBAR, COMPLETE MIN 4VW Exam Date: 02/05/20 Exam T mikey: 0955 REPORT STATUS: Signed EXAMINATION: SP LUMBAR, COMPLETE MIN 4VW, PELVIS AP 1-2 VIEWS INDICATI ON: Trauma COMPARISON: None FINDINGS: AP view of the pelvis and AP, oblique and lateral images of the lumbar spine were obtained. No acute fracture or dislocation. Vertebral body heights are well-maintained. Obl ique views demonstrate no evidence of spondylolysis. Minimal multilevel degene rative changes with small osteophyte formation. Nonobstructive bowel gas patte rn. Status post cholecystectomy. IMPRESSION: No acute osseous injury. Signed by: Juan Alberto Ramos MD on 02/05/2020 10:53 AM Dictated By: JUAN ALBERTO [place] MD 52 Transcribed By: WOO on 02/05/201052 COPY TO: JOSE BAUMANN, DO Blood leukocytes automated count (number/volume)2020-02-05 09:13:00* Test Item Value Reference Range Interpretation Comments White Blood Count (test code = 6690-2) 5.73 4.8-10.8 [facility] automated count (number/volume)2020-02-05 09:13:00* Test Item Value Reference Range Interpretation Comments Red Blood Count (test code = 789-8) 4.88 3.6-5.1 [facility] hemoglobin measurement (moles/volume)2020-02-05 09:13:00* Test Item Value Reference Range Interpretation Comments Hemoglobin (test code = 39972-4) 11.6 12.0-16.0 [facility] blood hematocrit (volume fraction)2020-02-05 09:13:00* Test Item Value Reference Range Interpretation Comments Hematocrit (test code = 4544-3) 36.6 34.2-44.1 [facility] TexasAutomated erythrocyte mean corpuscular [id number] 09:13:00* Test Item Value Reference Range Interpretation Comments Mean Corpuscular Volume (test code = 787-2) 75.0 81-99 [facility] TexasAutom[facility] erythrocyte mean corpuscular hemoglobin (mass per erythrocyte)2020-02-05 09:13:00* Test Item Value Reference Range Interpretation Comments Mean Corpuscular Hemoglobin (test code = 785-6) 23.8 28-32 [facility] Texas[facility] erythrocyte mean corpuscular hemoglobin concentration measurement (mass/volume)2020-02-05 09:13:00* Test Item Value Reference Range Interpretation Comments Mean Corpuscular Hemoglobin Concent (test code = 786-4) 31.7 31-35 [facility] TexasRDW TxdFw-Nju8024-81-14 09:13:00* Test Item Value Reference Range Interpretation Comments Red Cell Distribution Width (test code = 08854-5) 17.5 11.7 -14.4 [facility] blood platelet count (count/volume)2020-02-05 09:13:00* Test Item Value Reference Range Interpretation Comments Platelet Count (test code = 777-3) 239 140-360 [facility] Texas[facility] blood segmented neutrophil count as percentage of total zzsuobrubi8348-36-73 09:13:00* Test Item Value Reference Range Interpretation Comments Neutrophils (%) (Auto) (test code = 50927-6) 58.7 38.7-80.0 [facility] blood lymphocyte count as percentage ot total ytqjidzbxj7525-65-87 09:13:00* Test Item Value Reference Range Interpretation Comments Lymphocytes (%) (Auto) (test code = 736-9) 30.2 18.0-39.1 [facility] blood monocyte count as percentage of total zzuicuyqya5953-46-90 09:13:00* Test Item Value Reference Range Interpretation Comments Monocytes (%) (Auto) (test code = 5905-5) 7.9 4.4-11.3 [facility] eosinophil count as percentage of total ilixqrgqlc6681-22-87 09:13:00* Test Item Value Reference Range Interpretation Comments Eosinophils (%) (Auto) (test code = 713-8) 2.4 0.0-6.0 [facility] blood basophil count as percentage of total furamsedon9560-16-49 09:13:00* Test Item Value Reference Range Interpretation Comments Basophils (%) (Auto) (test code = 706-2) 0.5 0.0-1.0 [facility] TexasFluoroscopic procedure less than one hour fqytpxfc9681-93-55 09:13:00* Test Item Value Reference Range Interpretation Comments IM GRANULOCYTES % (test code = IM GRANULOCYTES %) 0.3 0.0- 1.0 [facility] blood neutrophil count 2020-02-05 09:13:00* Test Item Value Reference Range Interpretation Comments Neutrophils # (Auto) (test code = 751-8) 3.4 2.1-6.9 [facility] lymphocytes count (number/volume) 2020-02-05 09:13:00* Test Item Value Reference Range Interpretation Comments Lymphocytes # (Auto) (test code = 00608-6) 1.7 1.0-3.2 [facility] monocytes automated count (number/volume)2020-02-05 09:13:00* Test Item Value Reference Range Interpretation Comments Monocytes # (Auto) (test code = 742-7) 0.5 0.2-0.8 [facility] blood eosinophil count 2020-02-05 09:13:00* Test Item Value Reference Range Interpretation Comments Eosinophils # (Auto) (test code = 711-2) 0.1 0.0-0.4 [facility]Autom[facility] blood basophil count (count/volume)2020-02-05 09:13:00* Test Item Value Reference Range Interpretation Comments Basophils # (Auto) (test code = 704-7) 0.0 0.0-0.1 [facility] TexasFluoroscopic procedure less than one hour trfobhwy0138-11-38 09:13:00* Test Item Value Reference Range Interpretation Comments Absolute Immature Granulocyte (auto (lupe t code = Absolute Immature Granulocyte (auto) 0.02 0-0.1 [facility] TexasUrine color hnpjnxwszkpdq5563-60-63 09:13:00* Test Item Value Reference Range Interpretation Comments Urine Color (test code = 5778-6) YELLOW YELLOW [facility] TexasUrine [id number] 09:13:00* Test Item Value Reference Range Interpretation Comments Urine Clarity (test code = 24975-5) CLEAR CLEAR [facility] U[facility] by Test strip 2020-02-05 09:13:00* Test Item Value Reference Range Interpretation Comments Urine Specific [place] (test code = 5811-5) 1.020 1.010-1.02 5 [facility] Texas[facility] pH measurement by automated test olfxm4536-73-84 09:13:00* Test Item Value Reference Range Interpretation Comments Urine pH (test code = 60984-2) 7 5-7 [facility] Texas[facility] leukocyte esterase detection by nylhbkkz1703-38-05 09:13:00* Test Item Value Reference Range Interpretation Comments Urine Leukocyte Esterase (test code = 5799-2) NEGATIVE NEGATIVE [facility] TexasUrine nitrite qzuckhcxs4073-17-78 09:13:00* Test Item Value Reference Range Interpretation Comments Urine Nitrite (test code = 53846-2) NEGATIVE NEGATIVE [facility] TexasU[facility] protein measurement by test strip (mass/volume)2020-02-05 09:13:00* Test Item Value Reference Range Interpretation Comments Urine Protein (test code = 5804-0) NEGATIVE NEGATIVE [facility] Texas[facility] glucose iqhztmuoo9627-39-21 09:13:00* Test Item Value Reference Range Interpretation Comments Urine Glucose (UA) (test code = 2349-9) NEGATIVE NEGATIVE [facility] TexasUrine ketones detection by automated test iofpv8095-25-04 09:13:00* Test Item Value Reference Range Interpretation Comments Urine Ketones (test code = 33903-3) NEGATIVE NEGATIVE [facility] TexasUrine urobilinogen measurement by test strip (mass/volume)2020-02-05 09:13:00* Test Item Value Reference Range Interpretation Comments Urine Urobilinogen (test code = 96921-6) 0.2 0.2-1 [facility] total bilirubin measurement (mass/volume)2020-02-05 09:13:00* Test Item Value Reference Range Interpretation Comments Urine Bilirubin (test code = 1978-6) NEGATIVE NEGATIVE [facility] erythrocytes adpgkgwcf5425-83-43 09:13:00* Test Item Value Reference Range Interpretation Comments Urine Blood (test code = 92071-3) 3+ NEGATIVE [facility] TexasAutomated urine sediment leukocyte count by microscopy (number/high power field)2020-02-05 09:13:00* Test Item Value Reference Range Interpretation Comments Urine WBC (test code = 5821-4) 6-10 0-5 [facility] TexasErythrocytes detection in urine sediment by light znopzhflqv9117-47-07 09:13:00* Test Item Value Reference Range Interpretation Comments Urine RBC (test code = 44920-6) 0-5 0-5 [facility] TexasBacteria detection in urine sediment by light pjnpuwncpj4104-31-14 09:13:00* Test Item Value Reference Range Interpretation Comments Urine Bacteria (test code = 03112-8) FEW NONE [facility] TexasEpithelial cells detection in urine sediment by light pbimbpftmi4804-85-72 09:13:00* Test Item Value Reference Range Interpretation Comments Urine Epithelial Cells (test code = 85717-8) MODERATE NONE FEW CLUE CELLSThe Medical Center of Southeast TexasUrine human chorionic gonadotropin (hCG) zrddnigny4716-59-59 09:13:00* Test Item Value Reference Range Interpretation Comments Urine Test (test code = 2106-3) NEGATIVE NEGATIVE [facility] sodium measurement (moles/volume)2020-02-05 09:13:00* Test Item Value Reference Range Interpretation Comments Sodium Level (test code = 2951-2) 138 136-145 [facility] plasma potassium measurement (moles/volume)2020-02-05 09:13:00* Test Item Value Reference Range Interpretation Comments Potassium Level (test code = 2823-3) 3.8 3.5-5.1 [facility] plasma chloride measurement (moles/volume)2020-02-05 09:13:00* Test Item Value Reference Range Interpretation Comments Chloride Level (test code = 2075-0) 102 98-107 [facility] or plasma carbon dioxide, total measurement (moles/volume)2020-02-05 09:13:00* Test Item Value Reference Range Interpretation Comments Carbon Dioxide Level (test code = 2028-9) 27 22-29 [facility] or plasma anion oss0758-32-00 09:13:00* Test Item Value Reference Range Interpretation Comments Anion Gap (test code = 08533-4) 12.8 8-16 [facility] plasma urea nitrogen measurement (mass/volume)2020-02-05 09:13:00* Test Item Value Reference Range Interpretation Comments Blood Urea Nitrogen (test code = 3094-0) 12 7-26 [facility] plasma creatinine measurement (mass/volume)2020-02-05 09:13:00* Test Item Value Reference Range Interpretation Comments Creatinine (test code = 2160-0) 0.69 0.57-1.11 [facility]ere[facility] or plasma urea nitrogen/creatinine mass spfwc1213-96-87 09:13:00* Test Item Value Reference Range Interpretation Comments BUN/Creatinine Ratio (test code = 3097-3) 17 6-25 [facility] TexasEstimated glomerular filtration rate (GFR) zgiiranhicmgq8298-19-21 09:13:00* Test Item Value Reference Range Interpretation Comments Estimat Glomerular Filtration Rate (test code = 567518524) > 60 >60 Ranges were taken from the National Kidney Disease Education Program and the [facility] Foundation literature.Reference ranges:60 or greater: Dgwoqv13-65 ( for 3 consecutive months): Chronic kidney disease 15 or less: Kidney failureThe Medical Center of Southeast TexasGlucose zjqbuitoteq5645-41-13 09:13:00* Test Item Value Reference Range Interpretation Comments Glucose Level (test code = QRD8841) 84 74-118 [facility]ere[facility] or plasma calcium measurement (mass/volume)2020-02-05 09:13:00* Test Item Value Reference Range Interpretation Comments Calcium Level (test code = 16895-3) 9.4 8.4-10.2 [facility]ererum or plasma total bilirubin measurement (mass/volume)2020-02-05 09:13:00* Test Item Value Reference Range Interpretation Comments Total Bilirubin (test code = 1975-2) 0.8 0.2-1.2 [facility] TexasFluoroscopic procedure less than one hour rualobuq4060-90-13 09:13:00* Test Item Value Reference Range Interpretation Comments Aspartate Amino Transf (AST/SGOT) (test code = Aspartate Amino Transf (AST/SGOT)) 10 5-34 [facility]ererum or plasma alanine aminotransferase measurement (enzymatic activity/volume)2020-02-05 09:13:00* Test Item Value Reference Range Interpretation Comments Alanine Aminotransferase (ALT/SGPT) (test code = 1742-6) 10 0-55 [facility] plasma protein measurement (mass/volume)2020-02-05 09:13:00* Test Item Value Reference Range Interpretation Comments Total Protein (test code = 2885-2) 7.8 6.5-8.1 [facility]ere[facility] or plasma albumin measurement (mass/volume)2020-02-05 09:13:00* Test Item Value Reference Range Interpretation Comments Albumin (test code = 1751-7) 3.4 3.5-5.0 [facility] TexasPlasma globulin measurement (mass/volume) 2020-02-05 09:13:00* Test Item Value Reference Range Interpretation Comments Globulin (test code = 63065-8) 4.4 2.3-3.5 [facility]ere[facility] or plasma albumin/globulin mass trhtt0654-28-18 09:13:00* Test Item Value Reference Range Interpretation Comments Albumin/Globulin Ratio (test code = 1759-0) 0.8 0.8-2.0 [facility]ererum or plasma alkaline phosphatase measurement (enzymatic activity/volume)2020-02-05 09:13:00* Test Item Value Reference Range Interpretation Comments Alkaline Phosphatase (test code = 6768-6) 85 40-150 [facility] TexasD-GYPEB9257-31-74 13:39:00* Test Item Value Reference Range Interpretation Comments D-DIMER (test code = DDIMER) 128 ng/ml < 600 HCG SERUM [id number] 13:35:00* Test Item Value Reference Range Interpretation Comments HCG SERUM QUAL (test code = HCGQL) NEGATIVE NEGATIVE This HCGQL test is NOT applicable for MALE patients.Check with nurse about probable order error.If Tumor Marker Test needed, nurse should order test "HCGTU"(Test #550.07960) CBC W/O NJGC3628-09-05 13:24:00* Test Item Value Reference Range Interpretation [...] = MPV) 12.0 fL 6.7-11.0 H PROTHROMBIN [id number] 13:03:00* Test Item Value Reference Range Interpretation [...] (2.5-3.5) IS PATIENT ON ANTICOAGULANTS? NTHROMBOPLASTIN TIME CIMWZLX0416-87-49 13:03:00* Test Item Value Reference Range Interpretation Comments THROMBOPLASTIN TIME PARTIAL (test code = PTT) 26.4 seconds 25.5-34. 3 N Therapeutic Range for patients on Heparin Therapy is 2 to2.5 times their baseline PTT level. IS PATIENT ON ANTICOAGULANTS? NSTREPTOCOCCUS PCR [id number] 05:40:00* Test Item Value Reference Range Interpretation Comments STREPTOCOCCUS DYSGALACTIAE (test code = STREPGC) POSITIVE FOR G/C N EGATIVE Results called to [id number] by MARCUS 09/22/19 0540Critical results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 code = 5778-6) RED YELLOW H [facility] TexasUrine Xzwofzg3641-31-47 16:00:00* Test Item Value Reference Range Interpretation Comments Urine Clarity (test code = 93464-6) CLOUDY CLEAR H [facility] TexasUrine Specific Ozsnpae8784-31-36 16:00:00 * Test Item Value Reference Range Interpretation Comments Urine Specific [place] (test code = 5811-5) 1.025 1.010-1.02 5 [facility] TexasUrine dW7081-60-34 16:00:00* Test Item Value Reference Range Interpretation Comments Urine pH (test code = 66787-4) 6 5-7 [facility] TexasUrine Leukocyte Mdqvcvov6744-55-09 16:00:00* Test Item Value Reference Range Interpretation Comments Urine Leukocyte Esterase (test code = 75816-9) NEGATIVE NEGATIV E [facility] TexasUrine Bqujccr7861-43-03 16:00:00* Test Item Value Reference Range Interpretation Comments Urine Nitrite (test code = 05528-4) NEGATIVE NEGATIVE [facility] TexasUrine Hivlbhy7616-80-87 16:00:00* Test Item Value Reference Range Interpretation Comments Urine Protein (test code = 04512-7) 2+ NEGATIVE H [facility] TexasUrine Glucose (UA)2019-06-30 16:00:00* Test Item Value Reference Range Interpretation Comments Urine Glucose (UA) (test code = 89751-9) NEGATIVE NEGATIVE [facility] Fhgbtxp9875-91-52 16:00:00* Test Item Value Reference Range Interpretation Comments Urine Ketones (test code = 98580-0) NEGATIVE NEGATIVE [facility] TexasUrine Xyeikhjewsbd9666-47-82 16:00:00* Test Item Value Reference Range Interpretation Comments Urine Urobilinogen (test code = 58047-3) 0.2 0.2-1 [facility] TexasUrine Gcycowewh4051-22-46 16:00:00* Test Item Value Reference Range Interpretation Comments Urine Bilirubin (test code = 1977-8) NEGATIVE NEGATIVE [facility] TexasUrine Wycch2865-09-27 16:00:00* Test Item Value Reference Range Interpretation Comments Urine Blood (test code = 59440-5) 3+ NEGATIVE [facility] TexasHuman Chorionic Gonadotropin, Qual 2019-06-30 15:50:00* Test Item Value Reference Range Interpretation Comments Human Chorionic Gonadotropin, Qual (test code = 2118-8) NEGATIVE NEGATIVE [facility] TexasWhite Blood Igtfo6145-50-26 15:43:00* Test Item Value Reference Range Interpretation Comments White Blood Count (test code = 6690-2) 15.94 4.8-10.8 H [facility] TexasRed Blood Ovcns4779-18-04 15:43:00* Test Item Value Reference Range Interpretation Comments Red Blood Count (test code = 789-8) 4.82 3.6-5.1 [facility] TexasHemoglobin2019-10-07 15:43:00* Test Item Value Reference Range Interpretation Comments Hemoglobin (test code = 02311-3) 11.3 12.0-16.0 L [facility] TexasHematocrit2019-10-07 15:43:00* Test Item Value Reference Range Interpretation Comments Hematocrit (test code = 4544-3) 35.1 34.2-44.1 [facility] TexasMean Corpuscular Rpmdqf6757-53-13 15:43:00* Test Item Value Reference Range Interpretation Comments Mean Corpuscular Volume (test code = 787-2) 72.8 81-99 L [facility] TexasMean Corpuscular Xtsbpplnmr3108-55-96 15:43:00* Test Item Value Reference Range Interpretation Comments Mean Corpuscular Hemoglobin (test code = 785-6) 23.4 28-32 L [facility] TexasMean Corpuscular Hemoglobin Concent 2019-06-30 15:43:00* Test Item Value Reference Range Interpretation Comments Mean Corpuscular Hemoglobin Concent (test code = 786-4) 32.2 31-35 [facility] TexasRed Cell Distribution Afmnb0306-13-74 15:43:00* Test Item Value Reference Range Interpretation Comments Red Cell Distribution Width (test code = 49656-5) 17.6 11.7 -14.4 H [facility] TexasPlatelet Zvzlh9037-95-88 15:43:00* Test Item Value Reference Range Interpretation Comments Platelet Count (test code = 777-3) 280 140-360 [facility] TexasNeutrophils (%) (Auto)2019-06-30 15:43:00 * Test Item Value Reference Range Interpretation Comments Neutrophils (%) (Auto) (test code = 30967-6) 81.0 38.7-80.0 H [facility] TexasLymphocytes (%) (Auto)2019-06-30 15:43:00 * Test Item Value Reference Range Interpretation Comments Lymphocytes (%) (Auto) (test code = 736-9) 11.7 18.0-39.1 L [facility] TexasMonocytes (%) (Auto)2019-06-30 15:43:00* Test Item Value Reference Range Interpretation Comments Monocytes (%) (Auto) (test code = 5905-5) 6.4 4.4-11.3 [facility] TexasEosinophils (%) (Auto)2019-06-30 15:43:00 * Test Item Value Reference Range Interpretation Comments Eosinophils (%) (Auto) (test code = 713-8) 0.0 0.0-6.0 [facility] TexasBasophils (%) (Auto)2019-06-30 15:43:00* Test Item Value Reference Range Interpretation Comments Basophils (%) (Auto) (test code = 706-2) 0.1 0.0-1.0 [facility] TexasIM GRANULOCYTES %2019-06-30 15:43:00* Test Item Value Reference Range Interpretation Comments IM GRANULOCYTES % (test code = IM GRANULOCYTES %) 0.8 0.0- 1.0 [facility] TexasNeutrophils # (Auto)2019-06-30 15:43:00* Test Item Value Reference Range Interpretation Comments Neutrophils # (Auto) (test code = 751-8) 12.9 2.1-6.9 H [facility] TexasLymphocytes # (Auto)2019-06-30 15:43:00* Test Item Value Reference Range Interpretation Comments Lymphocytes # (Auto) (test code = 09508-9) 1.9 1.0-3.2 [facility] TexasMonocytes # (Auto)2019-06-30 15:43:00* Test Item Value Reference Range Interpretation Comments Monocytes # (Auto) (test code = 742-7) 1.0 0.2-0.8 H [facility] TexasEosinophils # (Auto)2019-06-30 15:43:00* Test Item Value Reference Range Interpretation Comments Eosinophils # (Auto) (test code = 711-2) 0.0 0.0-0.4 [facility] TexasBasophils # (Auto)2019-06-30 15:43:00* Test Item Value Reference Range Interpretation Comments Basophils # (Auto) (test code = 704-7) 0.0 0.0-0.1 [facility] TexasAbsolute Immature Granulocyte (auto 2019-06-30 15:43:00* Test Item Value Reference Range Interpretation Comments Absolute Immature Granulocyte (auto (lupe t code = Absolute Immature Granulocyte (auto) 0.12 0-0.1 H [facility] TexasFluoroscopic procedure less than one hour ajxmsvgn8220-65-60 15:18:00* Test Item Value Reference Range Interpretation Comments Differential Total Cells Counted (test code = Lena tial Total Cells Counted) 100 [facility] blood neutrophils/100 leukocytes 2019-06-30 15:18:00* Test Item Value Reference Range Interpretation Comments Neutrophils % (Manual) (test code = 34716-8) 79 40-74 [facility] blood band neutrophils form/100 sxenvlxvnc5339-94-56 15:18:00* Test Item Value Reference Range Interpretation Comments Band Neutrophils % (test code = 764-1) 2 [facility] blood lymphocytes/100 leukocytes 2019-06-30 15:18:00* Test Item Value Reference Range Interpretation Comments Lymphocytes % (Manual) (test code = 737-7) 13 19-48 [facility] blood monocytes/100 leukocytes 2019-06-30 15:18:00* Test Item Value Reference Range Interpretation Comments Monocytes % (Manual) (test code = 744-3) 6 3.4-9.0 [facility] TexasBlood platelets count by estimate (number/volume)2019-06-30 15:18:00* Test Item Value Reference Range Interpretation Comments Platelet Estimate (test code = 77157-4) ADEQUATE [facility] TexasPlatelet wakmehzcpv2103-60-43 15:18:00* Test Item Value Reference Range Interpretation Comments Platelet Morphology Comment (test code = 51605-4) FEW LARGE [facility] TexasBlood hypochromia detection by light vatpznvnxp1780-24-54 15:18:00* Test Item Value Reference Range Interpretation Comments Hypochromasia (test code = 728-6) SLIGHT [facility] TexasBlnew [facility] poikilocytosis detection by light wldtcbtsvx6721-88-65 15:18:00* Test Item Value Reference Range Interpretation Comments Poikilocytosis (test code = 779-9) SLIGHT [facility] TexasBlood anisocytosis detection by light xhjkwieftb2418-57-91 15:18:00* Test Item Value Reference Range Interpretation Comments Anisocytosis (test code = 702-1) SLIGHT [facility] TexasRB wduijebzzz5021-30-82 15:18:00* Test Item Value Reference Range Interpretation Comments Red Cell Morphology Comment (test code = 6742-1) NORMAL [facility] Centererum or plasma amylase measurement (enzymatic activity/volume)2019-06-30 15:18:00* Test Item Value Reference Range Interpretation Comments Amylase Level (test code = 1798-8) 53 25-125 [facility] Centererum or plasma lipase measurement (enzymatic activity/volume)2019-06-30 15:18:00* Test Item Value Reference Range Interpretation Comments Lipase (test code = 3040-3) 4 8-78 [facility] Centererum or plasma choriogonadotropin ( test) xzitzfzwq1650-70-08 15:18:00* Test Item Value Reference Range Interpretation Comments Human Chorionic Gonadotropin, Qual (test code = 2118-8) NEGATIVE NEGATIVE [facility] A[facility] PELVIS W/OIWS9568-61-66 15:11:00 [facility] 1985 Age/S: 34 / F [address] Unit #: [id number] [place]: [place] [address] Phys: Solomon Servin MD Acct: [id number] Di s Date: Status: REG ER PHONE #: Exam Date: 06/29/2019 7185 FAX #: Reason: upper abd pain vomiting EXAMS: CPT CODE: [id number] CT ABD PELVIS W/CONT 36063 EXAM: CT of the abdomen a nd [...] David M.D. CC: Chau Servin MD Technologist:Cher alva RT(R),CT CTDI: DLP: Trnscb Date/Time: 06/29/2019 (1511) tPARKER SandovalGRW Orig Print D/T: S: 06/29/2019 (9807) PAGE 1 Signed Report - CTA CHEST 2019-06-29 15:08:00 Name: DU VITALE [facility] : 1985 Age/S: 34 / F [address] [facility] Unit #: [id number] Loc: [facility] [place] [address] Phys: Chau Servin MD Acct: [id number] Dis Date: Status: REG ER PHONE #: [phone] Exam Date: 06/29/2019 1455 FAX #: [phone] Reason: R chest pain and cough post surgery EXAMS: CPT CODE: [id number] CTA CHEST 60965 EXAM: CT of the chest with contrast; [...] Koroma RT(R),CT CTDI: DLP: Trnscb Date/Time: 06/29/2019 (1508) t.[email or web address] Orig Print D/T: S: 06/29/2019 (9521) PAGE 1 Signed Report BASIC METABOLIC HIGKV9105-63-60 14:17:00* Test Item Value Reference Range Interpretation [...] CA) 8.3 mg/dL 8.5-10.1 L HEPATIC FUNCTION INAUD5304-91-81 14:17:00* Test Item Value Reference Range Interpretation [...] reference range due to change in reagent. OQTSUZ9265-55-41 14:17:00* Test Item Value Reference Range Interpretation Comments LIPASE (test code = LIP) 38 U/L 73.0-393.0 L HCG SERUM ZESU0830-08-63 14:17:00* Test Item Value Reference Range Interpretation Comments HCG SERUM QUAL (test code = HCGQL) NEGATIVE NEGATIVE This HCGQL test is NOT applicable for MALE patients.Check with nurse about probable order error.If Tumor Marker Test needed, nurse should order test "HCGTU"(Test #550.15318) YEDLHSNO-X1653-81-06 14:17:00* Test Item Value Reference Range Interpretation Comments TROPONIN-I (test code = TROPI) <0.015 ng/mL 0-0.045 N BASIC METABOLIC VVXNJ6791-49-86 14:05:00* Test Item Value Reference Range Interpretation [...] code = CA) mg/dL 8.5-10.1 HEPATIC FUNCTION KSFYC5713-42-24 14:05:00* Test Item Value Reference Range Interpretation [...] TOTAL (test code = ALKP) IUnit/L 45-117 JJGRSD8831-53-91 14:05:00* Test Item Value Reference Range Interpretation Comments LIPASE (test code = LIP) U/L 73.0-393.0 HCG SERUM QEWK0939-61-10 14:05:00* Test Item Value Reference Range Interpretation Comments HCG SERUM QUAL (test code = HCGQL) NEGATIVE NEGATIVE This HCGQL test is NOT applicable for MALE patients.Check with nurse about probable order error.If Tumor Marker Test needed, nurse should order test "HCGTU"(Test #550.34828) WTDZHYGX-O7929-52-06 14:05:00* Test Item Value Reference Range Interpretation Comments TROPONIN-I (test code = TROPI) ng/mL 0-0.045 BASIC METABOLIC DKDGE0820-62-53 14:04:00* Test Item Value Reference Range Interpretation [...] code = CA) mg/dL 8.5-10.1 HEPATIC FUNCTION XYXIN5433-83-38 14:04:00* Test Item Value Reference Range Interpretation [...] TOTAL (test code = ALKP) IUnit/L 45-117 QXVAPY3921-61-98 14:04:00* Test Item Value Reference Range Interpretation Comments LIPASE (test code = LIP) U/L 73.0-393.0 HCG SERUM ACNU4927-62-42 14:04:00* Test Item Value Reference Range Interpretation Comments HCG SERUM QUAL (test code = HCGQL) NEGATIVE ARRWWANT-L7692-64-06 14:04:00* Test Item Value Reference Range Interpretation Comments TROPONIN-I (test code = TROPI) ng/mL 0-0.045 - XR CHEST 1 E2268-85-90 14:01:00 FAX: Chau Servin MD [phone] Mal[place]: B St: REG Name: DU ROSALES [facility] : [birth year] Age/S: 34/F [address] [facility] Unit #: [id number] Loc: [place] [address] Phys: Chau Servin MD Acct: [id number] Dis Date: Status: REG ER PHONE #: [phone] Exam Date: 06/29/2019 1338 FAX #: [phone] Reason: Abdominal Pain EXAMS: CPT CODE: [id number] XR CHEST 1 V 44918 EXAM: Chest X-ray, 1 view; CLINICAL HISTORY: Abdominal pain, nausea and vomiting, chills; FINDINGS: The lungs are clear, no infiltrates, no edema; no ef fusions; no pneumothorax; normal cardiomediastinal silhouette. IMPRESSION: Normal chest x-ray. Yumiko ctronically Signed by Devendra David on 2018 at 1401 Reported and signed by: Hi David M.D. CC: Chau Servin MD Technologist: Navneet Suarez RT(R) Trnscrd Date/Time/By: 06/29/2019 (2280) : By: FadumoGRW Orig Print D/T: S: 06/29/2019 (7074) PAGE 1 Signed Report URINALYSIS [id number] 13:47:00* Test Item Value Reference Range Interpretation [...] FEW #/LPF FEW Urine Source? Clean CatchURINALYSIS FKEXNXUC1185-98-99 13:44:00* Test Item Value Reference Range Interpretation [...] HPF NONE Urine Source? Clean CatchCBC W/O POFU4406-70-19 13:43:00* Test Item Value Reference Range Interpretation [...] code = MPV) fL 6.7-11.0 CBC W/O [id number] 13:43:00* Test Item Value Reference Range Interpretation [...] MPV) 11.3 fL 6.7-11.0 H HCG SERUM EWWQ8893-49-63 13:02:00* Test Item Value Reference Range Interpretation Comments HCG SERUM QUAL (test code = HCGQL) NEGATIVE NEGATIVE This HCGQL test is NOT applicable for MALE patients.Check with nurse about probable order error.If Tumor Marker Test needed, nurse should order test "HCGTU"(Test #550.85813) YNNXSW5579-78-78 10:27:00* Test Item Value Reference Range Interpretation Comments GLUBED (test code = GLUBED) 84 mg/dL 74-106 N Performed by certified log handling equipment operator at [facility] BASIC METABOLIC QDJHN3672-29-30 16:45:00* Test Item Value Reference Range Interpretation [...] CA) 9.1 mg/dL 8.5-10.1 N HCG SERUM [id number] 16:45:00* Test Item Value Reference Range Interpretation Comments HCG SERUM QUAL (test code = HCGQL) NEGATIVE NEGATIVE This HCGQL test is NOT applicable for MALE patients.Check with nurse about probable order error.If Tumor Marker Test needed, nurse should order test "HCGTU"(Test #550.66696) BASIC METABOLIC [id number] 16:39:00* Test Item Value Reference Range Interpretation [...] CA) 9.1 mg/dL 8.5-10.1 N HCG SERUM PVLW1484-66-06 16:39:00* Test Item Value Reference Range Interpretation Comments HCG SERUM QUAL (test code = HCGQL) NEGATIVE BASIC METABOLIC [id number] 16:24:00* Test Item Value Reference Range Interpretation [...] code = CA) mg/dL 8.5-10.1 HCG SERUM [id number] 16:24:00* Test Item Value Reference Range Interpretation Comments HCG SERUM QUAL (test code = HCGQL) NEGATIVE CBC W/AUTO ZRZO3260-06-84 16:04:00* Test Item Value Reference Range Interpretation [...] NRBC#) 0.00 K/mm3 0.0-0.1 N CBC W/AUTO [id number] 15:59:00* Test Item Value Reference Range Interpretation [...] code = BA#) K/mm3 0.0-0.2 CBC W/AUTO QJCH9248-06-23 20:06:00* Test Item Value Reference Range Interpretation [...] (test code = MDIFF) NO BASIC METABOLIC [id number] 19:50:00* Test Item Value Reference Range Interpretation [...] code = CA) 9.3 mg/dL 8.0-10.5 N GQDYEFSY-[id number] 19:50:00* Test Item Value Reference Range Interpretation Comments TROPONIN-I (test code = TROPI) < 0.015 ng/mL 0.000-0.045 N Negative: <= 0.045 Positive: >= 0.046 Correlation with serial results, other cardiac markers andclinical findings is necessary to determine the clinicalsignificance of this result. Results using different methodologies should not be comparedto one another as quantitative results may vary by method. - XR CHEST 1 [id number] 19:27:00 FAX: Lina EnglishPreet JAMA [phone] Mal[place]: St: REG Name: DU ROSALES [facility] [place] : [birth year] Age/S: 34/F [address] [place] [address] Unit #: [id number] Loc: [place] [address] Phys: Preet English DO Acct: [id number] Dis Date: Status: REG ER PHONE #: [phone] Exam Date: 05/14/2019 190 FAX #: [phone] Reason: Chest Pain EXAMS: CPT CODE: [id number] XR CHEST 1 V 03573 Clinical Indication: Chest Pain Comparison: 07/16/2018 FINDINGS: The frontal ch est radiograph shows normal lung volumes. No interstitial or airspace opac ities are seen. No pleural effusions are present. No pneumothorax is see n. The heart is normal in size. The trachea is midline. There are no clinically significant osseous abnormalities noted. IMPRESSION: No chest radiographic evidence of acute cardiopulmona ry disease. SL: LANVU-H at 192 Reported and sign ed by: Milind Dunaway [...] 0.2-1.0 UA NITRITE DIPSTICK (test code = EMY) NEGATIVE NEGATIVE UA LEUKOCYTE ESTERASE DIPSTICK (test code = LEUU) NEGATIVE NEGA TIVE Throat Zstbjnv6917-75-07 11:00:00* Test Item Value Reference Range Interpretation Comments Throat Culture (test code = 626-2) No Result [facility]ided [facility] Streptococcus Wqshdr6254-21-90 12:59:00* Test Item Value Reference Range Interpretation Comments Group A Streptococcus Screen (test code = 97574-5) NEGATIVE NEG ATIVE [facility] Streptococcus Kpomal8233-88-73 12:59:00* Test Item Value Reference Range Interpretation Comments Group A Streptococcus Screen (test code = 07152-7) NEGATIVE [facility]G [facility]IVE [facility] antigen detection in kspkft5500-42-54 12:30:00* Test Item Value Reference Range Interpretation Comments Group A Streptococcus Screen (test code = 65131-6) NEGATIVE NEG ATIVE [facility] throat tqhfgtg7336-76-66 12:30:00* Test Item Value Reference Range Interpretation Comments Throat Culture (test code = 626-2) STREPTOCOCCUS GROUP G [facility] CEKZIUZ9807-53-93 15:02:00<0.02 [facility] XnkbsqeEKWPVWCQVC9823-61-60 13:40:000.73[facility] ST[facility]OL 2019-03-05 11:00:005[facility] YKRQY8162-23-36 11:00:00Negative (03/05/19 6:00 AM)[facility] ZYYXU6558-00-56 11:00:00Marked *ABN*(03/05/19 6:00 AM)[facility] [id number] 11:00:00* Test Item Value Reference Range Interpretation Comments UA Spec Grav (test code = UA Spec Grav) 1.019 1 [facility] [id number] 11:00:00* Test Item Value Reference Range Interpretation Comments UA pH (test code = UA pH) 5.0 1 5.0-8.0 [facility] [id number] 11:00:00Yellow *NA*(03/05/19 6:00 AM) [facility] ZKPTH5392-34-13 11:00:00Trace *ABN*(03/05/19 6:00 AM) [facility] SXDYZ1456-07-25 11:00:002[facility] GWPKM5440-00-44 11:00:00Negative *NA*(03/05/19 6:00 AM)[facility] YQYIJ6767-06-67 11:00:00Moderate *ABN*(03/05/19 6:00 AM)[facility]ARDIAC AZFHJYO1598-38-01 10:44:00<0.02[facility]annCARDIAC JETKKGV8105-32-18 09:19:003[facility]CARDIAC NLDCQTJ1683-27-05 09:19:00<0.02[facility] CHEM PRLRY6132-25-18 09:19:63955Ohbiljcw HermannCHEM RFRAC0699-42-51 09:19:0095 [facility] QLKHE2377-06-28 09:19:000.4[facility]annCHEM PANEL 2019-03-05 09:19:007[facility]annCHE[facility] MTGMH0413-75-32 09:19:0012[facility]annCHE[facility] CQWNC5489-55-52 09:19:00* Test Item Value Reference Range Interpretation Comments A/G Ratio (test code = A/G Ratio) 0.6 1 0.7-1.6 [facility] QFVVE7624-24-89 09:19:004.7[facility]annCHEM PANEL 2019-03-05 09:19:003.0[facility]annCHE[facility] UVUCV4325-28-20 09:19:00* Test Item Value Reference Range Interpretation Comments B/C Ratio (test code = B/C Ratio) 18 1 6-25 [facility] ISTTT6775-64-86 09:19:007.7[facility]annCHEM PANEL 2019-03-05 09:19:008.6[facility]annCHE[facility] NHJWZ7516-87-72 09:19:007.8[facility]annCHEM FFQNT3108-90-50 09:19:0028[facility]annCHE[facility] QDHQQ0813-83-91 09:19:78656Qkjirvzp HermannCHEM BSYUW0677-47-19 09:19:003.8[facility]annCHE[facility] HKIIU1790-43-61 09:19:20676Lqmecbci HermannCHEM GJONX6672-02-82 09:19:0013 [facility]annCHE[facility] OZRAT4583-64-07 09:19:0088[facility]annCHEM PANEL 2019-03-05 09:19:000.72[facility] HrttvdgTVNMWFZOYG9805-15-15 09:19:001+ *ABN*(03/05/19 4:19 AM)[facility] OxaqdnzRGKYXQVNEF3275-02-63 09:19:000.4[facility] XbckeheDINDDZZINJ9025-78-95 09:19:000.1[facility] SbnspgkMRYNNRCBNL8046-77-73 09:19:0061.5[facility] PgdklpfFGADHPNPJE6775-98-69 09:19:0026.6[facility] BTXKLSSTCO4670-28-15 09:19:007.6[facility] KlbjaltHOCJDUTPLE2924-11-29 09:19:003.7 [facility] BhsgvjfGTMAMULFSP5756-19-41 09:19:000.7[facility]annHEMATOLOGY 2019-03-05 09:19:002.5[facility] JfagcozMOOOBCJIAO0537-21-20 09:19:005.9[facility] FzgqecyJEYOWJRMWE8215-88-44 09:19:000.6[facility] BnjjvrvKAPTROGFIY1649-82-82 09:19:00* Test Item Value Reference Range Interpretation Comments PTT (test code = PTT) 30.4 s 22.9-35.8 [facility]phkxghVXJZXLTQCW4539-72-89 09:19:00* Test Item Value Reference Range Interpretation Comments INR (test code = INR) 1.07 1 0.85-1.17 [facility] HospitalXhgitxwYGIBIJGGPZ5146-20-76 09:19:00* Test Item Value Reference Range Interpretation Comments PT (test code = PT) 13.7 s 12.0-14.7 [facility] HospitalUwjolykGSHRDKVCES6940-12-14 09:19:0032.3[facility]annHEMATOLOGY 2019-03-05 09:19:0018.4[facility] KssqzjaDSIBERTAAT2910-82-54 09:19:005.00[facility] NazkhgnDSJPMQCPHJ5872-61-03 09:19:009.5[facility] HdmvbzyUTHXMOHXPK6333-45-43 09:19:00* Test Item Value Reference Range Interpretation Comments MCH (test code = MCH) 23.4 pg 27.0-31.0 [facility] HospitalUmrpohzTLWLACTYNT9534-68-50 09:19:0072.2[facility]annHEMATOLOGY 2019-03-05 09:19:0036.1[facility] MogzbubIBCTKYOWDY8237-45-37 09:19:0011.7[facility] MrvugvdUFPGGJLFXT3094-38-01 09:19:009.7[facility] XfvcgkdNAZFSLZABW1953-93-64 09:19:44508Owpzmzzn HermannBASIC METABOLIC KOURT7932-39-95 09:51:00* Test Item Value Reference Range Interpretation [...] CA) 8.7 mg/dL 8.5-10.1 N HCG SERUM HMBT2707-66-77 09:51:00* Test Item Value Reference Range Interpretation [...] CONCEPTION 10,000-100,000 MIU/ML - US PREG UT YVWKHRNXSWBE4501-17-18 09:44:00 Name: DU VITALE [facility] : 1985 Age/S: 33 / F [address] [facility] Unit #: [id number] Loc: [place] [address] Phys: Emili Deleon NP Acct: [id number] Dis Date: Status: REG ER PHONE #: [phone] Exam Date: 02/10/2019909 FAX #: [phone] Reason: PELVIC PAIN EXAMS: CPT CODE: [id number] US PREG UT TRANSVAGINAL 79680 TECHNIQUE - US PREG 1ST TRIMTR, - [...] by: Joselo Osei M.D. PAGE 1 Signed Repor t (CONTINUED) Name: DU VITALE POLO [facility] : 1985 Age/S: 33 / F [address] Unit #: [id number] Loc: [place], [place] [address] Phys: Emili Deleon NP Acct: [id number] Dis Date: Status: REG ER PHONE #: [phone] Exam Date: 02/10/2019 0910 FAX #: [phone] Reason: PELVIC PAIN EXAMS: CPT C ODE: [id number] US PREG UT TRANSVAGINAL 58347 <Continued> CC: Emili Deleon NP Technologist: LB KING RT(R),RDMS Trnscb Date/Time: 02/10/2019 (943) Stacy Nnuez Print D/T: S: 02/10/2019 (0947) Probe: [id number] PAGE 2 Signed Report - DUP AB/PEL/SC [id number] 09:44:00 Name: DU VITALE POLO [facility] : 1985 Age/S: 33 / F [address] Unit #: [id number] Loc: [place] [address] Phys: Emili Deleon RADIOLOGY SUPERVISOR Acct: [id number] Dis Date: Status: REG ER PHONE #: [phone] Exam Date: 02/10/2019909 FAX #: [phone] Reason: PELVIC PAIN EXAMS: CPT CODE: [id number] DUP AB/PEL/SC COMP 97427 TECHNIQUE - US PREG 1ST TRIMTR, - [...] 1 Signed Report (CONTINUED) Name: DU VITALE [facility] : 1985 Age/S: 33 / F [address] [facility] Unit #: [id number] Loc: [place] [address] Phys: Emili Deleon RADIOLOGY SUPERVISOR Acct: [id number] Dis Date: Status: REG ER PHONE #: [phone] Exam Date: 02/10/2019909 FAX #: [phone] Reason: PELVIC PAIN EXAMS: CPT CODE: [id number] DUP AB/PEL/SC COMP 70195 < Continued> CC: Emili Deleon NP Technologist: LB KING RT(R),RDMS Trnscb Date/Time: 02/10/2019 (0944) t.KADEEM Orig Print D/T: S: 02/10/2019 (3436) Probe: PAGE 2 Signed Report - US PREG 1ST GHUQQK9446-13-51 09:44:00 Name: DU VITALE [facility] : 1985 Age/S: 33 / F [address] [facility] Unit #: [id number] Loc: [place] [address] Phys: Emili Deleon RADIOLOGY SUPERVISOR Acct: [id number] Dis Date: Status: REG ER PHONE #: [phone] Exam Date: 02/10/2019909 FAX #: [phone] Reason: VAGINAL BLEEDING/PELVIC PAIN EXAMS: CPT CODE: [id number] US PREG 1ST TRIMTR 80677 TECHNIQUE - US PREG 1ST TRIMTR, - [...] by: Joselo Osei M.D. PAGE 1 Signed Repor t (CONTINUED) [facility] 1985 Age/S: 33 / F [address] [facility] Unit #: [id number] Loc: [place] [address] Phys: Emili Deleon NP Acct: [id number] Dis Date: Status: REG ER PHONE #: [phone] Exam Date: 02/10/2019909 FAX #: [phone] Reason: VAGINAL BLEEDING/PELVIC PAIN EXAMS: CPT C ODE: [id number] US PREG 1ST TRIMTR 90456 <Continued> CC: Emili Deleon NP Technologist: LB KING RT(R),RDMS Trnscb Date/Time: 02/10/2019 (943) t.KADEEM Orig Print D/T: S: 02/10/2019 (62) Probe: PAGE 2 Signed Report BASIC METABOLIC [id number] 09:42:00* Test Item Value Reference Range Interpretation [...] code = CA) mg/dL 8.5-10.1 HCG SERUM [id number] 09:42:00* Test Item Value Reference Range Interpretation Comments HCG SERUM BETA (test code = HCG) mIU/mL 0-3 URINALYSIS AJBQMFGS6773-27-04 09:34:00* Test Item Value Reference Range Interpretation [...] #/LPF FEW Urine Source? Clean CatchCBC W/O [id number] 09:31:00* Test Item Value Reference Range Interpretation [...] = MPV) 11.3 fL 6.7-11.0 H URINALYSIS ULYDCNGL1661-96-16 09:21:00* Test Item Value Reference Range Interpretation [...] FEW #/LPF FEW Urine Source? Clean CatchURINALYSIS LQMPEYSK2768-39-20 09:20:00* Test Item Value Reference Range Interpretation [...] Urine Source? Clean CatchBREAST ULTRASOUND CORE BIOPSY [id number] 16:56:41- BREAST ULTRASOUND CORE BIOPSY LEFTULTRASOUND GUIDED BIOPSY LEFT BREAST WITH MA RKING DEVICE INSERTED: 01/30/2019CLINICAL: Ultrasound biopsy, left breast. Compar angy is made to exams dated 01/16/2019 ultrasound and 05/04/2016 ultrasound - [facility]-. An ultrasound guided biopsy using real-time ultrasound was performed for the circumscribed oval mass located in the left breast centra l to the nipple in the retroareolar region. [...] in the right breast is still recommended.Ken ComerO.ss,al/:02/07/2019 16:56:4 1 [employer] Resource Teacher: Luanne Colvin FW, [facility]ITALletter sent: Benign BiopsyDIAG MAMM LEFT CAD [id number] 09:07:00 - DIAG MAMM LEFT CAD DIGITALUNILATERAL LEFT DIGITAL DIAGNOSTIC MAMMOGRAM WITH CAD POST-PROCEDURE IMAGING FOR MARKER PLACEMENT: 01/30/2019CLINICAL: Post clip placement. Current mammographic images were evaluated by either a [employer] M-Vu or a [employer] ImageCityOddscker CAD (computer aided detection system). Comparison is made to exams dated 01/16/2019 mammogram, 05/04/2016 mammogram, and 12/21/2014 [facility]. There are scattered fibroglandular tissues in the left breast. Postbiopsy mammogram demonstrates biopsy marker clip within the biopsied left breast mass in the subareolar region.IMPRESSION: POST PROCEDURE I MAGING FOR MARKER PLACEMENTSuccessful biopsy marker placement within the biopsie d left breast mass.Ken Sow M.D. ss/:01/30/2019 09:07:00 Imagi ng Technologist: Jazmine Wells , [facility]ITALMammogram BI-RADS: Po st-procedure mammogram for marker placementDIAG MAMM BILATERAL CAD DIGITAL 2019-01-16 17:03:24 - DIAG MAMM BILATERAL CAD DIGITALBILATERAL DIGITAL DIAGNOSTIC MAMMOGRAM WITH CAD: 01/16/2019CLINICAL: Bilateral nipple discharge. Current mammographic images were evaluated by either a [employer]upp[employer] M-Vu or a [employer] ImageCityOddscker CAD (computer aided detection system). Comparison is made to exams dated 05/04/2016 mammogram, 05/04/2016 mammogram, and 11/25/2015 [facility]. There are scattered fibroglandular tissues in [...] 05/04/2016 mammogram, and 11/25/2015 [facility]. Real-time ultrasound of both breasts and [...] the retroareolar region, is at a low suspicio n for malignancy. An ultrasound guided biopsy is recommended. The 1.9 cm intra ductal mass in the left breast, central to the nipple, in the retroareolar regio n, is at a low suspicion for malignancy. An ultrasound guided biopsy is recomme nded. Results were discussed with the patient.Stephy Rizvi M.D. dm/: 17:03:24 Entry: - 01/17/2019 15:46:02Imaging Technologist: Miriam Mcdonald , [facility]TH[facility]PITALletter sent: BIRADS 4/5 Biopsy Mireya mogram BI-RADS: 0 Indeterminate Ultrasound BI-RADS: 4a Suspicious abnormality - low suspicion for malignancyBREAST ULTRASOUND YPSKGBLKR7641-58-40 17:03:24 - DIAG MAMM BILATERAL CAD DIGITALBILATERAL DIGITAL DIAGNOSTIC MAMMOGRAM WITH CAD: 01/16/2019CLINICAL: Bilateral nipple discharge. Current mammographic images were evaluated by either a [employer]upp[employer] M-Vu or a [employer] ImageChecker CAD (computer aided detection system). Comparison is made to exams dated 05/04/2016 mammogram, 05/04/2016 mammogram, and 11/25/2015 [facility]. There are scattered fibroglandular tissues in both breasts. There is a biopsy clip i n the right breast. No suspicious mass, architectural distortion, malignant typ e calcification, or lymph node abnormality detected. INCOMPLETE ASSESSMENT: ADD ITIONAL IMAGING EVALUATION RECOMMENDEDUltrasound pending for additional evaluati on. - BREAST ULTRASOUND BILATERALULTRASOUND OF BOTH BREASTS AND BOTH AXILLA: Comparison is made to exams dated 05/04/2016 mammogram, 05/04/2016 mammogr am, and 11/25/2015 mammogram - [facility]. Real-time ultrasound o f both breasts and [...] the retroareolar region, is at a low suspicio n for malignancy. An ultrasound guided biopsy is recommended. The 1.9 cm intra ductal mass in the left breast, central to the nipple, in the retroareolar regio n, is at a low suspicion for malignancy. An ultrasound guided biopsy is recomme nded. Results were discussed with the patient.Stephy Rizvi M.D. dm/: 17:03:24 Entry: - 01/17/2019 15:46:02Imaging Technologist: Miriam Mcdonald FW, [facility]-FWletter sent: BIRADS 4/5 Biopsy Mireya mogram BI-RADS: 0 Indeterminate Ultrasound BI-RADS: 4a Suspicious abnormality - low suspicion for malignancyCARDIAC REUEVIK3107-30-73 17:38:00<0.02[facility] HermannCHEM SKOQW3029-27-86 17:38:38137Wtlwyonf HermannCHEM IVMWG3750-18-17 17:38:0014[facility] HermannCHEM JMCDS1954-26-50 17:38:0027[facility] HermannCHEM IXBVQ9597-09-16 17:38:000.75[facility]annCHEM COJMF8123-92-36 17:38:33438 [facility]annCHEM BUHKG9453-69-60 17:38:008.6[facility] HermannCHEM PANEL 2019-01-02 17:38:001.0[facility] HermannCHEM INUFM9395-11-15 17:38:0087[facility] HermannCHEM OSSWI2491-34-34 17:38:003.2[facility]annCHEM BFWWR0469-90-87 17:38:005.4[facility] HermannCHEM JJUNT6580-48-08 17:38:00* Test Item Value Reference Range Interpretation Comments A/G Ratio (test code = A/G Ratio) 0.6 1 0.7-1.6 [facility]annCHEM DXPMA1136-37-32 17:38:00* Test Item Value Reference Range Interpretation Comments B/C Ratio (test code = B/C Ratio) 15 1 6-25 [facility]annCHEM XHDJS3369-64-51 17:38:0011.7[facility] HermannCHEM PANEL 2019-01-02 17:38:92075Huyoawmg HermannCHEM UVYTE2089-65-93 17:38:0026[facility] HermannCHEM LBPTD2278-30-37 17:38:005.7[facility] HermannCHEM MQIJR1937-78-79 17:38:0011[facility] HermannCHEM WIDGD3742-70-95 17:38:008.6[facility]annCHEM VAIWP0611-92-46 17:38:0073[facility] HsqjkkfTCHXNMIQSJ4429-85-35 17:38:000.9 [facility] ScgavscYDSDVDMVFG0196-15-71 17:38:000.2[facility] HermannHEMATOLOGY 2019-01-02 17:38:0010.9[facility] MbxrwkbNUGRRDVARE2104-79-86 17:38:002.2[facility] ZegqjzcPWSJMNCSIB4737-22-63 17:38:000.6[facility] NwvuhbaJJFLUZQXPI3114-06-39 17:38:001.7[facility] ImewrthOJHMIYJLRP4976-98-19 17:38:0076.2[facility] Abdi ISXLEOSORL9784-63-45 17:38:006.2[facility] VeclwmaKZQKCISLFK0001-83-50 17:38:00 15.3[facility]orial PpfezugKUQWIBTZWO9310-26-64 17:38:001+ *ABN*(01/02/19 12:38 PM) [facility] IotyjcjIOQBAWVFGK6533-27-87 17:38:000.1[facility] HermannHEMATOLOGY 2019-01-02 17:38:0010.4[facility] BisxrjeBVMQRJORTP6293-05-58 17:38:0031.5[facility] IxjmpfbTFFFCWRVKU3527-62-90 17:38:00* Test Item Value Reference Range Interpretation Comments MCH (test code = MCH) 23.1 pg 27.0-31.0 [facility] YetxsitPQZWSVDYER3322-23-15 17:38:0073.3[facility] HermannHEMATOLOGY 2019-01-02 17:38:08330Vwgnxsvg AonwzsmCCTSYUITLJ0627-70-35 17:38:0018.2[facility] ZylybkhNMRIPDKNKK3029-75-00 17:38:0011.0[facility] YlrhyikJUBZIYQKIK7705-04-13 17:38:0034.9[facility] AkugyckNQZDVGDEEF3937-26-49 17:38:0014.3[facility] MMZCMDOFES4956-62-71 17:38:004.76[facility] BfddoltMRHRZ2913-76-84 17:38:00 Negative (01/02/19 12:38 PM)[facility] AND ZMDWV7783-74-44 17:38:00 Clear (01/02/19 12:38 PM)[facility] AND VZTOS4211-87-98 17:38:00Yellow *NA*(01/02/19 12:38 PM)[facility] AND QPMKX1676-26-77 17:38:00* Test Item Value Reference Range Interpretation Comments UA pH (test code = UA pH) 7.0 1 5.0-8.0 [facility] AND SFDZR2679-47-81 17:38:00* Test Item Value Reference Range Interpretation Comments UA Spec Grav (test code = UA Spec Grav) 1.010 1 [facility] AND AOCRG5995-58-19 17:38:00Negative (01/02/19 12:38 PM) [facility] CUVJY4888-15-21 17:38:00Negative *NA*(01/02/19 12:38 PM)[facility] AND OYMZN4549-60-73 17:38:00Negative *NA*(01/02/19 12:38 PM)[facility] AND TIZYL0851-44-78 17:38:00Negative (01/02/19 12:38 PM)[facility] AND ZPHUP3997-47-64 17:38:00<1[facility] AND YSREH4643-37-77 17:38:00<1[facility] AND XBKEU7262-08-72 17:38:000.2 [facility] AND UTVJP8034-41-32 17:38:00Moderate *ABN*(01/02/19 12:38 PM)[facility] AND XSUGZ1674-27-98 17:38:00Negative (01/02/19 12:38 PM) [facility] ZQLVK7147-11-40 17:38:00Negative (01/02/19 12:38 PM) [facility]INE RKOR3520-06-12 17:38:00Negative (01/02/19 12:38 PM)[facility] HermannVIRAL - QAVVMXJQ9394-21-94 17:38:00Negative (01/02/19 12:38 PM)[facility] HermannVIRAL - HQCGKETO3198-21-67 17:38:00Negative (01/02/19 12:38 PM)[facility] HermannURINALYSIS LGIZPZMG8948-68-88 14:07:00* Test Item Value Reference Range Interpretation [...] per HPF 0-5 Urine Source? Clean CatchURINALYSIS XIXSMPEG4426-18-10 14:07:00* Test Item Value Reference Range Interpretation [...] #/LPF FEW Urine Source? Clean CatchBASIC METABOLIC CBEQC3835-55-41 13:50:00* Test Item Value Reference Range Interpretation [...] CA) 9.4 mg/dL 8.5-10.1 N HCG SERUM MZIU9924-88-73 13:50:00* Test Item Value Reference Range Interpretation Comments HCG SERUM QUAL (test code = HCGQL) NEGATIVE NEGATIVE This HCGQL test is NOT applicable for MALE patients.Check with nurse about probable order error.If Tumor Marker Test needed, nurse should order test "HCGTU"(Test #550.75298) KZBCMAIO-V3063-71-19 13:50:00* Test Item Value Reference Range Interpretation Comments TROPONIN-I (test code = TROPI) <0.015 ng/mL 0-0.045 N BASIC METABOLIC [id number] 13:41:00* Test Item Value Reference Range Interpretation [...] CA) 9.4 mg/dL 8.5-10.1 N HCG SERUM NFBQ5268-73-99 13:41:00* Test Item Value Reference Range Interpretation Comments HCG SERUM QUAL (test code = HCGQL) NEGATIVE NEGATIVE This HCGQL test is NOT applicable for MALE patients.Check with nurse about probable order error.If Tumor Marker Test needed, nurse should order test "HCGTU"(Test #550.72325) HJMAQKIB-U6634-07-19 13:41:00* Test Item Value Reference Range Interpretation Comments TROPONIN-I (test code = TROPI) ng/mL 0-0.045 BASIC METABOLIC [id number] 13:40:00* Test Item Value Reference Range Interpretation [...] code = CA) mg/dL 8.5-10.1 HCG SERUM [id number] 13:40:00* Test Item Value Reference Range Interpretation Comments HCG SERUM QUAL (test code = HCGQL) NEGATIVE NEGATIVE This HCGQL test is NOT applicable for MALE patients.Check with nurse about probable order error.If Tumor Marker Test needed, nurse should order test "HCGTU"(Test #550.46596) NYEHQLJU-[id number] 13:40:00* Test Item Value Reference Range Interpretation Comments TROPONIN-I (test code = TROPI) ng/mL 0-0.045 CBC W/O [id number] 13:27:00* Test Item Value Reference Range Interpretation [...] MPV) 11.4 fL 6.7-11.0 H CBC W/O ZAMU9108-79-29 13:25:00* Test Item Value Reference Range Interpretation [...] MPV) fL 6.7-11.0 - CT HEAD/BRAIN W/O [id number] 13:24:00 Name: DU VITALE [facility] : 1985 Age/S: 33 / F Akil Infante Unit #: [id number] Loc: [place] [address] Phys: Vinod Selby DO Acct: [id number] Dis Date: Status: REG ER PHONE #: [phone] Exam Date: 12/10/2018 1304 FAX #: [phone] Reason: Headache EXAMS: CPT CODE: [id number] CT HEAD/BRAIN W/O CONT 41875 HISTORY: Headache. COMPARISON: CT brain from September [...] Sharma RT(R),(MR),(CT); CTDI: DLP: Trnscb Date/Time: 12/10/2018 (6724) t.[email or web address] Orig Print D/T: S: 12/10/2018 (2536) CTDI: DLP: PAGE 1 Signed Report TROPONIN [...] heart disease. Elevated TnI levels are seen i n patients with other cardiac conditions (including myocarditis and congestive h eart failure), and slight TnI elevations occur in patients with other conditions , including sepsis, renal failure, acidosis, acute neurological disease, and per sistent tachyarrhythmia.BASIC METABOLIC [id number] 21:10:00* Test Item Value Reference Range Interpretation [...] FOR DIALYSIS PATIENTS. URINALYSIS W/ REFLEX URINE [id number] 21:10:00* Test Item Value Reference Range Interpretation [...] (BEAKER) (test code = 466) Negative Negat queta UROBILINOGEN UA (BEAKER) (test code = 463) 2.0 mg/dL 0.2-1.0 H RBC UA (BEAKER) (test code = 519) 0 /HPF WBC UA (BEAKER) (test code = 520) 2 /HPF BACTERIA (BEAKER) (test code = 517) Rare MUCUS (BEAKER) (test code = 1574) Rare SQUAMOUS EPITHELIAL (BEAKER) (test code = 516) 5 /HPF SOURCE(BEAKER) (test code = 2795) CBC W/PLT COUNT & AUTO [id number] 20:57:00* Test Item Value Reference Range Interpretation [...] (test code = 2801) 0 % 0-1 [id number] 20:55:00* Test Item Value Reference Range Interpretation Comments D-DIMER QUANTITATIVE (BEAKER) (test code = 671) 0.48 MG/L FEU <0.50 Intended Use: The D-Dimer Assay can be used to aid in the diagnosis of Deep Vein Thrombosis (DVT) and Pulmonary Embolism Disease (PED).In patients with low pre- test probability, various studies concerning STA Liatest D-dimer test have repor louise that with a cutoff value of 0.50 MG/L FEU, the Negative Predictive Value (RADIOLOGY SUPERVISOR V) regarding the exclusion of thrombosis is within 95-100% range. SCREEN, TKCDN5909-39-45 20:53:00* Test Item Value Reference Range Interpretation Comments TEST URINE (BEAKER) (test code = 583) Negative RAPID STREP A LFAIYS3914-28-23 21:01:00* Test Item Value Reference Range Interpretation Comments STREP A ANTIGEN (BEAKER) (test code = 556) Negative Negative RAD, CHEST, 2 DRQMW8413-44-99 20:38:00Reason for exam:->COUGHReason for exam:-> shortness of breathIs the patient ?->NoShould this be performed at the bedside?->NoFINAL REPORT Chest 2 views 06/24/2018 8:38 PM CLINICAL HISTORY: COUGHshortness of breath COMPARISON: 12/12/2016 FINDINGS: The lungs are clear. Cardiomediastinal contours are within normal limits. The central pulmonary vasculature is not engorged. The visualized skeleton is intact. IMPRESSION: No acute radiographic abnormalities. Signed: Janiya Eli MDReport Verified Date/Time: 06/24/2018 20:38:58 Reading Location: [facility] Radiology Reading Room E AND WKUHA0981-36-63 21:38:00Negative *NA*(06/04/18 4:38 PM)[facility] YPFQS3442-52-23 21:38:00Negative (06/04/18 4:38 PM)[facility] GMAPJ3686-43-61 21:38:00Negative (06/04/18 4:38 PM) [facility] PDXKT2599-88-61 21:38:002[facility] CAVIL1481-07-93 21:38:00Negative (06/04/18 4:38 PM)[facility] DSVDS6909-78-40 21:38:0011[facility] OKKQO8380-95-32 21:38:00 Yellow *NA*(06/04/18 4:38 PM)[facility] CSHZD0817-72-43 21:38:00* Test Item Value Reference Range Interpretation Comments UA pH (test code = UA pH) 6.0 1 5.0-8.0 [facility] KMUHO3994-19-58 21:38:00* Test Item Value Reference Range Interpretation Comments UA Spec Grav (test code = UA Spec Grav) 1.018 1 [facility] XEAID0538-15-22 21:38:00Marked *ABN*(06/04/18 4:38 PM) [facility] GVYF9992-37-41 21:38:00Negative (06/04/18 4:38 PM)[facility] FDJTO0477-88-32 21:02:00* Test Item Value Reference Range Interpretation Comments A/G Ratio (test code = A/G Ratio) 0.7 1 0.7-1.6 [facility] MCVXA1767-54-75 21:02:004.8[facility]annCHEM PANEL 2018-06-04 21:02:00* Test Item Value Reference Range Interpretation Comments B/C Ratio (test code = B/C Ratio) 11 1 6-25 [facility] EFQGQ0877-35-80 21:02:0012.8[facility]annCHE[facility] PANEL 2018-06-04 21:02:88077Zbxzvhcm [facility]annCHE[facility] DSBEL1763-05-33 21:02:000.81[facility]CHE[facility] FHXTD3743-05-11 21:02:65860Ljelovwy [facility]CHE[facility] LBPEX5156-19-98 21:02:009[facility]CHE[facility] BYGXM3215-87-93 21:02:92106Wgjafkdr [facility]CHE[facility] MPRFZ0998-07-75 21:02:0028[facility] DTBVN7643-15-33 21:02:27882 [facility] EUCEA9546-95-86 21:02:009.1[facility]annCHEM PANEL 2018-06-04 21:02:003.8[facility]annCHE[facility] BGXOR4159-01-93 21:02:0011[facility]CHE[facility] HIWYG6229-10-77 21:02:008.0[facility]annCHE[facility] JJTQC4367-84-05 21:02:003.2[facility]annCHE[facility] GKUWN4213-89-45 21:02:0011[facility]CHE[facility] EDDQY8138-65-82 21:02:000.5[facility]CHE[facility] PKYEW5894-41-77 21:02:0084 [facility] YcwyulzFXNLEXRCDJ6550-76-75 21:02:009.8[facility]annHEMATOLOGY 2018-06-04 21:02:0032.7[facility] FupbxubWGLNPYCNTK0378-60-05 21:02:0019.4[facility] RkmcjfyVYOIDLUCBC2160-46-26 21:02:84572Tzoekjxe NzrznwyOZCXYJRYVT9242-20-68 21:02:005.06[facility] MrjtbybLHMPKATXXU5216-09-48 21:02:006.5[facility] EUPIBTWFKS1946-71-01 21:02:00* Test Item Value Reference Range Interpretation Comments MCH (test code = MCH) 23.2 pg 27.0-31.0 [facility] PcabxhwALSMICDBEC2160-27-31 21:02:0011.7[facility]annHEMATOLOGY 2018-06-04 21:02:0070.9[facility] ZcltakzZYTBNLVFRN2668-91-39 21:02:0035.9[facility] SskwgbbYPSERETSKS5409-15-25 21:02:002+ *ABN*(06/04/18 4:02 PM)[facility] WROXDWUDMD7942-26-00 21:02:000.5[facility] VtumjeeFOQMUPTAIC1468-62-27 21:02:001.6 [facility] FnooesnJWNSQXLBVV8263-21-77 21:02:000.5[facility]annHEMATOLOGY 2018-06-04 21:02:007.5[facility] FyiqmetVJHSHGFIRY6786-37-21 21:02:008.3[facility] IsnbrvoQIBKQIUKMK6767-22-25 21:02:003.8[facility] RsbgvdiSXZWNWMTIP7579-09-74 21:02:000.7[facility] HurasowUFZWEHCVWT4579-00-57 21:02:0024.8[facility] LVZLFPIGBS7922-97-56 21:02:0058.7[facility] AvukcpnDVYIK5752-05-18 21:02:00 Negative (06/04/18 4:02 PM)[facility]annVIRAL - ZNVLZRBP6243-57-58 21:02:00 Negative (06/04/18 4:02 PM)[facility] - ZHMPXMFS7331-43-69 21:02:00 Negative (06/04/18 4:02 PM)[facility]annCHE[facility] UUGEU8134-15-08 08:31:001.8 [facility]CHE[facility] TRGYE4982-49-17 08:31:002.5[facility]annCHEM PANEL 2018-02-19 08:31:99321Qfmihlyz [facility]annCHEM FJLWH2081-15-87 08:31:0013[facility]annCHEM PAMEK2181-89-05 08:31:009[facility]CHE[facility] PTSHT1347-75-24 08:31:003.9[facility]annCHE[facility] YXYOO7971-04-00 08:31:00* Test Item Value Reference Range Interpretation Comments A/G Ratio (test code = A/G Ratio) 0.7 1 0.7-1.6 [facility] JCZIZ3564-80-98 08:31:002.7[facility]annCHE[facility] PANEL 2018-02-19 08:31:006.6[facility]CHE[facility] KZAFF1545-41-49 08:31:00* Test Item Value Reference Range Interpretation Comments B/C Ratio (test code = B/C Ratio) 15 1 6-25 [facility] DYYRC2708-54-11 08:31:000.3[facility]annCHEM PANEL 2018-02-19 08:31:0067[facility]CHE[facility] NVJQE4262-39-71 08:31:84795Mepbclcz [facility]annCHEM MXEEQ5755-78-07 08:31:004.2[facility]annCHE[facility] VVGAT4269-85-30 08:31:0011[facility]CHE[facility] ZDKHA3481-99-76 08:31:92552Uqezdzdq [facility]CHE[facility] WJTCL0208-06-17 08:31:0025[facility]CHE[facility] WKZDS0316-98-82 08:31:007.8 [facility]CHE[facility] UXOIJ3501-53-07 08:31:0011.2[facility]annCHEM PANEL 2018-02-19 08:31:34312Rukvwqbv [facility]CHE[facility] JRLSG9961-94-98 08:31:000.72[facility] TqyxcrbJZDYWIUXQA8246-77-43 08:31:000.1[facility] HrqhljsLATGKMYNQO5993-74-01 08:31:002+ *ABN*(02/19/18 3:31 AM)[facility] LkbolaeHDECFNXVOA8022-77-76 08:31:00 1.0[facility] HskijssXETLPWHZFB1824-73-15 08:31:000.5[facility]annHEMATOLOGY 2018-02-19 08:31:008.9[facility] PobfkezYKTEPDNXPW4714-61-31 08:31:000.7[facility] OzgottmREVQDOWCCY9406-82-95 08:31:009.9[facility] EjezjhgSUEDPFWMWG2988-94-30 08:31:004.4[facility] YjpsrmaLDBQJQIQJU3246-22-45 08:31:0085.0[facility] TPJPNMLXUR5357-34-71 08:31:004.62[facility] GjcefjnTSVFBZMOBH5054-59-46 08:31:00 10.5[facility] KhhhqbgSMTSVBAQKK8483-29-82 08:31:00* Test Item Value Reference Range Interpretation Comments MCH (test code = MCH) 22.4 pg 27.0-31.0 [facility] KflkoezVEWFWYDMYZ1365-01-48 08:31:0070.2[facility]annHEMATOLOGY 2018-02-19 08:31:0032.4[facility] IrrnvczXDIPLMOJMK0429-22-91 08:31:0010.4[facility] PsppvwxLEAWKTQIAV2858-70-45 08:31:0010.5[facility] JcecycrOCEYWLXXFL1540-96-21 08:31:24121Ahqstcry PzkonevJPZRKWBPEI0519-90-37 08:31:0019.5[facility] FSDNLDAJFL7944-21-23 08:31:0032.0[facility]annCARDIAC UYEJBXH7465-18-15 15:22:00<1.6[facility]annCARDIAC APNCLTR4849-83-16 15:22:00<0.02[facility]annCARDIAC JAOYPVB4237-97-63 15:22:00<1.0[facility]annCARDIAC ENZYMES 2018-02-18 15:22:0063[facility] GtqmgpuBSHCXINOSTTO1607-86-96 15:22:008.7[facility] TnzqguhHQJQAQTVGETD3599-51-71 15:22:00* Test Item Value Reference Range Interpretation Comments B/C Ratio (test code = B/C Ratio) 15 1 6-25 [facility] KruwlpfGIBMLRUVEHIL8146-59-45 15:22:004.8[facility] HermannELECTROLYTES 2018-02-18 15:22:08139Kwnkopko XoksoxeTIKDQYQYEESG9646-76-76 15:22:0012[facility] KrjbcaiVRUITGXATWYR1742-77-33 15:22:56827Iyauphwh SlbndotKUKJAEQECQCB8046-38-24 15:22:0015[facility] ZrxojdwPKQBDQAHYJDQ5707-55-11 15:22:0012[facility] EIAJADHOSNHY9372-30-33 15:22:0079[facility] RdaevptFMYUEDVJBUDV3528-01-09 15:22:00 0.82[facility] FvfcnmrQHDISTPXRLXE5765-77-53 15:22:0029[facility] YJQKCJUGPCDS8073-85-31 15:22:37349Bzkfxulp SvexkuhRDBCYSBYURMT5931-16-50 15:22:007.8[facility] NuypxvoXEGYRARZAWRU4384-56-47 15:22:003.0[facility] JCRIYTPYKGVW8093-19-49 15:22:28290Jdqltrmp XnurbonWYAFYKKGLSCJ2807-88-90 15:22:008.4[facility] JsebgsdNWUUYTNCZRCV9310-61-46 15:22:003.7[facility] QTPPHMMAUBGC0677-13-30 15:22:000.4[facility] IivlrwaEHAEAODRMIOP9084-13-35 15:22:00* Test Item Value Reference Range Interpretation Comments A/G Ratio (test code = A/G Ratio) 0.6 1 0.7-1.6 [facility] EhtomasYSMCEKSCYEAMF7690-05-42 15:22:00Negative *NA*(02/18/18 10:22 AM) [facility] TevezcuFFGPGUVVUH6941-39-73 15:22:008.8[facility]annHEMATOLOGY 2018-02-18 15:22:000.7[facility] OanvzzdWLZBAGEEWR2543-50-17 15:22:006.5[facility] OplljmnHXZDOZSPRN1236-95-13 15:22:002+ *ABN*(02/18/18 10:22 AM)[facility] BTRXLOINIJ7470-05-76 15:22:003.2[facility] IlvtjlyWJTEMNXLBF4049-69-73 15:22:000.5 [facility] BfhfcieDHREOVXPZQ3720-19-40 15:22:000.4[facility]annHEMATOLOGY 2018-02-18 15:22:001.7[facility] BgbibdkQQDLTHIBJB7558-51-45 15:22:0055.1[facility] GgvsafxTUJMIFMPEL3894-59-82 15:22:0028.9[facility] IebhrumQHFGTLTKBK8982-13-88 15:22:001.10[facility] HypyagyJZRQFAAJXN5581-95-95 15:22:00* Test Item Value Reference Range Interpretation Comments PTT (test code = PTT) 33.9 s 22.9-35.8 [facility] ZbcbfxnPWBIOWDXVL5537-01-76 15:22:00* Test Item Value Reference Range Interpretation Comments PT (test code = PT) 14.4 s 12.0-14.7 [facility] UviqhmfAFCQOQZQIZ3770-54-32 15:22:00* Test Item Value Reference Range Interpretation Comments INR (test code = INR) 1.12 1 0.85-1.17 [facility] IielbgsXZKWVIZOYS5741-23-72 15:22:004.97[facility]annHEMATOLOGY 2018-02-18 15:22:0069.6[facility] NeijqbdEQMOHPDDBT5107-99-85 15:22:0011.0[facility] FwbluhkQHXBDLROWF5549-60-75 15:22:0034.6[facility] ZuaaqsqAXYTESCSZV6722-30-89 15:22:005.9[facility] PybunmmIPCRBKZCKT8492-76-66 15:22:00* Test Item Value Reference Range Interpretation Comments MCH (test code = MCH) 22.2 pg 27.0-31.0 [facility] XikejehWLYAKIASNA1359-70-45 15:22:0031.9[facility]annHEMATOLOGY 2018-02-18 15:22:0019.5[facility] UojyldsXVEWKYQTXN4165-13-33 15:22:0010.2[facility] LxfugvnSNJFFKOZGA6909-28-51 15:22:31071Wzssnwtz [facility]UR[facility] AND STOOL 2018-02-18 13:47:00Marked *ABN*(02/18/18 8:47 AM)[facility] STOOL 2018-02-18 13:47:42598Qgbezfwv [facility] RGUAS1402-52-18 13:47:00* Test Item Value Reference Range Interpretation Comments UA pH (test code = UA pH) 5.0 1 5.0-8.0 [facility] MGAME7494-26-23 13:47:00* Test Item Value Reference Range Interpretation Comments UA Spec Grav (test code = UA Spec Grav) 1.014 1 [facility] AND FQMXM8048-92-66 13:47:00Negative *NA*(02/18/18 8:47 AM) [facility] HKSKP6074-21-01 13:47:00Small *ABN*(02/18/18 8:47 AM) [facility] AND WXQGI0694-48-42 13:47:00Large *ABN*(02/18/18 8:47 AM) [facility] DQPUP4342-85-67 13:47:0027[facility] QLITQ4064-69-27 13:47:00Negative (02/18/18 8:47 AM)[facility] YG8563-54-40 22:34:00* Test Item Value Reference Range Interpretation Comments Creatine Kinase MB (test code = 32304-9) 0.40 0-5.0 [facility]Troponin L0809-20-16 22:34:00* Test Item Value Reference Range Interpretation Comments Troponin I (test code = SQN5446) -0.001 0-0.300 [facility] TexasUrine HKX6919-28-54 22:23:00* Test Item Value Reference Range Interpretation Comments Urine WBC (test code = 5821-4) 0-5 0-5 [facility] TexasUrine BCC7286-87-07 22:23:00* Test Item Value Reference Range Interpretation Comments Urine RBC (test code = 35416-4) 0-5 0-5 [facility] Lcygfhou2148-97-92 22:23:00* Test Item Value Reference Range Interpretation Comments Urine Bacteria (test code = 84355-7) NONE NONE [facility] TexasU[facility] Epithelial Esepk4653-38-56 22:23:00 * Test Item Value Reference Range Interpretation Comments Urine Epithelial Cells (test code = 71343-1) MANY NONE [facility] Eqhgl3185-31-68 22:23:00* Test Item Value Reference Range Interpretation Comments Sodium Level (test code = 2951-2) 140 136-145 [facility] TexasPotassium Fvoye9473-78-11 22:23:00* Test Item Value Reference Range Interpretation Comments Potassium Level (test code = 2823-3) 4.1 3.5-5.1 [facility] TexasChloride Lnazq7758-52-90 22:23:00* Test Item Value Reference Range Interpretation Comments Chloride Level (test code = 2075-0) 102 98-107 [facility] TexasCarbon Dioxide Injlo4196-21-58 22:23:00* Test Item Value Reference Range Interpretation Comments Carbon Dioxide Level (test code = 2028-9) 28 22-29 [facility] TexasAnion Add0372-56-46 22:23:00* Test Item Value Reference Range Interpretation Comments Anion Gap (test code = 36689-6) 14.1 8-16 [facility] TexasBlood Urea Gdowpgpd6724-51-78 22:23:00* Test Item Value Reference Range Interpretation Comments Blood Urea Nitrogen (test code = 3094-0) 14 7-26 [facility] TexasCreatinine2018-02-28 22:23:00* Test Item Value Reference Range Interpretation Comments Creatinine (test code = 2160-0) 0.79 0.57-1.11 [facility] TexasBUN/Creatinine Djsoo8323-46-34 22:23:00* Test Item Value Reference Range Interpretation Comments BUN/Creatinine Ratio (test code = 3097-3) 18 6-25 [facility] TexasEstimat Glomerular Filtration Rate 2017-11-21 22:23:00* Test Item Value Reference Range Interpretation Comments Estimat Glomerular Filtration Rate (test code = 67955-5) 60- >60 Ranges were taken from the National Kidney Disease Education Program and the [facility] literature.Reference ranges:60 or greater: Sopkfr78-01 ( for 3 consecutive months): Chronic kidney disease 15 or less: Kidney failureThe Medical Center of Southeast TexasGlucose Pzkks9539-60-43 22:23:00* Test Item Value Reference Range Interpretation Comments Glucose Level (test code = KDZ0961) 92 74-118 [facility] TexasCalcium Cmzlp7931-75-88 22:23:00* Test Item Value Reference Range Interpretation Comments Calcium Level (test code = 45994-6) 9.2 8.4-10.2 [facility] TexasTotal Wpfxitarx8745-48-72 22:23:00* Test Item Value Reference Range Interpretation Comments Total Bilirubin (test code = 1975-2) 0.4 0.2-1.2 [facility] TexasAspartate Amino Transf (AST/SGOT) 2017-11-21 22:23:00* Test Item Value Reference Range Interpretation Comments Aspartate Amino Transf (AST/SGOT) (test code = Aspartate Amino Transf (AST/SGOT)) 8 5-34 [facility] TexasAlanine Aminotransferase (ALT/SGPT) 2017-11-21 22:23:00* Test Item Value Reference Range Interpretation Comments Alanine Aminotransferase (ALT/SGPT) (test code = 1742-6) 8 0-55 [facility] TexasTotal Trlebhm5094-92-67 22:23:00* Test Item Value Reference Range Interpretation Comments Total Protein (test code = 2885-2) 8.0 6.5-8.1 [facility] TexasAlbumin2018-02-28 22:23:00* Test Item Value Reference Range Interpretation Comments Albumin (test code = 1751-7) 3.3 3.5-5.0 L [facility] TexasGlobulin2018-02-28 22:23:00* Test Item Value Reference Range Interpretation Comments Globulin (test code = 53078-9) 4.7 2.3-3.5 H [facility] TexasAlbumin/Globulin Gagni7964-52-23 22:23:00 * Test Item Value Reference Range Interpretation Comments Albumin/Globulin Ratio (test code = 1759-0) 0.7 0.8-2.0 L [facility] TexasAlkaline Sjrheenjlaa7106-81-79 22:23:00* Test Item Value Reference Range Interpretation Comments Alkaline Phosphatase (test code = 6768-6) 85 40-150 [facility] TexasCreatine Bfnczk6501-59-70 22:23:00* Test Item Value Reference Range Interpretation Comments Creatine Kinase (test code = 2157-6) 43 29-168 [facility] TexasAmylase Qzrdp9410-42-98 22:23:00* Test Item Value Reference Range Interpretation Comments Amylase Level (test code = 1798-8) 76 25-125 [facility] TexasLipase2018-02-28 22:23:00* Test Item Value Reference Range Interpretation Comments Lipase (test code = 3040-3) 15 8-78 [facility] TexasD-Dimer Quantitative (PE/DVT)2017-11-21 22:18:00* Test Item Value Reference Range Interpretation Comments D-Dimer Quantitative (PE/DVT) (test code = 63904-7) 1.51 0. 00-0.45 H As with all in vitro diagnostic tests, the test results should be interpreted by the physician in conjunction with clinical findings and other test results.Test results are reported in NEW D-dimer units(ug/mLFEU).[facility] TexasHuman Chorionic Gonadotropin, Xoos1503-99-05 22:18:00* Test Item Value Reference Range Interpretation Comments Human Chorionic Gonadotropin, Qual (test code = 2118-8) NEGATIVE NEGATIVE [facility] TexasUrine Wbjiq5680-48-22 22:15:00* Test Item Value Reference Range Interpretation Comments Urine Color (test code = 5778-6) YELLOW YELLOW [facility] TexasUrine Ohhlhtl6002-10-47 22:15:00* Test Item Value Reference Range Interpretation Comments Urine Clarity (test code = 12826-9) CLOUDY CLEAR H [facility] TexasUrine Specific Ndsamld4908-50-18 22:15:00 * Test Item Value Reference Range Interpretation Comments Urine Specific [place] (test code = 5811-5) 1.020 1.010-1.02 5 [facility] TexasUrine sY9002-99-88 22:15:00* Test Item Value Reference Range Interpretation Comments Urine pH (test code = 58761-0) 6 5-7 [facility] TexasUrine Leukocyte Gfiheyeg1439-93-61 22:15:00* Test Item Value Reference Range Interpretation Comments Urine Leukocyte Esterase (test code = 5799-2) NEGATIVE NEGATIVE [facility] TexasUrine Zffhhvz3422-07-25 22:15:00* Test Item Value Reference Range Interpretation Comments Urine Nitrite (test code = 80754-2) NEGATIVE NEGATIVE [facility] TexasUrine Jdeonxq0731-66-87 22:15:00* Test Item Value Reference Range Interpretation Comments Urine Protein (test code = 5804-0) NEGATIVE NEGATIVE [facility] Glucose (UA)2017-11-21 22:15:00* Test Item Value Reference Range Interpretation Comments Urine Glucose (UA) (test code = 2349-9) NEGATIVE NEGATIVE [facility] TexasUrine Fqejepp9332-88-87 22:15:00* Test Item Value Reference Range Interpretation Comments Urine Ketones (test code = 07223-2) NEGATIVE NEGATIVE [facility] Lofdndtmiewx5462-92-82 22:15:00* Test Item Value Reference Range Interpretation Comments Urine Urobilinogen (test code = 27471-9) 4 0.2-1 H [facility] Blldoqant0118-56-28 22:15:00* Test Item Value Reference Range Interpretation Comments Urine Bilirubin (test code = 1978-6) NEGATIVE NEGATIVE [facility] Tdrme8910-80-25 22:15:00* Test Item Value Reference Range Interpretation Comments Urine Blood (test code = 31682-1) NEGATIVE NEGATIVE [facility] Opiates Niymyi9784-50-97 22:14:00* Test Item Value Reference Range Interpretation Comments Urine Opiates Screen (test code = 39518-5) NEGATIVE NEGATIVE [facility] TexasUrine Barbiturates Dmwfqh0150-50-01 22:14:00* Test Item Value Reference Range Interpretation Comments Urine Barbiturates Screen (test code = 041732444) NEGATIVE NEGA TIVE [facility] TexasUrine Phencyclidine Uizxjy8125-28-53 22:14:00* Test Item Value Reference Range Interpretation Comments Urine Phencyclidine Screen (test code = 56371-3) NEGATIVE NEGAT QUETA [facility] TexasUrine Amphetamines Zfqnzb2390-03-03 22:14:00* Test Item Value Reference Range Interpretation Comments Urine Amphetamines Screen (test code = 94687-5) NEGATIVE NEGATI VE [facility] TexasU[facility] Methamphetamines Eozzqd3693-81-33 22:14:00* Test Item Value Reference Range Interpretation Comments Urine Methamphetamines Screen (test code = Urine Metha mphetamines Screen) NEGATIVE NEGATIVE [facility] TexasUrine Benzodiazepines Vygajj1283-41-84 22:14:00* Test Item Value Reference Range Interpretation Comments Urine Benzodiazepines Screen (test code = 93053-3) NEGATIVE NEG ATIVE [facility] TexasUrine Cocaine Aitclg0772-56-37 22:14:00* Test Item Value Reference Range Interpretation Comments Urine Cocaine Screen (test code = 3398-5) NEGATIVE NEGATIVE [facility] TexasUrine Cannabinoids Wucdlc5760-91-99 22:14:00* Test Item Value Reference Range Interpretation Comments Urine Cannabinoids Screen (test code = 51429-3) NEGATIVE NEGATI VE THESE RESULTS ARE FOR MEDICAL TREATMENT ONLYTHIS REPORT CONTAINS UNCONFIR MED SCREENING RESULTS*POSITIVE RESULTS WILL BE CONFIRMED BY REFERENCE LAB UPON R EQUEST CUT-OFFDRUG CLASS CONCENTRATION ng/mLAmphetamines 1000Methamphetamines 1000Cocaine 300Opiate 300Phencyc lidine 25Cannabinoid 50Barbiturates 300Benzodiazepine 300Methadone 300[facility] TexasUrine Methadone Nbnilo8558-77-90 22:14:00* Test Item Value Reference Range Interpretation Comments Urine Methadone Screen (test code = 23248-9) NEGATIVE NEGATIVE THESE RESULTS ARE FOR MEDICAL TREATMENT ONLYTHIS REPORT CONTAINS UNCONFIR MED SCREENING RESULTS*POSITIVE RESULTS WILL BE CONFIRMED BY REFERENCE LAB UPON R EQUEST CUT-OFFDRUG CLASS CONCENTRATION ng/mLAmphetamines 1000Methamphetamines 1000Cocaine Metabolite 300Opiate 300Phencyc lidine 25Cannabinoid 50Barbiturates 300Benzodiazepine 300Methadone 300[facility] TexasWhite Blood Jrugz6258-61-00 22:11:00* Test Item Value Reference Range Interpretation Comments White Blood Count (test code = 6690-2) 9.50 4.8-10.8 [facility] TexasRed Blood Qjcdp7578-15-20 22:11:00* Test Item Value Reference Range Interpretation Comments Red Blood Count (test code = 789-8) 4.76 3.6-5.1 [facility] TexasHemoglobin2018-02-28 22:11:00* Test Item Value Reference Range Interpretation Comments Hemoglobin (test code = 96893-1) 10.5 12.0-16.0 L [facility] TexasHematocrit2018-02-28 22:11:00* Test Item Value Reference Range Interpretation Comments Hematocrit (test code = 4544-3) 33.1 34.2-44.1 L [facility] TexasMean Corpuscular Apzote1717-77-96 22:11:00* Test Item Value Reference Range Interpretation Comments Mean Corpuscular Volume (test code = 787-2) 69.5 81-99 L [facility] TexasMean Corpuscular Cvomafpgmb7229-36-88 22:11:00* Test Item Value Reference Range Interpretation Comments Mean Corpuscular Hemoglobin (test code = 785-6) 22.1 28-32 L [facility] TexasMean Corpuscular Hemoglobin Concent 2017-11-21 22:11:00* Test Item Value Reference Range Interpretation Comments Mean Corpuscular Hemoglobin Concent (test code = 786-4) 31.7 31-35 [facility] [place]Red Cell Distribution [id number] 22:11:00* Test Item Value Reference Range Interpretation Comments Red Cell Distribution Width (test code = 29723-1) 17.9 11.7 -14.4 H [facility] TexasPlatelet [id number] 22:11:00* Test Item Value Reference Range Interpretation Comments Platelet Count (test code = 777-3) 296 140-360 [facility] [place]Neutrophils (%) (Auto)2017-11-21 22:11:00 * Test Item Value Reference Range Interpretation Comments Neutrophils (%) (Auto) (test code = 69371-7) 62.5 38.7-80.0 [facility] [place]Lymphocytes (%) (Auto)2017-11-21 22:11:00 * Test Item Value Reference Range Interpretation Comments Lymphocytes (%) (Auto) (test code = 736-9) 28.3 18.0-39.1 [facility] [place] (%) (Auto)2017-11-21 22:11:00* Test Item Value Reference Range Interpretation Comments Monocytes (%) (Auto) (test code = 5905-5) 6.9 4.4-11.3 [facility] [place]osin[facility] (%) (Auto)2017-11-21 22:11:00 * Test Item Value Reference Range Interpretation Comments Eosinophils (%) (Auto) (test code = 713-8) 1.6 0.0-6.0 [facility]ophils (%) (Auto)2017-11-21 22:11:00* Test Item Value Reference Range Interpretation Comments Basophils (%) (Auto) (test code = 706-2) 0.3 0.0-1.0 [facility] TexasIM GRANULOCYTES %2017-11-21 22:11:00* Test Item Value Reference Range Interpretation Comments IM GRANULOCYTES % (test code = IM GRANULOCYTES %) 0.4 0.0- 1.0 [facility] TexasNeutrophils # (Auto)2017-11-21 22:11:00* Test Item Value Reference Range Interpretation Comments Neutrophils # (Auto) (test code = 751-8) 5.9 2.1-6.9 [facility] TexasLymphocytes # (Auto)2017-11-21 22:11:00* Test Item Value Reference Range Interpretation Comments Lymphocytes # (Auto) (test code = 20058-7) 2.7 1.0-3.2 [facility] TexasMonocytes # (Auto)2017-11-21 22:11:00* Test Item Value Reference Range Interpretation Comments Monocytes # (Auto) (test code = 742-7) 0.7 0.2-0.8 [facility] TexasEosinophils # (Auto)2017-11-21 22:11:00* Test Item Value Reference Range Interpretation Comments Eosinophils # (Auto) (test code = 711-2) 0.2 0.0-0.4 [facility] [place]Basophils # (Auto)2017-11-21 22:11:00* Test Item Value Reference Range Interpretation Comments Basophils # (Auto) (test code = 704-7) 0.0 0.0-0.1 [facility] TexasAbsolute Immature Granulocyte (auto 2017-11-21 22:11:00* Test Item Value Reference Range Interpretation Comments Absolute Immature Granulocyte (auto (lupe t code = Absolute Immature Granulocyte (auto) 0.04 0-0.1 [facility] Fhaokpf5417-58-89 16:46:00* Test Item Value Reference Range Interpretation Comments Bedside Glucose (test code = 23999-3) 95 70-120 Meter ID: [id number] [facility]on [facility] [place] Glucose 2017-11-14 16:46:00* Test Item Value Reference Range Interpretation Comments Bedside Glucose (test code = 35538-6) 95 70-120 Meter ID: [id number] [facility] TexasPlatelet Estimate 2017-11-14 07:45:00* Test Item Value Reference Range Interpretation Comments Platelet Estimate (test code = 69488-8) ADEQUATE [facility] TexasClumped Xyafyziyn9740-93-74 07:45:00* Test Item Value Reference Range Interpretation Comments Clumped Platelets (test code = 7796-6) FEW NONE [facility] TexasLarge Tpnuhzohp8924-72-21 07:45:00* Test Item Value Reference Range Interpretation Comments Large Platelets (test code = 5908-9) FEW [facility] TexasRed Cell Morphology Jgbwnvz0808-84-05 07:45:00* Test Item Value Reference Range Interpretation Comments Red Cell Morphology Comment (test code = 6742-1) NORMAL [facility] TexasPlatelet Jfgugyrj5014-50-89 07:45:00* Test Item Value Reference Range Interpretation Comments Platelet Estimate (test code = 25409-7) ADEQUATE [facility] TexasClumped Eybdcwqpt6361-90-21 07:45:00* Test Item Value Reference Range Interpretation Comments Clumped Platelets (test code = 7796-6) FEW NONE [facility] TexasLarge Exkgymwfb5755-25-39 07:45:00* Test Item Value Reference Range Interpretation Comments Large Platelets (test code = 5908-9) FEW [facility] TexasRed Cell Morphology Iercgxp0251-90-92 07:45:00* Test Item Value Reference Range Interpretation Comments Red Cell Morphology Comment (test code = 6742-1) [facility]AL [facility] Hvndr1069-93-49 07:23:00* Test Item Value Reference Range Interpretation Comments Sodium Level (test code = 2951-2) 138 136-145 [facility] TexasPotassium Ouwbj8374-48-11 07:23:00* Test Item Value Reference Range Interpretation Comments Potassium Level (test code = 2823-3) 3.9 3.5-5.1 [facility] TexasChloride Cczpj2526-28-39 07:23:00* Test Item Value Reference Range Interpretation Comments Chloride Level (test code = 2075-0) 104 98-107 [facility] TexasCarbon Dioxide Cwzci0794-62-07 07:23:00* Test Item Value Reference Range Interpretation Comments Carbon Dioxide Level (test code = 2028-9) 25 22-29 [facility] TexasAnion Ibm4871-56-28 07:23:00* Test Item Value Reference Range Interpretation Comments Anion Gap (test code = 25569-0) 12.9 8-16 [facility] TexasBlood Urea Togtmboe6945-12-31 07:23:00* Test Item Value Reference Range Interpretation Comments Blood Urea Nitrogen (test code = 3094-0) 8 7-26 [facility] TexasCreatinine2018-02-21 07:23:00* Test Item Value Reference Range Interpretation Comments Creatinine (test code = 2160-0) 0.68 0.57-1.11 [facility] TexasBUN/Creatinine Apouf9478-34-96 07:23:00* Test Item Value Reference Range Interpretation Comments BUN/Creatinine Ratio (test code = 3097-3) 12 6-25 [facility] TexasEstimat Glomerular Filtration Rate 2017-11-14 07:23:00* Test Item Value Reference Range Interpretation Comments Estimat Glomerular Filtration Rate (test code = 80332-0) 60- >60 Ranges were taken from the National Kidney Disease Education Program and the [facility] Foundation literature.Reference ranges:60 or greater: Fgukhn77-98 ( for 3 consecutive months): Chronic kidney disease 15 or less: Kidney failureThe [facility] Center of Southeast TexasGlucose Ywedf3428-55-53 07:23:00* Test Item Value Reference Range Interpretation Comments Glucose Level (test code = NIX6875) 93 74-118 [facility] TexasCalcium Qtvtq7610-25-39 07:23:00* Test Item Value Reference Range Interpretation Comments Calcium Level (test code = 78242-4) 8.4 8.4-10.2 [facility] TexasWhite Blood Iyvec8661-51-75 07:11:00* Test Item Value Reference Range Interpretation Comments White Blood Count (test code = 6690-2) 8.12 4.8-10.8 [facility] TexasRed Blood Guvhu2286-88-41 07:11:00* Test Item Value Reference Range Interpretation Comments Red Blood Count (test code = 789-8) 4.29 3.6-5.1 [facility] TexasHemoglobin2018-02-21 07:11:00* Test Item Value Reference Range Interpretation Comments Hemoglobin (test code = 19587-2) 9.5 12.0-16.0 L [facility] TexasHematocrit2018-02-21 07:11:00* Test Item Value Reference Range Interpretation Comments Hematocrit (test code = 4544-3) 30.4 34.2-44.1 L [facility] TexasMean Corpuscular Sctnyx2177-61-10 07:11:00* Test Item Value Reference Range Interpretation Comments Mean Corpuscular Volume (test code = 787-2) 70.9 81-99 L [facility] TexasMean Corpuscular Extfcwfxut8092-79-88 07:11:00* Test Item Value Reference Range Interpretation Comments Mean Corpuscular Hemoglobin (test code = 785-6) 22.1 28-32 L [facility] TexasMean Corpuscular Hemoglobin Concent 2017-11-14 07:11:00* Test Item Value Reference Range Interpretation Comments Mean Corpuscular Hemoglobin Concent (test code = 786-4) 31.3 31-35 [facility] TexasRed Cell Distribution Hsrmw6037-78-40 07:11:00* Test Item Value Reference Range Interpretation Comments Red Cell Distribution Width (test code = 39826-8) 18.5 11.7 -14.4 H [facility] TexasPlatelet Zywaq5040-85-20 07:11:00* Test Item Value Reference Range Interpretation Comments Platelet Count (test code = 777-3) 160 140-360 [facility] TexasNeutrophils (%) (Auto)2017-11-14 07:11:00 * Test Item Value Reference Range Interpretation Comments Neutrophils (%) (Auto) (test code = 06004-8) 69.9 38.7-80.0 [facility] TexasLymphocytes (%) (Auto)2017-11-14 07:11:00 * Test Item Value Reference Range Interpretation Comments Lymphocytes (%) (Auto) (test code = 736-9) 22.4 18.0-39.1 [facility] TexasMonocytes (%) (Auto)2017-11-14 07:11:00* Test Item Value Reference Range Interpretation Comments Monocytes (%) (Auto) (test code = 5905-5) 6.7 4.4-11.3 [facility] TexasEosinophils (%) (Auto)2017-11-14 07:11:00 * Test Item Value Reference Range Interpretation Comments Eosinophils (%) (Auto) (test code = 713-8) 0.4 0.0-6.0 [facility] [place]Basophils (%) (Auto)2017-11-14 07:11:00* Test Item Value Reference Range Interpretation Comments Basophils (%) (Auto) (test code = 706-2) 0.2 0.0-1.0 [facility] TexasIM GRANULOCYTES %2017-11-14 07:11:00* Test Item Value Reference Range Interpretation Comments IM GRANULOCYTES % (test code = IM GRANULOCYTES %) 0.4 0.0- 1.0 [facility] TexasNeutrophils # (Auto)2017-11-14 07:11:00* Test Item Value Reference Range Interpretation Comments Neutrophils # (Auto) (test code = 751-8) 5.7 2.1-6.9 [facility] TexasLymphocytes # (Auto)2017-11-14 07:11:00* Test Item Value Reference Range Interpretation Comments Lymphocytes # (Auto) (test code = 12412-8) 1.8 1.0-3.2 [facility] TexasMonocytes # (Auto)2017-11-14 07:11:00* Test Item Value Reference Range Interpretation Comments Monocytes # (Auto) (test code = 742-7) 0.5 0.2-0.8 [facility] TexasEosinophils # (Auto)2017-11-14 07:11:00* Test Item Value Reference Range Interpretation Comments Eosinophils # (Auto) (test code = 711-2) 0.0 0.0-0.4 [facility] [place]Basophils # (Auto)2017-11-14 07:11:00* Test Item Value Reference Range Interpretation Comments Basophils # (Auto) (test code = 704-7) 0.0 0.0-0.1 [facility] TexasAbsolute Immature Granulocyte (auto 2017-11-14 07:11:00* Test Item Value Reference Range Interpretation Comments Absolute Immature Granulocyte (auto (lupe t code = Absolute Immature Granulocyte (auto) 0.03 0-0.1 [facility] TexasIron Dpael7502-29-12 08:17:00* Test Item Value Reference Range Interpretation Comments Iron Level (test code = 2498-4) 22 50-170 L [facility] TexasTotal Iron Binding Tmwmwget9504-71-58 08:17:00* Test Item Value Reference Range Interpretation Comments Total Iron Binding Capacity (test code = 2500-7) 287 261-4 78 [facility] TexasPercent Iron Gbucemvoti7087-12-38 08:17:00* Test Item Value Reference Range Interpretation Comments Percent Iron Saturation (test code = 2502-3) 8 15-50 L [facility] TexasTransferrin2018-02-19 08:17:00* Test Item Value Reference Range Interpretation Comments Transferrin (test code = 3034-6) 205 180-382 [facility] TexasIron Zhwwv2614-38-65 08:17:00* Test Item Value Reference Range Interpretation Comments Iron Level (test code = 2498-4) 22 50-170 L [facility] TexasTotal Iron Binding Zfgoisan7520-16-59 08:17:00* Test Item Value Reference Range Interpretation Comments Total Iron Binding Capacity (test code = 2500-7) 287 261-4 78 [facility] [place]Percent Iron Lhzlvmcwsn1808-18-56 08:17:00* Test Item Value Reference Range Interpretation Comments Percent Iron Saturation (test code = 2502-3) 8 15-50 L [facility] TexasTransferrin2018-02-19 08:17:00* Test Item Value Reference Range Interpretation Comments Transferrin (test code = 3034-6) 205 180-382 [facility] [place]Percent Reticulocyte Owkzy6925-59-31 07:24:00* Test Item Value Reference Range Interpretation Comments Percent Reticulocyte Count (test code = 48128-7) 1.1 0.8-2 .2 [facility] [place]Percent Reticulocyte Qjwgf3087-51-10 07:24:00* Test Item Value Reference Range Interpretation Comments Percent Reticulocyte Count (test code = 72885-1) 1.1 0.8-2 .2 [facility] TexasCreatine Kinase TO1137-51-25 10:43:00* Test Item Value Reference Range Interpretation Comments Creatine Kinase MB (test code = 94885-9) 0.50 0-5.0 [facility] TexasTroponin V9741-74-38 10:43:00* Test Item Value Reference Range Interpretation Comments Troponin I (test code = LFI1671) 0.00 0.0-0.78 [facility] TexasUrine Gfwj4727-18-19 10:37:00* Test Item Value Reference Range Interpretation Comments Urine Test (test code = 2106-3) NEGATIVE NEGATIVE [facility] TexasUrine Zsus5298-03-88 10:37:00* Test Item Value Reference Range Interpretation Comments Urine Test (test code = 2106-3) NEGATIVE NEGATIVE [facility] TexasUrine LBT1187-09-94 10:36:00* Test Item Value Reference Range Interpretation Comments Urine WBC (test code = 5821-4) 0-5 0-5 [facility] TexasUrine ETL4906-16-22 10:36:00* Test Item Value Reference Range Interpretation Comments Urine RBC (test code = 17165-4) 0-5 0-5 [facility] TexasUrine Tjikhtcn1549-35-98 10:36:00* Test Item Value Reference Range Interpretation Comments Urine Bacteria (test code = 82943-0) FEW NONE [facility] TexasUrine Epithelial Hqstq3340-27-85 10:36:00 * Test Item Value Reference Range Interpretation Comments Urine Epithelial Cells (test code = 93180-8) MANY NONE [facility] TexasTotal Umyejwrrw7940-41-84 10:33:00* Test Item Value Reference Range Interpretation Comments Total Bilirubin (test code = 1975-2) 0.7 0.2-1.2 [facility] TexasAspartate Amino Transf (AST/SGOT) 2017-11-11 10:33:00* Test Item Value Reference Range Interpretation Comments Aspartate Amino Transf (AST/SGOT) (test code = Aspartate Amino Transf (AST/SGOT)) 9 5-34 [facility] TexasAlanine Aminotransferase (ALT/SGPT) 2017-11-11 10:33:00* Test Item Value Reference Range Interpretation Comments Alanine Aminotransferase (ALT/SGPT) (test code = 1742-6) 8 0-55 [facility] TexasTotal Swzgzfq5563-37-58 10:33:00* Test Item Value Reference Range Interpretation Comments Total Protein (test code = 2885-2) 7.9 6.5-8.1 [facility] TexasAlbumin2018-02-18 10:33:00* Test Item Value Reference Range Interpretation Comments Albumin (test code = 1751-7) 3.2 3.5-5.0 L [facility] TexasGlobulin2018-02-18 10:33:00* Test Item Value Reference Range Interpretation Comments Globulin (test code = 82607-3) 4.7 2.3-3.5 H [facility] TexasAlbumin/Globulin Ejcau8871-05-31 10:33:00 * Test Item Value Reference Range Interpretation Comments Albumin/Globulin Ratio (test code = 1759-0) 0.7 0.8-2.0 L [facility] TexasAlkaline Hksvarhvuak9319-01-31 10:33:00* Test Item Value Reference Range Interpretation Comments Alkaline Phosphatase (test code = 6768-6) 78 40-150 [facility] TexasCreatine Vaqttd1354-30-46 10:33:00* Test Item Value Reference Range Interpretation Comments Creatine Kinase (test code = 2157-6) 49 29-168 [facility] TexasAmylase Sucuj3366-90-85 10:33:00* Test Item Value Reference Range Interpretation Comments Amylase Level (test code = 1798-8) 64 25-125 [facility] TexasLipase2018-02-18 10:33:00* Test Item Value Reference Range Interpretation Comments Lipase (test code = 3040-3) 10 8-78 [facility] TexasUrine Zgmms3187-31-77 10:24:00* Test Item Value Reference Range Interpretation Comments Urine Color (test code = 5778-6) YELLOW YELLOW [facility] TexasUrine Edkwmzh8606-42-26 10:24:00* Test Item Value Reference Range Interpretation Comments Urine Clarity (test code = 73692-6) HAZY CLEAR [facility] TexasUrine Specific Jjfvody3278-75-62 10:24:00 * Test Item Value Reference Range Interpretation Comments Urine Specific [place] (test code = 5811-5) 1.015 1.010-1.02 5 [facility] TexasUrine uV7753-18-22 10:24:00* Test Item Value Reference Range Interpretation Comments Urine pH (test code = 66016-6) 5 5-7 [facility] TexasUrine Leukocyte Enoexxlo4672-28-72 10:24:00* Test Item Value Reference Range Interpretation Comments Urine Leukocyte Esterase (test code = 5799-2) NEGATIVE NEGATIVE [facility] TexasUrine Haidfia4844-82-12 10:24:00* Test Item Value Reference Range Interpretation Comments Urine Nitrite (test code = 42086-8) NEGATIVE NEGATIVE [facility] TexasUrine Jblzcwt0197-76-79 10:24:00* Test Item Value Reference Range Interpretation Comments Urine Protein (test code = 5804-0) NEGATIVE NEGATIVE [facility] TexasUrine Glucose (UA)2017-11-11 10:24:00* Test Item Value Reference Range Interpretation Comments Urine Glucose (UA) (test code = 2349-9) NEGATIVE NEGATIVE [facility] TexasUrine Guegbon4180-29-99 10:24:00* Test Item Value Reference Range Interpretation Comments Urine Ketones (test code = 33944-2) NEGATIVE NEGATIVE [facility] TexasUrine Fvlzzdfgamdk2380-46-35 10:24:00* Test Item Value Reference Range Interpretation Comments Urine Urobilinogen (test code = 14790-8) 0.2 0.2-1 [facility] TexasUrine Mwzwjqwvt8168-83-73 10:24:00* Test Item Value Reference Range Interpretation Comments Urine Bilirubin (test code = 1978-6) NEGATIVE NEGATIVE [facility] TexasUrine Xbvrp2251-89-82 10:24:00* Test Item Value Reference Range Interpretation Comments Urine Blood (test code = 24597-1) NEGATIVE NEGATIVE [facility] TexasUrine Amorphous Sjjlabwi0846-31-34 16:01:00* Test Item Value Reference Range Interpretation Comments Urine Amorphous Sediment (test code = 8246-1) FEW FEW [facility] TexasUrine Amorphous Vkikaksp9337-32-30 16:01:00* Test Item Value Reference Range Interpretation Comments Urine Amorphous Sediment (test code = 8246-1) FEW FEW [facility] TexasHEMOGLOBIN J1Q9703-83-89 13:46:00* Test Item Value Reference Range Interpretation Comments HEMOGLOBIN A1C (BEAKER) (test code = 368) 5.4 % 4.3-6.1 Add to blood in labTROPONIN [id number] 11:15:00* Test Item Value Reference Range Interpretation Comments TROPONIN I (BEAKER) (test code = 397) < ng/mL 0.00-0.15 Troponin I (TnI) levels must be interpreted in the context of the presenting sym ptoms and the clinical findings. Elevated TnI levels indicate myocardial damage, but are not specific for ischemic heart disease. Elevated TnI levels are seen i n patients with other cardiac conditions (including myocarditis and congestive h eart failure), and slight TnI elevations occur in patients with other conditions , including sepsis, renal failure, acidosis, acute neurological disease, and per sistent tachyarrhythmia.CREATINE KINASE (CK), TOTAL AND IZ3748-86-33 11:14:00* Test Item Value Reference Range Interpretation Comments CREATINE KINASE TOTAL (BEAKER) (test code = 380) 43 U/L 25-23 5 CREATINE KINASE-MB (BEAKER) (test code = 750) 0.5 ng/mL 0.0-4.9 CREATINE KINASE-MB INDEX (BEAKER) (test code = 395) 1.2 % CK-MB Reference Range:<5 Normal5-10 Borderline>10 AbnormalCBC W/PLT COUNT & AUTO ZLJMOHHVMBCU8422-25-56 06:47:00* Test Item Value Reference Range Interpretation [...] 1+ few CREATINE KINASE (CK), TOTAL AND QB4831-63-78 06:27:00* Test Item Value Reference Range Interpretation Comments CREATINE KINASE TOTAL (BEAKER) (test code = 380) 54 U/L 25-23 5 CREATINE KINASE-MB (BEAKER) (test code = 750) 0.7 ng/mL 0.0-4.9 CREATINE KINASE-MB INDEX (BEAKER) (test code = 395) 1.3 % CK-MB Reference Range:<5 Normal5-10 Borderline>10 AbnormalBASIC METABOLIC LKRDL7706-62-53 06:16:00* Test Item Value Reference Range Interpretation [...] GFR IS NOT APPLICABLE FOR DIALYSIS PATIENTS. H-CZFVI1322-22CKDBW1402-74-61 21:10:00* Test Item Value Reference Range Interpretation Comments D-DIMER QUANTITATIVE (BEAKER) (test code = 671) 0.33 MG/L FEU <0.50 REGARDING D-DIMER RESULTS: The 98% NPV (Negative Predictive Value) for DVT/PE ex clusion is 0.50 mg/L FEU as suggested by the mixed crop and livestock farm worker and as approved by the FDA.B-TYPE NATRIURETIC FACTOR (BNP)2016-12-12 19:58:00* Test Item Value Reference Range Interpretation Comments B-TYPE NATRIURETIC PEPTIDE (BEAKER) (test code = 700) 3 pg/mL 0-100 TROPONIN [id number] 19:57:00* Test Item Value Reference Range Interpretation Comments TROPONIN I (BEAKER) (test code = 397) < ng/mL 0.00-0.15 Troponin I (TnI) levels must be interpreted in the context of the presenting sym ptoms and the clinical findings. Elevated TnI levels indicate myocardial damage, but are not specific for ischemic heart disease. Elevated TnI levels are seen i n patients with other cardiac conditions (including myocarditis and congestive h eart failure), and slight TnI elevations occur in patients with other conditions , including sepsis, renal failure, acidosis, acute neurological disease, and per sistent tachyarrhythmia.CREATINE KINASE (CK), TOTAL AND EF7880-25-16 19:56:00* Test Item Value Reference Range Interpretation Comments CREATINE KINASE TOTAL (BEAKER) (test code = 380) 56 U/L 25-23 5 CREATINE KINASE-MB (BEAKER) (test code = 750) 0.6 ng/mL 0.0-4.9 CREATINE KINASE-MB INDEX (BEAKER) (test code = 395) 1.1 % CK-MB Reference Range:<5 Normal5-10 Borderline>10 AbnormalHCG, SERUM, SHOQQJYHEWO8353-97-37 19:50:00* Test Item Value Reference Range Interpretation Comments TEST SERUM (BEAKER) (test code = 584) Negative BASIC METABOLIC [id number] 19:49:00* Test Item Value Reference Range Interpretation [...] GFR IS NOT APPLICABLE FOR DIALYSIS PATIENTS. PT/MGVH6012-32-25 19:44:00* Test Item Value Reference Range Interpretation [...] 2.5-3.5 for pat ients with mechanical heart valves.LNIXUGIYD4371-73-34 19:43:00* Test Item Value Reference Range Interpretation Comments MAGNESIUM (BEAKER) (test code = 627) 1.8 mg/dL 1.5-3.0 CBC W/PLT COUNT & AUTO MOIFUSVUCALT1662-59-26 17:56:00* Test Item Value Reference Range Interpretation [...] (BEAKER) (test code = 965) 1+ few URINE AND [id number] 13:14:00Negative (04/11/16 8:14 AM)[facility] URINE AND WFIJM8080-62-02 13:14:00Negative *NA*(04/11/16 8:14 AM)[facility] URINE AND PGBYO3555-65-54 13:14:005.0[facility] RZNRY5407-70-57 13:14:00Slight *ABN*(04/11/16 8:14 AM)[facility] IJJLY0723-77-95 13:14:001.015[facility] DSKAF3074-71-43 13:14:001[facility] AND RKCBW8730-90-45 13:14:002[facility] AND EOUXT3676-13-03 13:14:00Negative (04/11/16 8:14 AM)[facility] BPHLM0429-68-35 13:14:00Negative (04/11/16 8:14 AM)[facility] [id number] 13:14:00 Negative (04/11/16 8:14 AM)[facility]annBL[facility]OD BANK FFPYVFN7681-44-72 16:34:00 Negative (03/21/16 11:34 AM)[facility]annCHEM MCJVP5296-83-86 16:34:07769 [facility]annCHEM HSDNL6038-31-97 16:34:003.3[facility]annCHEM PANEL 2016-03-21 16:34:008.2[facility]annCHEM TODAG9970-94-95 16:34:0015[facility]annCHEM RVWYX3768-41-00 16:34:008.4[facility]annCHEM LDXMM8115-08-54 16:34:0030[facility]annCHEM WKCUC1367-91-40 16:34:0087[facility]annCHEM QHMYU6181-97-20 16:34:009[facility]annCHEM BJTNK7017-22-21 16:34:000.5 [facility]annCHE[facility] YBACN2270-85-83 16:34:005[facility]annCHEM PANEL 2016-03-21 16:34:0087[facility]annCHEM RTHRC2385-95-91 16:34:004.0[facility]annCHEM OCEQN5596-49-65 16:34:06550Uxmhrvnl HermannCHEM XCDBJ4975-12-68 16:34:86727Qzlrtged HermannCHEM VJPKC8542-88-41 16:34:000.74[facility]annCHEM KXNER4472-50-26 16:34:004.9[facility]annCHEM EPVZN7659-67-68 16:34:0012 [facility]annCHEM QRQYV2266-64-59 16:34:000.7[facility]annCHEM PANEL 2016-03-21 16:34:0010.0[facility] ChzewntBFFJKMKQYQJEW1879-07-34 16:34:00Negative *NA*(03/21/16 11:34 AM)[facility] HsrsucdTRDPHUHZUC7078-34-20 16:34:00* Test Item Value Reference Range Interpretation Comments PT (test code = PT) 13.9 s 12.0-14.7 [facility] ZkvhvcbXCGEIYYPSK8286-65-67 16:34:001.04[facility]annHEMATOLOGY 2016-03-21 16:34:00* Test Item Value Reference Range Interpretation Comments PTT (test code = PTT) 34.7 s 22.9-35.8 [facility] OfvdthtTFGLEGCASO3928-22-34 16:34:59304Ogbpkskl HermannHEMATOLOGY 2016-03-21 16:34:009.8[facility] YrctdzlZLTDJKLZIG6329-48-70 16:34:00* Test Item Value Reference Range Interpretation Comments MCH (test code = MCH) 22.2 pg 27.0-31.0 [facility] KlujkbpLKLAGXDQPQ2695-35-93 16:34:0018.7[facility]ann[facility]MATOLOGY 2016-03-21 16:34:0031.0[facility] HivdefbFFEGSPQQHM9982-32-96 16:34:0071.7[facility] NidsujhBQIJDYOVKM2725-25-64 16:34:0039.7[facility] NdifamvPHWULAITOJ8209-83-15 16:34:0012.3[facility] DaxuiwxUEZSVXWPYG0573-78-72 16:34:005.54[facility] JIHRDPVBDO6583-32-36 16:34:006.7[facility] MkemzycFXMRUXPQFS3769-12-14 16:34:006.5 [facility] RujadwbHNYKEDRLWL7552-45-59 16:34:0025.8[facility]annHEMATOLOGY 2016-03-21 16:34:0064.6[facility] ShxcsqjLOFDCMXWAN3083-51-16 16:34:001+ *ABN*(03/21/16 11:34 AM)[facility] ZxrrusjRKQXMDLFGS0583-36-15 16:34:000.1[facility] HrnteqbBHTLJHFPBR9570-41-11 16:34:000.1[facility] KhtwkdvFJOMSOVUXU9028-49-65 16:34:004.3[facility] ZkmtlffHFQHRMZEMX7902-20-26 16:34:000.4[facility] OVZISTCFLZ8564-04-37 16:34:001.7[facility] VdxfxkwNHXEIUNIJL0019-40-93 16:34:002.1 [facility] KjgqlwjUDBIEAHAJI2043-69-17 16:34:001.0[facility] AyadlsvFVIAD7962-11-95 02:56:00Negative (01/18/16 9:56 PM)[facility]annVIRAL - IVBDRBFA0509-24-42 02:56:00Negative (01/18/16 9:56 PM)[facility]ann[facility] - EUBFWNMJ6103-59-25 02:56:00Negative (01/18/16 9:56 PM)[facility]annCHEM SAOZY4200-77-29 01:55:00 100[facility]annCHEM BUJID2646-93-32 01:55:0086[facility]annCHEM PANEL 2016-01-19 01:55:000.7[facility]annCHEM GDBLI2990-22-58 01:55:004.6[facility]annCHEM QFMMU5888-28-35 01:55:0016[facility]annCHEM KDEEC9901-59-00 01:55:008.2[facility]annCHEM CURZH8695-36-75 01:55:0089[facility]annCHEM BHGOK7547-53-37 01:55:000.3[facility]annCHEM QSHPC9619-81-29 01:55:0087 [facility]annCHEM WHDPP9364-43-33 01:55:0013[facility]annCHEM PANEL 2016-01-19 01:55:0017[facility]annCHEM HBGAY0079-31-83 01:55:003.2[facility]annCHEM QIMIW8664-02-70 01:55:007.8[facility]annCHEM KSHZF0798-90-33 01:55:008.9[facility]annCHEM TSZJI1558-77-74 01:55:0030[facility]annCHEM XQJWC6468-99-20 01:55:35077Azsopmtt HermannCHEM UJMMD7787-96-85 01:55:004.2 [facility]annCHEM MDXSA0945-95-07 01:55:97374Pcbqtene HermannCHEM PANEL 2016-01-19 01:55:001.00[facility]annCHEM XOBXM0345-98-59 01:55:0016[facility]annCHEM YRRON8322-20-78 01:55:0089[facility] FuiwjttLHZZLKKDES1729-86-40 01:55:00* Test Item Value Reference Range Interpretation Comments MCH (test code = MCH) 22.2 pg 27.0-31.0 [facility] HqzbtnhLNHAXQGEQK2973-08-46 01:55:009.6[facility]annHEMATOLOGY 2016-01-19 01:55:0031.2[facility] GobsfnvCJISTJGCXH5144-85-20 01:55:0018.7[facility] VfotfleBHFJSUQMPQ4015-24-11 01:55:72634Mezxmuyc SzeabkvANKCKGTQIO0408-19-62 01:55:009.3[facility] BdafoxsPNKAHXCITD8769-75-91 01:55:0036.8[facility] EGZFEUYIUX3507-95-20 01:55:0070.9[facility] SpvumguDBLKCADKWZ1800-64-58 01:55:00 5.18[facility] BmkgxedWMWCPGBSCP7419-45-42 01:55:0011.5[facility]annHEMATOLOGY 2016-01-19 01:55:001.7[facility] RzhzejnLZZDIOWFXR5046-28-51 01:55:000.1[facility] FhaavykRGSSZXONOB3010-89-47 01:55:000.2[facility] ZuewskkYJIDLGLBXZ5092-84-12 01:55:002+ *ABN*(01/18/16 8:55 PM)[facility] LszxjbsMDMKPTLIYW5342-36-85 01:55:00 66.2[facility] NwevuwdIMEELCJMRK2147-26-88 01:55:0023.1[facility]annHEMATOLOGY 2016-01-19 01:55:008.4[facility] XodszlhDXVADRPKWI7474-93-35 01:55:000.6[facility] PkcyvftLYAMSJNTPF9327-17-92 01:55:000.8[facility] VmvxlniSHLEAHSLVI4992-62-62 01:55:006.2[facility] DwvqhorIKOFEMCAVK8608-45-71 01:55:002.2[facility]annURINE AND KABRG0238-04-44 01:55:00Slight *ABN*(01/18/16 8:55 PM)[facility] STGAV0355-70-23 01:55:001.019[facility] AND QBFLP3397-35-06 01:55:007.0[facility] AND KWWWB5007-43-65 01:55:00Negative *NA*(01/18/16 8:55 PM)[facility] CWNVC5853-76-99 01:55:00Negative (01/18/16 8:55 PM)[facility] QOXGA6970-55-35 01:55:00Negative (01/18/16 8:55 PM)[facility] XQVQZ4111-08-67 01:55:00Negative (01/18/16 8:55 PM)[facility] XBCAL7161-26-02 01:55:001[facility] AND LKYMM6360-37-74 01:55:001[facility]INE XJDE6597-57-64 01:55:00Negative (01/18/16 8:55 PM)[facility]annCHEM WIMRP7543-38-45 18:39:00 0.7[facility]annCHEM VASYA2979-06-53 18:39:0010.6[facility]annCHEM PANEL 2015-06-23 18:39:004.7[facility]annCHEM QEKTF0617-78-10 18:39:0013[facility]annCHEM SHKRK1954-93-47 18:39:20635Wgdqawfm HermannCHEM MOJKN5393-77-02 18:39:0011[facility]annCHEM ZVBFW7759-62-44 18:39:0017[facility]annCHEM SXOBE0280-64-57 18:39:0087[facility]annCHEM XUOXG2156-10-18 18:39:000.6 [facility]annCHEM VTJAV9997-61-66 18:39:000.9[facility]annCHEM PANEL 2015-06-23 18:39:0012[facility]annCHEM FWDUB4657-25-18 18:39:0028[facility]annCHEM EESHB9257-64-20 18:39:008.2[facility] HermannCHEM PCGIB1302-09-49 18:39:008.6[facility]annCHEM ZPFEG0449-85-33 18:39:003.5[facility] HermannCHEM ELHWE4522-36-70 18:39:0085[facility] HermannCHEM TCOGI0615-25-25 18:39:07774 [facility] HermannCHEM POMUA8490-80-60 18:39:003.6[facility] HermannCHEM PANEL 2015-06-23 18:39:85194Glvyczla JvykovpXYREBMXKVWGNA2633-89-50 18:39:00Negative *NA*(06/23/15 1:39 PM)[facility] JszsukgNHRTRGWEPU4084-64-01 18:39:00* Test Item Value Reference Range Interpretation Comments PTT (test code = PTT) 30.0 s 22.9-35.8 [facility] JwamdqfUQISGMVEDB7053-99-62 18:39:00* Test Item Value Reference Range Interpretation Comments PT (test code = PT) 14.1 s 12.0-14.7 [facility] GlhotmyAULKIUWNAM5230-02-35 18:39:001.06[facility]annHEMATOLOGY 2015-06-23 18:39:0071.5[facility] WdztzsdHFTKEBRJKC5080-88-18 18:39:0011.6[facility] WtqjwsjMTOIRIAJVI6116-32-76 18:39:0036.3[facility] WlbienqOXBQLPGCEO9091-68-15 18:39:00* Test Item Value Reference Range Interpretation Comments MCH (test code = MCH) 22.8 pg 27.0-31.0 [facility] EbxonqqMUCJZPZVGQ1460-61-10 18:39:0031.9[facility]annHEMATOLOGY 2015-06-23 18:39:009.9[facility] HyqxetwUFVEPAZCQY8100-32-15 18:39:005.08[facility] XhhmsnmQNRFUDEEGG9037-95-03 18:39:0018.5[facility] VxtxpttFRQMKUCHCM0886-68-79 18:39:52785Txvavqlj ButjkudZDMREKMFZF0028-68-64 18:39:007.2[facility] AWMYRWAGJV6807-01-30 18:39:0028.9[facility] AxdpqszDXLSRCXUBH9854-46-42 18:39:00 1.9[facility] MsuqgifFSVHVEGVBC3790-98-21 18:39:0061.9[facility]annHEMATOLOGY 2015-06-23 18:39:000.5[facility] XrxssbjWUZAUVUQLK8026-97-89 18:39:002.1[facility] OhdmkxyJKPZYRYSGZ4457-33-43 18:39:001+ *ABN*(06/23/15 1:39 PM)[facility] CJMPKNHTAH3328-09-59 18:39:000.1[facility] VpcmvpkJHRJXCSCPF9028-08-17 18:39:000.1 [facility] LhybnhkVSEBKYUDQP0497-05-41 18:39:004.5[facility]annHEMATOLOGY 2015-06-23 18:39:000.8[facility] TrqkhrpBYZGWRKQRE1033-71-55 18:39:006.5[facility] HermannBLOOD BANK FEIIVYR1090-20-98 18:30:00Negative (06/23/15 1:30 PM)[facility] RpxrgcbPZQFAFPTSBGX8841-22-37 17:11:003.8[facility] DcbjegnCDTGBSIWYBMF9095-96-29 17:11:08907Qfpqmpwb MezoaucRXHSFFVMLJZO4117-60-06 17:11:42207Sargpcjb [place] DISVWAOVIHXX7388-34-53 17:11:77424Aoiamdig JbohqhsFWVGVBKJNHBM6280-35-13 17:11:007[facility] ImviubvNNUELSTVXHKJ6583-18-55 17:11:0085[facility] YTNTSPJGXKYW4198-48-08 17:11:000.8[facility] QgdexxxMQYAPRTZKGTT8767-89-81 17:11:008.0[facility] InxmngrLYFYXXRKENYJ5618-44-31 17:11:0013[facility] RTXCJJQVMAQZ8403-70-76 17:11:003.2[facility] PhlaefhKCVPKCZODZMD6832-14-27 17:11:000.8[facility] ZmnetgbJSIGQWMENKGP4756-55-06 17:11:0031[facility] WJHZDBFPACZV5587-07-39 17:11:008.6[facility] FcprdpcPWRFERIPHNFM4544-76-74 17:11:0012[facility] JwgoddxLJNICDPEKSUE7184-29-73 17:11:0088[facility] DUNBVGXXPZZK4756-51-18 17:11:004.8[facility] CmtwvsgUFEGFKNYWPSH0798-97-86 17:11:000.7[facility] AtfcdxhQTRJTQINLUMY3341-96-30 17:11:0015[facility] KIXAMEAYYPOZ0588-57-35 17:11:008.8[facility] KfmxqahLURYUVJKDE2341-98-18 17:11:00 9.7[facility] EyiwsurIFDINMJNGW0509-67-48 17:11:98720Kdxjyfbd HermannHEMATOLOGY 2014-12-17 17:11:0032.7[facility] BvoskwwGLKOTVLQYR9610-94-64 17:11:0018.5[facility] MfxihskUFWXYFENSF0168-86-09 17:11:0012.0[facility] SdshkfzMRVGAPNWNQ6392-80-53 17:11:0036.6[facility] GnlfxdeXIWBQXDHQJ5508-19-83 17:11:0073.4[facility] SUUADNBPPQ5815-26-59 17:11:00* Test Item Value Reference Range Interpretation Comments MCH (test code = MCH) 24.0 pg 27.0-31.0 [facility] NdnzucrVDZBPFDFVT6581-70-55 17:11:007.7[facility]annHEMATOLOGY 2014-12-17 17:11:004.98[facility] YikyvbgAMJXVORZHM5583-68-06 17:11:0072.8[facility] QgkaalhOMUJENCSDL7369-77-18 17:11:001+ *ABN*(12/17/14 12:11 PM)[facility] UJMVYIBQCT9610-75-55 17:11:001.9[facility] IpntpbyWFQNQNAVOL1374-13-70 17:11:000.2 [facility] VgybvxjJNSQTUVXVC3400-43-34 17:11:005.6[facility]annHEMATOLOGY 2014-12-17 17:11:000.6[facility] WfvtdctGRRIGNBXTH7351-89-10 17:11:001.4[facility] JmahyfeNLFOBCYUSU8479-77-63 17:11:000.5[facility] PjtfklrUCWPNJZTGA1418-29-52 17:11:0018.4[facility] KvenrweYKGQIRJSUL1035-22-52 17:11:006.3[facility] [place] URINE AND WPFJX8877-46-37 17:11:00<1[facility] AND WHPXY7092-60-11 17:11:00Negative (12/17/14 12:11 PM)[facility] NIEZV3091-50-01 17:11:00Negative *NA*(12/17/14 12:11 PM)[facility] QVQQY0227-73-06 17:11:00Negative (12/17/14 12:11 PM)[facility] ASEHL7861-68-31 17:11:001[facility] IVBBI9434-73-03 17:11:00Negative (12/17/14 12:11 PM)[facility] HJUBZ6574-90-08 17:11:007.0[facility] [place] URINE AND IRPCE5622-43-28 17:11:00Slight *ABN*(12/17/14 12:11 PM)[facility] URINE AND UDIMB3714-53-83 17:11:001.012[facility]annURINE FFSQ6580-19-24 17:11:00Negative (12/17/14 12:11 PM)[facility] FbfpnwqSOXXOCVIU6734-14-07 06:05:00 13.1[facility] TjgwwemKAGLEWULA5438-08-89 06:05:0026[facility] HermannCHEMISTRY 2011-12-11 06:05:05134Uwffcmhk GyxqeasGPXEQBQLF4537-26-42 06:05:000.7[facility] DmlnsyeEXZADPUUQ0807-28-99 06:05:004.1[facility] NwavzztVZAMBZMNW8383-64-36 06:05:46724Aqtqrsrh PeabifiNFVGDVSJX7913-46-69 06:05:008.9[facility] [place] BDOMXGMQE0828-06-76 06:05:0012[facility] DjmrrpwIFGHBRZUT6290-61-59 06:05:0080 [facility] HlfmezuVARCQYPWEX6847-03-71 06:05:0010.9[facility]annHEMATOLOGY 2011-12-11 06:05:26834Pxswibhh VpgquteOBLLSFZFIG1098-58-61 06:05:0011.5[facility] XfxkqynDRSDELPDLP7431-04-39 06:05:0031.8[facility] ZdrpyhqAVJANOBETX2697-03-60 06:05:004.61[facility] VuuqiplXFYYKLTFLE6491-36-60 06:05:0010.8[facility] [place] QCTJPYJEAM1015-03-87 06:05:0073.6[facility] LfvyatvWBQFEUBCDC3839-32-92 06:05:00 33.9[facility] ZmntasgUAATDNATUS4056-35-45 06:05:0019.4[facility]annHEMATOLOGY 2011-12-11 06:05:00* Test Item Value Reference Range Interpretation Comments MCH (test code = MCH) 23.4 pg 27.0-31.0 L [facility] CxkkipeRJJMDFPDTU7310-42-47 06:05:000.5[facility]annHEMATOLOGY 2011-12-11 06:05:000.0[facility] DxnxxzeGHSZRBNEUI0363-26-63 06:05:000.1[facility] GhehcwzSZPXWWZJOJ9695-59-68 06:05:003.6[facility] TyoqtnlAGYONLHRJF0150-10-31 06:05:006.6[facility] SzzifjmZNVBKSIYDA1239-63-43 06:05:004.4[facility] GCBIQQTZSR1913-71-32 06:05:001.4[facility] NozaqfiMLSSGAILGS4653-96-28 06:05:000.4 [facility] VkkdsviYPBHPHQADD1875-17-69 06:05:0033.2[facility]annHEMATOLOGY 2011-12-11 06:05:0060.6[facility] XuargisPTEPWDTQW0477-52-75 02:00:00Negative (12/10/2011 21:00:00) [facility] ZrgjiwdSAKOVWFRDR7825-88-12 02:00:00Negative (12/10/2011 21:00:00) [facility]EcyxhlvFHMGUBUKGR5983-60-81 02:00:000.2[facility] FmlwtouAHPWXGXRAY1508-35-43 02:00:00Negative *NA*(12/10/2011 21:00:00) [facility] HospitalCinlvrmJVBFSBTMGR6605-63-75 02:00:00Negative (12/10/2011 21:00:00) [facility] HospitalVfzrqngBBDNPNFGQZ0640-40-21 02:00:00Negative (12/10/2011 21:00:00) [facility] HospitalYgbbzksJGXUWWEOMM5151-66-04 02:00:00Large *ABN*(12/10/2011 21:00:00) [facility] HospitalVuwnftyOQDLVTASHY7090-68-77 02:00:00Brown *ABN*(12/10/2011 21:00:00) [facility] HospitalLjnmdzyBBOCUOWIBD3836-47-09 02:00:00Cloudy *ABN*(12/10/2011 21:00:00) [facility] HospitalNjrytdiULTBGSPIWV4830-42-21 02:00:00>=1.030 *ABN*(12/10/2011 21:00:00) [facility] HospitalYckdaiyLJWOPVRBDC4759-84-56 02:00:00Negative (12/10/2011 21:00:00) [facility] HospitalVcrbyteCJMBBKEIGV3724-26-93 02:00:00* Test Item Value Reference Range Interpretation Comments UA pH (test code = UA pH) 5.5 1 5.0-8.0 N [facility] HospitalNstuwgbRCRBCDRFBT9134-39-62 02:00:52490 mg/dL *ABN*(12/10/2011 21:00:00) [facility] HospitalMzocgtxUYSSUKRLHA8085-67-77 02:00:00Moderate /LPF *ABN*(12/10/2011 21:00:00) [facility]qyuhljFWPMJXUHCV1294-35-86 02:00:003-5 /HPF (12/10/2011 21:00:00) [facility] HospitalPwgdhtcWBALFHFLFT6292-90-45 02:00:00Packed *ABN*(12/10/2011 21:00:00) [facility] CenterBgmvkwyYYPLMPJCXI5677-47-44 02:00:00Few /LPF (12/10/2011 21:00:00) [facility] AonmalePOOAYQFELC0859-62-42 02:00:00Many /HPF (12/10/2011 21:00:00) [facility] GmfvlhyBRWFLXDTT7668-79-33 20:49:00Negative (10/18/2011 14:49:00) [facility] XpmispgNLPATEUFOC7891-22-20 20:49:00Few /HPF (10/18/2011 14:49:00) [facility] HrthvybPFHXEBRKRG2387-15-72 20:49:00Rare /LPF (10/18/2011 14:49:00) [facility] KujqcucOHRBTKBPOF3928-79-48 20:49:000-2 /HPF (10/18/2011 14:49:00) [facility] LphhrsaSRTABMCFVY4126-48-28 20:49:00Moderate /LPF *ABN*(10/18/2011 14:49:00) [facility] JtzgonwRYXWSUZHRV7061-18-52 20:49:000- 2 /HPF (10/18/2011 14:49:00) [facility] YgyrpgdNTPBCLOBFG2271-75-38 20:49:00 Negative (10/18/2011 14:49:00) [facility] LluqolbEUAGZPHONI8732-43-13 20:49:00 Negative *NA*(10/18/2011 14:49:00) [facility] BannvgaWDVHNAZJGB3731-98-84 20:49:00Negative (10/18/2011 14:49:00) [facility] FtydvsvIDCLXSEOIO5534-39-10 20:49:00Yellow *NA*(10/18/2011 14:49:00) [facility] FxawgoxWRXGPAVIHV2186-49-45 20:49:00Small *ABN*(10/18/2011 14:49:00) [facility] TdlmdhmOKBHGBYQFU6815-41-58 20:49:000.2[facility] IfirjuiHWKDICMXWY3852-60-67 20:49:00Negative *NA*(10/18/2011 14:49:00) [facility] JtncuqnIRPHPWEAIY8197-87-11 20:49:00Negative (10/18/2011 14:49:00) [facility] WcmpnjjEBGSPWKSYO3729-49-30 20:49:00Negative (10/18/2011 14:49:00) [facility] VlttnkqEXRJWKUJOE2298-90-85 20:49:00Clear (10/18/2011 14:49:00) [facility] AtbjglpBSYVBZBTJS2763-28-05 20:49:00* Test Item Value Reference Range Interpretation Comments UA Spec Grav (test code = UA Spec Grav) 1.015 1 N [facility] NuayicbXDULQIDAZB2273-98-30 20:49:00* Test Item Value Reference Range Interpretation Comments UA pH (test code = UA pH) 8.0 1 5.0-8.0 N [facility] HnnjgolCMCTGLUJH8671-95-66 19:23:00Negative (07/31/2011 13:23:00) ?? [facility] TmfeamvCSYYZHKFLI5744-99-70 19:23:00Large *ABN*(07/31/2011 13:23:00) ?? [facility] GhdjvjrANSHLXRLKZ8130-68-42 19:23:000.2[facility] HermannURINALYSIS 2011-07-31 19:23:00Negative *NA*(07/31/2011 13:23:00) [facility] TFXDFOEXCZ7703-39-13 19:23:00Negative *NA*(07/31/2011 13:23:00) ??[facility] BiuywbqARDUDWJLMC5201-86-63 19:23:00Negative (07/31/2011 13:23:00) ??[facility] EraxklzVTHKPUPQUH8684-80-68 19:23:00Negative (07/31/2011 13:23:00) ??[facility] PchngrkUZDXDESHTE0319-76-42 19:23:00Negative (07/31/2011 13:23:00) ??[facility] FdzpxflIQDJWYSYNN9080-39-34 19:23:00Negative (07/31/2011 13:23:00) ??[facility] HospitalEkxjbdgVDJKQPJUJR3472-84-14 19:23:00Yellow *NA*(07/31/2011 13:23:00) ??[facility] SbleslpPYLFMHOTIK7850-58-61 19:23:00Clear (07/31/2011 13:23:00) ??[facility] CenterPfwsqwgYLCJTQXICF6385-97-90 19:23:00* Test Item Value Reference Range Interpretation Comments UA Spec Grav (test code = UA Spec Grav) 1.02 1 N [facility] CenterVubyzqeONLACPMITR5702-04-61 19:23:00* Test Item Value Reference Range Interpretation Comments UA pH (test code = UA pH) 6.0 1 5.0-8.0 N [facility]EqnusqbWWJBZOXULO1545-84-77 19:23:00Occasional /LPF (07/31/2011 13:23:00) [facility] HospitalTngxmrgJQBOITJYSX5823-19-48 19:23:00Performed (07/31/2011 13:23:00) [facility]hsSZNPEWEDXC8428-92-97 19:23:00None Seen (07/31/2011 13:23:00) ??[facility] HospitalPvlbouhXWGNREENRA9670-54-10 19:23:00None Seen (07/31/2011 13:23:00) ??[facility] HospitalWigkvymQEPVAYOXEB8080-77-32 19:23:00None Seen (07/31/2011 13:23:00) ??[facility] SINGLE (NOT PORTABLE) [place] [address] Patient Name: DU FIGUEROA MR #: [id number] : 1985 Age/Sex: 32/F Req #: [id number] Adm Physician: Ordered by: WOLF STERN MD Report #: [id number] Location: ER Room/Bed: Procedure: [id number] DX/CHEST SINGLE (NOT PORTABLE) Exam Date: 11/21/17 [...] STERN MD VQ LUNG SCAN VENT PERFUSION [place] [address] Patient Name: DU FIGUEROA MR #: [id number] : 1985 Age/Sex: 32/F Req #: [id number] Adm Physician: Ordered by: WOLF STERN MD Report #: [id number] Location: ER Room/Bed: Procedure: [id number] NM/VQ LUNG SCAN VENT PERFUSION Exam Date: [...] on 11/22/17109 COPY TO: WOLF STERN MD GALLBLADDER [place] [address] Patient Name: DU FIGUEROA MR #: [id number] : 1985 Age/Sex: 32/F Req #: [id number] Adm Physician: BIJU EARLY MD Ordered by: BIJU EARLY MD Report #: [id number] Location: MED/SURG Room/Bed: [facility] Procedure: [id number] US/US GALLBLADDER Exam Date: Exam Time: REP [...] TO: BIJU EARLY MD HEPTOBILIARY W PHARM [place] [address] Patient Name: DU FIGUEROA MR #: [id number] : 1985 Age/Sex: 32/F Req #: [id number] Adm Physician: BIJU EARLY MD Ordered by: RIGOBERTO EARLY MD Report #: [id number] Location: MED/SURG Room/Bed: [facility] Procedure: [id number] NM/HEPTOBILIARY W PHARM Exam Date: 11/12/17 Exam Ti me: 1500 REPORT STATUS: Signed Hepatobiliary Scan with Gallbladder Ejec tion Fraction Clinical information: 32 F with intractable abdominal pain x 3 weeks. Technique: Following intravenous administration of 7.0 millicuries of Tc-99m mebrofenin, dynamic images of the abdomen in the anterior projectio n were obtained through 42 minutes. Sincalide (CCK analog) 3.0 micrograms was administered intravenously over 30 minutes with additional imaging for dete rmination of gallbladder ejection fraction. Discussion: Perfusion of the li cristina is normal. Extraction of tracer by the [...]
[2020-07-05 11:47] LABS: CLARITY,URINE CLEAR (CLEAR); COLOR,URINE YELLOW (YELLOW)
[2020-07-05 11:48] LABS: BILIRUBIN,URINE NEGATIVE (NEGATIVE); KETONES,URINE NEGATIVE (NEGATIVE); LEUKOCYTE ESTERASE ,URINE NEGATIVE (NEGATIVE); NITRITE,URINE NEGATIVE (NEGATIVE); PROTEIN,URINE DIPSTICK NEGATIVE (NEGATIVE); URINE UROBILINOGEN 0.2 mg/dL (0.2 - 1)
[2020-07-05 11:55] LABS: EPITHELIAL CELLS,URINE FEW /LPF; RBC,URINE 0-5 /HPF (0-5)
[2020-07-05] MEDS ORDERED: DIPHENHYDRAMINE HCL INJ 50 MG/ML VIAL IV ONE (12:15)
--- NOTE | 2020-07-05 12:33 | Diagnostic Imaging Report ---
Pelvic ultrasound. History: Left lower quadrant pain. Comparison: None available. Discussion: Transabdominal and transvaginal evaluation of the pelvis was performed in the transverse and longitudinal planes. The uterus is normal in size measuring 8.1 x 4.0 x 4.7 cm. The endometrial stripe is within normal limits at 13 mm. The right ovary measures 1.8 x 1.5 x 2.6 cm. The left ovary measures 3.1 x 2.6 x 2.4 cm. There is no evidence of an adnexal mass. There is no evidence of free fluid. Color Doppler and spectral waveform analysis was performed of the adnexa bilaterally. There is normal arterial and venous flow within both ovaries. IMPRESSION: Normal pelvic ultrasound. Signed by: Spike José on 07/05/2020 12:30 PM
[2020-07-05] MEDS ORDERED: SODIUM CHLORIDE 0.9% 50ML 50 ML ONE ×2 (13:05→13:19)
[2020-07-05] MEDS ORDERED: IOPAMIDOL 370 MG/ML 200 ML INFUS..BTL INJ ONE (13:20)
[2020-07-05] MEDS ORDERED: ONDANSETRON HCL INJ 2MG/ML 2ML 2 MG/ML VIAL IV STA (13:40)
[2020-07-05] MEDS ORDERED: MORPHINE SULFATE INJ 4 MG/ML INJ 1ML IV PRN (13:45)
--- NOTE | 2020-07-05 14:03 | Diagnostic Imaging Report ---
CT of the abdomen and pelvis, with contrast, 07/05/2020. History: Quadrant abdominal pain. Comparison: 06/30/2019. Technique: Multidetector CT scanning of the abdomen and pelvis was performed from the level of the lung bases to the inferior pubic rami after intravenous administration of contrast. No oral contrast was administered. Coronal and sagittal multiplanar reformations were obtained. RADIATION DOSE: Total DLP: 1169 mGy*cm Dose modulation, iterative reconstruction, and/or weight based adjustment of the mA/kV was utilized to reduce the radiation dose to as low as reasonably achievable. Discussion: LUNG BASES: No visualized abnormalities. ABDOMEN: Liver is enlarged measuring over 19 cm in length. There is no focal hepatic abnormality. The biliary tree, spleen, pancreas, adrenal glands, and kidneys are normal. Cholecystectomy clips are present. The hepatic vein, portal vein, and splenic vein are patent. The abdominal aorta is within normal limits for size. Evaluation bowel is limited without oral contrast. There is no bowel dilatation. The appendix is visualized and is normal. There is no evidence of adenopathy or free fluid. A small fat-containing umbilical hernia is present. PELVIS: The bladder, uterus, and adnexa are normal in appearance. There is no evidence of free fluid or adenopathy. BONES AND SOFT TISSUES: No acute abnormality. IMPRESSION: 1. Hepatomegaly without focal hepatic abnormality. 2. Status post cholecystectomy. 3. Small fat-containing umbilical hernia. Otherwise unremarkable CT of the abdomen and pelvis. Signed by: Spike José on 07/05/2020 2:00 PM
[2020-07-05] MEDS ORDERED: KEFLEX500 MG PO (15:05)
[2020-07-05 15:13] VITALS: BP 116/76
[2020-07-05 16:18] LABS: ALANINE AMINOTRANSFERASE 10 IU/L (0-55); ALBUMIN 3.2 g/dL (3.5-5.0); ALBUMIN/GLOBULIN RATIO 0.7 (0.8-2.0); ALKALINE PHOSPHATASE 74 IU/L (40-150); ANION GAP 14.5 mmol/L (8-16); BLOOD UREA NITROGEN 9 mg/dL (7-26); BUN/CREATININE RATIO 13 (6-25); CALCIUM 8.8 mg/dL (8.4-10.2); CARBON DIOXIDE 26 mmol/L (22-29); CHLORIDE 101 mmol/L (98-107); EST GLOMERULAR FILTRATION RATE > 60 ML/MIN (60-); GLUCOSE 76 mg/dL (74-118); SODIUM 136 mmol/L (136-145)
[2020-07-05 16:19] LABS: POTASSIUM 5.5 mmol/L (3.5-5.1)
--- NOTE | 2020-07-11 09:13 | Emergency Department Note ---
History of Present Illnes History of Present Illness Chief Complaint: General Medicine Complaints History of Present Illness This is a 35 year old female arrives to the ED for several day history of pelvic pain that is worse when urinating. . Patient in from home with complaints of left lower pelvic pain that has been there for 4 days. Patient reports that the pain gets worse when she tries to pee or have a bowel movement and is sometimes sharp and stabbing. Patient states that the pain does not coincide with her menstrual cycle. Patient denies constipation and burning with urination but does report frequency with urination. Patient does have a history of kidney stones. Historian: Patient Arrival Mode: Car [employer] Controller Required: No Onset (how long ago): day(s) Severity: mild Onset quality: gradual Duration (how long): day(s) Timing of current episode: constant Progression: unchanged Chronicity: new Context: Denies recent illness, Denies recent surgery, Denies recent immobilization, Denies recent travel Relieving factors: none Exacerbating factors: none Past Medical/Family History Physician Review I have reviewed the patient's past medical and family history. Any updates have been documented here. Past Medical History Recent Fever: No Clinical Suspicion of Infectio: No New/Unexplained Change in Ment: No Past Medical History: Diabetes, Asthma Other Medical History: sickle cell anemia trait Past Surgical History: Lumpectomy Other Surgery: D&C and Hystocopy BREAST BIOPSY Social History Smoking Cessation: Never Smoker Alcohol Use: Social Other Last Tetanus: UNKNOWN Review of Systems Review of Systems Constitutional: Reports no symptoms EENTM: Reports no symptoms Cardiovascular: Reports no symptoms Respiratory: Reports no symptoms Gastrointestinal: Reports as per HPI, Reports abdominal pain Genitourinary: Reports as per HPI, Reports dysuria Musculoskeletal: Reports no symptoms Integumentary: Reports no symptoms Neurological: Reports no symptoms Psychological: Reports no symptoms Endocrine: Reports no symptoms Hematological/Lymphatic: Reports no symptoms Physical Exam Related Data Allergies: Coded Allergies: Penicillins (Verified Allergy, Severe, HIVES, SOB, 02/05/20) shellfish derived (Verified Allergy, Severe, 02/05/20) iodine (Verified Allergy, Unknown, HIVES/SOB, 02/05/20) Triage Vital Signs Vital Signs Date Time Temp Pulse Resp B/P (MAP) Pulse Ox O2 Delivery O2 Flow Rate FiO2 07/05/20 11:03 97.6 78 16 135/94 100 Room Air Vital signs reviewed: Yes Physical Exam CONSTITUTIONAL Constitutional: Present well-developed, Present well-nourished HENT HENT: Present normocephalic, Present atraumatic, Present oropharynx clear/moist, Present nose normal HENT L/R: Present left ext ear normal, Present right ext ear normal EYES Eyes: Reports PERRL, Reports conjunctivae normal NECK Neck: Present ROM normal PULMONARY Pulmonary: Present effort normal, Present breath sounds normal CARDIOVASCULAR Cardiovascular: Present regular rhythm, Present heart sounds normal, Present capillary refill normal, Present normal rate GASTROINTESTINAL Abdominal: Present soft, Present nontender, Present bowel sounds normal GENITOURINARY Genitourinary: Present exam deferred SKIN Skin: Present warm, Present dry MUSCULOSKELETAL Musculoskeletal: Present ROM normal NEUROLOGICAL Neurological: Present alert, Present oriented x 3, Present no gross motor or sensory deficits PSYCHOLOGICAL Psychological: Present mood/affect normal, Present judgement normal Results Laboratory Result Diagram: 07/05/20 1110 07/05/20 1525 Lab results reviewed: Yes Imaging Imaging results reviewed: Yes Impressions IMPRESSION: 1. Hepatomegaly without focal hepatic abnormality. 2. Status post cholecystectomy. 3. Small fat-containing umbilical hernia. Otherwise unremarkable CT of the abdomen and pelvis. Signed by: Spike José on 07/05/2020 2:00 PM Imaging Comments Discussion: Transabdominal and transvaginal evaluation of the pelvis was performed in the transverse and longitudinal planes. The uterus is normal in size measuring 8.1 x 4.0 x 4.7 cm. The endometrial stripe is within normal limits at 13 mm. The right ovary measures 1.8 x 1.5 x 2.6 cm. The left ovary measures 3.1 x 2.6 x 2.4 cm. There is no evidence of an adnexal mass. There is no evidence of free fluid. Color Doppler and spectral waveform analysis was performed of the adnexa bilaterally. There is normal arterial and venous flow within both ovaries. IMPRESSION: Normal pelvic ultrasound. Signed by: Spike José on 07/05/2020 12:30 PM Assessment & Plan Medical Decision Making MDM This patient presents with abdominal pain of unclear etiology. A CT scan was performed to evaluate for potential causes of the abdominal pain, however, neither the clinical exam nor the CT has identified an emergent etiology for the abdominal pain. Specifically, given the benign exam, the laboratory studies, and unremarkable CT, I have a very low suspicion for appendicitis, ischemic bowel, bowel perforation, or any other life threatening disease. I have discussed with the patient the level of uncertainty with undifferentiated abdominal pain and clearly explained the need to follow-up as noted on the discharge instructions, or return to the Emergency Department immediately if the pain worsens, develops fever, persistent and uncontrollable vomiting, or for any new symptoms or concerns. Assessment & Plan Final Impression: (1) Abdominal pain (2) UTI (urinary tract infection) Depart Disposition: HOME, SELF-CARE Last Vital Signs Date Time Temp Pulse Resp B/P (MAP) Pulse Ox O2 Delivery O2 Flow Rate FiO2 07/05/20 15:13 82 18 100 07/05/20 13:13 124/88 07/05/20 11:03 97.6 Room Air Home Meds Active Scripts Cephalexin Monohydrate (KEFLEX) 500 Mg Capsule, 500 MG PO Q6HR, #40 TAB 0 Refills Prov:JOSE BAUMANN DO 07/05/20 Methocarbamol (ROBAXIN-750) 750 Mg Tablet, 750 MG PO Q8HR PRN for MUSCLE SPASMS, #12 Prov:JOSE BAUMANN DO 02/05/20 Sulfamethoxazole/Trimethoprim (BACTRIM DS TABLET) 1 Each Tablet, 1 TAB PO BID, #6 TAB 0 Refills Prov:JOSE BAUMANN DO 02/05/20 Reported Medications Meclizine Hcl (MECLIZINE HCL) 12.5 Mg Tablet, MG PO PRN, TAB 11/09/17 Diphenhydramine Hcl (BENADRYL) 25 Mg Capsule, 50 MG PO HS 11/09/17 Ondansetron (ZOFRAN ODT) 4 Mg Tab.rapdis, MG PO PRN, TAB 11/09/17 Dicyclomine Hcl (DICYCLOMINE HCL) 20 Mg Tablet, MG PO QID, TAB 11/09/17 Albuterol Sulfate (ALBUTEROL SULFATE HFA) 8.5 Gm Hfa.aer.ad, 2 INH INH PRN 11/26/16 Metformin Hcl (METFORMIN HCL) 500 Mg Tablet, 500 MG PO BID, #60 TAB 04/28/16 JOSE BAUMANN DO Jul 11, 2020 09:13
== END 2020-07-05 15:15 | disposition home or self-care (01) ==
LOC: ER 11:00
DX: R10.2 Pelvic and perineal pain (principal); N39.0 Urinary tract infection, site not specified; E11.9 Type 2 diabetes mellitus without complications; J45.909 Unspecified asthma, uncomplicated; D57.1 Sickle-cell disease without crisis
CPT/HCPCS: 36415; 74177; 76830; 76856; 80053; 81001; 81025; 83690; 85025; 93976; 99284; J1200; Q9967

== ENCOUNTER 2022-04-18 11:20 | Emergency (ER) | payer OTHER ==
[~2022-04-18] VITALS: Ht 180.3 cm; Wt 151.5 kg
[~2022-04-18 11:20] MED LIST changes: +KEFLEX500 MG PO
== END 2022-04-18 14:07 | disposition home or self-care (01) ==
LOC: ER 11:28
DX: R05.9 Cough, unspecified (principal); U07.1 COVID-19; R07.89 Other chest pain; E11.9 Type 2 diabetes mellitus without complications; J45.909 Unspecified asthma, uncomplicated; R94.31 Abnormal electrocardiogram [ECG] [EKG]
CPT/HCPCS: 36415; 71045; 84484; 93005; 99283

== ENCOUNTER 2022-07-14 09:58 | Emergency (ER) | payer OTHER ==
[~2022-07-14] VITALS: Ht 180.3 cm; Wt 151.5 kg
== END 2022-07-14 10:40 | disposition home or self-care (01) ==
LOC: ER 10:01
DX: H66.92 Otitis media, unspecified, left ear (principal); E11.9 Type 2 diabetes mellitus without complications; J45.909 Unspecified asthma, uncomplicated; R53.1 Weakness; D57.3 Sickle-cell trait
CPT/HCPCS: 99283

== ENCOUNTER 2023-07-19 09:34 | Emergency (ER) | payer OTHER ==
[~2023-07-19] VITALS: Ht 152.4 cm; Wt 151.5 kg
[2023-07-19] MEDS ORDERED: KETOROLAC TROMETHAMINE 30 MG/ML VIAL IV STA (10:11)
[2023-07-19] MEDS ORDERED: SODIUM CHLORIDE 0.9% 1000ML 1,000 ML IV STA (10:11)
[2023-07-19] MEDS ORDERED: DICYCLOMINE HCL 20 MG/2 ML VIAL IM ONE (10:15)
[2023-07-19] MEDS ORDERED: ONDANSETRON HCL INJ 2MG/ML 2ML 2 MG/ML VIAL IV PRN (10:15)
[2023-07-19 10:19] LABS: BASOPHILS % 0.3 % (0.0-1.0); EOSINOPHILS # (AUTO) 0.3 (0.0-0.4); EOSINOPHILS % 5.1 % (0.0-6.0); HEMATOCRIT 36.7 % (34.2-44.1); HEMOGLOBIN 12.3 g/dL (12.0-16.0); LYMPHOCYTES # (AUTO) 1.7 (1.0-3.2); LYMPHOCYTES % 25.8 % (18.0-39.1); MEAN CORPUSCULAR HEMOGLOBIN 24.7 pg (28-32); MEAN CORPUSCULAR HGB CONC 33.5 g/dL (31-35); MEAN CORPUSCULAR VOLUME 73.7 fL (81-99); MONOCYTES # (AUTO) 0.5 (0.2-0.8); MONOCYTES % 7.5 % (4.4-11.3); PLATELET COUNT 292 x10e3/uL (140-360); RED BLOOD COUNT 4.98 x10e6/uL (3.6-5.1); RED CELL DISTRIBUTION WIDTH 17.6 % (11.7-14.4)
[2023-07-19 11:03] LABS: ALBUMIN 3.6 g/dL (3.5-5.0); ALBUMIN/GLOBULIN RATIO 0.8 (0.8-2.0); ANION GAP 12.8 mmol/L (8-16); CALCIUM 9.4 mg/dL (8.4-10.2); CREATININE, SERUM 0.77 mg/dL (0.57-1.11); POTASSIUM 3.8 mmol/L (3.5-5.1)
[2023-07-19 11:45] LABS: CLARITY,URINE CLOUDY (CLEAR); COLOR,URINE YELLOW (YELLOW); KETONES,URINE TRACE (NEGATIVE); LEUKOCYTE ESTERASE ,URINE NEGATIVE (NEGATIVE); NITRITE,URINE NEGATIVE (NEGATIVE); PROTEIN,URINE DIPSTICK 2+ (NEGATIVE)
[2023-07-19 11:46] LABS: URINE UROBILINOGEN 1 mg/dL (0.2 - 1)
[2023-07-19 11:49] VITALS: O2SAT 98
[2023-07-19 11:50] LABS: EPITHELIAL CELLS,URINE FEW /LPF; RBC,URINE 0-5 /HPF (0-5)
[2023-07-19 12:05] LABS: BACTERIA,URINE FEW /HPF; WBC,URINE (MAN) 0-5 /HPF (0-5)
[2023-07-19] MEDS ORDERED: NAPROXEN500 M1 PO (12:37)
[2023-07-19] MEDS ORDERED: IBUPROFEN 400 MG TAB ONE (14:08)
[2023-07-19] MEDS ORDERED: LACTATED RINGER'S 1,000 ML ONE (14:08)
[2023-07-19] MEDS ORDERED: ACETAMINOPHEN 325 MG TAB ONE (14:09)
== END 2023-07-19 13:31 | disposition home or self-care (01) ==
LOC: ER 09:58
DX: R10.32 Left lower quadrant pain (principal); M79.605 Pain in left leg; M79.604 Pain in right leg; R11.2 Nausea with vomiting, unspecified; E11.9 Type 2 diabetes mellitus without complications; Z86.718 Personal history of other venous thrombosis and embolism
CPT/HCPCS: 36415; 74176; 80053; 81001; 83690; 84702; 85025; 93925; 93970; 99284; J7121

== ENCOUNTER 2024-09-29 12:20 | Emergency (ER) | payer BC, OTHER ==
[~2024-09-29] VITALS: Ht 180.3 cm; Wt 151.5 kg
[~2024-09-29 12:20] MED LIST changes: +NAPROXEN500 M1 PO
[2024-09-29 13:01] VITALS: PULSE 63; RESP 17; TEMP 98.4; O2SAT 99
[2024-09-29] MEDS ORDERED: DEXAMETHASONE SOD PHOS 10 MG/1 ML VIAL ONE (13:17)
[2024-09-29] MEDS ORDERED: KETOROLAC TROMETHAMINE 30 MG/ML VIAL ONE (13:17)
[2024-09-29] MEDS ORDERED: ONDANSETRON ODT4 MG PO (13:21)
[2024-09-29] MEDS ORDERED: ONDANSETRON HCL 4 MG ORAL DISINTEGRATING TAB ONE (13:21)
[2024-09-29] MEDS: KETOROLAC TROMETHAMINE 30 MG/ML VIAL IM STA (13:24)
[2024-09-29] MEDS: DEXAMETHASONE SOD PHOS 10 MG/1 ML VIAL IM ONE (13:24)
[2024-09-29] MEDS: ONDANSETRON HCL 4 MG ORAL DISINTEGRATING TAB PO ONE (13:25)
== END 2024-09-29 13:33 | disposition home or self-care (01) ==
LOC: ER 13:12
DX: R52 Pain, unspecified (principal); R11.0 Nausea; E11.9 Type 2 diabetes mellitus without complications; M32.9 Systemic lupus erythematosus, unspecified; D57.3 Sickle-cell trait
CPT/HCPCS: 99282; J1100; J1885; Q0162